=== PATIENT | female | born 1935 | race Caucasian/White ===

== ENCOUNTER 2017-05-08 13:27 | Inpatient (IN) | payer MEDICARE, SELFPAY ==
[2017-05-08] VITALS (11 sets, daily range): BP systolic 112–170; BP diastolic 53–105; PULSE 51–74; RESP 17–20; TEMP 35.9–37.1; O2SAT 95–100; BMI 32.5; BMI 32.6; BMI 32.7
--- NOTE | 2017-05-08 13:33 | CT_ITS ---
STUDY: CT BRAIN WITHOUT CONTRAST REASON FOR EXAM: Female, 82 years old. Dizziness. RADIATION DOSAGE (If Supplied By Facility): CTDIvol = ( 44.99 ) mGy, DLP = ( 762.36 ) mGycm TECHNIQUE: Transaxial CT imaging of the brain was performed without administration of intravenous contrast material. Individualized dose optimization techniques were used for this CT. COMPARISON: 07/05/2016. FINDINGS: Normal soft tissue structures. Normal calvarium. There is mild cerebral atrophy with widening of the extra-axial spaces and ventricular dilatation. There are areas of decreased attenuation within the white matter tracts of the supratentorial brain, consistent with microvascular disease changes. 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 Normal brainstem. There is mild cerebellar atrophy. There is no intracranial hemorrhage. There are no findings of an acute ischemic infarction. Normal visualized paranasal sinuses. CT/Brain/Head without Contrast IMPRESSION: Atrophy and white matter disease. No acute abnormality. Electronically Signed: Wilmer Kingsley MD at 14:55 EDT , Service support ,
--- NOTE | 2017-05-08 13:37 | EKG12_ITS ---
Test Reason : Blood Pressure : / mmHG Vent. Rate : 058 BPM Atrial Rate : 058 BPM P-R Int : 190 ms QRS Dur : 086 ms QT Int : 428 ms P-R-T Axes : 054 008 063 degrees QTc Int : 420 ms Sinus bradycardia Low voltage QRS Borderline ECG Confirmed by NILDA RAMIRES, JOHNNIE ([id number]), editorial specialist PIERO ARTEAGA ([id number]) on 05/11/2017 1:17:10 PM Referred By: KOSTAS Confirmed By:JOHNNIE MUNGUIA MD
--- NOTE | 2017-05-08 13:50 | ED.RN ---
called [id number] and left message with nikki neonatal social worker for the emergency department, that pt is in need of being seen. per ems to triage nurse pt lives at home with a son in his 60's who she cares for and is an alcoholic. ems reports pt looked like a corpse and the house was a mess. ems reports that they were going to call adult protective services.
[2017-05-08 14:06] LABS: Absolute Lymphocyte Count 1.29 X10^3/ul (0.83-4.51); Absolute Neutrophil Count 4.1 X10^3/uL (2.0-7.7); Basophil# 0.02 X10^3/uL; Basophil% 0.3 % (0-1); Eosinophil# 0.14 X10^3/uL; Eosinophils% 2.3 % (0-5); Hematocrit 40.1 % (37-47); Hemoglobin 13.3 g/dl (12.0-15.0); Lymphocyte # 1.29 X10^3/ul (4.0); Lymphocyte % 21.4 % (19-41); Mean Corp Hgb Conc 33.2 g/gl (32-36); Mean Corpuscular Hgb 27.6 pg (27.0-32.0); Mean Corpuscular Volume 83.2 fL (81-99); Mean Platelet Vol. 9.8 fl (6.2-12.0); Monocyte# 0.48 X10^3/uL; Neutrophil # 4.09 X10^3/uL (2.7-7.7); Neutrophil % 67.8 % (47-70); POSITIVE COUNT NO; POSITIVE DIFFERENTIAL NO; POSITIVE MORPHOLOGY NO; Platelet Count 214 K/mm3 (150-450); RBC Distribution Width CV 15.5 % (11.6-14.6); RBC Distribution Width SD 47.3 fl (35.1-43.9); Red Blood Count 4.82 M/mm3 (4.2-5.4)
[2017-05-08] MEDS: 0.9% Normal Saline 1,000 ML 1000 ML IV (14:11)
[2017-05-08] MEDS: Ondansetron 4 MG/2 ML Vial IV (14:11)
--- NOTE | 2017-05-08 14:20 | NURSING ---
NO LW OR POA
[2017-05-08 14:25] LABS: ALB/GLOB Ratio 0.9 RATIO (0.9-2.4); AST(SGOT) 24 U/L (15-37); Alanine Aminotransfer ALT/SGPT 16 U/L (13-56); Albumin, Serum 3.7 g/dL (3.2-5.0); Alkaline Phosphatase 84 U/L (45-117); Anion Gap 9 (5-15); BUN 15 mg/dL (7-18); BUN/Creat Ratio 12.2 RATIO (10-20); Calcium,Total 9.1 mg/dL (8.5-10.1); Chloride 101 mmol/L (98-107); Creatinine, Serum 1.23 mg/dL (0.55-1.02); EST Glomerular Filtration Rate 44 mL/min (>60); Est Glom Filt Rate - Afr Amer 54 mL/min (>60); Estimated Creatinine Clearance 30.45 ml/min; Globulin 4.3 g/dL (2.2-4.2); Glucose 110 mg/dL (74-106); Potassium 3.9 mmol/L (3.5-5.1); Sodium Level 133 mmol/L (136-145)
[2017-05-08 14:33] LABS: Mucous, Urine 0 SEEN /hpf (<or=2+)
[2017-05-08 14:36] LABS: Color, Urine Yellow (Yellow); Glucose, Dipstick Normal (Normal); Ketone-Dipstick Negative (Negative); Leukocyte Esterase-Dipstick 500 /ul (Negative); Nitrite-Dipstick Positive (Negative); Occult Blood-Urine 25 /ul (Negative); Protein-Dipstick Negative (Negative); Specific Gravity, Urine 1.005 (1.002-1.030); Urine Bilirubin Dipstick Negative (Negative); Urine Clarity Sl. Cloudy (Clear); Urine Urobilinogen Normal (Normal)
[2017-05-08 14:43] LABS: Bacteria 1+ /hpf (None Seen); Red Blood Cells-Urine 0-5 SEEN /hpf (0-5); Squamous Epithelial Cells - UA 0-5 SEEN /hpf (5-10); White Blood Cells 5-10 SEEN /hpf (0-5)
--- NOTE | 2017-05-08 14:53 | ED.DCSUM_ITS ---
- ER Visit Summary Date of Service: 05/08/17 Chief Complaint: Dizziness, vomiting History of Present Illness: The patient is a 82 F with the sensation of lightheadedness and vomiting. The patient states she has had similar symptoms in the past. She has a history of aortic valve replacement but is not anticoagulated. She states over the past 2 days, she has had increased urinary frequency and urgency. She states that she is also had increasing dizziness. She describes it as lightheadedness and sensation of motion especially when she changes position. She states when she sits up quickly, she feels as if she is going to pass out. She has been nauseated with no appetite. The patient was brought in by squad. Apparently on squad arrival, the patient's house is in significant disarray. They are concerned that she is not meeting her normal ADLs because of her living conditions. She apparently lives with her son who is a reported alcoholic. The patient has basically been bedbound for 2 days because of her symptoms. She states that she had similar symptoms like this before when she had a bleeding ulcer and her blood counts were low. She denies any change in bowel habits. Physical Examination: Vital signs reviewed General: Well-nourished, well-developed Head: Normocephalic, atraumatic Eyes: Pupils equal and reactive, extraocular muscles intact Neck, supple, no lymphadenopathy Heart: Regular rate and rhythm Respiratory: No distress, clear bilaterally Abdomen: Soft, nontender, nondistended, no peritoneal signs Back: Nontender Extremities: Nontender, no edema, no cords Skin: Normal color no rash Neuro: Alert and oriented, no focal or lateralizing deficits Test Results: KG demonstrates sinus bradycardia with no acute ischemic change. Labs are unremarkable. CT had unremarkable. Urine does show infection. Emergency Department Course and Treatment: She has basically been bedbound because of her symptoms. She describes mostly near syncope and lightheadedness with motion. This does not seem vertiginous. She has no other brainstem symptoms are concerning for stroke. I do feel this is likely metabolic in nature. Her hemoglobin is unremarkable. Her head CT is unremarkable. Her urine does show evidence of infection. Patient was evaluated by social work. It was thought that she would best be served with admission. I am going to start the patient on IV antibiotics and fluids. The patient was discussed with the hospitalist will be admitted. Treatment Plan: [] Disposition: Admission Impression:. UTI 2. Lightheadedness This note was generated with Windward dictation software. It may contain incorrect words, spelling, and punctuation that were not noted in review of the chart prior to signing ED Disposition - Plan for ED Patient: Chief Complaint: Dizziness
--- NOTE | 2017-05-08 15:07 | CM.ED ---
Social work notified of concerns and will follow-up with patient.
--- NOTE | 2017-05-08 15:15 | NURSING ---
DR MOY FOR DR KENYON
--- NOTE | 2017-05-08 15:18 | NURSING ---
MED SURG ACUTE CYSTITIS, DIZZINESS, PHYSICAL DEBILITY ASEOHH
[2017-05-08] MEDS: Ceftriaxone 1 GM/50 mL Premix x1 IV (15:37)
--- NOTE | 2017-05-08 15:44 | HP.PCM_ITS ---
Problem List (1) Status post aortic valve replacement with bioprosthetic valve Status: Chronic (2) history of microcytic anemia Status: Chronic (3) Hypothyroidism Status: Chronic (4) HTN (hypertension) Status: Chronic (5) Hyperlipidemia Status: Chronic (6) Aortic valve stenosis Status: Chronic History of Present Illness Date of Admission: 05/08/17 Chief Complaint: Dizziness, vomiting. The patient is a 82 year old F with past medical history as mentioned above presented to the emergency room because of dizziness and vomiting. The patient is poor informant and was not able to provide good history because she is hard of hearing and because of her age. Her symptoms started over the past 2 days with dizziness upon standing associated with nausea and vomiting once or twice. Also, she complains of frequency and difficulty concentrating her urine. She denies dysuria or foul-smelling urine. She complained of suprapubic discomfort. She denies fever chills. No chest pain or shortness of breath. She denies cough or sputum production. She has a history of aortic stenosis status post aortic valve replacement with bioprosthetic valve and she is following up with her cardiac surgeon up in [place]. She had a history of hypertension she has been on 3 different antihypertensive medications and she mentioned that recently, her blood pressure has been fluctuating significantly. She has history of hypothyroidism and she has been on levothyroxine and most recent TSH was back in February, and it was normal. Patient mentioned that she lives with her grandson at home who is a smoker and drinker. In the emergency room, she was afebrile, heart rate was stable, blood pressure initially was slightly elevated but improved and his blood pressure drop around 20 points upon standing, pulse ox was normal On room air. Routine blood work is remarkable for sodium of 133 and creatinine of 1.23, otherwise normal. LFT was normal. Urinalysis revealed cloudy urine, positive for nitrite and leukocyte esterase and there was a 5-10 WBCs and 1+ bacteria. CT scan brain showed no acute infarction or hemorrhage. She is being admitted for acute cystitis, dizziness with questionable orthostatic hypotension and physical debility. Past Medical History Past Medical History (Chronic Problems): Chronic Problems Status post aortic valve replacement with bioprosthetic valve (Chronic) history of microcytic anemia (Chronic) Hypothyroidism (Chronic) HTN (hypertension) (Chronic) Hyperlipidemia (Chronic) Aortic valve stenosis (Chronic) Allergies adhesive Adverse Reaction (Verified 05/08/17 13:34) Rash Home Medications: Ambulatory Orders Medication Instructions Recorded Pantoprazole Sodium [Protonix] 40 mg PO DAILY 05/21/13 Pravastatin [Pravachol] 20 mg PO QHS 05/21/13 Hydrochlorothiazide [Hctz] 25 mg PO DAILY 07/05/16 Aspirin 81 mg PO DAILY 05/08/17 Docusate Sodium [Dulcoease] 100 mg PO DAILY PRN 05/08/17 Levothyroxine [Synthroid] 75 mcg PO DAILY 05/08/17 Losartan Potassium [Losartan 100 mg PO DAILY 05/08/17 Potassium] Metoprolol Tartrate [Lopressor 25 mg PO BID 05/08/17 (beta oneyda)] Surgical History: appendectomy, - - Aortic valve replacement Smoking Status: Never smoker Alcohol: None Drugs: None - *Family History Maternal History Items: No pertinent history Paternal History Items: No pertinent history Review of Systems Constitutional: Reports: Weakness. Denies: Anorexia, Chills, Fever Eyes: Denies: Blurred vision, Double vision, Drainage, Redness HEENT: Denies: Difficulty Hearing, Ear Pain, Eye Pain, Nasal Congestion, Sore Throat Cardiovascular: Reports: Light Headedness. Denies: Chest Pain, Chest Pressure, Chest Tightness, Heaviness, Palpitations, Syncope Respiratory: Denies: Cough, Pleuritic Pain, Shortness of Breath, Sputum production, Wheezing Gastrointestinal: Reports: Nausea. Denies: Abdominal Pain, Constipation, Diarrhea, Vomiting Genitourinary: Reports: Frequency, Incontinence. Denies: Dysuria, Hematuria Musculoskeletal: Denies: Arm Pain, Back Pain, Foot Pain Skin: Denies: Dryness, Rash Neurological: Denies: Balance problems, Double vision, Change in Speech, Slurred speech, Confusion, Difficulty swallowing, Incoordination, Numbness Psychiatric: Denies: Anxiety, Depression Endocrine: Denies: Change in Body Habitus, Polydipsia VTE Information - Inpt Only VTE Present on Admission: No VTE Mechan Device Prophylaxis: None VTE Pharm Prophylaxis ordered?: Yes - Physical Exam General: Alert, Oriented x3, Cooperative, No apparent distress, - - Hard of hearing. HEENT: Atraumatic, PERRLA, EOMI Oral: Moist Mucosa, No Gingival or Mucosal Lesions/ Ulcerations Neck: Supple, No JVD, Negative Carotid Bruits, Trachea Midline, Thyroid Normal Size and Texture Lungs: Clear to auscultation, No rhonchi, No wheeze, No rales, Diminished Cardiovascular: Regular rate, Regular Rhythm, Normal S1, Normal S2, PMI Normal, Murmur - Systolic murmur. Abdomen: Bowel Sounds Present, Soft, Non Tender, Non-Distended, No Hepato- splenomegaly, Obese Extremities: No clubbing, No cyanosis, No edema Skin: No rashes, No breakdown Lymphatic: No Cervical, Supraclavicular, or Inguinal Adenopathy Neurological: Cranial nerves II-XII grossly intact, Motor Exam 5/5 strength throughout Psych/Mental Status: Normal Affect, Appropriate, Alert and oriented to time, place, person, mood and affect Vital Signs Temp Pulse Resp BP Pulse Ox 98.3 F 66 19 H 120/76 97 05/08/17 13:29 05/08/17 15:25 05/08/17 15:25 05/08/17 15:25 05/08/17 15:25 Oxygen Delivery Method Room Air Weight: 190 lb Body Mass Index (BMI) 32.5 Laboratory Tests Past 24 Hrs 05/08/17 05/08/17 05/08/17 13:39 13:39 14:26 WBC 6.0 RBC 4.82 Hgb 13.3 Hct 40.1 MCV 83.2 MCH 27.6 MCHC 33.2 RDW 15.5 H RDW Differential 47.3 H Plt Count 214 MPV 9.8 Immature Gran % (Auto) 0.200 Neut % (Auto) 67.8 Lymph % (Auto) 21.4 Bibb % (Auto) 8.0 Eos % (Auto) 2.3 Baso % (Auto) 0.3 Absolute Neuts (auto) 4.1 Absolute Lymphs (auto) 1.29 Total Counted Not Reportable Sodium 133 L Potassium 3.9 Chloride 101 Carbon Dioxide 23.0 Anion Gap 9 BUN 15 Creatinine 1.23 H Estim Creat Clear Calc 30.45 Est GFR (MDRD) Af Amer 54 L Est GFR (MDRD) Non-Af 44 L BUN/Creatinine Ratio 12.2 Glucose 110 H Calcium 9.1 Total Bilirubin 0.90 AST 24 ALT 16 Alkaline Phosphatase 84 Troponin I < 0.02 Total Protein 8.0 Albumin 3.7 Globulin 4.3 H Albumin/Globulin Ratio 0.9 Urine Color Yellow Urine Clarity Sl. Cloudy Urine pH 7.0 Ur Specific [place] 1.005 Urine Protein Negative Urine Glucose (UA) Normal Urine Ketones Negative Urine Occult Blood 25 H Urine Nitrite Positive H Urine Bilirubin Negative Urine Urobilinogen Normal Ur Leukocyte Esterase 500 H Urine RBC 0-5 SEEN Urine WBC 5-10 SEEN Ur Squamous Epith Cells 0-5 SEEN Urine Bacteria 1+ Urine Mucus 0 SEEN Clinical Impression(s) from Imaging Studies Brain CT 05/08/17 13:33 IMPRESSION: Atrophy and white matter disease. No acute abnormality. Electronically Signed: Wilmer Kingsley MD at 14:55 EDT , Service support , Assessment/Plan This is an 82 years old female patient presented to the emergency room because of dizziness, nausea and vomiting and weakness and she was found to have acute cystitis and her orthostatic vitals were questionably positive. #1 acute cystitis: UA reviewed, positive for leukocyte esterase and nitrate, there was 1+ bacteria and 5-10 WBCs. No evidence of sepsis or severe sepsis. Plan: Admit to [facility] floor, telemetry, IV fluids, IV Rocephin, urine culture, repeat CBC and BMP tomorrow morning, PT OT evaluation and treatment. #2 dizziness: Initial blood pressure was slightly elevated. Upon standing, blood pressure came down around 21 points, heart rate has been stable. EKG revealed normal sinus rhythm with low voltage QRS, no acute ischemic changes. Patient mentioned that her blood pressure has been fluctuating recently. Plan: IV fluids, repeat orthostatic vitals tomorrow morning, 2D echocardiogram. #3 mild hyponatremia/dehydration: Likely because of HCTZ, creatinine is 1.2 which is chronically at the same level. Plan for IV fluids, encourage oral intake, repeat BMP tomorrow morning. #4 status post aortic valve replacement with bioprosthetic valve: She has been following up with her doctor up in [facility]. I am not sure when she had her last 2D echocardiogram. EKG revealed normal sinus rhythm with low voltage QRS. She denies any chest pain or shortness of breath. Plan: 2D echocardiogram. #5 hypertension: Blood pressure has been fluctuating in the emergency room. Plan to continue losartan and metoprolol, hold HCTZ. #6 hyperlipidemia: Continue statins. #7 hypothyroidism: Continue levothyroxine, TSH was normal on February, #8 DVT prophylaxis: Subcu Lovenox. This note was generated with iAgree dictation software. It may contain incorrect words, spelling, and punctuation that were not noted in checking the note before signing. Code Visit Inpatient E&M: 79408 Init Hosp L3
--- NOTE | 2017-05-08 16:36 | ECHOD_ITS ---
Reason For Study: VALVE REPLACEMENT Procedure This was a 2D Doppler, Color Flow transthoracic echocardiogram. Exam performed portable in patient room. Left Ventricle Normal size and thickness. The estimated ejection fraction is 65 %. Stage 2 diastolic dysfunction. No regional wall motion abnormalities noted. Right Ventricle Mildly dilated right ventricle. Normal systolic function. Atria The left atrium is severely enlarged. Normal right atrium. Normal atrial septum. Mitral Valve Mild diffuse mitral valve thickening. Trivial mitral valve insufficiency. Tricuspid Valve Normal tricuspid valve. Moderate (2+) tricuspid valve insufficiency. Right ventricular systolic pressure estimated to be 55 mmHg. Moderate pulmonary hypertension. Aortic Valve Peak aortic valve gradient 19 mmHg. Mean aortic valve gradient 11 mmHg. Bioprosthetic aortic valve. Pulmonic Valve Normal pulmonic valve. Trivial eccentric pulmonic valve insufficiency. Great Vessels Normal aortic root. Normal arch. Normal inferior vena cava. Inferior vena cava collapse with sniff. Pericardium/Pleural No pericardial effusion. MMode/2D Measurements & Calculations LVIDd: 4.3 cm IVSd: 1.1 cm LA dimension: 5.1 cm LVIDs: 2.8 cm LVPWd: 1.0 cm RVDd: 3.8 cm FS: 35.3 % LAV(MOD-bp): 60.2 ml EDV(MOD-sp4): 73.5 ml EDV(MOD-sp2): 85.6 ml LAV(MOD-bp) Indexed: 31.4 ml/m2 ESV(MOD-sp4): 32.6 ml EF(MOD-sp2): 64.0 % LAV(MOD-sp2): 51.2 ml EF(MOD-sp4): 55.7 % LAV(MOD-sp4): 71.3 ml SV(MOD-sp4): 40.9 ml SV(MOD-sp2): 54.8 ml LA A4 area: 23.5 cm2 RA A4 area: 15.1 cm2 Doppler Measurements & Calculations MV E max rivka: 106.1 cm/sec Ao V2 max: 234.9 cm/sec LV V1 max: 98.3 cm/sec MV A max rivka: 82.7 cm/sec Ao max P.3 mmHg LV V1 max P.9 mmHg MV E/A: 1.3 Ao V2 mean: 162.2 cm/sec LV V1 mean P.3 mmHg Ao mean P.2 mmHg LV V1 mean: 71.5 cm/sec Ao V2 VTI: 60.8 cm LV V1 VTI: 26.7 cm TR max rivka: 353.1 cm/sec TR max P.9 mmHg Interpretation Summary The estimated ejection fraction is 65 %. Stage 2 diastolic dysfunction. Mildly dilated right ventricle. The left atrium is severely enlarged. Trivial mitral valve insufficiency. Moderate (2+) tricuspid valve insufficiency. Right ventricular systolic pressure estimated to be 55 mmHg. Moderate pulmonary hypertension. Normal functioning bioprosthetic aortic valve. Compared to echo report dated 12/22/2013, LV function and aortic gradients have remained the same. RVSP not noted at that time. Ordering Physician: Mahad Ceja Referring Physician: MICHELLE SALDIVAR Performed By: Mabel Caceres RDCS, BRIGIDAT
[2017-05-08] MEDS: Acetaminophen 325 MG Tablet 650 MG PO (16:53)
[2017-05-08] MEDS: Pravastatin 20 MG Tablet PO (21:53)
[2017-05-08] MEDS: 0.9% Normal Saline 1,000 ML 100 ML IV (21:53)
[2017-05-08] MEDS: Metoprolol Tartrate 25 MG Tablet PO (21:53)
[2017-05-09] VITALS (15 sets, daily range): BP systolic 131–151; BP diastolic 56–72; PULSE 50–61; RESP 16–20; TEMP 35.8–37.1; O2SAT 96–100
--- NOTE | 2017-05-09 04:05 | EKG12_ITS ---
Test Reason : RHYTHM CHANGE Blood Pressure : / mmHG Vent. Rate : 051 BPM Atrial Rate : 051 BPM P-R Int : 246 ms QRS Dur : 086 ms QT Int : 486 ms P-R-T Axes : 054 018 045 degrees QTc Int : 447 ms Sinus bradycardia with 1st degree A-V block Low voltage QRS Borderline ECG When compared with ECG of 08-MAY-2017 13:45, MANUAL COMPARISON REQUIRED, DATA IS UNCONFIRMED Confirmed by NILDA RAMIRES, JOHNNIE ([id number]), news editor PIERO ARTEAGA ([id number]) on 05/18/2017 2:54:28 PM Referred By: CHINMAY Confirmed By:JOHNNIE MUNGUIA MD
[2017-05-09] MEDS: Levothyroxine 75 MCG Tablet PO (06:26)
[2017-05-09 06:27] LABS: Absolute Lymphocyte Count 1.15 X10^3/ul (0.83-4.51); Absolute Neutrophil Count 2.9 X10^3/uL (2.0-7.7); Basophil# 0.02 X10^3/uL; Basophil% 0.4 % (0-1); Eosinophil# 0.25 X10^3/uL; Eosinophils% 5.2 % (0-5); Hematocrit 33.9 % (37-47); Hemoglobin 11.5 g/dl (12.0-15.0); Lymphocyte # 1.15 X10^3/ul (4.0); Mean Corp Hgb Conc 33.9 g/gl (32-36); Mean Corpuscular Hgb 28.3 pg (27.0-32.0); Mean Corpuscular Volume 83.3 fL (81-99); Mean Platelet Vol. 9.4 fl (6.2-12.0); Monocyte# 0.47 X10^3/uL; Monocyte% 9.8 % (0-10); Neutrophil # 2.89 X10^3/uL (2.7-7.7); Neutrophil % 60.4 % (47-70); Platelet Count 194 K/mm3 (150-450); RBC Distribution Width SD 45.2 fl (35.1-43.9); Red Blood Count 4.07 M/mm3 (4.2-5.4); White Blood Count 4.8 K/mm3 (4.4-11.0)
[2017-05-09] MEDS: Nystatin Powder 15gm Bottle 1 APPLIC TOPICAL ×3 (06:28→21:27)
[2017-05-09 06:32] LABS: POSITIVE COUNT NO; POSITIVE DIFFERENTIAL NO; POSITIVE MORPHOLOGY NO
--- NOTE | 2017-05-09 06:33 | NURSING ---
Orthostatic VS negative but pt. felt dizzy and slightly nauseated upon standing.
[2017-05-09 06:51] LABS: Anion Gap 8 (5-15); BUN 16 mg/dL (7-18); BUN/Creat Ratio 15.8 RATIO (10-20); Calcium,Total 8.5 mg/dL (8.5-10.1); Chloride 105 mmol/L (98-107); Creatinine, Serum 1.01 mg/dL (0.55-1.02); EST Glomerular Filtration Rate 56 mL/min (>60); Est Glom Filt Rate - Afr Amer 68 mL/min (>60); Estimated Creatinine Clearance 37.08 ml/min; Glucose 94 mg/dL (74-106); Potassium 3.8 mmol/L (3.5-5.1); Sodium Level 136 mmol/L (136-145)
[2017-05-09] MEDS: 0.9% Normal Saline 1,000 ML 100 ML IV ×2 (07:31→17:17)
[2017-05-09] MEDS: Docusate Sodium 100 MG Capsule PO (09:23)
[2017-05-09] MEDS: Enoxaparin 30 MG/0.3 ML Syringe SC (09:23)
[2017-05-09] MEDS: Losartan Potassium 100 MG Tablet PO (09:23)
[2017-05-09] MEDS: Pantoprazole Sodium 40 MG Tablet PO (09:23)
[2017-05-09] MEDS: Ceftriaxone 1 GM/50 ML BAG IV (09:23)
[2017-05-09] MEDS: Aspirin 81 MG TAB.CHEW PO (09:23)
--- NOTE | 2017-05-09 10:36 | CASEMGMT ---
Addendum entered by Roz Thomason 05/09/17 10:46: SW spoke w/Guillermo from [facility], she has been part of the program for four years. She states they monitor her closely, but she is fairly independent. In regard to the son, Guillermo confirms he drinks, he is very pleasant however. She does not see safety as an issue for this pt in regard to the son, but they will continue to monitor. JIM Gabriel, [employer] Original Note: SW spoke w/pt in room. Pt reports to live w/her son in a one story, 5 room home. Pt is independent at home, drives, does laundry in basement, cooks, cleans. Pt drives, sees a jacquard loom card changer at [employer] and drives herself there. Her son does not have a license. Pt does have [facility]. Pt states her son is POA. Pt does state her son drinks a lot, states he does not want help. She explains she wishes she knew who was sneaking in beer to her son, she states she does not hear well, she thinks someone is sneaking in the alcohol through the sliding door in one of the bathrooms. Pt explains her son has broken both hips, one 2-3 years ago after a fall and the other a year ago after another fall. She states he can barely walk, thinks he is depressed. Her granddaughter, his daughter, checked on him this morning and he is up watching TV. SW and pt discussed discharge plan. Pt does not have any interest in going to SNF, may consider home health--she had this once prior 4 years ago. SCARLETT explained that SCARLETT/YAMILETH will continue to follow for discharge planning needs. JIM Gabriel, [employer]
--- NOTE | 2017-05-09 10:41 | PCM.PROGNOTE ---
Subjective: 82-year-old female with a history of bioprosthetic aortic valve replacement, microcytic anemia, hypothyroidism, hypertension, hyperlipidemia to [facility] [place] on 05/08/2017 complaining of dizziness and vomiting. Also complained of urinary frequency dysuria. Vital signs at presentation to the emergency room were temperature 98.3, pulse rate 74, blood pressure 170/93, respiratory rate 20 and she was 97% saturated on room air. CBC was unremarkable. Sodium was mildly decreased at 133 and she is on a diuretic as an outpatient. BUN was 15 with a creatinine of 1.23. LFTs were unremarkable and troponin was less than 0.02. UA showed 5-10 white blood cells, 0-5 squamous epithelial cells, 1+ bacteria and was nitrite positive. This was a catheterized specimen and it was sent for urine culture. CT brain showed atrophy and white matter disease but no acute abnormalities. No chest x-ray was done. She was admitted to the hospital with a diagnosis of acute cystitis and was started on IV Rocephin. Per Dr. Cotton's note she had orthostatic hypotension when standing in the emergency room. IV fluids were ordered. Orthostatic vital signs have improved today. The heart rate increases from 50-61 with standing but the blood pressure was stable. Balance since admission is -379. Hemoglobin has decreased to 11.5 with hydration. White blood cell count remains normal and the platelets are also normal. Electrolytes are within normal limits and the sodium is 136 today. Creatinine has decreased 1.01 from 1.23 with hydration. Echocardiogram was done today and shows an estimated ejection fraction of 65% with stage II diastolic dysfunction. The right ventricle is mildly dilated and the left atrium is severely enlarged. There is 2+ TR. The right ventricular systolic pressure was estimated at 55 and the bioprosthetic aortic valve is functioning normally. She gets lightheaded and dizzy when she stands and attempts to walk. She has hearing loss and tinnitus in addition to vertigo - Meniere's? Has never tried Antivert. she denies ever having had a CVA - Physical Exam General: Alert, Oriented x3, Cooperative HEENT: Atraumatic, PERRLA Oral: Moist Mucosa Neck: Supple, Negative Carotid Bruits, No Nodes, No Nuchal Rigidity, Trachea Midline Lungs: Clear to auscultation, Diminished Cardiovascular: Regular rate, Regular Rhythm, Normal S1, Normal S2, Murmur - systolic heard best at the LLSB and the apex Abdomen: Bowel Sounds Present, Soft, Non Tender, Non-Distended, Obese Extremities: No clubbing, No cyanosis, No edema Skin: No rashes Neurological: Cranial nerves II-XII grossly intact, Neuro grossly intact Psych/Mental Status: Normal Affect, Appropriate Vital Signs Temp Pulse Resp BP Pulse Ox 97.9 F 51 L 16 151/64 H 100 05/09/17 09:05 05/09/17 09:05 05/09/17 09:05 05/09/17 09:05 05/09/17 09:05 Oxygen Delivery Method Room Air Weight: 190 lb 7.67 oz Body Mass Index (BMI) 32.7 Orthostatic Vital Signs Start: 05/09/17 03:03 Freq: 0600 Status: Active Protocol: Activity Type Activity Date Activity User E-Sign Co-Sign Detail Recorded Client Recorded Date Recorded By Document 05/09/17 06:15 PAL [id number] 05/09/17 06:32 PAL 05/09/17 06:15 Orthostatic Vitals Standing -Blood Pressure (90/60-120/80 mm Hg) 136/64 H -Extremity Use Right Arm -Pulse Rate (60-100 beats/min) 61 Sitting -Blood Pressure (90/60-120/80 mm Hg) 141/72 H -Extremity Use Right Arm -Pulse Rate (60-100 beats/min) 59 L Lying -Blood Pressure (90/60-120/80 mm Hg) 135/67 H -Extremity Use Right Arm -Pulse Rate (60-100 beats/min) 50 L Intake and Output for Last 24 Hours 05/07/17 05/08/17 05/09/17 23:59 23:59 23:59 Intake Total 911 / 911 1035 / 1035 Output Total 1275 / 1275 1050 / 1050 Balance -364 / -364 -15 / -15 Laboratory Tests Past 24 Hrs 05/09/17 05/09/17 05:50 05:50 WBC 4.8 RBC 4.07 L Hgb 11.5 L Hct 33.9 L MCV 83.3 MCH 28.3 MCHC 33.9 RDW 15.0 H RDW Differential 45.2 H Plt Count 194 MPV 9.4 Immature Gran % (Auto) 0.200 Neut % (Auto) 60.4 Lymph % (Auto) 24.0 Will % (Auto) 9.8 Eos % (Auto) 5.2 H Baso % (Auto) 0.4 Absolute Neuts (auto) 2.9 Absolute Lymphs (auto) 1.15 Total Counted Not Reportable Sodium 136 Potassium 3.8 Chloride 105 Carbon Dioxide 23.0 Anion Gap 8 BUN 16 Creatinine 1.01 Estim Creat Clear Calc 37.08 Est GFR (MDRD) Af Amer 68 Est GFR (MDRD) Non-Af 56 L BUN/Creatinine Ratio 15.8 Glucose 94 Calcium 8.5 Assessment/Plan Day #2 Rocephin Impressions 1. Acute cystitis -preliminary on the urine culture is greater than 100,000 staphylococcal species. This raises concern for the prosthetic valve...no vegetations on the AV today. 2. History of bioprosthetic aortic valve replacement 3. N/N anemia 4. Hypothyroidism 5. Hypertension 6. Hyperlipidemia 7. obesity 8. Orthostatic hypotension aat admission - resolve but she continues to c/o dizziness.....this in conjunction with tinnitus and hearing loss puts Meniere's in the differential....would also consider a posterior circulation CVA. Can not do an MRI because of the sternotomy and valve replacement 9. Stage II diastolic dysfunction 10. Pulmonary hypertension with an estimated right ventricular systolic pressure of 55 11. Severe left atrial enlargement continue the rocephin and add Vancomycin until the urine culture is back Draw 2 blood cultures now and then start the Vanco Recheck the lab in the AM Start Antivert If the dizziness and the inability to ambulate persist will repeat the CT of the brain continue PT/OT Code Visit Inpatient E&M: 37591 Subs Hosp L2
--- NOTE | 2017-05-09 10:46 | PN_ITS ---
Subjective: 82-year-old female with a history of bioprosthetic aortic valve replacement, microcytic anemia, hypothyroidism, hypertension, hyperlipidemia to [facility] on 05/08/2017 complaining of dizziness and vomiting. Also complained of urinary frequency dysuria. Vital signs at presentation to the emergency room were temperature 98.3, pulse rate 74, blood pressure 170/93, respiratory rate 20 and she was 97% saturated on room air. CBC was unremarkable. Sodium was mildly decreased at 133 and she is on a diuretic as an outpatient. BUN was 15 with a creatinine of 1.23. LFTs were unremarkable and troponin was less than 0.02. UA showed 5-10 white blood cells, 0-5 squamous epithelial cells, 1+ bacteria and was nitrite positive. This was a catheterized specimen and it was sent for urine culture. CT brain showed atrophy and white matter disease but no acute abnormalities. No chest x-ray was done. She was admitted to the hospital with a diagnosis of acute cystitis and was started on IV Rocephin. Per Dr. Cotton's note she had orthostatic hypotension when standing in the emergency room. IV fluids were ordered. Orthostatic vital signs have improved today. The heart rate increases from 50- 61 with standing but the blood pressure was stable. Balance since admission is -379. Hemoglobin has decreased to 11.5 with hydration. White blood cell count remains normal and the platelets are also normal. Electrolytes are within normal limits and the sodium is 136 today. Creatinine has decreased 1.01 from 1.23 with hydration. Echocardiogram was done today and shows an estimated ejection fraction of 65% with stage II diastolic dysfunction. The right ventricle is mildly dilated and the left atrium is severely enlarged. There is 2+ TR. The right ventricular systolic pressure was estimated at 55 and the bioprosthetic aortic valve is functioning normally. She gets lightheaded and dizzy when she stands and attempts to walk. She has hearing loss and tinnitus in addition to vertigo - Meniere's? Has never tried Antivert. she denies ever having had a CVA - Physical Exam General: Alert, Oriented x3, Cooperative HEENT: Atraumatic, PERRLA Oral: Moist Mucosa Neck: Supple, Negative Carotid Bruits, No Nodes, No Nuchal Rigidity, Trachea Midline Lungs: Clear to auscultation, Diminished Cardiovascular: Regular rate, Regular Rhythm, Normal S1, Normal S2, Murmur - systolic heard best at the LLSB and the apex Abdomen: Bowel Sounds Present, Soft, Non Tender, Non-Distended, Obese Extremities: No clubbing, No cyanosis, No edema Skin: No rashes Neurological: Cranial nerves II-XII grossly intact, Neuro grossly intact Psych/Mental Status: Normal Affect, Appropriate Vital Signs Temp Pulse Resp BP Pulse Ox 97.9 F 51 L 16 151/64 H 100 05/09/17 09:05 05/09/17 09:05 05/09/17 09:05 05/09/17 09:05 05/09/17 09:05 Oxygen Delivery Method Room Air Weight: 190 lb 7.67 oz Body Mass Index (BMI) 32.7 Orthostatic Vital Signs Start: 05/09/17 03:03 Freq: 0600 Status: Active Protocol: Activity Type Activity Date Activity User E-Sign Co-Sign Detail Recorded Client Recorded Date Recorded By Document 05/09/17 06:15 PAL [id number] 05/09/17 06:32 PAL 05/09/17 06:15 Orthostatic Vitals Standing -Blood Pressure (90/60-120/80 mm Hg) 136/64 H -Extremity Use Right Arm -Pulse Rate (60-100 beats/min) 61 Sitting -Blood Pressure (90/60-120/80 mm Hg) 141/72 H -Extremity Use Right Arm -Pulse Rate (60-100 beats/min) 59 L Lying -Blood Pressure (90/60-120/80 mm Hg) 135/67 H -Extremity Use Right Arm -Pulse Rate (60-100 beats/min) 50 L Intake and Output for Last 24 Hours 05/07/17 05/08/17 05/09/17 23:59 23:59 23:59 Intake Total 911 / 911 1035 / 1035 Output Total 1275 / 1275 1050 / 1050 Balance -364 / -364 -15 / -15 Laboratory Tests Past 24 Hrs 05/09/17 05/09/17 05:50 05:50 WBC 4.8 RBC 4.07 L Hgb 11.5 L Hct 33.9 L MCV 83.3 MCH 28.3 MCHC 33.9 RDW 15.0 H RDW Differential 45.2 H Plt Count 194 MPV 9.4 Immature Gran % (Auto) 0.200 Neut % (Auto) 60.4 Lymph % (Auto) 24.0 [place] % (Auto) 9.8 Eos % (Auto) 5.2 H Baso % (Auto) 0.4 Absolute Neuts (auto) 2.9 Absolute Lymphs (auto) 1.15 Total Counted Not Reportable Sodium 136 Potassium 3.8 Chloride 105 Carbon Dioxide 23.0 Anion Gap 8 BUN 16 Creatinine 1.01 Estim Creat Clear Calc 37.08 Est GFR (MDRD) Af Amer 68 Est GFR (MDRD) Non-Af 56 L BUN/Creatinine Ratio 15.8 Glucose 94 Calcium 8.5 Assessment/Plan Day #2 Rocephin Impressions 1. Acute cystitis -preliminary on the urine culture is greater than 100,000 staphylococcal species. This raises concern for the prosthetic valve...no vegetations on the AV today. 2. History of bioprosthetic aortic valve replacement 3. N/N anemia 4. Hypothyroidism 5. Hypertension 6. Hyperlipidemia 7. obesity 8. Orthostatic hypotension aat admission - resolve but she continues to c/o dizziness.....this in conjunction with tinnitus and hearing loss puts Meniere' s in the differential....would also consider a posterior circulation CVA. Can not do an MRI because of the sternotomy and valve replacement 9. Stage II diastolic dysfunction 10. Pulmonary hypertension with an estimated right ventricular systolic pressure of 55 11. Severe left atrial enlargement continue the rocephin and add Vancomycin until the urine culture is back Draw 2 blood cultures now and then start the Vanco Recheck the lab in the AM Start Antivert If the dizziness and the inability to ambulate persist will repeat the CT of the brain continue PT/OT Code Visit Inpatient E&M: 49273 Subs Hosp L2
[2017-05-09] MEDS: amLODIPine 2.5 MG Tablet PO (15:24)
[2017-05-09] MEDS: Meclizine 12.5 MG Tablet PO ×2 (15:24→21:31)
[2017-05-09] MEDS: Metoprolol Tartrate 25 MG Tablet 12.5 MG PO ×2 (15:26→21:27)
--- NOTE | 2017-05-09 15:51 | CHAPLAIN ---
Type of Pastoral Visit _x__ Initial Visit ___ Follow-up Visit ___ On-call Visit ___ General Patient Visit ___ Spiritual Assessment ___ Family Conference ___ Bereavement ___ Rapid Response ___ Code Blue ___ Other (describe below) Pastoral Care Referral From _x__ Patient ___ Family ___ Nurse ___ Physician ___ [employer] Special Education Teacher ___ Transport Conductor ___ Other (describe below) Sacrament/Intervention _x__ Active listening ___ Anointing ___ Nondenominational ___ Bereavement ___ Communion ___ Annika exploration ___ _x__ Life review _x__ Prayer ___ Reconciliation ___ Sacrament of Sick _x__ Supportive presence ___ Wedding ___ Other (describe below) Pastoral Comments 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 pt is and then ; Pt says her 59 year old alcoholic son lives with her; pt says she will not allow son to live (and ) on the streets; pt also acknowledges that she will not always be there to wait on him and that he needs to get straightened out; pt continues with other family concerns of a grandchild; when asked about her support, pt could not give answer; pt said she has two other living children but does not indicate that they are helpful; pt did say that a neighbor mows her lawn for her; pt says that she has not had a alevism connection for the last 15 years when she moved to [place];
[2017-05-09] MEDS: Pravastatin 20 MG Tablet PO (21:27)
[2017-05-10] VITALS (14 sets, daily range): BP systolic 112–151; BP diastolic 49–84; PULSE 55–65; RESP 16–18; TEMP 36.6–37.1; O2SAT 96
[2017-05-10] MEDS: 0.9% Normal Saline 1,000 ML 100 ML IV ×2 (04:01→16:48)
[2017-05-10] MEDS: Levothyroxine 75 MCG Tablet PO (06:25)
[2017-05-10] MEDS: Nystatin Powder 15gm Bottle 1 APPLIC TOPICAL ×3 (06:25→21:21)
[2017-05-10 07:11] LABS: Anion Gap 8 (5-15); BUN 16 mg/dL (7-18); BUN/Creat Ratio 15.7 RATIO (10-20); Calcium,Total 8.2 mg/dL (8.5-10.1); Chloride 108 mmol/L (98-107); Cholesterol 123 mg/dL (200); Creatinine, Serum 1.02 mg/dL (0.55-1.02); EST Glomerular Filtration Rate 55 mL/min (>60); Est Glom Filt Rate - Afr Amer 67 mL/min (>60); Estimated Creatinine Clearance 36.72 ml/min; Glucose 88 mg/dL (74-106); High Density Lipoprotein 38 mg/dL; Magnesium 1.8 mg/dL (1.6-2.6); Phosphorus 3.3 mg/dL (2.5-4.9); Potassium 4.2 mmol/L (3.5-5.1); Sodium Level 139 mmol/L (136-145); Triglycerides 112 mg/dL; Very Low Density Lipoprotein 22 mg/dL (5-40)
[2017-05-10] MEDS: Aspirin 81 MG TAB.CHEW PO (08:00)
--- NOTE | 2017-05-10 09:04 | PCM.RX.CS ---
Consult Pharmacy has been consulted to manage selected antiobiotic: Vancomycin Type of Consult: New start Suspected Infection: Other Labs: Sodium 139 mmol/L (136-145) 05/10/17 06:20 Potassium 4.2 mmol/L (3.5-5.1) 05/10/17 06:20 Chloride 108 mmol/L (98-107) H 05/10/17 06:20 Carbon Dioxide 23.0 mmol/L (21.0-32.0) 05/10/17 06:20 Anion Gap 8 (5-15) 05/10/17 06:20 BUN 16 mg/dL (7-18) 05/10/17 06:20 Creatinine 1.02 mg/dL (0.55-1.02) 05/10/17 06:20 Est GFR (MDRD) Af Amer 67 mL/min (>60) 05/10/17 06:20 Est GFR (MDRD) Non-Af 55 mL/min (>60) L 05/10/17 06:20 BUN/Creatinine Ratio 15.7 RATIO (10-20) 05/10/17 06:20 Glucose 88 mg/dL (74-106) 05/10/17 06:20 Microbiology: UCX: Staph species (no sensitivity available at time of note written) Weight used for dosin.4 kg Estimated Creatinine Clearance: 37 mL/min Goal Trough: 10-15 mcg/mL Pharmacy Plan for Drug Dosing: Pharmacy Service will continue to monitor and adjust dosing as required. Pharmacy to manage vancomycin for the treatment of suspected UTI. The patient's UCx showing a staph spp (no sensitivity available at this time), BCx currently pending. The patient was previous being treated on Rocephin. Initially, the patient was placed on Q48hr dosing, for which she received 1 total dose. Plan/Recommendation 1. Vancomycin 1.25g IV Q24hrs (14mg/kg based on TBW) 2. Trough scheduled for 05/12/17 @2030 (Prior to 4th total dose of vancomycin given) 3. Pharmacy will continue to monitor renal function, culture results, and trough values. Will make changes as appropriate
[2017-05-10] MEDS: Losartan Potassium 100 MG Tablet PO (09:17)
[2017-05-10] MEDS: Pantoprazole Sodium 40 MG Tablet PO (09:18)
[2017-05-10] MEDS: Enoxaparin 30 MG/0.3 ML Syringe SC (09:18)
[2017-05-10] MEDS: Metoprolol Tartrate 25 MG Tablet 12.5 MG PO ×2 (09:18→21:20)
[2017-05-10] MEDS: amLODIPine 2.5 MG Tablet PO (09:20)
[2017-05-10] MEDS: Ceftriaxone 1 GM/50 ML BAG IV (09:20)
[2017-05-10] MEDS: Meclizine 12.5 MG Tablet PO ×2 (09:20→21:20)
--- NOTE | 2017-05-10 15:58 | CASEMGMT ---
RN CM reviewed patient PT/OT and note max assist of 2 for transfers; ambulation 25 feet. RN CM notified SW of patient's functional performance and PT/OT recommendation for further skilled therapy in an undetermined setting. RN YAMILETH and/or SW will follow-up with patient tomorrow, 05/11/17, for further transition planning. FRANKIE Isbell, RN-BC, CCM
--- NOTE | 2017-05-10 16:22 | CASEMGMT ---
SW spoke w/pt again regarding [facility] placement. Pt states she thinks she will be able to manage at home, states she walked to and from the door today. SW asked if that would be enough however to manage at home, if she would be able bathe, cook, care for herself. Pt thinks she would be able to do so, states her son is there. SW reminded pt however that her son does not walk well and would not be able to help her. Pt still thinks she manage at home. Pt is agreeable to home health, SW explained will make referral, and will follow up w/pt tomorrow to see how she is moving with PT. SW called [facility], referral made, Yadi to let this SW know tomorrow if they can take pt for PT/OT/RN and SW. JIM Gabriel BROOM BUILDER
[2017-05-10] MEDS: Pravastatin 20 MG Tablet PO (21:20)
--- NOTE | 2017-05-10 21:39 | PCM.PROGNOTE ---
Subjective: Afebrile since admission. Vital signs are stable. She is 96% saturated on room air. Sodium is 139 today and the BUN is 16 with a creatinine of 1.02, down from 1.23 with some IV fluids. LDL is 63 with an HDL of 38. Urine culture is growing Staphylococcus Warneri -it is sensitive to Macrobid, rifampin, tetracycline and vancomycin. She has no complaints today. She denies dizziness or lightheadedness. Denies dysuria. - Physical Exam General: Alert, Oriented x3, Cooperative, No apparent distress, Well developed, Well nourished, - - sitting in a chair. HEENT: Atraumatic, PERRLA Oral: Moist Mucosa Neck: Supple Lungs: Clear to auscultation Cardiovascular: Regular rate, Regular Rhythm, Normal S1, Normal S2 Abdomen: Bowel Sounds Present, Soft, Non Tender, Non-Distended, Obese Extremities: No clubbing, No cyanosis, No edema Skin: No rashes Neurological: Cranial nerves II-XII grossly intact, Neuro grossly intact Psych/Mental Status: Normal Affect, Appropriate Vital Signs Temp Pulse Resp BP Pulse Ox 98.3 F 60 18 151/73 H 96 05/10/17 20:03 05/10/17 21:20 05/10/17 20:03 05/10/17 21:20 05/10/17 20:03 Oxygen Delivery Method Room Air Weight: 190 lb 7.67 oz Body Mass Index (BMI) 32.7 Orthostatic Vital Signs Start: 05/09/17 03:03 Freq: 0600 Status: Active Protocol: Activity Type Activity Date Activity User E-Sign Co-Sign Detail Recorded Client Recorded Date Recorded By Document 05/10/17 06:26 [facility] [id number] 05/10/17 06:31 MEP 05/10/17 06:26 Orthostatic Vitals Standing -Blood Pressure (90/60-120/80 mm Hg) 125/57 H -Extremity Use Right Arm -Pulse Rate (60-100 beats/min) 65 Sitting -Blood Pressure (90/60-120/80 mm Hg) 112/74 -Extremity Use Right Arm -Pulse Rate (60-100 beats/min) 60 Lying -Blood Pressure (90/60-120/80 mm Hg) 125/49 H -Extremity Use Right Arm -Pulse Rate (60-100 beats/min) 57 L Intake and Output for Last 24 Hours 05/08/17 05/09/17 05/10/17 23:59 23:59 23:59 Intake Total 911 / 911 3517 / 3517 3138 / 3138 Output Total 1275 / 1275 2700 / 2700 1949 / 1949 Balance -364 / -364 817 / 817 1188 / 1188 Laboratory Tests Past 24 Hrs 05/10/17 06:20 Sodium 139 Potassium 4.2 Chloride 108 H Carbon Dioxide 23.0 Anion Gap 8 BUN 16 Creatinine 1.02 Estim Creat Clear Calc 36.72 Est GFR (MDRD) Af Amer 67 Est GFR (MDRD) Non-Af 55 L BUN/Creatinine Ratio 15.7 Glucose 88 Calcium 8.2 L Phosphorus 3.3 Magnesium 1.8 Triglycerides 112 Cholesterol 123 LDL Cholesterol 63 VLDL Cholesterol 22 HDL Cholesterol 38 L Assessment/Plan Impressions 1. Acute cystitis? -Urine culture has greater than 100,000 colonies of Staphylococcus Warneri No vegetations on the bioprosthetic valve on TTE. ? whetehr this is actually a pathogen.....WBC and diff are normal and she has been afebrile since admission. She does not appear toxic. 2. History of bioprosthetic aortic valve replacement 3. N/N anemia 4. Hypothyroidism 5. Hypertension 6. Hyperlipidemia 7. obesity 8. Orthostatic hypotension at admission - resolve but she continues to c/o dizziness.....this in conjunction with tinnitus and hearing loss puts Meniere's in the differential....would also consider a posterior circulation CVA. Can not do an MRI because of the sternotomy and valve replacement 9. Stage II diastolic dysfunction 10. Pulmonary hypertension with an estimated right ventricular systolic pressure of 55 11. Severe left atrial enlargement DC the Rocephin and start Vancomycin Consult Dr. Martinez - does this need to be treated if the Blood cultures are negative? she lives alone and I think she would benefit from SNF at [place] - she is agreeable if it is only for a few weeks No dizziness today - unsure if this is due to hydration or the Meclizine? DC the IV fluids Will discuss SNF with the SW in the AM because the pt is now agreeable but refused when discussing with the SW earlier in the day Code Visit Inpatient E&M: 67174 Subs Hosp L2
[2017-05-11 02:05] VITALS: BP 125/66; PULSE 57; RESP 16; TEMP 36.6; O2SAT 97
[2017-05-11] MEDS: Nystatin Powder 15gm Bottle 1 APPLIC TOPICAL ×2 (05:50→14:37)
[2017-05-11] MEDS: Levothyroxine 75 MCG Tablet PO (05:50)
[2017-05-11 07:40] VITALS: O2SAT 95
[2017-05-11 08:05] VITALS: BP 127/52; PULSE 57; RESP 16; TEMP 36.8; O2SAT 98
[2017-05-11] MEDS: Meclizine 12.5 MG Tablet PO (08:55)
[2017-05-11] MEDS: Aspirin 81 MG TAB.CHEW PO (08:55)
[2017-05-11 08:56] VITALS: PULSE 72
[2017-05-11] MEDS: Metoprolol Tartrate 25 MG Tablet 12.5 MG PO (08:56)
[2017-05-11] MEDS: Pantoprazole Sodium 40 MG Tablet PO (08:56)
[2017-05-11] MEDS: Enoxaparin 30 MG/0.3 ML Syringe SC (08:56)
--- NOTE | 2017-05-11 09:42 | CASEMGMT ---
SW met w/pt this morning, she spoke w/family and physician and is agreeable to short term placement. Pt does not have a preference, but does not want to go to [facility]. SW explained can call [facility] and [facility], pt agreeable to this. SW called [facility], they are not taking pts today. SW called [facility], faxed referral, will continue to follow. JIM Gabriel, PAVING MACHINE OPERATOR
--- NOTE | 2017-05-11 12:04 | CASEMGMT ---
[facility] can take patient today. SW informed patient that she will be going to [facility]. Patient was receptive to this. HENS completed. Jessy Ceron, ORIENTAL RUG REPAIRER, PRODUCTION SUPERINTENDENT HYDRO.
--- NOTE | 2017-05-11 12:54 | PCM.HP.ID ---
Problem List (1) UTI (urinary tract infection) Status: Acute Reason for Consult: uti Consulted by: Dr. Saldivar History of Present Illness: The patient is a 82 year old F who was admitted 05/08 due to one day history of weakness, dizziness, and nausea at home. Sx started while she was making her bed. Had no dysuria, but some urinary frequency (was taking diuretics). No fever, no abd pain. Came to ED, UA with mild inflammation, started on ceftriaxone. Bcx sent 05/09 when ucx showed staph. Vanc started at that same time. Ucx now with staph warneri, ceftriaxone stopped. Pt feeling better, discharge planned. Full ROS performed and neg except as noted above. - Medical History Past Medical History (Chronic Problems): Chronic Problems Status post aortic valve replacement with bioprosthetic valve (Chronic) history of microcytic anemia (Chronic) Hypothyroidism (Chronic) HTN (hypertension) (Chronic) Hyperlipidemia (Chronic) Aortic valve stenosis (Chronic) Allergies/Adverse Reactions: Allergies adhesive Adverse Reaction (Verified 05/08/17 13:34) Rash Home Medications: Ambulatory Orders Medication Instructions Recorded Pantoprazole Sodium [Protonix] 40 mg PO DAILY 05/21/13 Pravastatin [Pravachol] 20 mg PO QHS 05/21/13 Hydrochlorothiazide [Hctz] 25 mg PO DAILY 07/05/16 Aspirin 81 mg PO DAILY 05/08/17 Docusate Sodium [Dulcoease] 100 mg PO DAILY PRN 05/08/17 Levothyroxine [Synthroid] 75 mcg PO DAILY 05/08/17 Losartan Potassium [Losartan 100 mg PO DAILY 05/08/17 Potassium] Metoprolol Tartrate [Lopressor 25 mg PO BID 05/08/17 (beta oneyda)] - Social History SMOKING STATUS:: Never smoker Vital Signs Temp Pulse Resp BP Pulse Ox 98.3 F 72 16 127/52 H 98 05/11/17 08:05 05/11/17 08:56 05/11/17 08:05 05/11/17 08:05 05/11/17 08:05 Oxygen Delivery Method Room Air Weight: 86.4 kg Body Mass Index (BMI) 32.7 Orthostatic Vital Signs Start: 05/09/17 03:03 Freq: 0800 Status: Active Protocol: Activity Type Activity Date Activity User E-Sign Co-Sign Detail Recorded Client Recorded Date Recorded By Document 05/10/17 06:26 [facility] [id number] 05/10/17 06:31 [facility] 05/10/17 06:26 Orthostatic Vitals Standing -Blood Pressure (90/60-120/80) 125/57 H -Extremity Use Right Arm -Pulse Rate (60-100) 65 Sitting -Blood Pressure (90/60-120/80) 112/74 -Extremity Use Right Arm -Pulse Rate (60-100) 60 Lying -Blood Pressure (90/60-120/80) 125/49 H -Extremity Use Right Arm -Pulse Rate (60-100) 57 L - Other Studies Radiology: [] reviewed Other Studies: [] Route of nutrition/ use of supplements: [] Nutritional Intake: [] IV Site: [] Rodriguez Catheter: [] - Physical Exam General: Alert, Oriented x3, Cooperative, No apparent distress HEENT: Atraumatic, PERRLA, EOMI Neck: Supple, No Nodes Lungs: Clear to auscultation, Normal air movement Cardiovascular: Regular rate, Regular Rhythm Abdomen: Bowel Sounds Present, Soft, Non Tender, Non-Distended Extremities: No clubbing, No edema Skin: No rashes IV Site: Peripheral Musculoskeletal: No Tenderness to Palpation of Joints or Extremities Neurological: Cranial nerves II-XII grossly intact - Assessment/Plan Antibiotics: [] Assessment/Plan: [] staph warneri complicated uti - ok for d/c on 5 more days of po doxy 100mg bid. Bcx neg. Thank you, will follow, d/w Dr. Saldivar.
--- NOTE | 2017-05-11 12:58 | CON.PCM_ITS ---
Problem List (1) UTI (urinary tract infection) Status: Acute Reason for Consult: uti Consulted by: Dr. Saldivar History of Present Illness: The patient is a 82 year old F who was admitted 05/08 due to one day history of weakness, dizziness, and nausea at home. Sx started while she was making her bed. Had no dysuria, but some urinary frequency (was taking diuretics). No fever, no abd pain. Came to ED, UA with mild inflammation, started on ceftriaxone. Bcx sent 05/09 when ucx showed staph. Vanc started at that same time. Ucx now with staph warneri, ceftriaxone stopped. Pt feeling better, discharge planned. Full ROS performed and neg except as noted above. - Medical History Past Medical History (Chronic Problems): Chronic Problems Status post aortic valve replacement with bioprosthetic valve (Chronic) history of microcytic anemia (Chronic) Hypothyroidism (Chronic) HTN (hypertension) (Chronic) Hyperlipidemia (Chronic) Aortic valve stenosis (Chronic) Allergies/Adverse Reactions: Allergies adhesive Adverse Reaction (Verified 05/08/17 13:34) Rash Home Medications: Ambulatory Orders Medication Instructions Recorded Pantoprazole Sodium [Protonix] 40 mg PO DAILY 05/21/13 Pravastatin [Pravachol] 20 mg PO QHS 05/21/13 Hydrochlorothiazide [Hctz] 25 mg PO DAILY 07/05/16 Aspirin 81 mg PO DAILY 05/08/17 Docusate Sodium [Dulcoease] 100 mg PO DAILY PRN 05/08/17 Levothyroxine [Synthroid] 75 mcg PO DAILY 05/08/17 Losartan Potassium [Losartan 100 mg PO DAILY 05/08/17 Potassium] Metoprolol Tartrate [Lopressor 25 mg PO BID 05/08/17 (beta oneyda)] - Social History SMOKING STATUS:: Never smoker Vital Signs Temp Pulse Resp BP Pulse Ox 98.3 F 72 16 127/52 H 98 05/11/17 08:05 05/11/17 08:56 05/11/17 08:05 05/11/17 08:05 05/11/17 08:05 Oxygen Delivery Method Room Air Weight: 86.4 kg Body Mass Index (BMI) 32.7 Orthostatic Vital Signs Start: 05/09/17 03:03 Freq: 0800 Status: Active Protocol: Activity Type Activity Date Activity User E-Sign Co-Sign Detail Recorded Client Recorded Date Recorded By Document 05/10/17 06:26 [facility] [id number] 05/10/17 06:31 [facility] 05/10/17 06:26 Orthostatic Vitals Standing -Blood Pressure (90/60-120/80) 125/57 H -Extremity Use Right Arm -Pulse Rate (60-100) 65 Sitting -Blood Pressure (90/60-120/80) 112/74 -Extremity Use Right Arm -Pulse Rate (60-100) 60 Lying -Blood Pressure (90/60-120/80) 125/49 H -Extremity Use Right Arm -Pulse Rate (60-100) 57 L - Other Studies Radiology: [] reviewed Other Studies: [] Route of nutrition/ use of supplements: [] Nutritional Intake: [] IV Site: [] Rodriguez Catheter: [] - Physical Exam General: Alert, Oriented x3, Cooperative, No apparent distress HEENT: Atraumatic, PERRLA, EOMI Neck: Supple, No Nodes Lungs: Clear to auscultation, Normal air movement Cardiovascular: Regular rate, Regular Rhythm Abdomen: Bowel Sounds Present, Soft, Non Tender, Non-Distended Extremities: No clubbing, No edema Skin: No rashes IV Site: Peripheral Musculoskeletal: No Tenderness to Palpation of Joints or Extremities Neurological: Cranial nerves II-XII grossly intact - Assessment/Plan Antibiotics: [] Assessment/Plan: [] staph warneri complicated uti - ok for d/c on 5 more days of po doxy 100mg bid. Bcx neg. Thank you, will follow, d/w Dr. Saldivar.
[2017-05-11 14:35] VITALS: BP 149/59; PULSE 58; RESP 16; TEMP 36.6; O2SAT 100
[2017-05-11] MEDS: Doxycycline 100 MG CAPSULE PO (14:37)
[2017-05-11] MEDS: amLODIPine 2.5 MG Tablet PO (14:37)
[2017-05-11] MEDS: Losartan Potassium 100 MG Tablet PO (14:37)
--- NOTE | 2017-05-11 15:19 | PCM.TXEXTCAR ---
- Diet 05/10/17 23:01 Diet: Regular Diet Is pt able to select menu?: Yes Diet Comments: SOFT FOODS- PT HAS NO TEETH - Routine Orders/Code Status Suppository Type: Dulcolax 10mg Suppository Frequency: Daily PRN Routine Lab Work: CBC, BMP Code Status: Full Code - Wound(s) UPPER BACK Wound Type: RASH PT SCRATCHES OPEN, MULTIPLE AREAS NOTED - Therapies Physical Therapy: Eval and Treat Occupational Therapy: Eval and Treat - Problem/Diagnosis (1) UTI (urinary tract infection) Status: Acute Current Visit: Yes (2) Orthostatic hypotension Status: Acute Current Visit: Yes (3) Status post aortic valve replacement with bioprosthetic valve Status: Chronic Current Visit: Yes (4) history of microcytic anemia Status: Chronic Current Visit: No (5) Hypothyroidism Status: Chronic Current Visit: No (6) HTN (hypertension) Status: Chronic Current Visit: No (7) Hyperlipidemia Status: Chronic Current Visit: No (8) Aortic valve stenosis Status: Chronic Current Visit: No (9) Pulmonary HTN Status: Acute Current Visit: Yes (10) Obesity Status: Chronic Current Visit: Yes (11) Debility Status: Chronic Current Visit: Yes - Allergies/Procedures Done in Hospital Allergies/Adverse Reactions: Allergies adhesive Adverse Reaction (Verified 05/08/17 13:34) Rash Procedures: 2-D Echocardiogram - Type of Care/Length of Stay Estimated LOS: Convalescent Care Less Than 30 days Type of Care Needed: Skilled Rehab Potential: Fair Prognosis: Fair - Additional Orders/Day of Discharge Day of Discharge: 05/11/17 - Follow Up Care Primary Care Physician: Bogdan Gordon MD [Primary Care Provider] - Please follow up with your Primary Care Physician in: 2 weeks
--- NOTE | 2017-05-11 15:31 | DS.PCM_ITS ---
<Kasi Barrera - Last Filed: 05/11/17 15:22> Discharge Date and Diagnosis Date of Admission: 05/08/17 Date of Discharge: 05/11/17 - Primary Discharge Diagnosis Active and Suspected Problems UTI (urinary tract infection) (Acute) Orthostatic hypotension (Acute) Pulmonary HTN Vertigo Hypothyroidism Obesity HTN HLD Mild normocytic anemia - Secondary Discharge Diagnosis Chronic Problems Obesity (Chronic) Debility (Chronic) Status post aortic valve replacement with bioprosthetic valve (Chronic) history of microcytic anemia (Chronic) Hypothyroidism (Chronic) HTN (hypertension) (Chronic) Hyperlipidemia (Chronic) Aortic valve stenosis (Chronic) Hospital Course and Treatment Imaging Results: CT/Brain/Head without Contrast IMPRESSION: Atrophy and white matter disease. No acute abnormality. Echo: Interpretation Summary The estimated ejection fraction is 65 %. Stage 2 diastolic dysfunction. Mildly dilated right ventricle. The left atrium is severely enlarged. Trivial mitral valve insufficiency. Moderate (2+) tricuspid valve insufficiency. Right ventricular systolic pressure estimated to be 55 mmHg. Moderate pulmonary hypertension. Normal functioning bioprosthetic aortic valve. Compared to echo report dated 12/22/2013, LV function and aortic gradients have remained the same. RVSP not noted at that time. Consults: Juan GRANT Operations: None Procedures: 2-D Echocardiogram Summary of Care Provided: Physical exam on day of discharge: General: Resting comfortably NAD Psych: A/Ox3 normal affect HEENT: PEARRLA AT NC Neck: Supple NT CV: RRR no m/t/r/g/h Resp: CTA Abd: [id number] Soft NT no guarding or rigidity Ext: DP2+= no edema Skin: W/D normal turgor Lymph/Heme: No active bleeding or adenopathy Neuro: CN2-12 intact Hospital course: The patient is a 82 year old F who presented to the ER with dizziness and vomiting for 2 days along with increased urinary frequency and suprapubic discomfort. In the ER she had a positive UA, a negative CT of the brain, positive orthostatic vital signs, and mild hyponatremia and dehydration. She was admitted to the med surg unit. Metoprolol was decreased for bradycardia, HCTZ held, low dose amlodipine started for BP control. She was given rocephin and IV fluids. Hyponatremia resolved. Urine culture demonstrated staph warneri and ID was consulted. She was placed on vanc and transitioned to PO doxycycline. She will continue this for 5 more days. She was trialed on meclizine for vertigo. An MRI could not be obtained 2/2 prior sternotomy and valve replacement. An echo was obtained which showed an EF of 65% with stage 2 diastolic dysfunction and RVSP of 55 mmHg (moderate pulm HTN). She was seen by PT[facility] and determined to need further skilled therapy. She was discharged to SNF in stable condition. This patient was seen by Kasi Barrera PA-C under the supervision of Doctor Yariel. [] Discharge Diet: Low fat/ Low Cholesterol, 2000 mg Sodium Diet Discharge Activity: Return to Normal Activity, - - Activity as directed by PTOT Home Medications: Medications to take at Discharge Pantoprazole Sodium [Protonix] 40 mg PO DAILY 05/21/13 Pravastatin [Pravachol] 20 mg PO QHS 05/21/13 Aspirin 81 mg PO DAILY 05/08/17 Docusate Sodium [Dulcoease] 100 mg PO DAILY PRN 05/08/17 Levothyroxine [Synthroid] 75 mcg PO DAILY 05/08/17 Losartan Potassium 100 mg PO DAILY 05/08/17 Acetaminophen [Tylenol Tablet] 650 mg PO Q6H PRN PRN tablet 05/11/17 Amlodipine [Norvasc] 2.5 mg PO DAILY tablet 05/11/17 Doxycycline 100 mg PO BID #10 capsule 05/11/17 Meclizine HCl [Antivert] 12.5 mg PO BID PRN tablet 05/11/17 Metoprolol Tartrate [Lopressor (beta oneyda)] 12.5 mg PO BID tablet 05/11/17 Nystatin Powder [Mycostatin Powder] 1 applic TOPICAL TID bottle 05/11/17 Primary Care Physician: Bogdan Gordon MD [Primary Care Provider] - Please follow up with your Primary Care Physician in: 2 weeks Disposition: Detention facility Minutes spent on discharge:: 35 Patient Condition:: Stable Medical Necessity - Tobacco Use Smoking Status: Never smoker Meaningful Use Info Meaningful Use Diagnoses (Choose all that apply): None applicable <Nurys Saldivar - Last Filed: 05/15/17 14:08> Discharge Date and Diagnosis - Secondary Discharge Diagnosis Chronic Problems Obesity (Chronic) Debility (Chronic) Status post aortic valve replacement with bioprosthetic valve (Chronic) history of microcytic anemia (Chronic) Hypothyroidism (Chronic) HTN (hypertension) (Chronic) Hyperlipidemia (Chronic) Aortic valve stenosis (Chronic) Hospital Course and Treatment Summary of Care Provided: The patient is a 82 year old F [] Code Visit This patient was seen in conjunction with Kasi BENJAMIN. I have independently interviewed and examined the patient and reviewed pertinent historical, laboratory and other data. Please refer to discharge summary note for details of this patient's presentation, findings and recommendations. I have reviewed Kasi's note and concur fully with documented findings. In brief, patient is a 82-year-old female with a history of bioprosthetic aortic valve replacement, microcytic anemia, hypothyroidism, hypertension, hyperlipidemia to [facility] on 05/08/2017 complaining of dizziness and vomiting. Workup in the emergency room was positive for orthostatic hypotension. UA had 5-10 WBCs per high-power field and the urine culture grew Staphylococcus Warneri. Orthostatic Hypotension resolved with hydration but, she continued to complain of vertigo and she was started on Meclizine with good improvement. She was seen by physical therapy and occupational therapy during her hospital admission and they felt she would benefit from further skilled therapy. She has a son who lives with her but he is an alcoholic and not much help to her. She was agreeable to a short stay in a [facility] facility to get stronger prior to returning home. Physical examination: Alert, oriented ?3, appropriate. Lungs-clear to auscultation. Heart-regular rate and rhythm with no gallop. Abdomen-soft, nontender, nondistended, no guarding with palpation. No peripheral edema. No focal neurologic deficits Assessment: 1. Orthostatic hypotension 2. Acute cystitis secondary to Staphlococcus Warneri I have discussed my assessment with Kasi and orders have been written. Inpatient E&M: 99210 Disch Hosp
--- NOTE | 2017-05-11 15:48 | NURSING ---
Patient's catheter removed at [address] Saldivar's order- obtained by juma Abreu, RN. Yareli care provided, medicated powder applied and brief placed- per pt request.
--- NOTE | 2017-05-11 15:49 | CASEMGMT ---
SW met with patient to inform her that she will be leaving at 4:30pm today via wheelchair van. SW informed patient that there will be a bill for the wheelchair van. Patient stated she understood this. Jessy GLASGOW, NURSING ATTENDANT.
--- NOTE | 2017-05-11 15:58 | CASEMGMT ---
Pt is ready for discharge. SCARLETT faxed all discharge instructions to [facility], including hospital exemption completed in [place]. SCARLETT set up a 4:30pm wheelchair van. SCARLETT Jessy Osmany let pt know time of pickup and that she will get a bill for the transport. SCARLETT also let RN here know and Lula at [facility] know time of transport. No further needs are anticipated. JIM Gabriel, MIXER ATTENDANT
--- NOTE | 2017-05-11 16:22 | NURSING ---
Report called to nurse Lanette at [facility] - further questions denied.
[2017-05-11] MEDS: Docusate Sodium 100 MG Capsule PO (16:24)
== END 2017-05-11 16:37 | disposition skilled nursing facility (03) | DRG 690 ==
LOC: ED 14:17 → MS2 15:42
PROVIDERS: Admitting Provider Hospitalist; Emergency Provider Emergency Medicine; Family Provider Family Medicine; PCP Family Medicine; Visit Provider Internal Medicine
DX: N30.00 Acute cystitis without hematuria (principal); E87.1 Hypo-osmolality and hyponatremia; I27.20 Pulmonary hypertension, unspecified; B95.7 Other staphylococcus as the cause of diseases classified elsewhere; D64.9 Anemia, unspecified; E03.9 Hypothyroidism, unspecified; E78.5 Hyperlipidemia, unspecified; I10 Essential (primary) hypertension; R42 Dizziness and giddiness; E66.9 Obesity, unspecified; I95.1 Orthostatic hypotension; R53.81 Other malaise; E86.0 Dehydration; Z95.3 Presence of xenogenic heart valve; Z68.32 Body mass index [BMI] 32.0-32.9, adult; Z79.899 Other long term (current) drug therapy
CPT/HCPCS: 36415; 51702; 70450; 80048; 80053; 80061; 81001; 83735; 84100; 84484; 85025; 87040; 87077; 87086; 87088; 87186; 93005; 93306; 97110; 97162; 97165; 97530; 99285; J7030; J7040; J7050; J2405

== ENCOUNTER → 2017-09-03 09:42 | Outpatient (CLI) | payer MEDICARE, SELFPAY ==
[2017-09-03 12:28] LABS: Anion Gap 11 (5-15); BUN 17 mg/dL (7-18); BUN/Creat Ratio 15.7 RATIO (10-20); Calcium,Total 9.2 mg/dL (8.5-10.1); Chloride 108 mmol/L (98-107); Cholesterol 182 mg/dL (200); Creatinine, Serum 1.08 mg/dL (0.55-1.02); EST Glomerular Filtration Rate 52 mL/min (>60); Est Glom Filt Rate - Afr Amer 62 mL/min (>60); Glucose 107 mg/dL (74-106); High Density Lipoprotein 45 mg/dL; Potassium 4.2 mmol/L (3.5-5.1); Sodium Level 142 mmol/L (136-145); Thyroid Stim Hormone (TSH) 5.89 uIU/mL (0.358-3.74); Triglycerides 167 mg/dL; Very Low Density Lipoprotein 33 mg/dL (5-40)
== END ==
PROVIDERS: Family Provider Family Medicine; PCP Family Medicine; Visit Provider Family Medicine
DX: I10 Essential (primary) hypertension (principal); E03.9 Hypothyroidism, unspecified
CPT/HCPCS: 36415; 80048; 80061; 84443

== ENCOUNTER → 2018-03-04 10:55 | Outpatient (CLI) | payer MEDICARE, SELFPAY ==
[2018-03-04 12:07] LABS: Absolute Lymphocyte Count 1.24 X10^3/ul (0.83-4.51); Basophil# 0.04 X10^3/uL; Basophil% 0.8 % (0-1); Eosinophil# 0.29 X10^3/uL; Eosinophils% 5.7 % (0-5); Hematocrit 33.8 % (37-47); Lymphocyte # 1.24 X10^3/ul (4.0); Lymphocyte % 24.3 % (19-41); Mean Corp Hgb Conc 29.6 g/gl (32-36); Mean Corpuscular Volume 74.4 fL (81-99); Mean Platelet Vol. 9.3 fl (6.2-12.0); Monocyte# 0.55 X10^3/uL; Monocyte% 10.8 % (0-10); Neutrophil # 2.97 X10^3/uL (2.7-7.7); Neutrophil % 58.2 % (47-70); Platelet Count 268 K/mm3 (150-450); RBC Distribution Width CV 18.9 % (11.6-14.6); Red Blood Count 4.54 M/mm3 (4.2-5.4); White Blood Count 5.1 K/mm3 (4.4-11.0)
[2018-03-04 12:13] LABS: Differential Indicated SCAN CRITERIA MET; POSITIVE COUNT NO; POSITIVE DIFFERENTIAL NO; POSITIVE MORPHOLOGY YES
[2018-03-04 12:27] LABS: Anion Gap 12 (5-15); BUN 17 mg/dL (7-18); BUN/Creat Ratio 13.4 RATIO (10-20); Calcium,Total 8.9 mg/dL (8.5-10.1); Chloride 110 mmol/L (98-107); Cholesterol 148 mg/dL (200); Creatinine, Serum 1.27 mg/dL (0.55-1.02); EST Glomerular Filtration Rate 43 mL/min (>60); Est Glom Filt Rate - Afr Amer 52 mL/min (>60); Free T3 2.4 pg/mL (2.18-3.98); Glucose 115 mg/dL (74-106); High Density Lipoprotein 40 mg/dL; Potassium 4.4 mmol/L (3.5-5.1); Sodium Level 141 mmol/L (136-145); Thyroid Stim Hormone (TSH) 1.48 uIU/mL (0.358-3.74); Triglycerides 147 mg/dL; Very Low Density Lipoprotein 29 mg/dL (5-40)
[2018-03-04 13:10] LABS: Anisocytosis 2+; Hypochromasia 1+; Ovalocyte 1+
== END ==
PROVIDERS: Family Provider Family Medicine; PCP Family Medicine; Visit Provider Family Medicine
DX: E03.9 Hypothyroidism, unspecified (principal); I10 Essential (primary) hypertension; R23.1 Pallor
CPT/HCPCS: 36415; 80048; 80061; 84436; 84443; 84481; 85025

== ENCOUNTER 2018-06-15 19:21 | Inpatient (IN) | payer MEDICARE, SELFPAY ==
[2018-06-15] VITALS (13 sets, daily range): BP systolic 152–183; BP diastolic 78–110; PULSE 74–98; RESP 17–27; TEMP 36.1–36.8; O2SAT 95–98; BMI 33.2; BMI 33.4; BMI 33.5
--- NOTE | 2018-06-15 19:34 | CT_ITS ---
We are attempting to reach Felicita Ospina MD to discuss findings. An addendum with communication details will be sent when the communication is complete. STUDY: CT BRAIN WITHOUT CONTRAST REASON FOR EXAM: Female, 83 years old. Right-sided weakness and numbness with confusion for 45 minutes RADIATION DOSAGE (If Supplied By Facility): CTDIvol = ( 44.99 ) mGy, DLP = ( 796 ) mGycm TECHNIQUE: Transaxial CT imaging of the brain was performed without administration of intravenous contrast material. Individualized dose optimization techniques were used for this CT. COMPARISON: 05/08/2017 FINDINGS: Normal soft tissue structures. Normal calvarium. Normal size ventricles and extra-axial spaces for the patient's age. There are areas of decreased attenuation within the white matter tracts of the supratentorial brain, consistent with microvascular disease changes. Normal age-related changes of the basal ganglia. Normal brainstem. Normal cerebellum. There is no intracranial hemorrhage. There are no findings of an acute ischemic infarction. Remote infarct in the right basal ganglia. Normal visualized paranasal sinuses. CT/Brain/Head without Contrast IMPRESSION: No CT evidence of acute infarct or hemorrhage. If there is clinical concern for hyperacute ischemia that is not evident by CT, MRI should be considered if possible. Electronically Signed: Rodolfo Ruvalcaba MD at 20:02 EDT Tel , Service support ,
--- NOTE | 2018-06-15 19:34 | EKG12_ITS ---
Test Reason : NEURO Blood Pressure : / mmHG Vent. Rate : 084 BPM Atrial Rate : 084 BPM P-R Int : 180 ms QRS Dur : 080 ms QT Int : 408 ms P-R-T Axes : 076 019 056 degrees QTc Int : 482 ms Sinus rhythm with occasional and consecutive Premature ventricular complexes Low voltage QRS Nonspecific ST and T wave abnormality Abnormal ECG Confirmed by RAGHAVENDRA RAMIRES, MICHELLE ([id number]), copy editor DAGMAR HUANG ([id number]) on 06/19/2018 1:19:40 PM Referred By: Confirmed By:MICHELLE MABRY MD
--- NOTE | 2018-06-15 19:34 | RAD_ITS ---
STUDY: X-RAY CHEST REASON FOR EXAM: Female, 83 years old. Slurred speech. TECHNIQUE: Single frontal view of the chest. COMPARISON: July 05, 2016 FINDINGS: There is no new focal consolidation. Sternal cerclage wires are present from a prior sternotomy. There is cardiomegaly. Normal mediastinum and vishal. Normal visualized pulmonary arteries. There is atherosclerotic calcification of the aortic arch with tortuosity. Normal visualized thoracic spine. Normal visualized ribs, clavicles, and shoulders. There is no demonstrated abnormality of the visualized soft tissue structures of the upper abdomen. RAD/Chest 1 View IMPRESSION: Cardiomegaly. Electronically Signed: Tierra Pabon MD at 20:33 EDT Tel , Service support ,
--- NOTE | 2018-06-15 19:36 | ED.VISSUMM ---
- ER Visit Summary Date of Service: 06/15/18 Chief Complaint: Right-sided numbness History of Present Illness: The patient is a 83 F presenting with right-sided numbness. She states this started approximately 45 minutes prior to arrival, she started to not feel right. She had numbness of her right face, arm, leg. Denies weakness. Per EMS patient had slurred speech. 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 Denies chest pain. She has chronic shortness of breath. Denies other complaints. Physical Examination: Vitals are stable. Patient is afebrile. Alert no acute distress. HEENT exam is unremarkable. Neck is supple. Lungs are clear and equal bilaterally. Heart is regular rate and rhythm. Abdomen is soft nontender nondistended. Extremities are unremarkable. Skin is warm and dry. NIH 2, LOC questions, decreased sensation on the right Remainder of exam is unremarkable. Emergency Department Course and Treatment: EKG is sinus rate of 84 with PVC. CBC, chemistries unremarkable other than hemoglobin 9.4, creatinine 1.2. INR 1.2. Troponin is negative. CT head shows no acute process. Chest x-ray shows cardiomegaly. Discussed with the hospitalist for admission. Disposition: Admission Impression: TIA versus CVA This note was generated with Doximity dictation software. It may contain incorrect words, spelling, and punctuation that were not noted in review of the chart prior to signing ED Disposition - Plan for ED Patient: Referrals: Bogdan Gordon MD [Primary Care Provider] -
[2018-06-15 19:45] LABS: Absolute Neutrophil Count 2.7 X10^3/uL (2.0-7.7); Basophil# 0.03 X10^3/uL; Basophil% 0.5 % (0-1); Eosinophil# 0.37 X10^3/uL; Eosinophils% 6.8 % (0-5); Hematocrit 30.4 % (37-47); Hemoglobin 9.4 g/dl (12.0-15.0); Lymphocyte % 34.7 % (19-41); Mean Corp Hgb Conc 30.9 g/gl (32-36); Mean Corpuscular Hgb 22.3 pg (27.0-32.0); Mean Corpuscular Volume 72.2 fL (81-99); Mean Platelet Vol. 8.8 fl (6.2-12.0); Monocyte# 0.43 X10^3/uL; Monocyte% 7.9 % (0-10); Neutrophil # 2.73 X10^3/uL (2.7-7.7); Neutrophil % 49.9 % (47-70); Platelet Count 249 K/mm3 (150-450); RBC Distribution Width CV 20.2 % (11.6-14.6); RBC Distribution Width SD 53.5 fl (35.1-43.9); Red Blood Count 4.21 M/mm3 (4.2-5.4); White Blood Count 5.5 K/mm3 (4.4-11.0)
[2018-06-15 19:47] LABS: Differential Indicated SCAN CRITERIA MET; POSITIVE COUNT NO; POSITIVE DIFFERENTIAL NO; POSITIVE MORPHOLOGY YES
[2018-06-15 19:50] LABS: International Normalized Ratio 1.2; Prothrombin Time (Protime)PT. 14.5 SECONDS (11.7-14.9)
[2018-06-15 19:51] LABS: Partial Thromboplast Time 30.3 Seconds (24.1-36.2)
[2018-06-15 19:56] LABS: BUN 10 mg/dL (7-18); Estimated Creatinine Clearance 31.96 ml/min; Glucose 107 mg/dL (74-106)
[2018-06-15 19:57] LABS: Anion Gap 8 (5-15); BUN/Creat Ratio 8.3 RATIO (10-20); Calcium,Total 8.9 mg/dL (8.5-10.1); Chloride 110 mmol/L (98-107); EST Glomerular Filtration Rate 46 mL/min (>60); Est Glom Filt Rate - Afr Amer 55 mL/min (>60); Potassium 3.6 mmol/L (3.5-5.1); Sodium Level 142 mmol/L (136-145)
[2018-06-15 20:03] LABS: Anisocytosis 1+; Hypochromasia 1+; Microcytosis 1+; Platelet Estimate ADEQUATE (ADEQ)
[2018-06-15 20:04] LABS: Ovalocyte RARE; Target Cells RARE; Tear Drop Cell RARE
--- NOTE | 2018-06-15 21:22 | HP.PCM_ITS ---
Problem List (1) Stroke-like symptoms Status: Acute History of Present Illness Date of Admission: 06/15/18 Chief Complaint: right hand numbness The patient is a 83 year old F with a significant history of hypertension; hyperlipidemia; hypothyroidism; aortic stenosis status post bioprosthetic aortic valve replacement; diastolic dysfunction; pulmonary hypertension who presented with right hand numbness that started about 45 minutes prior to presentation. On presentation because patient missed level of consciousness question and she had decreased sensation on the right side she was scored a [address] of the head at emergency department was unremarkable. Reportedly patient has a baseline dysfunction of lisp Past Medical History Past Medical History (Chronic Problems): Chronic Problems Obesity (Chronic) Debility (Chronic) Status post aortic valve replacement with bioprosthetic valve (Chronic) history of microcytic anemia (Chronic) Hypothyroidism (Chronic) HTN (hypertension) (Chronic) Hyperlipidemia (Chronic) Aortic valve stenosis (Chronic) Allergies adhesive Adverse Reaction (Verified 06/15/18 19:31) Rash Home Medications: Ambulatory Orders Medication Instructions Recorded Pantoprazole Sodium [Protonix] 40 mg PO DAILY 05/21/13 Pravastatin [Pravachol] 40 mg PO QHS 05/21/13 Levothyroxine [Synthroid] 88 mcg PO DAILY 05/08/17 Losartan Potassium 100 mg PO DAILY 05/08/17 Metoprolol Tartrate [Lopressor 25 mg PO BID 06/15/18 (beta oneyda)] Surgical History: appendectomy, - - Aortic valve replacement Lives: Alone Smoking Status: Former smoker Alcohol: Occasional - *Family History Maternal History Items: Hypertension Paternal History Items: Hypertension Review of Systems Constitutional: Denies: Chills, Fever, Weight Change HEENT: Denies: Head Aches, Sinus Congestion, Sinus Drainage Cardiovascular: Denies: Chest Pain, Palpitations Respiratory: Denies: Cough, Shortness of breath at rest, Sputum production Gastrointestinal: Denies: Abdominal Pain, Nausea, Vomiting Genitourinary: Denies: Dysuria Musculoskeletal: Denies: Joint Pain, Joint Tenderness Skin: Denies: Rash, Wounds Neurological: Reports: Numbness. Denies: Focal weakness Psychiatric: Denies: Anxiety, Depression, Homicidal Ideations, Suicidal Ideations Hematologic/ Lymphatic: Denies: Easy Bruising, Easy Bleeding VTE Information - Inpt Only VTE Present on Admission: No VTE Mechan Device Prophylaxis: None VTE Pharm Prophylaxis ordered?: Yes Patient Problems: Active and Suspected Problems Stroke-like symptoms (Acute) - Physical Exam General: Alert, Oriented x3, Cooperative HEENT: Atraumatic, PERRLA, EOMI, Normocephalic Neck: Supple, No JVD, Negative Carotid Bruits Lungs: Clear to auscultation, Normal air movement Cardiovascular: Regular rate, No murmurs Abdomen: Bowel Sounds Present, Soft, Non Tender Extremities: No edema, Capillary Refill Less than 3 Seconds Skin: No rashes, No breakdown Musculoskeletal: No Tenderness to Palpation of Joints or Extremities Neurological: - - Decreased sensation of the right hand. Strength 5 out of 5 throughout. Psych/Mental Status: Normal Affect, Appropriate Vital Signs Temp Pulse Resp BP Pulse Ox 97.0 F L 98 20 H 164/78 H 95 06/15/18 19:22 06/15/18 21:00 06/15/18 21:00 06/15/18 21:00 06/15/18 21:00 Oxygen Delivery Method Room Air Weight: 90.5 kg Body Mass Index (BMI) 33.2 Finger Stick Blood Glucose 103 Laboratory Tests Past 24 Hrs 06/15/18 06/15/18 06/15/18 19:15 19:15 19:15 WBC 5.5 RBC 4.21 Hgb 9.4 L Hct 30.4 L MCV 72.2 L MCH 22.3 L MCHC 30.9 L RDW 20.2 H RDW Differential 53.5 H Plt Count 249 MPV 8.8 Immature Gran % (Auto) 0.200 Neut % (Auto) 49.9 Lymph % (Auto) 34.7 [place] % (Auto) 7.9 Eos % (Auto) 6.8 H Baso % (Auto) 0.5 Absolute Neuts (auto) 2.7 Absolute Lymphs (auto) 1.90 Total Counted Not Reportable Platelet Estimate ADEQUATE Hypochromasia 1+ Anisocytosis 1+ Microcytosis 1+ Target Cells RARE Tear Drop Cells RARE Ovalocytes RARE PT 14.5 INR 1.2 APTT 30.3 Sodium 142 Potassium 3.6 Chloride 110 H Carbon Dioxide 24.0 Anion Gap 8 BUN 10 Creatinine 1.20 H Estim Creat Clear Calc 31.96 Est GFR (MDRD) Af Amer 55 L Est GFR (MDRD) Non-Af 46 L BUN/Creatinine Ratio 8.3 L Glucose 107 H Calcium 8.9 Troponin I < 0.015 Assessment/Plan All Active Problems UTI (urinary tract infection) (Acute) Orthostatic hypotension (Acute) Pulmonary HTN (Acute) Stroke-like symptoms (Acute) The patient is a 83 year old F with a significant history of hypertension; hyperlipidemia; hypothyroidism; lisp; aortic stenosis status post bioprosthetic aortic valve replacement; diastolic dysfunction; pulmonary hypertension who presented with right hand numbness that started about 45 minutes prior to presentation. Right hand numbness Different diagnosis include CVA /TIA. NINDS NIH Scale at presentation was 2. CT of the head did not show evidence of acute infarct or hemorrhage. CT was independently reviewed. I agree with radiologist interpretation. Physical therapy, occupational therapy and speech therapy to work with patient. N.p.o. until bedside swallow eval. Daily aspirin. We will continue patient on a home pravastatin. Lipid profile and A1c ordered. -Permissive HTN for 24 hrs (ending about 6 PM of 06/16/2018). Control blood pressure with labetalol for systolic blood pressure of more than 220 or diastolic blood pressure of more than 120. MRI/MRAM of head; brain; and neck. Echocardiogram ordered. Hypertension On presentation her blood pressure was not within goal. Highest systolic blood pressure was 175 High as diastolic blood pressure was 93. Permissive hypertension to maintain probable ischemic penumbra. Hold home losartan and metoprolol on hold. Labetalol as needed per stroke protocol. Hypothyroidism Synthroid continued. GERD Protonix continued. DVT prophylaxis Subcutaneous heparin ordered. Code Visit OBSV E&M: 16075 Initial observation care L3
--- NOTE | 2018-06-15 21:46 | MRI_ITS ---
STUDY: MRI BRAIN WITHOUT CONTRAST REASON FOR EXAM: Female, 83 years old. Stroke symptoms for one day TECHNIQUE: Standardized multiplanar fat and water weighted pulse sequences were obtained. COMPARISON: None. FINDINGS: Normal size of the ventricles and extra-axial spaces for the patient's age. There are multiple confluent white matter hyperintensities, distributed throughout the deep white matter tracts of the cerebral hemispheres, consistent with severe chronic white matter ischemic changes. Areas of restricted diffusion are present in the left dorsal thalamus, left hippocampus, and medial left occipital lobe compatible with left posterior cerebral artery infarction. Normal bilateral basal ganglia. Normal thalami. There is no extra-axial fluid accumulation. Normal sella turcica, pituitary gland, infundibular stalk, optic chiasm and hypothalamus. Normal tectal plate and pineal gland. Normal midbrain, terry and medulla. Normal cerebellum. Normal basal cisterns. Normal bilateral temporal bones. Normal bilateral internal auditory canals. No demonstrated orbital abnormality, within the constraints of a routine brain study. Normal visualized paranasal sinuses. Normal calvarium and skull base. Normal visualized soft tissue structures. Normal visualized upper cervical spine. 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 No hemorrhage. Severe microangiopathic white matter disease. Electronically Signed: Rodolfo Ruvalcaba MD at 14:02 EDT Tel , Service support ,
--- NOTE | 2018-06-15 21:46 | MRI_ITS ---
STUDY: MRA OF THE HEAD WITHOUT CONTRAST REASON FOR EXAM: Female, 83 years old. Stroke symptoms for one day TECHNIQUE: 3-D [id number] (TOF) imaging was performed with MIPs. The study was performed unenhanced. COMPARISON: MRI same day FINDINGS: Normal bilateral petrous carotid arteries. Normal right cavernous carotid artery with a normal supraclinoid bifurcation. Normal left cavernous carotid artery with a normal supraclinoid bifurcation. Normal right A1 segments of the anterior cerebral artery. Normal left A1 segments of the anterior cerebral artery. Normal intact anterior communicating artery (ACOM). Normal bilateral A2 segments of the anterior cerebral arteries. Normal right M1 and M2 segments of the middle cerebral arteries, with a normal M1 bifurcation. Normal left M1 and M2 segments of the middle cerebral arteries, with a normal M1 bifurcation. Normal right posterior communicating artery (PCOM). Normal left posterior communicating artery (PCOM). Normal bilateral vertebral arteries. Normal basilar artery with a normal basilar bifurcation. The visualized bilateral superior cerebellar (SCA) arteries are normal. There is occlusion of the left posterior cerebral artery at the level of the P2 segment. There is no demonstrated aneurysm of the [place] of [place]. There is no major vessel occlusion or hemodynamically significant stenosis. MRI/MRA Head ONLY without Contrast IMPRESSION: There is occlusion of the left posterior cerebral artery at the level of the P2 segment. Electronically Signed: Rodolfo Ruvalcaba MD at 14:15 EDT Tel , Service support ,
--- NOTE | 2018-06-15 21:46 | MRI_ITS ---
STUDY: MRA NECK WITHOUT CONTRAST REASON FOR EXAM: Female, 83 years old. Stroke symptoms for one day TECHNIQUE: Source images were obtained, MIPs were performed. The study was performed unenhanced. COMPARISON: None. FINDINGS: RIGHT CAROTID ARTERIES: Normal right common carotid artery (CCA). Normal right common carotid bulb. Normal origin of the right internal carotid (ICA) artery without a hemodynamically significant stenosis. Normal visualized cervical portion of the right internal carotid artery. Normal origin of the right external carotid artery (ECA). LEFT CAROTID ARTERIES: Normal left common carotid artery (CCA). Normal left common carotid bulb. Normal origin of the left internal carotid (ICA) artery without a hemodynamically significant stenosis. Normal visualized cervical portion of the left internal carotid artery. Normal origin of the left external carotid artery (ECA). VERTEBRAL ARTERIES: Normal antegrade flow within the bilateral vertebral artery without a hemodynamically significant stenosis. MRI/MRA Neck without Contrast IMPRESSION: Normal bilateral cervical carotid and vertebral arteries. Electronically Signed: Rodolfo Ruvalcaba MD at 14:22 EDT Tel , Service support ,
[2018-06-15] MEDS: Heparin Injection (Vial) 5,000 UNIT/ML VIAL 5000 UNIT SC (22:34)
[2018-06-15] MEDS: Pravastatin 40 MG Tablet PO (22:34)
[2018-06-16] VITALS (12 sets, daily range): BP systolic 116–145; BP diastolic 52–80; PULSE 58–94; RESP 14–18; TEMP 36.5–37.1; O2SAT 94–98; BMI 33.4
[2018-06-16] MEDS: Levothyroxine 88 MCG Tablet PO (05:25)
[2018-06-16 05:31] LABS: Cholesterol 128 mg/dL (200); High Density Lipoprotein 36 mg/dL; Triglycerides 97 mg/dL; Very Low Density Lipoprotein 19 mg/dL (5-40)
[2018-06-16] MEDS: Pantoprazole Sodium 40 MG Tablet PO (10:11)
[2018-06-16] MEDS: Acetaminophen 325 MG Tablet 650 MG PO (10:11)
[2018-06-16] MEDS: Aspirin 81 MG TAB.CHEW PO (10:11)
[2018-06-16] MEDS: Heparin Injection (Vial) 5,000 UNIT/ML VIAL 5000 UNIT SC ×2 (10:12→21:34)
--- NOTE | 2018-06-16 16:27 | PCM.PN.HOSP ---
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 Denies acute hemianopsia or quadrantanopsia As per H&P note, NIH stroke as well as 2; 1 for decreased sensation on right side and missed one question of level of consciousness question. Vitals/I&O's: Vital Signs Temp Pulse Resp BP Pulse Ox 98.8 F 80 16 131/69 H 95 06/16/18 14:20 06/16/18 15:07 06/16/18 14:20 06/16/18 14:20 06/16/18 14:20 Oxygen Delivery Method Room Air Weight: 194 lb 14.218 oz Body Mass Index (BMI) 33.4 Finger Stick Blood Glucose 103 Intake and Output for Last 24 Hours 06/14/18 06/15/18 06/16/18 23:59 23:59 23:59 Intake Total 100 / 100 100 / 100 Output Total 400 / 400 400 / 400 Balance -300 / -300 -300 / -300 General: Alert, Oriented x3, Cooperative HEENT: Atraumatic, PERRLA, EOMI, Normocephalic Neck: Supple, No JVD, Negative Carotid Bruits Lungs: Clear to auscultation, Normal air movement Cardiovascular: Regular rate, Regular Rhythm, Normal S1, Normal S2, Murmur - Systolic murmur present over aortic region Abdomen: Bowel Sounds Present, Soft, Non Tender Extremities: No edema, Capillary Refill Less than 3 Seconds Skin: No rashes, No breakdown Musculoskeletal: No Tenderness to Palpation of Joints or Extremities, Arthritic Changes Lymphatic: No Cervical, Supraclavicular, or Inguinal Adenopathy Neurological: Cranial nerves II-XII grossly intact, Deep Tendon Reflexes 2+/4 and Symmetrical, Neuro grossly intact, Motor Exam 5/5 strength throughout, - - NIH stroke scale 1 for right posterior [id number] test Visual confrontation patient does not have significant visual loss Psych/Mental Status: Normal Affect, Appropriate Laboratory Results 06/15/18 19:15: WBC 5.5, RBC 4.21, Hgb 9.4 L, Hct 30.4 L, MCV 72.2 L, MCH 22.3 L, MCHC 30.9 L, RDW 20.2 H, RDW Differential 53.5 H, Plt Count 249, MPV 8.8, Immature Gran % (Auto) 0.200, Neut % (Auto) 49.9, Lymph % (Auto) 34.7, Rooks % (Auto) 7.9, Eos % (Auto) 6.8 H, Baso % (Auto) 0.5, Absolute Neuts (auto) 2.7, Absolute Lymphs (auto) 1.90, Total Counted Not Reportable, Platelet Estimate ADEQUATE, Hypochromasia 1+, Anisocytosis 1+, Microcytosis 1+, Target Cells RARE, Tear Drop Cells RARE, Ovalocytes RARE 06/15/18 19:15: PT 14.5, INR 1.2, APTT 30.3 06/15/18 19:15: Sodium 142, Potassium 3.6, Chloride 110 H, Carbon Dioxide 24.0, Anion Gap 8, BUN 10, Creatinine 1.20 H, Estim Creat Clear Calc 31.96, Est GFR (MDRD) Af Amer 55 L, Est GFR (MDRD) Non-Af 46 L, BUN/Creatinine Ratio 8.3 L, Glucose 107 H, Calcium 8.9, Troponin I < 0.015 06/15/18 19:41: Hemoglobin A1c 6.0 06/16/18 04:40: Triglycerides 97, Cholesterol 128, LDL Cholesterol 73, VLDL Cholesterol 19, HDL Cholesterol 36 L Current Medications Acetaminophen (Tylenol) 650 mg PO Q4H PRN PRN PRN Reason: Headache/Temp>99F Last Admin: 06/16/18 10:11 Dose: 650 mg Acetaminophen (Tylenol) 650 mg RECTAL Q4H PRN PRN PRN Reason: Headache/Temp>99F Acetaminophen (Tylenol Liquid) 650 mg NG Q4H PRN PRN PRN Reason: Headache/Temp>99F Aspirin (Aspirin, Baby) 81 mg PO DAILY@0800 [facility] Last Admin: 06/16/18 10:11 Dose: 81 mg Bisacodyl (Dulcolax) 5 mg PO DAILY PRN PRN PRN Reason: Constipation Heparin Sodium (Porcine) (Heparin Na) 5,000 unit SC Q12 [facility] Last Admin: 06/16/18 10:12 Dose: 5,000 unit Labetalol HCl (Trandate) 10 mg IV Q10M PRN PRN Reason: MAINTAIN BP < 220/120 Stop: 06/16/18 21:47 Levothyroxine Sodium (Synthroid) 88 mcg PO DAILY@0600 [facility] Last Admin: 06/16/18 05:25 Dose: 88 mcg Magnesium Hydroxide (Milk Of Magnesia) 30 ml PO DAILY PRN PRN Reason: Constipation Ondansetron HCl (Zofran) 4 mg IV Q8H PRN PRN PRN Reason: NAUSEA Pantoprazole Sodium (Protonix) 40 mg PO DAILY [facility] Last Admin: 06/16/18 10:11 Dose: 40 mg Pravastatin Sodium (Pravachol) 40 mg PO QHS [facility] Last Admin: 06/15/18 22:34 Dose: 40 mg Sodium Chloride () 5 - 15 ml IV UD PRN PRN Reason: SALINE FLUSH Medical Necessity - Tobacco Use Smoking Status: Never smoker Assessment/Plan All Active Problems UTI (urinary tract infection) (Acute) Orthostatic hypotension (Acute) Pulmonary HTN (Acute) Stroke-like symptoms (Acute) The patient is a 83 year old F with a significant history of hypertension; hyperlipidemia; hypothyroidism; lisp; aortic stenosis status post bioprosthetic aortic valve replacement; diastolic dysfunction; pulmonary hypertension who presented with right hand numbness that started about 45 minutes prior to presentation. 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 MRI brain reported as occlusion of the left posterior cerebral artery at the level of the P2 segment. She denies any previous history of a stroke. Patient is on permissive hypertension. PT OT and speech evaluation to continue. 2D echo tomorrow morning. Patient is on aspirin and statin. Patient was on pravastatin changed to atorvastatin. 2. Hypertension On presentation her blood pressure was not within goal. Permissive hypertension to maintain probable ischemic penumbra. Hold home losartan and metoprolol on hold. Labetalol as needed per stroke protocol. Hypothyroidism Synthroid continued. GERD Protonix continued. DVT prophylaxis Subcutaneous heparin ordered. Clinical Impression(s) from Imaging Studies Brain CT 06/15/18 19:34 IMPRESSION: No CT evidence of acute infarct or hemorrhage. If there is clinical concern for hyperacute ischemia that is not evident by CT, MRI should be considered if possible. ADDENDUM: 06/15/182011 IMPRESSION: No CT evidence of acute infarct or hemorrhage. Chest X-Ray 06/15/18 19:34 IMPRESSION: Cardiomegaly. Brain MRI 04/20/19 21:46 IMPRESSION: Acute left ASSOCIATE PROFESSOR [employer] PHYSICS infarct. No hemorrhage. Severe microangiopathic white matter disease. Head MRA 06/15/18 21:46 IMPRESSION: There is occlusion of the left posterior cerebral artery at the level of the P2 segment. Neck MRA 06/15/18 21:46 IMPRESSION: Normal bilateral cervical carotid and vertebral arteries. Code Visit Inpatient E&M: 95487 Subs Hosp L2
[2018-06-16] MEDS: Atorvastatin Calcium 40 MG Tablet PO (21:38)
[2018-06-17] VITALS (14 sets, daily range): BP systolic 114–148; BP diastolic 52–88; PULSE 57–141; RESP 16–18; TEMP 36.5–36.9; O2SAT 95–97; BMI 33.4
[2018-06-17] MEDS: Levothyroxine 88 MCG Tablet PO (06:43)
[2018-06-17] MEDS: Aspirin 81 MG TAB.CHEW PO (09:07)
[2018-06-17] MEDS: Pantoprazole Sodium 40 MG Tablet PO (09:07)
[2018-06-17] MEDS: Heparin Injection (Vial) 5,000 UNIT/ML VIAL 5000 UNIT SC ×2 (09:07→22:01)
[2018-06-17 09:41] LABS: Bedside Glucose 103 mg/dL (70-110)
--- NOTE | 2018-06-17 11:42 | DCINST_ITS ---
- Discharge Diagnoses Current Active Problems: Current Active and Chronic Problems Stroke-like symptoms (Acute) You will use the following diet at home:: Cardiac Your food should be the consistency of: Regular Discharge Activity: May Not Drive Call your doctor if you observe: Fever of 101 or Higher, Inability to urinate, Shortness of breath, Fainting spells, Increased palpitations (irregular heartbeat) Allergies/Adverse Reactions: Allergies adhesive Adverse Reaction (Verified 06/15/18 19:31) Rash Medications to take at Discharge Pantoprazole Sodium [Protonix] 40 mg PO DAILY 05/21/13 Levothyroxine [Synthroid] 88 mcg PO DAILY 05/08/17 Losartan Potassium 100 mg PO DAILY 05/08/17 Metoprolol Tartrate [Lopressor (beta oneyda)] 25 mg PO BID 06/15/18 Aspirin [Aspirin, Baby] 81 mg PO DAILY@0800 #30 tab.chew 06/17/18 Atorvastatin Calcium [Lipitor] 40 mg PO QHS #30 tablet 06/17/18 Clopidogrel Bisulfate [Plavix] 75 mg PO DAILY #30 tablet 06/17/18 The following prescriptions were given: Aspirin [Aspirin, Baby] 81 mg PO DAILY@0800 #30 tab.chew Atorvastatin Calcium [Lipitor] 40 mg PO QHS #30 tablet Clopidogrel Bisulfate [Plavix] 75 mg PO DAILY #30 tablet Primary Care Physician: Bogdan Gordon MD [Primary Care Provider] - Please follow up with your Primary Care Physician in: in 2 week Test Results: Test results from this visit will be discussed in further detail at your follow- up appointment, if applicable. Please Follow Up With: Mariela Chacon MD When: in 4 week
--- NOTE | 2018-06-17 11:42 | PCM.DC.SUM ---
Discharge Date and Diagnosis - Problem List Patient Problems: Active and Suspected Problems Stroke-like symptoms (Acute) Stroke (Acute) Date of Admission: 06/15/18 Date of Discharge: 06/17/18 - Primary Discharge Diagnosis Active and Suspected Problems Stroke-like symptoms (Acute) - Secondary Discharge Diagnosis Chronic Problems Obesity (Chronic) Debility (Chronic) Status post aortic valve replacement with bioprosthetic valve (Chronic) history of microcytic anemia (Chronic) Hypothyroidism (Chronic) HTN (hypertension) (Chronic) Hyperlipidemia (Chronic) Aortic valve stenosis (Chronic) Hospital Course and Treatment Operations: None Summary of Care Provided: [] The patient is a 83 year old F with a significant history of hypertension; hyperlipidemia; hypothyroidism; lisp; aortic stenosis status post bioprosthetic aortic valve replacement; diastolic dysfunction; pulmonary hypertension who presented with right hand numbness that started about 45 minutes prior to presentation. 1 acute left BRICK KILN BURNER Ischemic stroke: MRI brain is positive of acute left BRICK KILN BURNER ischemic stroke. MRI brain reported as occlusion of the left posterior cerebral artery at the level of the P2 segment. She denies any previous history of a stroke. Patient is on permissive hypertension. PT OT and speech evaluation to continue. Patient is on aspirin, Plavix and statin. Patient was on pravastatin changed to atorvastatin. Lipid profile reported as LDL 73, triglyceride 97. HDL 36. Echo was done and reported as EF 50 to 55%. Mild anteroseptal hypokinesis. LA severely enlarged. RA moderately enlarged. Moderate to severe 3+ TR with RVSP 50 to 55 mmHg suggestive of moderate pulmonary hypertension. Echo suggestive of heart failure with preserved EF and valvular heart disease moderate pulmonary hypertension Patient was seen by neurologist. 2. Hypertension with chronic diastolic heart failure On presentation her blood pressure was not within goal. Losartan can be resumed in the next 3 days.Permissive hypertension to maintain probable ischemic penumbra. Hypothyroidism Synthroid continued. GERD Protonix continued. DVT prophylaxis Subcutaneous heparin ordered. Discharge medication reconciliation done. Discharge follow-up instructions completed. Discharge process discussed with the patient and all questions were answered to patient's satisfaction. Patient is being discharged to acute rehab. Total time spent, exact 35 minutes on discharge meds reconciliation, examination, review of imaging and blood test and discussion with the patient on follow-up instructions. Clinical Impression(s) from Imaging Studies Brain CT 06/15/18 19:34 IMPRESSION: No CT evidence of acute infarct or hemorrhage. If there is clinical concern for hyperacute ischemia that is not evident by CT, MRI should be considered if possible. ADDENDUM: 06/15/182011 IMPRESSION: No CT evidence of acute infarct or hemorrhage. Chest X-Ray 06/15/18 19:34 IMPRESSION: Cardiomegaly. Brain MRI 06/15/18 21:46 IMPRESSION: Acute left BRICK KILN BURNER infarct. No hemorrhage. Severe microangiopathic white matter disease. Head MRA 06/15/18 21:46 IMPRESSION: There is occlusion of the left posterior cerebral artery at the level of the P2 segment. Neck MRA 06/15/18 21:46 IMPRESSION: Normal bilateral cervical carotid and vertebral arteries. Patient Problems: Active and Suspected Problems Stroke-like symptoms (Acute) Stroke (Acute) Subjective: Patient has mild forgetfulness. Patient wants to go home. Patient seems to have cognitive deficit and therefore [facility]. Discussed with a neurologist. Objective: General: Alert, Oriented x3, Cooperative HEENT: Atraumatic, PERRLA, EOMI, Normocephalic Neck: Supple, No JVD, Negative Carotid Bruits Lungs: Clear to auscultation, Normal air movement Cardiovascular: Regular rate, Regular Rhythm, Normal S1, Normal S2, Murmur - Systolic murmur present over aortic region Abdomen: Bowel Sounds Present, Soft, Non Tender Extremities: No edema, Capillary Refill Less than 3 Seconds Skin: No rashes, No breakdown Musculoskeletal: No Tenderness to Palpation of Joints or Extremities, Arthritic Changes Lymphatic: No Cervical, Supraclavicular, or Inguinal Adenopathy Neurological: Cranial nerves II-XII grossly intact, Deep Tendon Reflexes 2+/4 and Symmetrical, Neuro grossly intact, Motor Exam 5/5 strength throughout, NIH stroke scale 1 for right posterior [id number] test Visual confrontation patient does not have significant visual loss Psych/Mental Status: Normal Affect, Appropriate - Physical Exam Vital Signs Temp Pulse Resp BP Pulse Ox 98.4 F 71 18 121/52 H 97 06/17/18 10:15 06/17/18 11:01 06/17/18 10:15 06/17/18 10:15 06/17/18 10:15 Oxygen Delivery Method Room Air Weight: 194 lb 14.218 oz Body Mass Index (BMI) 33.4 Finger Stick Blood Glucose 103 Intake and Output for Last 24 Hours 06/15/18 06/16/18 06/17/18 23:59 23:59 23:59 Intake Total 100 / 100 420 / 420 Output Total 400 / 400 400 / 400 Balance -300 / -300 POC Glucose 06/15/18 19:24 POC Glucose 103 Discharge Activity: May Not Drive Call your doctor if you observe: Fever of 101 or Higher, Inability to urinate, Shortness of breath, Fainting spells, Increased palpitations (irregular heartbeat) Home Medications: Medications to take at Discharge Pantoprazole Sodium [Protonix] 40 mg PO DAILY 05/21/13 Levothyroxine [Synthroid] 88 mcg PO DAILY 05/08/17 Losartan Potassium 100 mg PO DAILY 05/08/17 Metoprolol Tartrate [Lopressor (beta oneyda)] 25 mg PO BID 06/15/18 Aspirin [Aspirin, Baby] 81 mg PO DAILY@0800 #30 tab.chew 06/17/18 Atorvastatin Calcium [Lipitor] 40 mg PO QHS #30 tablet 06/17/18 Clopidogrel Bisulfate [Plavix] 75 mg PO DAILY #30 tablet 06/17/18 Following Prescrptions Were Given to Patient: Aspirin [Aspirin, Baby] 81 mg PO DAILY@0800 #30 tab.chew Atorvastatin Calcium [Lipitor] 40 mg PO QHS #30 tablet Clopidogrel Bisulfate [Plavix] 75 mg PO DAILY #30 tablet Primary Care Physician: Bogdan Gordon MD [Primary Care Provider] - Please follow up with your Primary Care Physician in: in 2 week Please Follow Up With: Mariela Chacon MD When: in 4 week Medical Necessity - Tobacco Use Smoking Status: Never smoker Meaningful Use Info Meaningful Use Diagnoses (Choose all that apply): Ischemic CVA - CVA Therapy Assessed for PT,OT and/or ST?: Yes - Ischemic Stroke Antithrombotic order at d/c?: Yes Dx of Atrial fib/flutter?: No Anticoagulant at discharge?: Yes Statins at discharge?: Yes Primary Dx Acute Ischemic CVA?: Yes IV tPA ordered during stay?: No Reason IV t-PA not ordered: Procedure not Indicated Code Visit Inpatient E&M: 42145 Disch Hosp
--- NOTE | 2018-06-17 12:04 | CASEMGMT ---
This RN CM to room to complete CM assessment at this time. Pt is not able to answer assessment questions at this time. Pt is very repetitive at this time. Pt cannot tell this RN CM what date or where she is at this time. Pt states she thinks she is at a 'nursing place' and states 'am i in [place]?' Pt is unsure where her son is right now and states he 'may be at home, in a SNF or somewhere else.' Pt cannot remember her granddaughter's last name or phone number at this time. Pt is unsure of how she got to [facility] or how she will get home. Pt does still have some slurred speech at times. Malgorzata CABEZAS updated on all at this time, voices understanding. 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 Green spoke with pt regarding same already but when this RN CM mentions CVA, pt acts like she is hearing it for the first time and states 'my mom had strokes.' This RN CM did mention rehab unit at this time. Pt is still awaiting neuro c/s at this time. Linda SW aware of pt at this time, voices understanding. CM to follow for discharge planning/needs. Pt did have a card in her wallet for Guillermo from [facility], so message left for her to call this RN CM in regards to pt when able. Shi RN CM
--- NOTE | 2018-06-17 12:30 | CASEMGMT ---
SW did not complete PHQ-9 as patient is confused. Christy FERRARA DROSSER
--- NOTE | 2018-06-17 14:00 | CASEMGMT ---
Call back from Guillermo at [facility] and she states that pt is normally A/Ox4 with no concerns and drives to appt's in [place] on her own. Guillermo states that pt's son hasn't lived with her for years and pt had confusion regarding this. This RAULITO CARSON informed her about the way pt was acting and she states that that is not normal for pt at all. Awaiting neuro c/s for possible rehab placement. SStwesly CABEZAS CM
[2018-06-17] MEDS: Clopidogrel Bisulfate 75 MG Tablet PO (14:06)
--- NOTE | 2018-06-17 14:35 | PCM.CONS.GEN ---
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 Patient is a poor historian, history is obtained from the medical records chart as well as from the patient. Per ED documentation on admission NIHSS was 2. MRI brain done on admission reported to show acute left GROUNDSKEEPER infarct, MR angiogram head/neck showed left P2 occlusion. Per documentation patient is on aspirin/Plavix at baseline. Per patient she lives alone, denies any frequent falls, does use cane for ambulating, does drive. Per patient she lives in an independent house and has 3 steps to get into the house. At present patient denies any numbness in the right side, denies any headache, dizziness, visual disturbances, speech disturbances, focal motor weakness, or sensory loss.] Past Medical History Past Medical History (Chronic Problems): Chronic Problems Obesity (Chronic) Debility (Chronic) Status post aortic valve replacement with bioprosthetic valve (Chronic) history of microcytic anemia (Chronic) Hypothyroidism (Chronic) HTN (hypertension) (Chronic) Hyperlipidemia (Chronic) Aortic valve stenosis (Chronic) Allergies adhesive Adverse Reaction (Verified 06/15/18 19:31) Rash Home Medications: Ambulatory Orders Medication Instructions Recorded Pantoprazole Sodium [Protonix] 40 mg PO DAILY 05/21/13 Levothyroxine [Synthroid] 88 mcg PO DAILY 05/08/17 Losartan Potassium 100 mg PO DAILY 05/08/17 Metoprolol Tartrate [Lopressor 25 mg PO BID 06/15/18 (beta oneyda)] Aspirin [Aspirin, Baby] 81 mg PO DAILY@0800 #30 tab.chew 06/17/18 Atorvastatin Calcium [Lipitor] 40 mg PO QHS #30 tablet 06/17/18 Clopidogrel Bisulfate [Plavix] 75 mg PO DAILY #30 tablet 06/17/18 Surgical History: appendectomy, - - Aortic valve replacement Lives: Alone Smoking Status: Never smoker Alcohol: Occasional Drugs: None - *Family History Maternal History Items: Hypertension Paternal History Items: Hypertension Review of Systems Constitutional: Reports: - - Complete ROS negative except as documented in HPI Patient Problems: Active and Suspected Problems Stroke-like symptoms (Acute) Stroke (Acute) - Physical Exam General: Alert HEENT: Normocephalic Neck: Supple Lungs: Normal air movement Cardiovascular: Normal S1, Normal S2 Abdomen: Bowel Sounds Present Extremities: No cyanosis Neurological: - - consious, alert, AoAx3, CN 2-12 grossly intact, power 5/5 both UE/LE, no sensory loss, no cerebellar signs, Reflexes + B/L B/S/T/K/A, gait deferred, NIHSS 0 at present, mRS 0 at baseline Psych/Mental Status: Normal Affect Vital Signs Temp Pulse Resp BP Pulse Ox 98.4 F 71 18 121/52 H 97 06/17/18 10:15 06/17/18 11:01 06/17/18 10:15 06/17/18 10:15 06/17/18 10:15 Oxygen Delivery Method Room Air Weight: 88.4 kg Body Mass Index (BMI) 33.4 Finger Stick Blood Glucose 103 Intake and Output for Last 24 Hours 06/15/18 06/16/18 06/17/18 23:59 23:59 23:59 Intake Total 100 / 100 420 / 420 240 / 240 Output Total 400 / 400 400 / 400 Balance -300 / -300 240 / 240 POC Glucose 06/15/18 19:24 POC Glucose 103 Assessment/Plan All Active Problems UTI (urinary tract infection) (Acute) Orthostatic hypotension (Acute) Pulmonary HTN (Acute) Stroke-like symptoms (Acute) Stroke (Acute) The patient is a 83 year old F with PMH HTN, HLD, aortic stenosis status post bioprosthetic aortic valve replacement, hypothyroidism admitted with right-sided numbness and slurred speech. Patient is a poor historian, history is obtained from the medical records chart as well as from the patient. Per ED documentation on admission NIHSS was 2. MRI brain done on admission reported to show acute left GROUNDSKEEPER infarct, MR angiogram head/neck showed left P2 occlusion. Per documentation patient is on aspirin/Plavix at baseline. Per patient she lives alone, denies any frequent falls, does use cane for ambulating, does drive. Per patient she lives in an independent house and has 3 steps to get into the house. At present patient denies any numbness in the right side, denies any headache, dizziness, visual disturbances, speech disturbances, focal motor weakness, or sensory loss.] Impression Acute left GROUNDSKEEPER infarct, left P2 occlusion Plan ?On aspirin and Plavix at baseline. Bleeding risks discussed. ?On Lipitor 40 mg p.o. nightly. ?MRI brain reported to show acute left GROUNDSKEEPER infarct. ?MR angiogram head/neck showed left P2 occlusion. ?LDL 73, HbA1c 6 ?Await TTE report ?Goal BP less than 130/80 mmHg, avoid hypotension. ?Recommend 30-day event recorder on discharge ?labs reviewed ?PT/OT/ST ?GI/DVT prophylaxis ?Stroke risk factors discussed and stroke education provided ?Fall precautions ?Further medical management per hospitalist team ?Please call with questions if any ?Follow-up with neurology as outpatient in 4 weeks ?Thank you for allowing us to participate in patient's current management Code Visit Inpatient E&M: [id number] Init Hosp L3
--- NOTE | 2018-06-17 14:41 | CON.PCM_ITS ---
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 Patient is a poor historian, history is obtained from the medical records chart as well as from the patient. Per ED documentation on admission NIHSS was 2. MRI brain done on admission reported to show acute left [employer] infarct, MR angiogram head/neck showed left P2 occlusion. Per documentation patient is on aspirin/Plavix at baseline. Per patient she lives alone, denies any frequent falls, does use cane for ambulating, does drive. Per patient she lives in an independent house and has 3 steps to get into the house. At present patient denies any numbness in the right side, denies any headache, dizziness, visual disturbances, speech disturbances, focal motor weakness, or sensory loss.] Past Medical History Past Medical History (Chronic Problems): Chronic Problems Obesity (Chronic) Debility (Chronic) Status post aortic valve replacement with bioprosthetic valve (Chronic) history of microcytic anemia (Chronic) Hypothyroidism (Chronic) HTN (hypertension) (Chronic) Hyperlipidemia (Chronic) Aortic valve stenosis (Chronic) Allergies adhesive Adverse Reaction (Verified 06/15/18 19:31) Rash Home Medications: Ambulatory Orders Medication Instructions Recorded Pantoprazole Sodium [Protonix] 40 mg PO DAILY 05/21/13 Levothyroxine [Synthroid] 88 mcg PO DAILY 05/08/17 Losartan Potassium 100 mg PO DAILY 05/08/17 Metoprolol Tartrate [Lopressor 25 mg PO BID 06/15/18 (beta oneyda)] Aspirin [Aspirin, Baby] 81 mg PO DAILY@0800 #30 tab.chew 06/17/18 Atorvastatin Calcium [Lipitor] 40 mg PO QHS #30 tablet 06/17/18 Clopidogrel Bisulfate [Plavix] 75 mg PO DAILY #30 tablet 06/17/18 Surgical History: appendectomy, - - Aortic valve replacement Lives: Alone Smoking Status: Never smoker Alcohol: Occasional Drugs: None - *Family History Maternal History Items: Hypertension Paternal History Items: Hypertension Review of Systems Constitutional: Reports: - - Complete ROS negative except as documented in HPI Patient Problems: Active and Suspected Problems Stroke-like symptoms (Acute) Stroke (Acute) - Physical Exam General: Alert HEENT: Normocephalic Neck: Supple Lungs: Normal air movement Cardiovascular: Normal S1, Normal S2 Abdomen: Bowel Sounds Present Extremities: No cyanosis Neurological: - - consious, alert, AoAx3, CN 2-12 grossly intact, power 5/5 both UE/LE, no sensory loss, no cerebellar signs, Reflexes + B/L B/S/T/K/A, gait deferred, NIHSS 0 at present, mRS 0 at baseline Psych/Mental Status: Normal Affect Vital Signs Temp Pulse Resp BP Pulse Ox 98.4 F 71 18 121/52 H 97 06/17/18 10:15 06/17/18 11:01 06/17/18 10:15 06/17/18 10:15 06/17/18 10:15 Oxygen Delivery Method Room Air Weight: 88.4 kg Body Mass Index (BMI) 33.4 Finger Stick Blood Glucose 103 Intake and Output for Last 24 Hours 06/15/18 06/16/18 06/17/18 23:59 23:59 23:59 Intake Total 100 / 100 420 / 420 240 / 240 Output Total 400 / 400 400 / 400 Balance -300 / -300 240 / 240 POC Glucose 06/15/18 19:24 POC Glucose 103 Assessment/Plan All Active Problems UTI (urinary tract infection) (Acute) Orthostatic hypotension (Acute) Pulmonary HTN (Acute) Stroke-like symptoms (Acute) Stroke (Acute) The patient is a 83 year old F with PMH HTN, HLD, aortic stenosis status post bioprosthetic aortic valve replacement, hypothyroidism admitted with right-sided numbness and slurred speech. Patient is a poor historian, history is obtained from the medical records chart as well as from the patient. Per ED documentation on admission NIHSS was 2. MRI brain done on admission reported to show acute left [employer] infarct, MR angiogram head/neck showed left P2 occlusion. Per documentation patient is on aspirin/Plavix at baseline. Per patient she lives alone, denies any frequent falls, does use cane for ambulating, does drive. Per patient she lives in an independent house and has 3 steps to get into the house. At present patient denies any numbness in the right side, denies any headache, dizziness, visual disturbances, speech disturbances, focal motor weakness, or sensory loss.] Impression Acute left [employer] infarct, left P2 occlusion Plan ?On aspirin and Plavix at baseline. Bleeding risks discussed. ?On Lipitor 40 mg p.o. nightly. ?MRI brain reported to show acute left [employer] infarct. ?MR angiogram head/neck showed left P2 occlusion. ?LDL 73, HbA1c 6 ?Await TTE report ?Goal BP less than 130/80 mmHg, avoid hypotension. ?Recommend 30-day event recorder on discharge ?labs reviewed ?PT/OT/ST ?GI/DVT prophylaxis ?Stroke risk factors discussed and stroke education provided ?Fall precautions ?Further medical management per hospitalist team ?Please call with questions if any ?Follow-up with neurology as outpatient in 4 weeks ?Thank you for allowing us to participate in patient's current management Code Visit Inpatient E&M: [id number] Init Hosp L3
--- NOTE | 2018-06-17 15:26 | CASEMGMT ---
SW spoke with patient. Introduced self and role at [facility]. SW spoke with patient about going to [facility] 4th floor rehab unit. She was worried about her cat. SW asked patient if she has any family members SW could contact. She looked through her purse and found a slip of paper that had phone numbers on it. She gave SW permission to call her ex-daughter in law, Malgorzata and/or her granddaughter Emilee, and/or her son, Fredo. SW asked if one of them could care for her cat would she be willing to go to the inpatient rehab unit. She said she would agree to this. She told SW to call [facility]. SW called [facility], introduced self and role at [facility]. SW let her know patient is in the hospital and she had a Stroke. SCARLETT told her we would like for her to go to the rehab unit, but patient is worried about her cat. She was wondering if she would be willing to take care of her cat. Malgorzata said she would be able to do this. She would come in and get patient's dash. SCARLETT told her SW will let her know when and if patient goes to rehab. SW thanked her for her help. SCARLETT then spoke with patient letting her know Malgorzata is willing to care for her cat while she is in rehab. She was relieved. SCARLETT told her SW will work on finding out if we can get her into rehab. SCARLETT spoke with Yoanna and she will check with Dr Chacon to see if patient can go to rehab. Christy FERRARA MSW
[2018-06-17] MEDS: Atorvastatin Calcium 40 MG Tablet PO (22:01)
[2018-06-18 00:29] VITALS: BP 135/69; PULSE 71; RESP 16; TEMP 37.1; O2SAT 94
[2018-06-18 00:51] VITALS: BMI 33.4
[2018-06-18 03:05] VITALS: PULSE 91
[2018-06-18 04:29] VITALS: BP 129/65; PULSE 72; RESP 18; TEMP 36.9; O2SAT 95
[2018-06-18] MEDS: Levothyroxine 88 MCG Tablet PO (05:35)
[2018-06-18 07:15] VITALS: PULSE 65
[2018-06-18 08:02] VITALS: BP 119/64; PULSE 73; RESP 16; TEMP 36.3; O2SAT 97
[2018-06-18 08:04] VITALS: BMI 33.4
--- NOTE | 2018-06-18 09:00 | NURSING ---
This RN taking over care at this time
[2018-06-18] MEDS: Clopidogrel Bisulfate 75 MG Tablet PO (09:08)
[2018-06-18] MEDS: Heparin Injection (Vial) 5,000 UNIT/ML VIAL 5000 UNIT SC (09:08)
[2018-06-18] MEDS: Pantoprazole Sodium 40 MG Tablet PO (09:08)
[2018-06-18] MEDS: Aspirin 81 MG TAB.CHEW PO (09:08)
[2018-06-18 12:00] VITALS: BP 129/66; PULSE 68; RESP 16; TEMP 36.7; O2SAT 95
--- NOTE | 2018-06-18 12:39 | CASEMGMT ---
Addendum entered by Christy Grace 06/18/18 12:43: [id number] in law. She is caring for patient's cat. Her phone number is [phone] Original Note: Dr Chacon said patient can go to the Rehab Unit. SW spoke with patient and she said she is frustrated and would like to go home, but she understands that she needs the rehab right now. SW reminded her that Malgorzata will be caring for her cat while she is away. SCARLETT told her SW will call [facility] and let her know she is going over to rehab today. SCARLETT called [facility] and let her know patient is going to the rehab unit today. She thanked for the update. Plan: [facility] 4th floor rehab unit. Christy FERRARA MSW
--- NOTE | 2018-06-18 13:13 | NURSING ---
Called report to [facility] CABEZAS on inpatient rehab unit
--- NOTE | 2018-06-18 16:11 | PCM.PN.HOSP ---
Patient Problems: Active and Suspected Problems Debility (Acute) Subjective: Patient seen and examined. As per the nursing staff, patient had memory lapses and sometimes she is not aware of place, and person. She was worried of her cat at home which has been taken care of by neighbor. She deemed not self-sufficient to take care of her and needs further rehab therefore being transferred to inpatient rehab. Vitals/I&O's: Vital Signs Temp Pulse Resp BP Pulse Ox 98.0 F 68 16 129/66 H 95 06/18/18 12:00 06/18/18 12:00 06/18/18 12:00 06/18/18 12:00 06/18/18 12:00 Oxygen Delivery Method Room Air Weight: 194 lb 14.218 oz Body Mass Index (BMI) 33.4 Finger Stick Blood Glucose 103 Intake and Output for Last 24 Hours 06/16/18 06/17/18 06/18/18 23:59 23:59 23:59 Intake Total 420 / 420 600 / 600 460 / 460 Output Total 400 / 400 250 / 250 Balance 350 / 350 460 / 460 General: Alert, Oriented x3, Cooperative HEENT: Atraumatic, PERRLA, EOMI, Normocephalic, - - Hard of hearing Neck: Supple, No JVD, Negative Carotid Bruits Lungs: Clear to auscultation, No rhonchi, No wheeze, No rales, Diminished Cardiovascular: Regular rate, Regular Rhythm, Normal S1, Normal S2, No murmurs Abdomen: Bowel Sounds Present, Soft, Non Tender, Non-Distended Extremities: No edema, Capillary Refill Less than 3 Seconds Skin: No rashes, No breakdown Musculoskeletal: No Tenderness to Palpation of Joints or Extremities, Arthritic Changes Neurological: Cranial nerves II-XII grossly intact, Deep Tendon Reflexes 2+/4 and Symmetrical, - - Patient had lapses in level of consciousness question and NIH stroke scale. Psych/Mental Status: Normal Affect, Appropriate Medical Necessity - Tobacco Use Smoking Status: Never smoker Assessment/Plan All Active Problems UTI (urinary tract infection) (Acute) Orthostatic hypotension (Acute) Pulmonary HTN (Acute) Stroke-like symptoms (Acute) Stroke (Acute) Debility (Acute) The patient is a 83 year old F with a significant history of hypertension; hyperlipidemia; hypothyroidism; lisp; aortic stenosis status post bioprosthetic aortic valve replacement; diastolic dysfunction; pulmonary hypertension who presented with right hand numbness that started about 45 minutes prior to presentation. 1 acute left EFFICIENCY CLERK Ischemic stroke: MRI brain is positive of acute left EFFICIENCY CLERK ischemic stroke. MRI brain reported as occlusion of the left posterior cerebral artery at the level of the P2 segment. She denies any previous history of a stroke. Patient is on permissive hypertension. PT OT and speech evaluation to continue. Patient is on aspirin, Plavix and statin. Patient was on pravastatin changed to atorvastatin. Lipid profile reported as LDL 73, triglyceride 97. HDL 36. Echo was done and reported as EF 50 to 55%. Mild anteroseptal hypokinesis. LA severely enlarged. RA moderately enlarged. Moderate to severe 3+ TR with RVSP 50 to 55 mmHg suggestive of moderate pulmonary hypertension. Echo suggestive of heart failure with preserved EF and valvular heart disease moderate pulmonary hypertension Patient was seen by neurologist and recommended rehab 2. Hypertension with chronic diastolic heart failure On presentation her blood pressure was not within goal. Losartan can be resumed in the next 2 days. Hypothyroidism Synthroid continued. GERD Protonix continued. DVT prophylaxis Subcutaneous heparin ordered. Discharge summary is signed off today's date. Discharge meds reconciliation done. Patient is being discharged to inpatient rehab. Clinical Impression(s) from Imaging Studies Brain CT 06/15/18 19:34 IMPRESSION: No CT evidence of acute infarct or hemorrhage. If there is clinical concern for hyperacute ischemia that is not evident by CT, MRI should be considered if possible. ADDENDUM: 06/15/182011 IMPRESSION: No CT evidence of acute infarct or hemorrhage. Chest X-Ray 06/15/18 19:34 IMPRESSION: Cardiomegaly. Brain MRI 06/15/18 21:46 IMPRESSION: Acute left EFFICIENCY CLERK infarct. No hemorrhage. Severe microangiopathic white matter disease. Head MRA 06/15/18 21:46 IMPRESSION: There is occlusion of the left posterior cerebral artery at the level of the P2 segment. Neck MRA 06/15/18 21:46 IMPRESSION: Normal bilateral cervical carotid and vertebral arteries. Code Visit Inpatient E&M: [id number] Subs Hosp L2
--- NOTE | 2018-06-18 16:15 | PN_ITS ---
Patient Problems: Active and Suspected Problems Debility (Acute) Subjective: Patient seen and examined. As per the nursing staff, patient had memory lapses and sometimes she is not aware of place, and person. She was worried of her cat at home which has been taken care of by neighbor. She deemed not self-sufficient to take care of her and needs further rehab therefore being transferred to inpatient rehab. Vitals/I&O's: Vital Signs Temp Pulse Resp BP Pulse Ox 98.0 F 68 16 129/66 H 95 06/18/18 12:00 06/18/18 12:00 06/18/18 12:00 06/18/18 12:00 06/18/18 12:00 Oxygen Delivery Method Room Air Weight: 194 lb 14.218 oz Body Mass Index (BMI) 33.4 Finger Stick Blood Glucose 103 Intake and Output for Last 24 Hours 06/16/18 06/17/18 06/18/18 23:59 23:59 23:59 Intake Total 420 / 420 600 / 600 460 / 460 Output Total 400 / 400 250 / 250 Balance 350 / 350 460 / 460 General: Alert, Oriented x3, Cooperative HEENT: Atraumatic, PERRLA, EOMI, Normocephalic, - - Hard of hearing Neck: Supple, No JVD, Negative Carotid Bruits Lungs: Clear to auscultation, No rhonchi, No wheeze, No rales, Diminished Cardiovascular: Regular rate, Regular Rhythm, Normal S1, Normal S2, No murmurs Abdomen: Bowel Sounds Present, Soft, Non Tender, Non-Distended Extremities: No edema, Capillary Refill Less than 3 Seconds Skin: No rashes, No breakdown Musculoskeletal: No Tenderness to Palpation of Joints or Extremities, Arthritic Changes Neurological: Cranial nerves II-XII grossly intact, Deep Tendon Reflexes 2+/4 and Symmetrical, - - Patient had lapses in level of consciousness question and NIH stroke scale. Psych/Mental Status: Normal Affect, Appropriate Medical Necessity - Tobacco Use Smoking Status: Never smoker Assessment/Plan All Active Problems UTI (urinary tract infection) (Acute) Orthostatic hypotension (Acute) Pulmonary HTN (Acute) Stroke-like symptoms (Acute) Stroke (Acute) Debility (Acute) The patient is a 83 year old F with a significant history of hypertension; hyperlipidemia; hypothyroidism; lisp; aortic stenosis status post bioprosthetic aortic valve replacement; diastolic dysfunction; pulmonary hypertension who presented with right hand numbness that started about 45 minutes prior to presentation. 1 acute left BILLET HEATER Ischemic stroke: MRI brain is positive of acute left BILLET HEATER ischemic stroke. MRI brain reported as occlusion of the left posterior cerebral artery at the level of the P2 segment. She denies any previous history of a stroke. Patient is on permissive hypertension. PT OT and speech evaluation to continue. Patient is on aspirin, Plavix and statin. Patient was on pravastatin changed to atorvastatin. Lipid profile reported as LDL 73, triglyceride 97. HDL 36. Echo was done and reported as EF 50 to 55%. Mild anteroseptal hypokinesis. LA severely enlarged. RA moderately enlarged. Moderate to severe 3+ TR with RVSP 50 to 55 mmHg suggestive of moderate pulmonary hypertension. Echo suggestive of heart failure with preserved EF and valvular heart disease moderate pulmonary hypertension Patient was seen by neurologist and recommended rehab 2. Hypertension with chronic diastolic heart failure On presentation her blood pressure was not within goal. Losartan can be resumed in the next 2 days. Hypothyroidism Synthroid continued. GERD Protonix continued. DVT prophylaxis Subcutaneous heparin ordered. Discharge summary is signed off today's date. Discharge meds reconciliation done. Patient is being discharged to inpatient rehab. Clinical Impression(s) from Imaging Studies Brain CT 06/15/18 19:34 IMPRESSION: No CT evidence of acute infarct or hemorrhage. If there is clinical concern for hyperacute ischemia that is not evident by CT, MRI should be considered if possible. ADDENDUM: 06/15/182011 IMPRESSION: No CT evidence of acute infarct or hemorrhage. Chest X-Ray 06/15/18 19:34 IMPRESSION: Cardiomegaly. Brain MRI 06/15/18 21:46 IMPRESSION: Acute left BILLET HEATER infarct. No hemorrhage. Severe microangiopathic white matter disease. Head MRA 06/15/18 21:46 IMPRESSION: There is occlusion of the left posterior cerebral artery at the level of the P2 segment. Neck MRA 06/15/18 21:46 IMPRESSION: Normal bilateral cervical carotid and vertebral arteries. Code Visit Inpatient E&M: [id number] Subs Hosp L2
== END 2018-06-18 13:26 | DRG 65 ==
LOC: ED 19:34 → PCU 21:24
PROVIDERS: Admitting Provider Hospitalist; Emergency Provider Emergency Medicine; Family Provider Family Medicine; PCP Family Medicine; Visit Provider Internal Medicine
DX: I63.532 Cerebral infarction due to unspecified occlusion or stenosis of left posterior cerebral artery (principal); I50.32 Chronic diastolic (congestive) heart failure; E78.5 Hyperlipidemia, unspecified; E03.9 Hypothyroidism, unspecified; R53.81 Other malaise; E66.9 Obesity, unspecified; Z68.33 Body mass index [BMI] 33.0-33.9, adult; Z95.3 Presence of xenogenic heart valve; K21.9 Gastro-esophageal reflux disease without esophagitis; I11.0 Hypertensive heart disease with heart failure; R20.0 Anesthesia of skin; R29.702 NIHSS score 2; I27.20 Pulmonary hypertension, unspecified; Z79.82 Long term (current) use of aspirin
CPT/HCPCS: 36415; 70450; 70544; 70547; 70551; 71045; 80048; 80061; 82962; 83036; 84484; 85025; 85610; 85730; 92507; 92610; 93005; 93306; 97110; 97162; 97166; 97530; 97802; 99285; J7030; A4216

== ENCOUNTER 2018-06-18 13:47 | Inpatient (IN) | payer MEDICARE, SELFPAY ==
[2018-06-18 08:04] VITALS: BMI 33.4
[2018-06-18 14:13] VITALS: BP 140/79; PULSE 80; RESP 16; TEMP 36.4; O2SAT 96; BMI 32.8; BMI 32.9
--- NOTE | 2018-06-18 14:52 | PCM.HP.STD ---
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 (4) Status post aortic valve replacement with bioprosthetic valve Status: Chronic (5) history of microcytic anemia Status: Chronic (6) Hypothyroidism Status: Chronic (7) HTN (hypertension) Status: Chronic (8) Hyperlipidemia Status: Chronic (9) Aortic valve stenosis Status: Chronic History of Present Illness Date of Admission: 06/18/18 Chief Complaint: Debility status post acute left FILLER WIPER stroke The patient is a 83 year old F with PMH HTN, HLD, aortic stenosis status post bioprosthetic aortic valve replacement, hypothyroidism admitted to [facility] on 06/18/2018 with debility status post acute left FILLER WIPER stroke, but greater than 3 hours therapy daily with a goal of returning back home at or near her prior level of functional independence. She was admitted with right-sided numbness and slurred speech to the inpatient hospital on 06/15/2018. Per ED documentation on admission NIHSS was 2. MRI brain done on admission reported to show acute left FILLER WIPER infarct, MR angiogram head/neck showed left P2 occlusion. Per documentation patient is on aspirin/Plavix at baseline. Per patient she lives alone, denies any frequent falls, does use cane for ambulating, does drive. Per patient she lives in an independent house and has 3 steps to get into the house. At present patient denies any numbness in the right side, denies any headache, dizziness, visual disturbances, speech disturbances, focal motor weakness, or sensory loss. Past Medical History Past Medical History (Chronic Problems): Chronic Problems Obesity (Chronic) Debility (Chronic) Status post aortic valve replacement with bioprosthetic valve (Chronic) history of microcytic anemia (Chronic) Hypothyroidism (Chronic) HTN (hypertension) (Chronic) Hyperlipidemia (Chronic) Aortic valve stenosis (Chronic) Allergies adhesive Adverse Reaction (Verified 06/15/18 19:31) Rash Home Medications: Ambulatory Orders Medication Instructions Recorded Pantoprazole Sodium [Protonix] 40 mg PO DAILY 05/21/13 Levothyroxine [Synthroid] 88 mcg PO DAILY 05/08/17 Losartan Potassium 100 mg PO DAILY 05/08/17 Metoprolol Tartrate [Lopressor 25 mg PO BID 06/15/18 (beta oneyda)] Aspirin [Aspirin, Baby] 81 mg PO DAILY@0800 06/18/18 Atorvastatin Calcium [Lipitor] 40 mg PO QHS 06/18/18 Clopidogrel Bisulfate [Plavix] 75 mg PO DAILY 06/18/18 Surgical History: appendectomy, - - Aortic valve replacement Lives: Alone Smoking Status: Never smoker Tobacco Use: Non-smoker Alcohol: None Drugs: None - *Family History Maternal History Items: Hypertension Paternal History Items: Hypertension Review of Systems Constitutional: Reports: - - Complete ROS negative except as documented in HPI VTE Information - Inpt Only VTE Present on Admission: No VTE Mechan Device Prophylaxis: SCD's, Knee High NOÉ Hose VTE Pharm Prophylaxis ordered?: Yes Patient Problems: Active and Suspected Problems Debility (Acute) - Physical Exam General: Alert HEENT: Normocephalic Neck: Supple Lungs: Normal air movement Cardiovascular: Normal S1, Normal S2 Abdomen: Bowel Sounds Present Extremities: No cyanosis Neurological: - - consious, alert, AoAx3, CN 2-12 grossly intact, power 5/5 both UE/LE, no sensory loss, no cerebellar signs, Reflexes + B/L B/S/T/K/A, gait deferred, NIHSS 0 at present, mRS 0 at baseline Psych/Mental Status: Normal Affect Vital Signs Temp Pulse Resp BP Pulse Ox 97.6 F L 80 16 140/79 H 96 06/18/18 14:13 06/18/18 14:13 06/18/18 14:13 06/18/18 14:13 06/18/18 14:13 Oxygen Delivery Method Room Air Weight: 86.81 kg Body Mass Index (BMI) 32.8 Finger Stick Blood Glucose 103 Assessment/Plan All Active Problems UTI (urinary tract infection) (Acute) Orthostatic hypotension (Acute) Pulmonary HTN (Acute) Stroke-like symptoms (Acute) Stroke (Acute) Debility (Acute) The patient is a 83 year old F with PMH HTN, HLD, aortic stenosis status post bioprosthetic aortic valve replacement, hypothyroidism admitted to [facility] on 06/18/2018 with debility status post acute left FILLER WIPER stroke, but greater than 3 hours therapy daily with a goal of returning back home at or near her prior level of functional independence. She was admitted with right-sided numbness and slurred speech to the inpatient hospital on 06/15/2018. Per ED documentation on admission NIHSS was 2. MRI brain done on admission reported to show acute left FILLER WIPER infarct, MR angiogram head/neck showed left P2 occlusion. Per documentation patient is on aspirin/Plavix at baseline. Per patient she lives alone, denies any frequent falls, does use cane for ambulating, does drive. Per patient she lives in an independent house and has 3 steps to get into the house. At present patient denies any numbness in the right side, denies any headache, dizziness, visual disturbances, speech disturbances, focal motor weakness, or sensory loss. Plan ?PT for gait stability ?OT for ADLs ?Analgesics as needed ?Bowel protocol ?Acute left FILLER WIPER stroke?on aspirin and clopidogrel at baseline for many years, on atorvastatin ?HTN?on losartan, metoprolol ?HLD?on atorvastatin ?Hypothyroidism?on levothyroxine ?GI/DVT prophylaxis?on pantoprazole/heparin 5000 units subcu 12 hourly ?Fall precautions ?Further medical management per hospitalist recommendation. Hospitalist consult ?Follow-up with PCP, neurology and cardiology on discharge Code Visit Inpatient E&M: [id number] Init Hosp L3
--- NOTE | 2018-06-18 14:57 | HP.PCM_ITS ---
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 (4) Status post aortic valve replacement with bioprosthetic valve Status: Chronic (5) history of microcytic anemia Status: Chronic (6) Hypothyroidism Status: Chronic (7) HTN (hypertension) Status: Chronic (8) Hyperlipidemia Status: Chronic (9) Aortic valve stenosis Status: Chronic History of Present Illness Date of Admission: 06/18/18 Chief Complaint: Debility status post acute left BACK JOINER stroke The patient is a 83 year old F with PMH HTN, HLD, aortic stenosis status post bioprosthetic aortic valve replacement, hypothyroidism admitted to [facility] on 06/18/2018 with debility status post acute left BACK JOINER stroke, but greater than 3 hours therapy daily with a goal of returning back home at or near her prior level of functional independence. She was admitted with right-sided numbness and slurred speech to the inpatient hospital on 06/15/2018. Per ED documentation on admission NIHSS was 2. MRI brain done on admission reported to show acute left BACK JOINER infarct, MR angiogram head/neck showed left P2 occlusion. Per documentation patient is on aspirin/Plavix at baseline. Per patient she lives alone, denies any frequent falls, does use cane for ambulating, does drive. Per patient she lives in an independent house and has 3 steps to get into the house. At present patient denies any numbness in the right side, denies any headache, dizziness, visual disturbances, speech disturbances, focal motor weakness, or sensory loss. Past Medical History Past Medical History (Chronic Problems): Chronic Problems Obesity (Chronic) Debility (Chronic) Status post aortic valve replacement with bioprosthetic valve (Chronic) history of microcytic anemia (Chronic) Hypothyroidism (Chronic) HTN (hypertension) (Chronic) Hyperlipidemia (Chronic) Aortic valve stenosis (Chronic) Allergies adhesive Adverse Reaction (Verified 06/15/18 19:31) Rash Home Medications: Ambulatory Orders Medication Instructions Recorded Pantoprazole Sodium [Protonix] 40 mg PO DAILY 05/21/13 Levothyroxine [Synthroid] 88 mcg PO DAILY 05/08/17 Losartan Potassium 100 mg PO DAILY 05/08/17 Metoprolol Tartrate [Lopressor 25 mg PO BID 06/15/18 (beta oneyda)] Aspirin [Aspirin, Baby] 81 mg PO DAILY@0800 06/18/18 Atorvastatin Calcium [Lipitor] 40 mg PO QHS 06/18/18 Clopidogrel Bisulfate [Plavix] 75 mg PO DAILY 06/18/18 Surgical History: appendectomy, - - Aortic valve replacement Lives: Alone Smoking Status: Never smoker Tobacco Use: Non-smoker Alcohol: None Drugs: None - *Family History Maternal History Items: Hypertension Paternal History Items: Hypertension Review of Systems Constitutional: Reports: - - Complete ROS negative except as documented in HPI VTE Information - Inpt Only VTE Present on Admission: No VTE Mechan Device Prophylaxis: SCD's, Knee High NOÉ Hose VTE Pharm Prophylaxis ordered?: Yes Patient Problems: Active and Suspected Problems Debility (Acute) - Physical Exam General: Alert HEENT: Normocephalic Neck: Supple Lungs: Normal air movement Cardiovascular: Normal S1, Normal S2 Abdomen: Bowel Sounds Present Extremities: No cyanosis Neurological: - - consious, alert, AoAx3, CN 2-12 grossly intact, power 5/5 both UE/LE, no sensory loss, no cerebellar signs, Reflexes + B/L B/S/T/K/A, gait deferred, NIHSS 0 at present, mRS 0 at baseline Psych/Mental Status: Normal Affect Vital Signs Temp Pulse Resp BP Pulse Ox 97.6 F L 80 16 140/79 H 96 06/18/18 14:13 06/18/18 14:13 06/18/18 14:13 06/18/18 14:13 06/18/18 14:13 Oxygen Delivery Method Room Air Weight: 86.81 kg Body Mass Index (BMI) 32.8 Finger Stick Blood Glucose 103 Assessment/Plan All Active Problems UTI (urinary tract infection) (Acute) Orthostatic hypotension (Acute) Pulmonary HTN (Acute) Stroke-like symptoms (Acute) Stroke (Acute) Debility (Acute) The patient is a 83 year old F with PMH HTN, HLD, aortic stenosis status post bioprosthetic aortic valve replacement, hypothyroidism admitted to [facility] on 06/18/2018 with debility status post acute left BACK JOINER stroke, but greater than 3 hours therapy daily with a goal of returning back home at or near her prior level of functional independence. She was admitted with right-sided numbness and slurred speech to the inpatient hospital on 06/15/2018. Per ED documentation on admission NIHSS was 2. MRI brain done on admission reported to show acute left BACK JOINER infarct, MR angiogram head/neck showed left P2 occlusion. Per documentation patient is on aspirin/Plavix at baseline. Per patient she lives alone, denies any frequent falls, does use cane for ambulating, does drive. Per patient she lives in an independent house and has 3 steps to get into the house. At present patient denies any numbness in the right side, denies any headache, dizziness, visual disturbances, speech disturbances, focal motor weakness, or sensory loss. Plan ?PT for gait stability ?OT for ADLs ?Analgesics as needed ?Bowel protocol ?Acute left BACK JOINER stroke?on aspirin and clopidogrel at baseline for many years, on atorvastatin ?HTN?on losartan, metoprolol ?HLD?on atorvastatin ?Hypothyroidism?on levothyroxine ?GI/DVT prophylaxis?on pantoprazole/heparin 5000 units subcu 12 hourly ?Fall precautions ?Further medical management per hospitalist recommendation. Hospitalist consult ?Follow-up with PCP, neurology and cardiology on discharge Code Visit Inpatient E&M: 82148 Init Hosp L3
--- NOTE | 2018-06-18 14:59 | PCM.RU.PYE ---
Admission Information Status Changes from Prescreening?: No changes Identified Actual Problem List:: Mobility Impaired, Self Care Deficit Potential Problem List:: DVT, Bleeding, Infection, UTI, Aspiration, Falls, Skin Integrity, Depression Risk of Complications DVT: LMWH, NOÉ Hose, Sequential Compression Device Bleeding: Monitor Lab Values, Nursing to Teach Precautions for anti-coagulation therapy., Wound, if applicable, to be assessed every shift., Stroke patients assessed for lethargy or change in status. Infection: Clinical Staff to Monitor for S/S of infection:, S/S of infection include fever, redness, warmth, etc. Urinary Tract Infection: Monitor for frequency, burning, discomfort, or incontinence., Nursing will obtain urine sample for urinalysis and C&S when ordered. Aspiration: Clinical staff will monitor for coughing, drooling, congestion., Speech will evaluate swallowing and dsyphasia., Nursing will monitor patient swallowing during meals. Falls: Patient will be evaluated for Fall Precautions, Patient will be placed on Fall Precautions as indicated per protocol. Skin Breakdown: Nursing will assess skin daily using assessment tool., Nursing will place on Skin Breakdown Precautions as indicated. Pain: Clinical staff will assess patient's pain level per protocol., Medications will be given, if needed, and the pain level reassessed., Other methods: Massage, distraction, decrease stimulus, etc. used PRN. Plan of Care Patient requires physician specializing in physical medicine and rehab oversight to provide close medical supervision of rehab issues including: Pain Management, Sleep Problems, Bowel and Bladder, Medical and co-morbidity Management, DVT prophylaxis, Rehabilitation Leadership, Coordination of treatment team Patient needs Physical Therapy: For a minimum of 1 hour, At least 5 out of 7 days Patient needs Physical Therapy to improve:: Mobility, Mobility, Mobility, Strengthening, Transfers, Stretching, ROM, Endurance, Stairs, Gait, Balance Patient needs Occupational Therapy: For a minimum of 1 hour, At least 5 out of 7 days Patient needs Occupational Therapy to improve ADL's incl.: Eating, Grooming, Bathing, Dressing, Toileting, Toilet transfers, Community Reintegration, Higher functioning activities, Household tasks, Adaptive Equipment, Splinting, Other activities as determined Patient requires speech therapy: For a minimum of 1 hour, At least 5 out of 7 days Patient requires speech therapy for: Swallowing, Cognition, Language Skills, Compensatory Strategies Patient requires 24/ Rehabilitation Nursing for: Pain Issues, Identifying and preventing risk factors, Monitoring and reporting current medical conditions, Assisting with ambulation, transfer, and all ADL's, Teaching patients about disease process and medications, Family teaching, Providing safe environment, Bowel and Bladder Issues, Skin integrity, Medication Management Patient needs Electric Crane Operator/ Case Management for: Discharge Planning, Arranging Home Equipment or Services, Family Interventions Patient needs Dietary and Nutrition Services for: Adequate Nutrition, Nutritional Supplements, Nutritional Education Goals Patient will remain: free from falls, or injury at time of discharge. Patient will perform bed mobility at: MOD I level of assist. Patient will complete transfers from bed to chair at: MOD I level of assist. Patient will ambulate: 100 feet, with MOD I assist, with LRD Patient will complete upper body dressing at: MOD I level of assist. Patient will complete lower body dressing at: MOD I level of assist. Patient will complete toileting at: MOD I level of assist. Patient will perform bathing at: MOD I level of assist. Patient will complete grooming at: MOD I level of assist. Patient will complete home management skills at: MOD I level of assist. Patient will achieve: 12 stairs, at MOD I assist Patient will have pain level of: of 3 or less Patient's skin will: remain intact, free from infection. Patient will receive: adequate nutrition. Discharge Planning Pt Prognosis for Sig. Practical Improv. w/in Reasonable Time: Good Estimated Length of stay (days): 16 Anticipated D/C Destination: Home Was Preadmission Assessment Accurate?: Yes
[2018-06-18 16:55] VITALS: O2SAT 98
[2018-06-18 20:53] VITALS: BP 130/79; PULSE 71; RESP 16; TEMP 36.4; O2SAT 97
[2018-06-18 20:55] VITALS: PULSE 71
[2018-06-18] MEDS: Metoprolol Tartrate 25 MG Tablet PO (20:55)
[2018-06-18] MEDS: Atorvastatin Calcium 40 MG Tablet PO (20:55)
[2018-06-18] MEDS: Senna/Docusate Sodium 1 Tablet 2 TABLET PO (20:56)
[2018-06-18] MEDS: Heparin Injection (Vial) 5,000 UNIT/ML VIAL 5000 UNIT SC (20:56)
--- NOTE | 2018-06-19 02:41 | NURSING ---
REVIEWED AND AGREE WITH MANAGER BATTERY'S FIM AND HANDOFF CHARTING.
[2018-06-19] MEDS: Levothyroxine 88 MCG Tablet PO (05:34)
[2018-06-19 06:34] LABS: Absolute Neutrophil Count 2.8 X10^3/uL (2.0-7.7); Basophil# 0.04 X10^3/uL; Basophil% 0.7 % (0-1); Eosinophil# 0.32 X10^3/uL; Eosinophils% 5.9 % (0-5); Hemoglobin 9.8 g/dl (12.0-15.0); Lymphocyte % 31.5 % (19-41); Mean Corp Hgb Conc 30.6 g/gl (32-36); Mean Corpuscular Hgb 21.6 pg (27.0-32.0); Mean Corpuscular Volume 70.5 fL (81-99); Mean Platelet Vol. 8.7 fl (6.2-12.0); Monocyte# 0.49 X10^3/uL; Monocyte% 9.1 % (0-10); Neutrophil # 2.83 X10^3/uL (2.7-7.7); Neutrophil % 52.6 % (47-70); Platelet Count 241 K/mm3 (150-450); RBC Distribution Width SD 51.3 fl (35.1-43.9); Red Blood Count 4.54 M/mm3 (4.2-5.4); White Blood Count 5.4 K/mm3 (4.4-11.0)
[2018-06-19 06:41] LABS: ALB/GLOB Ratio 0.8 RATIO (0.9-2.4); AST(SGOT) 29 U/L (15-37); Alanine Aminotransfer ALT/SGPT 15 U/L (13-56); Albumin, Serum 3.2 g/dL (3.2-5.0); Alkaline Phosphatase 73 U/L (45-117); Anion Gap 11 (5-15); BUN 15 mg/dL (7-18); BUN/Creat Ratio 14.2 RATIO (10-20); Calcium,Total 8.6 mg/dL (8.5-10.1); Chloride 110 mmol/L (98-107); Creatinine, Serum 1.06 mg/dL (0.55-1.02); Differential Indicated SCAN CRITERIA MET; EST Glomerular Filtration Rate 53 mL/min (>60); Est Glom Filt Rate - Afr Amer 64 mL/min (>60); Estimated Creatinine Clearance 34.73 ml/min; Globulin 3.9 g/dL (2.2-4.2); Glucose 109 mg/dL (74-106); POSITIVE COUNT NO; POSITIVE DIFFERENTIAL NO; POSITIVE MORPHOLOGY YES; Potassium 3.4 mmol/L (3.5-5.1); Protein, Total 7.1 g/dL (6.4-8.2); Sodium Level 140 mmol/L (136-145)
[2018-06-19 06:47] VITALS: O2SAT 98
[2018-06-19 07:11] LABS: Anisocytosis 1+; Differential Comment SCAN; Hypochromasia 1+; Microcytosis 1+; Platelet Estimate ADEQUATE (ADEQ); Polychromasia 1+
[2018-06-19 07:22] VITALS: BP 113/62; PULSE 62; RESP 16; TEMP 36.6; O2SAT 95
[2018-06-19 09:21] VITALS: BP 113/62; PULSE 62
[2018-06-19] MEDS: Senna/Docusate Sodium 1 Tablet 2 TABLET PO ×2 (09:21→20:45)
[2018-06-19] MEDS: Metoprolol Tartrate 25 MG Tablet PO ×2 (09:21→20:45)
[2018-06-19] MEDS: Heparin Injection (Vial) 5,000 UNIT/ML VIAL 5000 UNIT SC ×2 (09:21→20:46)
[2018-06-19] MEDS: Losartan Potassium 100 MG Tablet PO (09:21)
[2018-06-19] MEDS: Clopidogrel Bisulfate 75 MG Tablet PO (09:21)
[2018-06-19] MEDS: Pantoprazole Sodium 40 MG Tablet PO (09:21)
[2018-06-19] MEDS: Aspirin 81 MG TAB.CHEW PO (09:22)
--- NOTE | 2018-06-19 17:34 | NURSING ---
Reviewed and agree with MYSQL DATABASE ADMINISTRATOR's FIMS and Handoff charting
--- NOTE | 2018-06-19 17:42 | NURSING ---
Dr Green aware of pt's labs.
[2018-06-19 19:20] VITALS: BP 130/74; PULSE 60; RESP 18; TEMP 36.8; O2SAT 92
[2018-06-19 19:30] VITALS: PULSE 60; RESP 18; O2SAT 92
[2018-06-19 20:45] VITALS: BP 130/74; PULSE 60
[2018-06-19] MEDS: Atorvastatin Calcium 40 MG Tablet PO (20:45)
[2018-06-19] MEDS: Acetaminophen 325 MG Tablet 650 MG PO (20:46)
--- NOTE | 2018-06-20 02:15 | NURSING ---
Reviewed and agree with FAMILY HEALTH NURSE PRACTITIONER documentation and FIMs charting.
[2018-06-20] MEDS: Levothyroxine 88 MCG Tablet PO (05:16)
[2018-06-20 07:05] VITALS: O2SAT 95
[2018-06-20 08:09] VITALS: PULSE 78
[2018-06-20] MEDS: Losartan Potassium 100 MG Tablet PO (08:09)
[2018-06-20] MEDS: Senna/Docusate Sodium 1 Tablet 2 TABLET PO (08:09)
[2018-06-20] MEDS: Clopidogrel Bisulfate 75 MG Tablet PO (08:09)
[2018-06-20] MEDS: Metoprolol Tartrate 25 MG Tablet PO ×2 (08:09→20:13)
[2018-06-20] MEDS: Aspirin 81 MG TAB.CHEW PO (08:09)
[2018-06-20] MEDS: Pantoprazole Sodium 40 MG Tablet PO (08:09)
[2018-06-20] MEDS: Heparin Injection (Vial) 5,000 UNIT/ML VIAL 5000 UNIT SC ×2 (08:09→20:14)
[2018-06-20 09:45] VITALS: BP 126/70; PULSE 65; RESP 17; TEMP 36.6; O2SAT 97
--- NOTE | 2018-06-20 10:55 | PCM.PN.NEU ---
Patient Problems: Active and Suspected Problems Debility (Acute) Subjective: No issues overnight. Care discussed with nursing staff. - Physical Exam General: Alert HEENT: Normocephalic Neck: Supple Lungs: Normal air movement Cardiovascular: Normal S1, Normal S2 Abdomen: Bowel Sounds Present Extremities: No cyanosis Neurological: - - consious, alert, AoAx3, CN 2-12 grossly intact, power 5/5 both UE/LE, no sensory loss, no cerebellar signs, Reflexes + B/L B/S/T/K/A, gait deferred, NIHSS 0 at present, mRS 0 at baseline Psych/Mental Status: Normal Affect Vital Signs Temp Pulse Resp BP Pulse Ox 98 F 65 17 126/70 H 97 06/20/18 09:45 06/20/18 09:45 06/20/18 09:45 06/20/18 09:45 06/20/18 09:45 Oxygen Delivery Method Room Air Weight: 86.81 kg Body Mass Index (BMI) 32.8 Finger Stick Blood Glucose 103 Intake and Output for Last 24 Hours 06/18/18 06/19/18 06/20/18 23:59 23:59 23:59 Intake Total 240 / 240 Balance 240 / 240 Medical Necessity - Tobacco Use Smoking Status: Never smoker Tobacco Use: Non-smoker Assessment/Plan All Active Problems UTI (urinary tract infection) (Acute) Orthostatic hypotension (Acute) Pulmonary HTN (Acute) Stroke-like symptoms (Acute) Stroke (Acute) Debility (Acute) The patient is a 83 year old F with PMH HTN, HLD, aortic stenosis status post bioprosthetic aortic valve replacement, hypothyroidism admitted to [facility] on 06/18/2018 with debility status 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 She was admitted with right-sided numbness and slurred speech to the inpatient hospital on 06/15/2018. Per ED documentation on admission NIHSS was 2. MRI brain done on admission reported to show acute left METAL WASHING MACHINE OPERATOR infarct, MR angiogram head/neck showed left P2 occlusion. Per documentation patient is on aspirin/Plavix at baseline. Per patient she lives alone, denies any frequent falls, does use cane for ambulating, does drive. Per patient she lives in an independent house and has 3 steps to get into the house. At present patient denies any numbness in the right side, denies any headache, dizziness, visual disturbances, speech disturbances, focal motor weakness, or sensory loss. 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 Hospitalist consult ?Follow-up with PCP, neurology and cardiology on discharge
[2018-06-20] MEDS: Acetaminophen 325 MG Tablet 650 MG PO ×2 (16:04→20:16)
--- NOTE | 2018-06-20 17:55 | PCM.PN.HOSP ---
Patient Problems: Active and Suspected Problems Debility (Acute) Subjective: Seen and examined. Patient wants to go home. Patient is admitted from [facility] PCU floor for acute rehab after she had left VOCATIONAL COORDINATOR stroke. Objective: General: Alert, Oriented x3, Cooperative HEENT: Atraumatic, PERRLA, EOMI, Normocephalic Neck: Supple, No JVD, Negative Carotid Bruits Lungs: Clear to auscultation, Normal air movement Cardiovascular: Regular rate, Regular Rhythm, Normal S1, Normal S2, Systolic murmur present over aortic region Abdomen: Bowel Sounds Present, Soft, Non Tender Extremities: No edema, Capillary Refill Less than 3 Seconds Skin: No rashes, No breakdown Musculoskeletal: No Tenderness to Palpation of Joints or Extremities, Arthritic Changes Lymphatic: No Cervical, Supraclavicular, or Inguinal Adenopathy Neurological: Cranial nerves II-XII grossly intact, Deep Tendon Reflexes 2+/4 and Symmetrical, Neuro grossly intact, Motor Exam 5/5 strength throughout, mild gait abnormality. Psych/Mental Status: Normal Affect, Appropriate Vitals/I&O's: Vital Signs Temp Pulse Resp BP Pulse Ox 98 F 65 17 126/70 H 97 06/20/18 09:45 06/20/18 09:45 06/20/18 09:45 06/20/18 09:45 06/20/18 09:45 Oxygen Delivery Method Room Air Weight: 191 lb 6.132 oz Body Mass Index (BMI) 32.8 Finger Stick Blood Glucose 103 Intake and Output for Last 24 Hours 06/18/18 06/19/18 06/20/18 23:59 23:59 23:59 Intake Total 240 / 240 Output Total 250 / 250 Balance 240 / 240 -250 / -250 Current Medications Acetaminophen (Tylenol) 650 mg PO Q4H PRN PRN PRN Reason: PAIN/FEVER Last Admin: 06/20/18 16:04 Dose: 650 mg Aspirin (Aspirin, Baby) 81 mg PO DAILY@0800 [facility] Last Admin: 06/20/18 08:09 Dose: 81 mg Atorvastatin Calcium (Lipitor) 40 mg PO QHS [facility] Last Admin: 06/19/18 20:45 Dose: 40 mg Bisacodyl (Dulcolax) 10 mg RECTAL .PRN X 1 PRN PRN Reason: Constipation Calamine/Phenol (Calmoseptine Ointment) 1 applic TOPICAL BID@0600,2200 [facility]; Protocol Clopidogrel Bisulfate (Plavix) 75 mg PO DAILY [facility] Last Admin: 06/20/18 08:09 Dose: 75 mg Heparin Sodium (Porcine) (Heparin Na) 5,000 unit SC Q12 [facility] Last Admin: 06/20/18 08:09 Dose: 5,000 unit Hydrocortisone Acetate (Anusol Hc) 25 mg RECTAL BID PRN PRN PRN Reason: Hemorrhoids Levothyroxine Sodium (Synthroid) 88 mcg PO DAILY@0600 [facility] Last Admin: 06/20/18 05:16 Dose: 88 mcg Losartan Potassium (Cozaar) 100 mg PO DAILY [facility] Last Admin: 06/20/18 08:09 Dose: 100 mg Magnesium Hydroxide (Milk Of Magnesia) 30 ml PO .PRN X 1 PRN PRN Reason: Constipation Melatonin (Melatonin) 3 mg PO QHS [facility] Metoprolol Tartrate (Lopressor (Beta Aneesh)) 25 mg PO BID [facility] Last Admin: 06/20/18 08:09 Dose: 25 mg Pantoprazole Sodium (Protonix) 40 mg PO DAILY [facility] Last Admin: 06/20/18 08:09 Dose: 40 mg Senna/Docusate Sodium (Senokot-S, Yareli-Colace) 2 tablet PO BID [facility] Last Admin: 06/20/18 08:09 Dose: 2 tablet Medical Necessity - Tobacco Use Smoking Status: Never smoker Tobacco Use: Non-smoker Assessment/Plan All Active Problems UTI (urinary tract infection) (Acute) Orthostatic hypotension (Acute) Pulmonary HTN (Acute) Stroke-like symptoms (Acute) Stroke (Acute) Debility (Acute) The patient is a 83 year old F with a significant history of hypertension; hyperlipidemia; hypothyroidism, ; aortic stenosis status post bioprosthetic aortic valve replacement; diastolic dysfunction suggestive of chronic heart failure with preserved EF; pulmonary hypertension is being admitted to acute rehab after evaluation and management for acute left VOCATIONAL COORDINATOR ischemic stroke and [facility]. The patient had right hand numbness. 1 acute left VOCATIONAL COORDINATOR Ischemic stroke: MRI brain is positive of acute left VOCATIONAL COORDINATOR ischemic stroke. MRI brain aborted as occlusion of the left posterior cerebral artery at the level of the P2 segment. She denies any previous history of a stroke. Patient is on permissive hypertension. PT OT and speech evaluation to continue. Patient is on aspirin, Plavix and statin, atorvastatin. Lipid profile reported as LDL 73, triglyceride 97. HDL 36. Echo was done and reported as EF 50 to 55%. Mild anteroseptal hypokinesis. LA severely enlarged. RA moderately enlarged. Moderate to severe 3+ TR with RVSP 50 to 55 mmHg suggestive of moderate pulmonary hypertension. Echo suggestive of heart failure with preserved EF and valvular heart disease moderate pulmonary hypertension The patient is being followed by PT, OT and speech evaluation. Blood pressure control as per stroke protocol 2. Hypertension with chronic diastolic heart failure On losartan 100 mg daily. Hypothyroidism Synthroid continued. GERD Protonix continued. DVT prophylaxis Subcutaneous heparin Active Medications Acetaminophen (Tylenol) 650 mg PO Q4H PRN PRN PRN Reason: PAIN/FEVER Last Admin: 06/20/18 16:04 Dose: 650 mg Aspirin (Aspirin, Baby) 81 mg PO DAILY@0800 [facility] Last Admin: 06/20/18 08:09 Dose: 81 mg Atorvastatin Calcium (Lipitor) 40 mg PO QHS [facility] Last Admin: 06/19/18 20:45 Dose: 40 mg Bisacodyl (Dulcolax) 10 mg RECTAL .PRN X 1 PRN PRN Reason: Constipation Calamine/Phenol (Calmoseptine Ointment) 1 applic TOPICAL BID@0600,2200 [facility]; Protocol Clopidogrel Bisulfate (Plavix) 75 mg PO DAILY [facility] Last Admin: 06/20/18 08:09 Dose: 75 mg Heparin Sodium (Porcine) (Heparin Na) 5,000 unit SC Q12 [facility] Last Admin: 06/20/18 08:09 Dose: 5,000 unit Hydrocortisone Acetate (Anusol Hc) 25 mg RECTAL BID PRN PRN PRN Reason: Hemorrhoids Levothyroxine Sodium (Synthroid) 88 mcg PO DAILY@0600 [facility] Last Admin: 06/20/18 05:16 Dose: 88 mcg Losartan Potassium (Cozaar) 100 mg PO DAILY [facility] Last Admin: 06/20/18 08:09 Dose: 100 mg Magnesium Hydroxide (Milk Of Magnesia) 30 ml PO .PRN X 1 PRN PRN Reason: Constipation Melatonin (Melatonin) 3 mg PO QHS [facility] Metoprolol Tartrate (Lopressor (Beta Aneesh)) 25 mg PO BID [facility] Last Admin: 06/20/18 08:09 Dose: 25 mg Pantoprazole Sodium (Protonix) 40 mg PO DAILY [facility] Last Admin: 06/20/18 08:09 Dose: 40 mg Senna/Docusate Sodium (Senokot-S, Yareli-Colace) 2 tablet PO BID [facility] Last Admin: 06/20/18 08:09 Dose: 2 tablet Code Visit Inpatient E&M: 23100 Subs Hosp L2
--- NOTE | 2018-06-20 18:01 | PN_ITS ---
Patient Problems: Active and Suspected Problems Debility (Acute) Subjective: Seen and examined. Patient wants to go home. 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 Objective: General: Alert, Oriented x3, Cooperative HEENT: Atraumatic, PERRLA, EOMI, Normocephalic Neck: Supple, No JVD, Negative Carotid Bruits Lungs: Clear to auscultation, Normal air movement Cardiovascular: Regular rate, Regular Rhythm, Normal S1, Normal S2, Systolic murmur present over aortic region Abdomen: Bowel Sounds Present, Soft, Non Tender Extremities: No edema, Capillary Refill Less than 3 Seconds Skin: No rashes, No breakdown Musculoskeletal: No Tenderness to Palpation of Joints or Extremities, Arthritic Changes Lymphatic: No Cervical, Supraclavicular, or Inguinal Adenopathy Neurological: Cranial nerves II-XII grossly intact, Deep Tendon Reflexes 2+/4 and Symmetrical, Neuro grossly intact, Motor Exam 5/5 strength throughout, mild gait abnormality. Psych/Mental Status: Normal Affect, Appropriate Vitals/I&O's: Vital Signs Temp Pulse Resp BP Pulse Ox 98 F 65 17 126/70 H 97 06/20/18 09:45 06/20/18 09:45 06/20/18 09:45 06/20/18 09:45 06/20/18 09:45 Oxygen Delivery Method Room Air Weight: 191 lb 6.132 oz Body Mass Index (BMI) 32.8 Finger Stick Blood Glucose 103 Intake and Output for Last 24 Hours 06/18/18 06/19/18 06/20/18 23:59 23:59 23:59 Intake Total 240 / 240 Output Total 250 / 250 Balance 240 / 240 -250 / -250 Current Medications Acetaminophen (Tylenol) 650 mg PO Q4H PRN PRN PRN Reason: PAIN/FEVER Last Admin: 06/20/18 16:04 Dose: 650 mg Aspirin (Aspirin, Baby) 81 mg PO DAILY@0800 [facility] Last Admin: 06/20/18 08:09 Dose: 81 mg Atorvastatin Calcium (Lipitor) 40 mg PO QHS [facility] Last Admin: 06/19/18 20:45 Dose: 40 mg Bisacodyl (Dulcolax) 10 mg RECTAL .PRN X 1 PRN PRN Reason: Constipation Calamine/Phenol (Calmoseptine Ointment) 1 applic TOPICAL BID@0600,2200 [facility]; Protocol Clopidogrel Bisulfate (Plavix) 75 mg PO DAILY [facility] Last Admin: 06/20/18 08:09 Dose: 75 mg Heparin Sodium (Porcine) (Heparin Na) 5,000 unit SC Q12 [facility] Last Admin: 06/20/18 08:09 Dose: 5,000 unit Hydrocortisone Acetate (Anusol Hc) 25 mg RECTAL BID PRN PRN PRN Reason: Hemorrhoids Levothyroxine Sodium (Synthroid) 88 mcg PO DAILY@0600 [facility] Last Admin: 06/20/18 05:16 Dose: 88 mcg Losartan Potassium (Cozaar) 100 mg PO DAILY [facility] Last Admin: 06/20/18 08:09 Dose: 100 mg Magnesium Hydroxide (Milk Of Magnesia) 30 ml PO .PRN X 1 PRN PRN Reason: Constipation Melatonin (Melatonin) 3 mg PO QHS [facility] Metoprolol Tartrate (Lopressor (Beta Aneesh)) 25 mg PO BID [facility] Last Admin: 06/20/18 08:09 Dose: 25 mg Pantoprazole Sodium (Protonix) 40 mg PO DAILY [facility] Last Admin: 06/20/18 08:09 Dose: 40 mg Senna/Docusate Sodium (Senokot-S, Yareli-Colace) 2 tablet PO BID [facility] Last Admin: 06/20/18 08:09 Dose: 2 tablet Medical Necessity - Tobacco Use Smoking Status: Never smoker Tobacco Use: Non-smoker Assessment/Plan All Active Problems UTI (urinary tract infection) (Acute) Orthostatic hypotension (Acute) Pulmonary HTN (Acute) Stroke-like symptoms (Acute) Stroke (Acute) Debility (Acute) The patient is a 83 year old F with a significant history of hypertension; hyperlipidemia; hypothyroidism, ; aortic stenosis status post bioprosthetic aortic valve replacement; diastolic dysfunction suggestive of chronic heart failure with preserved EF; pulmonary hypertension is being admitted to acute rehab after evaluation and management for 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 The patient had right hand numbness. 1 acute left RESEARCH ENVIRONMENTAL SCIENTIST Ischemic stroke: MRI brain is positive of acute left RESEARCH ENVIRONMENTAL SCIENTIST ischemic stroke. MRI brain aborted as occlusion of the left posterior cerebral artery at the level of the P2 segment. She denies any previous history of a stroke. Patient is on permissive hypertension. PT OT and speech evaluation to continue. Patient is on aspirin, Plavix and statin, atorvastatin. Lipid profile reported as LDL 73, triglyceride 97. HDL 36. Echo was done and reported as EF 50 to 55%. Mild anteroseptal hypokinesis. LA severely enlarged. RA moderately enlarged. Moderate to severe 3+ TR with RVSP 50 to 55 mmHg suggestive of moderate pulmonary hypertension. Echo suggestive of heart failure with preserved EF and valvular heart disease moderate pulmonary hypertension The patient is being followed by PT, OT and speech evaluation. Blood pressure control as per stroke protocol 2. Hypertension with chronic diastolic heart failure On losartan 100 mg daily. Hypothyroidism Synthroid continued. GERD Protonix continued. DVT prophylaxis Subcutaneous heparin Active Medications Acetaminophen (Tylenol) 650 mg PO Q4H PRN PRN PRN Reason: PAIN/FEVER Last Admin: 06/20/18 16:04 Dose: 650 mg Aspirin (Aspirin, Baby) 81 mg PO DAILY@0800 [facility] Last Admin: 06/20/18 08:09 Dose: 81 mg Atorvastatin Calcium (Lipitor) 40 mg PO QHS [facility] Last Admin: 06/19/18 20:45 Dose: 40 mg Bisacodyl (Dulcolax) 10 mg RECTAL .PRN X 1 PRN PRN Reason: Constipation Calamine/Phenol (Calmoseptine Ointment) 1 applic TOPICAL BID@0600,2200 [facility]; Protocol Clopidogrel Bisulfate (Plavix) 75 mg PO DAILY [facility] Last Admin: 06/20/18 08:09 Dose: 75 mg Heparin Sodium (Porcine) (Heparin Na) 5,000 unit SC Q12 [facility] Last Admin: 06/20/18 08:09 Dose: 5,000 unit Hydrocortisone Acetate (Anusol Hc) 25 mg RECTAL BID PRN PRN PRN Reason: Hemorrhoids Levothyroxine Sodium (Synthroid) 88 mcg PO DAILY@0600 [facility] Last Admin: 06/20/18 05:16 Dose: 88 mcg Losartan Potassium (Cozaar) 100 mg PO DAILY [facility] Last Admin: 06/20/18 08:09 Dose: 100 mg Magnesium Hydroxide (Milk Of Magnesia) 30 ml PO .PRN X 1 PRN PRN Reason: Constipation Melatonin (Melatonin) 3 mg PO QHS [facility] Metoprolol Tartrate (Lopressor (Beta Aneesh)) 25 mg PO BID [facility] Last Admin: 06/20/18 08:09 Dose: 25 mg Pantoprazole Sodium (Protonix) 40 mg PO DAILY [facility] Last Admin: 06/20/18 08:09 Dose: 40 mg Senna/Docusate Sodium (Senokot-S, Yareli-Colace) 2 tablet PO BID [facility] Last Admin: 06/20/18 08:09 Dose: 2 tablet Code Visit Inpatient E&M: 46561 Subs Hosp L2
[2018-06-20 20:00] VITALS: PULSE 73; RESP 20; O2SAT 96
--- NOTE | 2018-06-20 20:00 | NURSING ---
Pt found in hallway questioning where her room was. Pt rambled about not knowing where her clothes were and needed her pajamas put on. Pt was reoriented to room and asked if he knew where she was. Pt was aware of being in [facility]. Pt had removed alarm. Staff will continue to monitor.
[2018-06-20 20:06] VITALS: BP 129/55; PULSE 73; RESP 20; TEMP 36.9; O2SAT 96
[2018-06-20 20:13] VITALS: BP 129/55; PULSE 73
[2018-06-20] MEDS: Atorvastatin Calcium 40 MG Tablet PO (20:13)
[2018-06-20] MEDS: Menthol/Lanolin/Calamine/Znox 113 GM Tube 1 APPLIC TOPICAL (20:14)
[2018-06-20] MEDS: MELATONIN 3 MG TABLET PO (20:14)
--- NOTE | 2018-06-20 23:38 | NURSING ---
Pt found restless in bed with pants down to SCDs. This nurse assisted pt in removing pants as pt c/o being too hot. SCDs were reapplied and pt rambled in speech about the squad being called and should be arriving soon. Pt repositioned in bed and reassured of safety. Staff continues to monitor.
--- NOTE | 2018-06-21 02:14 | NURSING ---
PA alarm set off & staff responds. Pt restless in bed. Pillow case removed from pillow and blankets disheveled. Pt c/o being cold. Extra blanket provided and bedding straightened out. Pt stated that she should be sleeping. N/O of Melatonin provided earlier but pt struggling to rest. Pt denies further needs and staff will continue to monitor.
--- NOTE | 2018-06-21 03:37 | NURSING ---
Reviewed and agree with [employer] documentation and FIMs charting
--- NOTE | 2018-06-21 04:33 | NURSING ---
0400 staff doing hourly rounds and pt waved for staff come into the room, stating i have to pee so bad I'm going to bust . pt had call light with in reach, but did not use. staff reoriented pt to use and pt acknowledges. upon getting oob pt is noted to have several waded up tissues falling to the floor all were noted to be damp or wet. pt was also incontinent in the bed a small amt of urine. pt taken to the be br to void with staff cleansing, changing underwear and sheet on the bed . 2nd bladder scan completed and a residual of 321cc and rn made aware. pt continues to monitored closely d/t not sleeping and being restless .
[2018-06-21] MEDS: Levothyroxine 88 MCG Tablet PO (05:13)
[2018-06-21] MEDS: Menthol/Lanolin/Calamine/Znox 113 GM Tube 1 APPLIC TOPICAL ×2 (05:13→19:36)
[2018-06-21] MEDS: Acetaminophen 325 MG Tablet 650 MG PO ×2 (05:18→09:22)
[2018-06-21] MEDS: Aspirin 81 MG TAB.CHEW PO (08:09)
[2018-06-21] MEDS: Pantoprazole Sodium 40 MG Tablet PO (09:22)
[2018-06-21] MEDS: Losartan Potassium 100 MG Tablet PO (09:22)
[2018-06-21] MEDS: Clopidogrel Bisulfate 75 MG Tablet PO (09:22)
[2018-06-21 09:23] VITALS: BP 118/60; PULSE 65
[2018-06-21] MEDS: Metoprolol Tartrate 25 MG Tablet PO ×2 (09:23→19:36)
[2018-06-21] MEDS: Heparin Injection (Vial) 5,000 UNIT/ML VIAL 5000 UNIT SC ×2 (09:23→19:35)
[2018-06-21 10:00] VITALS: BP 118/60; PULSE 60; RESP 16; TEMP 36.4; O2SAT 96
--- NOTE | 2018-06-21 10:41 | PCM.PN.NEU ---
Patient Problems: Active and Suspected Problems Debility (Acute) Subjective: Per nursing staff, routine melatonin was not effective for sleep at . Patient was OOB ambulating with increase confusion. Per nursing staff patient was easily redirected and followed cues. Patient stated I am tired, but was unaware that she was ambulating and awake at night. - Physical Exam General: Alert, Oriented x3, Cooperative HEENT: Atraumatic Oral: Moist Mucosa Neck: Supple, No JVD Lungs: Clear to auscultation, Normal air movement Cardiovascular: Regular rate, Regular Rhythm, Normal S1, Normal S2 Abdomen: Bowel Sounds Present, Soft, Non Tender Musculoskeletal: No Tenderness to Palpation of Joints or Extremities Neurological: Deep Tendon Reflexes 2+/4 and Symmetrical, - - Cranial nerves II-XII grossly intact, Deep Tendon Reflexes 2+/4 and Symmetrical - Left UE strength 4/5. Psych/Mental Status: Normal Affect, Appropriate, Alert and oriented to time, place, person, mood and affect Vital Signs Temp Pulse Resp BP Pulse Ox 98.4 F 65 20 H 118/60 96 06/20/18 20:06 06/21/18 09:23 06/20/18 20:06 06/21/18 09:23 06/20/18 20:06 Oxygen Delivery Method Room Air Weight: 86.81 kg Body Mass Index (BMI) 32.8 Finger Stick Blood Glucose 103 Intake and Output for Last 24 Hours 06/19/18 06/20/18 06/21/18 23:59 23:59 23:59 Intake Total 240 / 240 Output Total 250 / 250 400 / 400 Balance -250 / -250 -160 / -160 Medical Necessity - Tobacco Use Smoking Status: Never smoker Tobacco Use: Non-smoker Assessment/Plan All Active Problems UTI (urinary tract infection) (Acute) Orthostatic hypotension (Acute) Pulmonary HTN (Acute) Stroke-like symptoms (Acute) Stroke (Acute) Debility (Acute) The patient is a 89 year old F with PMH depression, admitted to [facility] 06/17/2018 with debility status post acute left thalamic stroke, for greater than 3 hours therapy daily with a goal of returning back home at or near her prior level of functional independence. Patient found to be hypertensive during inpatient hospital admission. 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 Patient was started on aspirin and statin. Per patient she lives in an assisted living, there are no steps to get into the house, she lives alone, uses walker to ambulate, denies any frequent falls, and does not drive. Melatonin ineffective for sleep per nursing staff. patient was OOB at night with increase confusion, will start PRN Ativan 0.5 mg at bedtime. Plan ?PT for gait stability ?OT for ADLs -ST for slurred speech ?Analgesics as needed ?Bowel protocol ?Acute left thalamic infarct?on aspirin and Lipitor ?30-day event recorder on discharge. ?HTN?monitor blood pressure, goal blood pressure less than 130/80 mmHg. On Norvasc. ?Depression?on Paxil ?GI/DVT prophylaxis?on heparin every 12 hours -Insomnia start Ativan 0.5 mg PRN QHS and continue melatonin at bedtime. ?Fall precautions ?Further medical management per hospitalist recommendations. Hospitalist consult ?Follow-up with PCP and neurology as outpatient.
--- NOTE | 2018-06-21 11:16 | PCM.PN.NEU ---
Patient Problems: Active and Suspected Problems Debility (Acute) Subjective: Per nursing staff, routine melatonin was not effective for sleep at . Patient was OOB ambulating with increase confusion. Per nursing staff patient was easily redirected and followed cues. Patient stated I am tired, but was unaware that she was ambulating and awake at night. - Physical Exam General: Alert, Oriented x3, Cooperative HEENT: Atraumatic, PERRLA Oral: Moist Mucosa Neck: Supple, No JVD Lungs: Clear to auscultation, Normal air movement Cardiovascular: Regular rate, Regular Rhythm, Normal S1, Normal S2 Abdomen: Bowel Sounds Present, Soft, Non Tender Neurological: Cranial nerves II-XII grossly intact, Deep Tendon Reflexes 2+/4 and Symmetrical - Left UE strength 4/5. Psych/Mental Status: Alert and oriented to time, place, person, mood and affect Vital Signs Temp Pulse Resp BP Pulse Ox 97.5 F L 60 16 118/60 96 06/21/18 10:00 06/21/18 10:00 06/21/18 10:00 06/21/18 10:00 06/21/18 10:00 Oxygen Delivery Method Room Air Weight: 86.81 kg Body Mass Index (BMI) 32.8 Finger Stick Blood Glucose 103 Intake and Output for Last 24 Hours 06/19/18 06/20/18 06/21/18 23:59 23:59 23:59 Intake Total 240 / 240 Output Total 250 / 250 400 / 400 Balance -250 / -250 -160 / -160 Medical Necessity - Tobacco Use Smoking Status: Never smoker Tobacco Use: Non-smoker Assessment/Plan All Active Problems UTI (urinary tract infection) (Acute) Orthostatic hypotension (Acute) Pulmonary HTN (Acute) Stroke-like symptoms (Acute) Stroke (Acute) Debility (Acute) The patient is a 83 year old F with PMH HTN, HLD, aortic stenosis status post bioprosthetic aortic valve replacement, hypothyroidism admitted to [facility] on 06/18/2018 with debility status post 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 She was admitted with right-sided numbness and slurred speech to the inpatient hospital on 06/15/2018. Per ED documentation on admission NIHSS was 2. MRI brain done on admission reported to show acute left OIL PROSPECTING OBSERVER infarct, MR angiogram head/neck showed left P2 occlusion. Per documentation patient is on aspirin/Plavix at baseline. Per patient she lives alone, denies any frequent falls, does use cane for ambulating, does drive. Per patient she lives in an independent house and has 3 steps to get into the house. At present patient denies any numbness in the right side, denies any headache, dizziness, visual disturbances, speech disturbances, focal motor weakness, or sensory loss. Melatonin ineffective for sleep per nursing staff. patient was OOB at night with increase confusion, will start PRN Ativan 0.5 mg at bedtime. Plan ?PT for gait stability ?OT for ADLs -ST for slurred speech ?Analgesics as needed ?Bowel protocol ?Acute left OIL PROSPECTING OBSERVER stroke?on aspirin and clopidogrel at baseline for many years, on atorvastatin ?HTN?on losartan, metoprolol ?HLD?on atorvastatin ?Hypothyroidism?on levothyroxine ?Per nurse she has some issues sleeping overnight?will add melatonin ?GI/DVT prophylaxis?on pantoprazole/heparin 5000 units subcu 12 hourly -Insomnia start Ativan 0.5 mg PRN QHS and continue melatonin at bedtime. ?Fall precautions ?Further medical management per hospitalist recommendation. Hospitalist consult ?Follow-up with PCP, neurology and cardiology on discharge
[2018-06-21] MEDS: Atorvastatin Calcium 40 MG Tablet PO (19:35)
[2018-06-21] MEDS: LORazepam 0.5 MG Tablet PO (19:35)
[2018-06-21 19:36] VITALS: BP 130/86; PULSE 67
[2018-06-21] MEDS: MELATONIN 3 MG TABLET PO (19:36)
[2018-06-21 19:48] VITALS: BP 130/86; PULSE 67; RESP 18; TEMP 36.8; O2SAT 97
[2018-06-22] MEDS: Levothyroxine 88 MCG Tablet PO (06:25)
[2018-06-22] MEDS: Menthol/Lanolin/Calamine/Znox 113 GM Tube 1 APPLIC TOPICAL ×2 (06:27→20:10)
[2018-06-22 07:00] VITALS: BP 112/51; PULSE 70; RESP 20; TEMP 36.7; O2SAT 95
[2018-06-22 07:43] VITALS: PULSE 70
[2018-06-22] MEDS: Aspirin 81 MG TAB.CHEW PO (07:43)
[2018-06-22] MEDS: Metoprolol Tartrate 25 MG Tablet PO ×2 (07:43→20:11)
[2018-06-22] MEDS: Losartan Potassium 100 MG Tablet PO (07:43)
[2018-06-22] MEDS: Clopidogrel Bisulfate 75 MG Tablet PO (07:43)
[2018-06-22] MEDS: Pantoprazole Sodium 40 MG Tablet PO (07:43)
[2018-06-22] MEDS: Heparin Injection (Vial) 5,000 UNIT/ML VIAL 5000 UNIT SC ×2 (07:44→20:10)
[2018-06-22] MEDS: Acetaminophen 325 MG Tablet 650 MG PO ×2 (10:32→20:11)
[2018-06-22 10:34] VITALS: BP 111/61; PULSE 54; RESP 18; O2SAT 97
[2018-06-22 20:05] VITALS: BP 125/68; PULSE 68; RESP 20; TEMP 36.8; O2SAT 20
[2018-06-22 20:11] VITALS: BP 125/68; PULSE 68
[2018-06-22] MEDS: MELATONIN 3 MG TABLET PO (20:11)
[2018-06-22] MEDS: LORazepam 0.5 MG Tablet PO (20:11)
[2018-06-22] MEDS: Senna/Docusate Sodium 1 Tablet 2 TABLET PO (20:12)
[2018-06-22] MEDS: Atorvastatin Calcium 40 MG Tablet PO (20:12)
[2018-06-23] MEDS: Levothyroxine 88 MCG Tablet PO (05:59)
[2018-06-23] MEDS: Menthol/Lanolin/Calamine/Znox 113 GM Tube 1 APPLIC TOPICAL ×2 (05:59→20:12)
[2018-06-23 07:21] VITALS: BP 115/52; PULSE 65; RESP 18; TEMP 36.7; O2SAT 95
[2018-06-23 07:57] VITALS: BP 115/52; PULSE 65
[2018-06-23] MEDS: Senna/Docusate Sodium 1 Tablet 2 TABLET PO ×2 (07:57→20:00)
[2018-06-23] MEDS: Heparin Injection (Vial) 5,000 UNIT/ML VIAL 5000 UNIT SC ×2 (07:57→20:01)
[2018-06-23] MEDS: Aspirin 81 MG TAB.CHEW PO (07:57)
[2018-06-23] MEDS: Metoprolol Tartrate 25 MG Tablet PO ×2 (07:57→20:01)
[2018-06-23] MEDS: Pantoprazole Sodium 40 MG Tablet PO (07:57)
[2018-06-23] MEDS: Losartan Potassium 100 MG Tablet PO (07:57)
[2018-06-23] MEDS: Clopidogrel Bisulfate 75 MG Tablet PO (07:57)
[2018-06-23] MEDS: Acetaminophen 325 MG Tablet 650 MG PO (08:37)
--- NOTE | 2018-06-23 11:04 | PCM.PN.HOSP ---
Patient Problems: Active and Suspected Problems Debility (Acute) Subjective: Patient seen and examined. Patient is quite confused and loses track of her thoughts frequently during conversation. She had no active complaints but just stated that she felt bored in the hospital. Review of systems otherwise negative. Vitals/I&O's: Vital Signs Temp Pulse Resp BP Pulse Ox 98.0 F 65 18 115/52 L 95 06/23/18 07:21 06/23/18 07:57 06/23/18 07:21 06/23/18 07:57 06/23/18 07:21 Oxygen Delivery Method Room Air Weight: 191 lb 6.132 oz Body Mass Index (BMI) 32.8 Finger Stick Blood Glucose 103 Intake and Output for Last 24 Hours 06/21/18 06/22/18 06/23/18 23:59 23:59 23:59 Intake Total 960 / 960 720 / 720 Output Total 400 / 400 Balance 560 / 560 720 / 720 General: Alert, Oriented x3, Cooperative, No apparent distress HEENT: Atraumatic, PERRLA, EOMI, Normocephalic Oral: Moist Mucosa Neck: Supple, No JVD, Negative Carotid Bruits Lungs: Clear to auscultation, Normal air movement, No rhonchi, No wheeze, No rales Cardiovascular: Regular rate, Regular Rhythm, Normal S1, Normal S2, No murmurs Abdomen: Bowel Sounds Present, Soft, Non Tender, Non-Distended, No Hepato-splenomegaly Extremities: No clubbing, No cyanosis, No edema, Capillary Refill Less than 3 Seconds Skin: No rashes, No breakdown Musculoskeletal: No Tenderness to Palpation of Joints or Extremities Lymphatic: No Cervical, Supraclavicular, or Inguinal Adenopathy Neurological: Cranial nerves II-XII grossly intact, Neuro grossly intact, Motor Exam 5/5 strength throughout Psych/Mental Status: Normal Affect, Appropriate, Alert and oriented to time, place, person, mood and affect Current Medications Acetaminophen (Tylenol) 650 mg PO Q4H PRN PRN PRN Reason: PAIN/FEVER Last Admin: 06/23/18 08:37 Dose: 650 mg Aspirin (Aspirin, Baby) 81 mg PO DAILY@0800 [facility] Last Admin: 06/23/18 07:57 Dose: 81 mg Atorvastatin Calcium (Lipitor) 40 mg PO QHS [facility] Last Admin: 06/22/18 20:12 Dose: 40 mg Bisacodyl (Dulcolax) 10 mg RECTAL .PRN X 1 PRN PRN Reason: Constipation Calamine/Phenol (Calmoseptine Ointment) 1 applic TOPICAL BID@0600,2200 [facility]; Protocol Last Admin: 06/23/18 05:59 Dose: 1 applicatio Clopidogrel Bisulfate (Plavix) 75 mg PO DAILY [facility] Last Admin: 06/23/18 07:57 Dose: 75 mg Heparin Sodium (Porcine) (Heparin Na) 5,000 unit SC Q12 [facility] Last Admin: 06/23/18 07:57 Dose: 5,000 unit Hydrocortisone Acetate (Anusol Hc) 25 mg RECTAL BID PRN PRN PRN Reason: Hemorrhoids Levothyroxine Sodium (Synthroid) 88 mcg PO DAILY@0600 [facility] Last Admin: 06/23/18 05:59 Dose: 88 mcg Lorazepam (Ativan) 0.5 mg PO QHS PRN PRN PRN Reason: restlessness Last Admin: 06/22/18 20:11 Dose: 0.5 mg Losartan Potassium (Cozaar) 100 mg PO DAILY [facility] Last Admin: 06/23/18 07:57 Dose: 100 mg Magnesium Hydroxide (Milk Of Magnesia) 30 ml PO .PRN X 1 PRN PRN Reason: Constipation Melatonin (Melatonin) 3 mg PO QHS [facility] Last Admin: 06/22/18 20:11 Dose: 3 mg Metoprolol Tartrate (Lopressor (Beta Aneesh)) 25 mg PO BID [facility] Last Admin: 06/23/18 07:57 Dose: 25 mg Pantoprazole Sodium (Protonix) 40 mg PO DAILY [facility] Last Admin: 06/23/18 07:57 Dose: 40 mg Senna/Docusate Sodium (Senokot-S, Yareli-Colace) 2 tablet PO BID [facility] Last Admin: 06/23/18 07:57 Dose: 2 tablet Medical Necessity - Tobacco Use Smoking Status: Never smoker Tobacco Use: Non-smoker Assessment/Plan All Active Problems UTI (urinary tract infection) (Acute) Orthostatic hypotension (Acute) Pulmonary HTN (Acute) Stroke-like symptoms (Acute) Stroke (Acute) Debility (Acute) 1. 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 RVSP was 50-55mmHg. 2. Hypertension: on losartan 100mg daily 3. Hypothyroidism: on synthroid 4. GERD: on protonix DVT prophylaxis: sq heparin Code Visit Inpatient E&M: 98516 Subs Hosp L2
--- NOTE | 2018-06-23 11:11 | PN_ITS ---
Patient Problems: Active and Suspected Problems Debility (Acute) Subjective: Patient seen and examined. Patient is quite confused and loses track of her thoughts frequently during conversation. She had no active complaints but just stated that she felt bored in the hospital. Review of systems otherwise negative. Vitals/I&O's: Vital Signs Temp Pulse Resp BP Pulse Ox 98.0 F 65 18 115/52 L 95 06/23/18 07:21 06/23/18 07:57 06/23/18 07:21 06/23/18 07:57 06/23/18 07:21 Oxygen Delivery Method Room Air Weight: 191 lb 6.132 oz Body Mass Index (BMI) 32.8 Finger Stick Blood Glucose 103 Intake and Output for Last 24 Hours 06/21/18 06/22/18 06/23/18 23:59 23:59 23:59 Intake Total 960 / 960 720 / 720 Output Total 400 / 400 Balance 560 / 560 720 / 720 General: Alert, Oriented x3, Cooperative, No apparent distress HEENT: Atraumatic, PERRLA, EOMI, Normocephalic Oral: Moist Mucosa Neck: Supple, No JVD, Negative Carotid Bruits Lungs: Clear to auscultation, Normal air movement, No rhonchi, No wheeze, No rales Cardiovascular: Regular rate, Regular Rhythm, Normal S1, Normal S2, No murmurs Abdomen: Bowel Sounds Present, Soft, Non Tender, Non-Distended, No Hepato- splenomegaly Extremities: No clubbing, No cyanosis, No edema, Capillary Refill Less than 3 Seconds Skin: No rashes, No breakdown Musculoskeletal: No Tenderness to Palpation of Joints or Extremities Lymphatic: No Cervical, Supraclavicular, or Inguinal Adenopathy Neurological: Cranial nerves II-XII grossly intact, Neuro grossly intact, Motor Exam 5/5 strength throughout Psych/Mental Status: Normal Affect, Appropriate, Alert and oriented to time, place, person, mood and affect Current Medications Acetaminophen (Tylenol) 650 mg PO Q4H PRN PRN PRN Reason: PAIN/FEVER Last Admin: 06/23/18 08:37 Dose: 650 mg Aspirin (Aspirin, Baby) 81 mg PO DAILY@0800 [facility] Last Admin: 06/23/18 07:57 Dose: 81 mg Atorvastatin Calcium (Lipitor) 40 mg PO QHS [facility] Last Admin: 06/22/18 20:12 Dose: 40 mg Bisacodyl (Dulcolax) 10 mg RECTAL .PRN X 1 PRN PRN Reason: Constipation Calamine/Phenol (Calmoseptine Ointment) 1 applic TOPICAL BID@0600,2200 [facility]; Protocol Last Admin: 06/23/18 05:59 Dose: 1 applicatio Clopidogrel Bisulfate (Plavix) 75 mg PO DAILY [facility] Last Admin: 06/23/18 07:57 Dose: 75 mg Heparin Sodium (Porcine) (Heparin Na) 5,000 unit SC Q12 [facility] Last Admin: 06/23/18 07:57 Dose: 5,000 unit Hydrocortisone Acetate (Anusol Hc) 25 mg RECTAL BID PRN PRN PRN Reason: Hemorrhoids Levothyroxine Sodium (Synthroid) 88 mcg PO DAILY@0600 [facility] Last Admin: 06/23/18 05:59 Dose: 88 mcg Lorazepam (Ativan) 0.5 mg PO QHS PRN PRN PRN Reason: restlessness Last Admin: 06/22/18 20:11 Dose: 0.5 mg Losartan Potassium (Cozaar) 100 mg PO DAILY [facility] Last Admin: 06/23/18 07:57 Dose: 100 mg Magnesium Hydroxide (Milk Of Magnesia) 30 ml PO .PRN X 1 PRN PRN Reason: Constipation Melatonin (Melatonin) 3 mg PO QHS [facility] Last Admin: 06/22/18 20:11 Dose: 3 mg Metoprolol Tartrate (Lopressor (Beta Aneesh)) 25 mg PO BID [facility] Last Admin: 06/23/18 07:57 Dose: 25 mg Pantoprazole Sodium (Protonix) 40 mg PO DAILY [facility] Last Admin: 06/23/18 07:57 Dose: 40 mg Senna/Docusate Sodium (Senokot-S, Yareli-Colace) 2 tablet PO BID [facility] Last Admin: 06/23/18 07:57 Dose: 2 tablet Medical Necessity - Tobacco Use Smoking Status: Never smoker Tobacco Use: Non-smoker Assessment/Plan All Active Problems UTI (urinary tract infection) (Acute) Orthostatic hypotension (Acute) Pulmonary HTN (Acute) Stroke-like symptoms (Acute) Stroke (Acute) Debility (Acute) 1. 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 RVSP was 50-55mmHg. * 2. Hypertension: on losartan 100mg daily 3. Hypothyroidism: on synthroid 4. GERD: on protonix DVT prophylaxis: sq heparin Code Visit Inpatient E&M: 67907 Subs Hosp L2
--- NOTE | 2018-06-23 14:01 | NURSING ---
Pt ambulated hallways x2 laps x1 assist with walker. Tolerated well.
[2018-06-23 16:08] VITALS: BMI 32.8
[2018-06-23 19:27] VITALS: BP 121/60; PULSE 67; RESP 18; TEMP 36.6; O2SAT 94
[2018-06-23] MEDS: LORazepam 0.5 MG Tablet PO (20:00)
[2018-06-23 20:01] VITALS: BP 121/60; PULSE 67
[2018-06-23] MEDS: Atorvastatin Calcium 40 MG Tablet PO (20:01)
[2018-06-23] MEDS: MELATONIN 3 MG TABLET PO (20:01)
--- NOTE | 2018-06-24 03:40 | NURSING ---
PT AWAKE C/O JEAN [employer]APTISTE PAIN TO OCCIPITAL AREA RATED #6. PT ACTING APPROPRIATELY AND FOLLOWS COMMANDS. WANTS TO USE RESTROOM. VOICES NO OTHER COMPLAINTS. MEDICATED. NO CHANGES IN NEURO STATUS NOTED FROM EARLIER THIS SHIFT.
[2018-06-24] MEDS: Acetaminophen 325 MG Tablet 650 MG PO ×2 (03:42→09:11)
--- NOTE | 2018-06-24 04:07 | NURSING ---
PT RESTING WITH EYES CLOSED. RESPIRATIONS ARE EVEN AND EASY.PT WAKENS EASILY TO VOICE AND STATES PAIN IS CURRENTLY AT #3 ON PAIN SCALE AND RETURNS TO RESTING WITH EYES CLOSED.
[2018-06-24] MEDS: Levothyroxine 88 MCG Tablet PO (06:20)
[2018-06-24] MEDS: Menthol/Lanolin/Calamine/Znox 113 GM Tube 1 APPLIC TOPICAL ×2 (06:20→21:47)
[2018-06-24 07:22] VITALS: BP 115/58; PULSE 56; RESP 20; TEMP 36.6; O2SAT 95
[2018-06-24 09:10] VITALS: PULSE 68
[2018-06-24] MEDS: Metoprolol Tartrate 25 MG Tablet PO ×2 (09:10→21:41)
[2018-06-24] MEDS: Losartan Potassium 100 MG Tablet PO (09:10)
[2018-06-24] MEDS: Heparin Injection (Vial) 5,000 UNIT/ML VIAL 5000 UNIT SC ×2 (09:10→21:42)
[2018-06-24] MEDS: Aspirin 81 MG TAB.CHEW PO (09:10)
[2018-06-24] MEDS: Senna/Docusate Sodium 1 Tablet 2 TABLET PO ×2 (09:11→21:41)
[2018-06-24] MEDS: Clopidogrel Bisulfate 75 MG Tablet PO (09:11)
[2018-06-24] MEDS: Pantoprazole Sodium 40 MG Tablet PO (09:11)
--- NOTE | 2018-06-24 11:44 | PCM.PN.NEU ---
Patient Problems: Active and Suspected Problems Debility (Acute) Subjective: Per nursing staff no issues overnight and slept good. per patient that she is sleeping better throughout the night. Team meeting held this am. Per therapies patient is having increase in strength and mobility and ST continues to work with patent with cognitive tasks. Patient is benefiting from acute inpatient rehab and will need 24 hour care once discharged. - Physical Exam General: Alert, Oriented x3, Cooperative - can have some forgetfulness HEENT: Atraumatic, PERRLA Oral: Moist Mucosa Neck: Supple, No JVD Lungs: Clear to auscultation, Normal air movement Cardiovascular: Regular rate, Regular Rhythm Abdomen: Bowel Sounds Present, Soft, Non Tender Extremities: No clubbing, No cyanosis, No edema Neurological: Neuro grossly intact, Motor Exam 5/5 strength throughout Psych/Mental Status: Normal Affect, Appropriate Vital Signs Temp Pulse Resp BP Pulse Ox 97.8 F 68 20 H 115/58 L 95 06/24/18 07:22 06/24/18 09:10 06/24/18 07:22 06/24/18 07:22 06/24/18 07:22 Oxygen Delivery Method Room Air Weight: 86.81 kg Body Mass Index (BMI) 32.8 Finger Stick Blood Glucose 103 Intake and Output for Last 24 Hours 06/22/18 06/23/18 06/24/18 23:59 23:59 23:59 Intake Total 720 / 720 120 / 120 Balance 720 / 720 120 / 120 Medical Necessity - Tobacco Use Smoking Status: Never smoker Tobacco Use: Non-smoker Assessment/Plan All Active Problems UTI (urinary tract infection) (Acute) Orthostatic hypotension (Acute) Pulmonary HTN (Acute) Stroke-like symptoms (Acute) Stroke (Acute) Debility (Acute) The patient is a 83 year old F with PMH HTN, HLD, aortic stenosis status post bioprosthetic aortic valve replacement, hypothyroidism admitted to [facility] on 06/18/2018 with debility status post 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 She was admitted with right-sided numbness and slurred speech to the inpatient hospital on 06/15/2018. Per ED documentation on admission NIHSS was 2. 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 Per documentation patient is on aspirin/Plavix at baseline. Per patient she lives alone, denies any frequent falls, does use cane for ambulating, does drive. Per patient she lives in an independent house and has 3 steps to get into the house. At present patient denies any numbness in the right side, denies any headache, dizziness, visual disturbances, speech disturbances, focal motor weakness, or sensory loss. Plan ?PT for gait stability ?OT for ADLs -ST for cognitive ?Analgesics as needed ?Bowel protocol ?Acute left MOBILE TESTER stroke?on aspirin and clopidogrel at baseline for many years, on atorvastatin ?HTN?on losartan, metoprolol ?HLD?on atorvastatin ?Hypothyroidism?on levothyroxine ?Per nurse she has some issues sleeping overnight?will add melatonin ?GI/DVT prophylaxis?on pantoprazole/heparin 5000 units subcu 12 hourly -Insomnia Ativan 0.5 mg PRN QHS and melatonin at bedtime. ?Fall precautions ?Further medical management per hospitalist recommendation. Hospitalist consult ?Follow-up with PCP, neurology and cardiology on discharge
--- NOTE | 2018-06-24 11:48 | PN.NEURO_ITS ---
Patient Problems: Active and Suspected Problems Debility (Acute) Subjective: Per nursing staff no issues overnight and slept good. per patient that she is sleeping better throughout the night. Team meeting held this am. Per therapies patient is having increase in strength and mobility and ST continues to work with patent with cognitive tasks. Patient is benefiting from acute inpatient rehab and will need 24 hour care once discharged. - Physical Exam General: Alert, Oriented x3, Cooperative - can have some forgetfulness HEENT: Atraumatic, PERRLA Oral: Moist Mucosa Neck: Supple, No JVD Lungs: Clear to auscultation, Normal air movement Cardiovascular: Regular rate, Regular Rhythm Abdomen: Bowel Sounds Present, Soft, Non Tender Extremities: No clubbing, No cyanosis, No edema Neurological: Neuro grossly intact, Motor Exam 5/5 strength throughout Psych/Mental Status: Normal Affect, Appropriate Vital Signs Temp Pulse Resp BP Pulse Ox 97.8 F 68 20 H 115/58 L 95 06/24/18 07:22 06/24/18 09:10 06/24/18 07:22 06/24/18 07:22 06/24/18 07:22 Oxygen Delivery Method Room Air Weight: 86.81 kg Body Mass Index (BMI) 32.8 Finger Stick Blood Glucose 103 Intake and Output for Last 24 Hours 06/22/18 06/23/18 06/24/18 23:59 23:59 23:59 Intake Total 720 / 720 120 / 120 Balance 720 / 720 120 / 120 Medical Necessity - Tobacco Use Smoking Status: Never smoker Tobacco Use: Non-smoker Assessment/Plan All Active Problems UTI (urinary tract infection) (Acute) Orthostatic hypotension (Acute) Pulmonary HTN (Acute) Stroke-like symptoms (Acute) Stroke (Acute) Debility (Acute) The patient is a 83 year old F with PMH HTN, HLD, aortic stenosis status post bioprosthetic aortic valve replacement, hypothyroidism admitted to [facility] on 06/18/2018 with debility 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 She was admitted with right-sided numbness and slurred speech to the inpatient hospital on 06/15/2018. Per ED documentation on admission NIHSS was 2. 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 Per documentation patient is on aspirin/Plavix at baseline. Per patient she lives alone, denies any frequent falls, does use cane for ambulating, does drive. Per patient she lives in an independent house and has 3 steps to get into the house. At present patient denies any numbness in the right side, denies any headache, dizziness, visual disturbances, speech disturbances, focal motor weakness, or sensory loss. 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 ?Fall precautions ?Further medical management per hospitalist recommendation. Hospitalist consult ?Follow-up with PCP, neurology and cardiology on discharge
--- NOTE | 2018-06-24 13:11 | CASEMGMT ---
Team meeting held today in pt room with pt present. Pt is receiving PT/OT/ST and progressing with therapies. Pt is able to ambulate 160 ft with WW at [facility] and personal care is at set up level. ST seeing pt for orientation and problem solving. At this time pt is not safe to be in her home alone due to cognitive impairment. Pt maintains that her son Fredo lives with her although he is an alcoholic. Pt gave permission for SW to contact Fredo. Fredo Lainez, son, only contact listed on Demographic sheet. Phone call to Fredo and JUAN ANTONIO full. Notes from acute hospital stay indicate pt gave acute SW number of ex daughter in law Malgorzata Lainez. Phone call placed to [facility] at this time. Malgorzata stating that pt son Fredo is currently residing in [facility] due to medical issues and is not home to stay with pt. Pt has been living at home independently prior to stroke. Malgorzata checks on pt occasionally (had not seen her in two months prior to hospitalization). [facility] states pt has a second son Roberto Carlos Lainez who lives in [place] and has limited involvement. Phone number provided. Malgorzata also states that pt granddaughter (Fredo and Malgorzata's daughter) lives in [place] and is available to assist pt. Phone number provided. Malgorzata stating she and Emilee are agreeable to be called by hospital staff for pt needs. Phone call to pt son Roberto Carlos from [place]. Roberto Carlos validates information provided to by Malgorzata. Roberto Carlos agreeable that He, Malgorzata and Emilee can be listed as contacts on pt demographic sheet. Roberto Carlos states pt has no HCPOA that he is aware of. SCARLETT provided update from team meeting and informed Roberto Carlos that at this time pt is not safe to return home alone due to cognitive deficits. Encouraged Roberto Carlos to reach out to Emilee and Malgorzata to discuss retirement placement and best next step for pt. Changes made to pt demographic sheet. Nursing notified of above changes to contact information. SCARLETT will continue to follow. CORTNEY Young
--- NOTE | 2018-06-24 15:47 | CHAPLAIN ---
Type of Pastoral Visit _x__ Initial Visit ___ Follow-up Visit ___ On-call Visit ___ General Patient Visit ___ Spiritual Assessment ___ Family Conference ___ Bereavement ___ Rapid Response ___ Code Blue ___ Other (describe below) Pastoral Care Referral From _x__ Patient ___ Family ___ Nurse ___ Physician ___ Pulp Roller ___ Transfer Professor ___ Other (describe below) Sacrament/Intervention _x__ Active listening ___ Anointing ___ Samaritan ___ Bereavement ___ Communion ___ Annika exploration ___ _x__ Life review _x__ Prayer ___ Reconciliation ___ Sacrament of Sick _x__ Supportive presence ___ Wedding ___ Other (describe below) Pastoral Comments patient is repetitive in her conversation; pt is more concerned about my cat at home and my son who drinks too much
[2018-06-24 17:00] VITALS: BMI 32.8
--- NOTE | 2018-06-24 17:39 | PCM.PN.HOSP ---
Subjective: Patient has dementia. Has good motor strength of extremities. On PT/OT and speech and swallow evaluation and treatment. Objective: General: Alert, Oriented x3, Cooperative HEENT: Atraumatic, PERRLA, EOMI, Normocephalic Neck: Supple, No JVD, Negative Carotid Bruits Lungs: Clear to auscultation, Normal air movement Cardiovascular: Regular rate, Regular Rhythm, Normal S1, Normal S2, ejection systolic murmur present over aortic region Abdomen: Bowel Sounds Present, Soft, Non Tender Extremities: No edema, Capillary Refill Less than 3 Seconds Skin: No rashes, No breakdown Musculoskeletal: No Tenderness to Palpation of Joints or Extremities, Arthritic Changes Lymphatic: No Cervical, Supraclavicular, or Inguinal Adenopathy Neurological: Cranial nerves II-XII grossly intact, Deep Tendon Reflexes 2+/4 and Symmetrical, Neuro grossly intact, Motor Exam 5/5 strength throughout, mild gait abnormality. Psych/Mental Status: Normal Affect, Appropriate Vitals/I&O's: Vital Signs Temp Pulse Resp BP Pulse Ox 97.8 F 68 20 H 115/58 L 95 06/24/18 07:22 06/24/18 09:10 06/24/18 07:22 06/24/18 07:22 06/24/18 07:22 Oxygen Delivery Method Room Air Weight: 191 lb 6.132 oz Body Mass Index (BMI) 32.8 Finger Stick Blood Glucose 103 Intake and Output for Last 24 Hours 06/22/18 06/23/18 06/24/18 23:59 23:59 23:59 Intake Total 720 / 720 360 / 360 Balance 720 / 720 360 / 360 Current Medications Acetaminophen (Tylenol) 650 mg PO Q4H PRN PRN PRN Reason: PAIN/FEVER Last Admin: 06/24/18 09:11 Dose: 650 mg Aspirin (Aspirin, Baby) 81 mg PO DAILY@0800 [facility] Last Admin: 06/24/18 09:10 Dose: 81 mg Atorvastatin Calcium (Lipitor) 40 mg PO QHS [facility] Last Admin: 06/23/18 20:01 Dose: 40 mg Bisacodyl (Dulcolax) 10 mg RECTAL .PRN X 1 PRN PRN Reason: Constipation Calamine/Phenol (Calmoseptine Ointment) 1 applic TOPICAL BID@0600,2200 [facility]; Protocol Last Admin: 06/24/18 06:20 Dose: 1 applicatio Clopidogrel Bisulfate (Plavix) 75 mg PO DAILY [facility] Last Admin: 06/24/18 09:11 Dose: 75 mg Heparin Sodium (Porcine) (Heparin Na) 5,000 unit SC Q12 [facility] Last Admin: 06/24/18 09:10 Dose: 5,000 unit Hydrocortisone Acetate (Anusol Hc) 25 mg RECTAL BID PRN PRN PRN Reason: Hemorrhoids Levothyroxine Sodium (Synthroid) 88 mcg PO DAILY@0600 [facility] Last Admin: 06/24/18 06:20 Dose: 88 mcg Lorazepam (Ativan) 0.5 mg PO QHS PRN PRN PRN Reason: restlessness Last Admin: 06/23/18 20:00 Dose: 0.5 mg Losartan Potassium (Cozaar) 100 mg PO DAILY [facility] Last Admin: 06/24/18 09:10 Dose: 100 mg Magnesium Hydroxide (Milk Of Magnesia) 30 ml PO .PRN X 1 PRN PRN Reason: Constipation Melatonin (Melatonin) 3 mg PO QHS [facility] Last Admin: 06/23/18 20:01 Dose: 3 mg Metoprolol Tartrate (Lopressor (Beta Aneesh)) 25 mg PO BID [facility] Last Admin: 06/24/18 09:10 Dose: 25 mg Pantoprazole Sodium (Protonix) 40 mg PO DAILY [facility] Last Admin: 06/24/18 09:11 Dose: 40 mg Senna/Docusate Sodium (Senokot-S, Yareli-Colace) 2 tablet PO BID [facility] Last Admin: 06/24/18 09:11 Dose: 2 tablet Medical Necessity - Tobacco Use Smoking Status: Never smoker Tobacco Use: Non-smoker Assessment/Plan All Active Problems (Last Updated 06/25/18 @ 11:12 by Ramona Putnam NP-C) UTI (urinary tract infection) (Resolved) Orthostatic hypotension (Acute) Pulmonary HTN (Acute) Stroke-like symptoms (Acute) Stroke (Acute) Debility (Acute) The patient is a 83 year old F with a significant history of hypertension; hyperlipidemia; hypothyroidism, ; aortic stenosis status post bioprosthetic aortic valve replacement; diastolic dysfunction suggestive of chronic heart failure with preserved EF; pulmonary hypertension is being admitted to acute rehab after evaluation and management for 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 The patient had right hand numbness. 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 MRI brain aborted as occlusion of the left posterior cerebral artery at the level of the P2 segment. She denies any previous history of a stroke. Patient is on permissive hypertension. PT OT and speech evaluation to continue. Patient is on aspirin, Plavix and statin, atorvastatin. Lipid profile reported as LDL 73, triglyceride 97. HDL 36. Echo was done and reported as EF 50 to 55%. Mild anteroseptal hypokinesis. LA severely enlarged. RA moderately enlarged. Moderate to severe 3+ TR with RVSP 50 to 55 mmHg suggestive of moderate pulmonary hypertension. Echo suggestive of heart failure with preserved EF and valvular heart disease moderate pulmonary hypertension The patient is being followed by PT, OT and speech evaluation. Blood pressure control as per stroke protocol 2. Hypertension with chronic diastolic heart failure Blood pressure is good. Continue losartan 100 mg daily. Hypothyroidism Synthroid continued. GERD Protonix continued. DVT prophylaxis Subcutaneous heparin Active Medications Acetaminophen (Tylenol) 650 mg PO Q4H PRN PRN PRN Reason: PAIN/FEVER Last Admin: 06/24/18 09:11 Dose: 650 mg Aspirin (Aspirin, Baby) 81 mg PO DAILY@0800 [facility] Last Admin: 06/25/18 07:56 Dose: 81 mg Atorvastatin Calcium (Lipitor) 40 mg PO QHS [facility] Last Admin: 06/24/18 21:41 Dose: 40 mg Bisacodyl (Dulcolax) 10 mg RECTAL .PRN X 1 PRN PRN Reason: Constipation Calamine/Phenol (Calmoseptine Ointment) 1 applic TOPICAL BID@0600,2200 [facility]; Protocol Last Admin: 06/25/18 06:08 Dose: 1 applicatio Clopidogrel Bisulfate (Plavix) 75 mg PO DAILY [facility] Last Admin: 06/25/18 08:00 Dose: 75 mg Heparin Sodium (Porcine) (Heparin Na) 5,000 unit SC Q12 [facility] Last Admin: 06/25/18 07:57 Dose: 5,000 unit Hydrocortisone Acetate (Anusol Hc) 25 mg RECTAL BID PRN PRN PRN Reason: Hemorrhoids Levothyroxine Sodium (Synthroid) 88 mcg PO DAILY@0600 [facility] Last Admin: 06/25/18 06:08 Dose: 88 mcg Lorazepam (Ativan) 0.5 mg PO QHS PRN PRN PRN Reason: restlessness Last Admin: 06/24/18 21:42 Dose: 0.5 mg Losartan Potassium (Cozaar) 100 mg PO DAILY [facility] Last Admin: 06/25/18 07:56 Dose: 100 mg Magnesium Hydroxide (Milk Of Magnesia) 30 ml PO .PRN X 1 PRN PRN Reason: Constipation Melatonin (Melatonin) 3 mg PO QHS [facility] Last Admin: 06/24/18 21:41 Dose: 3 mg Metoprolol Tartrate (Lopressor (Beta Aneesh)) 25 mg PO BID [facility] Last Admin: 06/25/18 07:56 Dose: 25 mg Pantoprazole Sodium (Protonix) 40 mg PO DAILY [facility] Last Admin: 06/25/18 07:56 Dose: 40 mg Senna/Docusate Sodium (Senokot-S, Yareli-Colace) 2 tablet PO BID [facility] Last Admin: 06/25/18 08:00 Dose: Not Given Code Visit Inpatient E&M: 24549 Subs Hosp L2
[2018-06-24 21:28] VITALS: BP 137/99; PULSE 75; RESP 18; TEMP 36.8; O2SAT 95
[2018-06-24 21:41] VITALS: BP 137/99; PULSE 75
[2018-06-24] MEDS: MELATONIN 3 MG TABLET PO (21:41)
[2018-06-24] MEDS: Atorvastatin Calcium 40 MG Tablet PO (21:41)
[2018-06-24] MEDS: LORazepam 0.5 MG Tablet PO (21:42)
[2018-06-24 21:45] VITALS: PULSE 75; O2SAT 95; BMI 32.8
--- NOTE | 2018-06-25 04:27 | NURSING ---
Reviewed and agree with machine stacker documentation and FIMs charting
[2018-06-25] MEDS: Menthol/Lanolin/Calamine/Znox 113 GM Tube 1 APPLIC TOPICAL ×2 (06:08→20:28)
[2018-06-25] MEDS: Levothyroxine 88 MCG Tablet PO (06:08)
[2018-06-25 07:28] VITALS: BP 112/61; PULSE 59; RESP 16; TEMP 36.6; O2SAT 97
[2018-06-25 07:56] VITALS: PULSE 60
[2018-06-25] MEDS: Metoprolol Tartrate 25 MG Tablet PO ×2 (07:56→20:27)
[2018-06-25] MEDS: Losartan Potassium 100 MG Tablet PO (07:56)
[2018-06-25] MEDS: Aspirin 81 MG TAB.CHEW PO (07:56)
[2018-06-25] MEDS: Pantoprazole Sodium 40 MG Tablet PO (07:56)
[2018-06-25] MEDS: Heparin Injection (Vial) 5,000 UNIT/ML VIAL 5000 UNIT SC ×2 (07:57→20:27)
[2018-06-25] MEDS: Clopidogrel Bisulfate 75 MG Tablet PO (08:00)
--- NOTE | 2018-06-25 11:12 | PCM.PN.NEU ---
Subjective: Per nursing no issues overnight and slept well. Patient denies any questions or concerns. - Physical Exam General: Alert, Oriented x3 - can be forgetful at times, but easily redirects HEENT: Atraumatic, PERRLA, EOMI, Normocephalic Oral: Moist Mucosa Neck: Supple, No JVD, Negative Carotid Bruits Lungs: Clear to auscultation, Normal air movement Cardiovascular: Regular rate, Regular Rhythm Abdomen: Bowel Sounds Present, Soft, Non Tender Extremities: No edema, Capillary Refill Less than 3 Seconds Musculoskeletal: No Tenderness to Palpation of Joints or Extremities Neurological: Cranial nerves II-XII grossly intact, Deep Tendon Reflexes 2+/4 and Symmetrical Psych/Mental Status: Normal Affect, Appropriate, Alert and oriented to time, place, person, mood and affect - but can be forgetful, easily redirects Vital Signs Temp Pulse Resp BP Pulse Ox 97.9 F 60 16 112/61 97 06/25/18 07:28 06/25/18 07:56 06/25/18 07:28 06/25/18 07:28 06/25/18 07:28 Oxygen Delivery Method Room Air Weight: 86.81 kg Body Mass Index (BMI) 32.8 Finger Stick Blood Glucose 103 Intake and Output for Last 24 Hours 06/23/18 06/24/18 06/25/18 23:59 23:59 23:59 Intake Total 360 / 360 Output Total 250 / 250 Balance 110 / 110 Medical Necessity - Tobacco Use Smoking Status: Never smoker Tobacco Use: Non-smoker Assessment/Plan All Active Problems UTI (urinary tract infection) (Resolved) Orthostatic hypotension (Acute) Pulmonary HTN (Acute) Stroke-like symptoms (Acute) Stroke (Acute) Debility (Acute) The patient is a 83 year old F with PMH HTN, HLD, aortic stenosis status post bioprosthetic aortic valve replacement, hypothyroidism admitted to [facility] on 06/18/2018 with debility status post 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 She was admitted with right-sided numbness and slurred speech to the inpatient hospital on 06/15/2018. Per ED documentation on admission NIHSS was 2. MRI brain done on admission reported to show acute left CALENDER MACHINE OPERATOR infarct, MR angiogram head/neck showed left P2 occlusion. Per documentation patient is on aspirin/Plavix at baseline. Per patient she lives alone, denies any frequent falls, does use cane for ambulating, does drive. Per patient she lives in an independent house and has 3 steps to get into the house. At present patient denies any numbness in the right side, denies any headache, dizziness, visual disturbances, speech disturbances, focal motor weakness, or sensory loss. 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 ?Fall precautions ?Further medical management per hospitalist recommendation. Hospitalist consult ?Follow-up with PCP, neurology and cardiology on discharge
--- NOTE | 2018-06-25 11:16 | PN.NEURO_ITS ---
Subjective: Per nursing no issues overnight and slept well. Patient denies any questions or concerns. - Physical Exam General: Alert, Oriented x3 - can be forgetful at times, but easily redirects HEENT: Atraumatic, PERRLA, EOMI, Normocephalic Oral: Moist Mucosa Neck: Supple, No JVD, Negative Carotid Bruits Lungs: Clear to auscultation, Normal air movement Cardiovascular: Regular rate, Regular Rhythm Abdomen: Bowel Sounds Present, Soft, Non Tender Extremities: No edema, Capillary Refill Less than 3 Seconds Musculoskeletal: No Tenderness to Palpation of Joints or Extremities Neurological: Cranial nerves II-XII grossly intact, Deep Tendon Reflexes 2+/4 and Symmetrical Psych/Mental Status: Normal Affect, Appropriate, Alert and oriented to time, place, person, mood and affect - but can be forgetful, easily redirects Vital Signs Temp Pulse Resp BP Pulse Ox 97.9 F 60 16 112/61 97 06/25/18 07:28 06/25/18 07:56 06/25/18 07:28 06/25/18 07:28 06/25/18 07:28 Oxygen Delivery Method Room Air Weight: 86.81 kg Body Mass Index (BMI) 32.8 Finger Stick Blood Glucose 103 Intake and Output for Last 24 Hours 06/23/18 06/24/18 06/25/18 23:59 23:59 23:59 Intake Total 360 / 360 Output Total 250 / 250 Balance 110 / 110 Medical Necessity - Tobacco Use Smoking Status: Never smoker Tobacco Use: Non-smoker Assessment/Plan All Active Problems UTI (urinary tract infection) (Resolved) Orthostatic hypotension (Acute) Pulmonary HTN (Acute) Stroke-like symptoms (Acute) Stroke (Acute) Debility (Acute) The patient is a 83 year old F with PMH HTN, HLD, aortic stenosis status post bioprosthetic aortic valve replacement, hypothyroidism admitted to [facility] on 06/18/2018 with debility status post 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 She was admitted with right-sided numbness and slurred speech to the inpatient hospital on 06/15/2018. Per ED documentation on admission NIHSS was 2. MRI brain done on admission reported to show acute left SIMPLEX OPERATOR infarct, MR angiogram head/neck showed left P2 occlusion. Per documentation patient is on aspirin/Plavix at baseline. Per patient she lives alone, denies any frequent falls, does use cane for ambulating, does drive. Per patient she lives in an independent house and has 3 steps to get into the house. At present patient denies any numbness in the right side, denies any headache, dizziness, visual disturbances, speech disturbances, focal motor weakness, or sensory loss. 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 ?Fall precautions ?Further medical management per hospitalist recommendation. Hospitalist consult ?Follow-up with PCP, neurology and cardiology on discharge
[2018-06-25 16:02] VITALS: BMI 32.8
[2018-06-25 19:47] VITALS: BP 110/59; PULSE 71; RESP 18; TEMP 36.8; O2SAT 95
[2018-06-25] MEDS: Atorvastatin Calcium 40 MG Tablet PO (20:26)
[2018-06-25] MEDS: Acetaminophen 325 MG Tablet 650 MG PO (20:26)
[2018-06-25 20:27] VITALS: BP 110/59; PULSE 71
[2018-06-25] MEDS: LORazepam 0.5 MG Tablet PO (20:27)
[2018-06-25] MEDS: MELATONIN 3 MG TABLET PO (20:27)
[2018-06-25 20:30] VITALS: PULSE 71; RESP 18; O2SAT 95
[2018-06-25 20:34] VITALS: BMI 32.8
--- NOTE | 2018-06-26 02:43 | NURSING ---
Reviewed and agree with HEEL PADDER documentation and HEEL PADDER charting.
[2018-06-26] MEDS: Levothyroxine 88 MCG Tablet PO (05:31)
[2018-06-26] MEDS: Menthol/Lanolin/Calamine/Znox 113 GM Tube 1 APPLIC TOPICAL ×2 (05:31→20:05)
[2018-06-26 07:45] VITALS: BP 130/56; PULSE 60; RESP 20; TEMP 36.4; O2SAT 97
[2018-06-26 08:55] VITALS: BP 130/56; PULSE 60
[2018-06-26] MEDS: Metoprolol Tartrate 25 MG Tablet PO ×2 (08:55→20:03)
[2018-06-26] MEDS: Clopidogrel Bisulfate 75 MG Tablet PO (08:55)
[2018-06-26] MEDS: Pantoprazole Sodium 40 MG Tablet PO (08:55)
[2018-06-26] MEDS: Losartan Potassium 100 MG Tablet PO (08:56)
[2018-06-26] MEDS: Heparin Injection (Vial) 5,000 UNIT/ML VIAL 5000 UNIT SC ×2 (08:56→20:05)
[2018-06-26] MEDS: Aspirin 81 MG TAB.CHEW PO (08:56)
--- NOTE | 2018-06-26 10:05 | PCM.PN.NEU ---
Subjective: No issues overnight per nursing. Per patient she slept well at night, but remains tired after therapy. - Physical Exam General: Alert, Oriented x3 - can be forgetful at times, Cooperative HEENT: Atraumatic, PERRLA Oral: Moist Mucosa Neck: Supple, No JVD Lungs: Clear to auscultation, Normal air movement Cardiovascular: Regular rate, Regular Rhythm Abdomen: Bowel Sounds Present, Soft, Non Tender Musculoskeletal: No Tenderness to Palpation of Joints or Extremities Neurological: Cranial nerves II-XII grossly intact, Deep Tendon Reflexes 2+/4 and Symmetrical, Neuro grossly intact, Motor Exam 5/5 strength throughout Psych/Mental Status: Normal Affect, Appropriate, Alert and oriented to time, place, person, mood and affect - but can be forgetful, easily redirects Vital Signs Temp Pulse Resp BP Pulse Ox 97.6 F L 60 20 H 130/56 H 97 06/26/18 07:45 06/26/18 08:55 06/26/18 07:45 06/26/18 08:55 06/26/18 07:45 Oxygen Delivery Method Room Air Weight: 83.5 kg Body Mass Index (BMI) 32.8 Finger Stick Blood Glucose 103 Intake and Output for Last 24 Hours 06/24/18 06/25/18 06/26/18 23:59 23:59 23:59 Intake Total 360 / 360 240 / 240 Output Total 250 / 250 Balance 110 / 110 240 / 240 Medical Necessity - Tobacco Use Smoking Status: Never smoker Tobacco Use: Non-smoker Assessment/Plan All Active Problems (Last Updated 06/25/18 @ 11:12 by Ramona Putnam, SNOW BLOWER-C) UTI (urinary tract infection) (Resolved) Orthostatic hypotension (Acute) Pulmonary HTN (Acute) Stroke-like symptoms (Acute) Stroke (Acute) Debility (Acute) The patient is a 83 year old F with PMH HTN, HLD, aortic stenosis status post bioprosthetic aortic valve replacement, hypothyroidism admitted to [facility] on 06/18/2018 with debility status post 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 She was admitted with right-sided numbness and slurred speech to the inpatient hospital on 06/15/2018. Per ED documentation on admission NIHSS was 2. MRI brain done on admission reported to show acute left PUBLIC RELATIONS OFFICER infarct, MR angiogram head/neck showed left P2 occlusion. Per documentation patient is on aspirin/Plavix at baseline. Per patient she lives alone, denies any frequent falls, does use cane for ambulating, does drive. Per patient she lives in an independent house and has 3 steps to get into the house. At present patient denies any numbness in the right side, denies any headache, dizziness, visual disturbances, speech disturbances, focal motor weakness, or sensory loss. 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 ?Fall precautions ?Further medical management per hospitalist recommendation. Hospitalist consult ?Follow-up with PCP, neurology and cardiology on discharge
--- NOTE | 2018-06-26 10:10 | PN.NEURO_ITS ---
Subjective: No issues overnight per nursing. Per patient she slept well at night, but remains tired after therapy. - Physical Exam General: Alert, Oriented x3 - can be forgetful at times, Cooperative HEENT: Atraumatic, PERRLA Oral: Moist Mucosa Neck: Supple, No JVD Lungs: Clear to auscultation, Normal air movement Cardiovascular: Regular rate, Regular Rhythm Abdomen: Bowel Sounds Present, Soft, Non Tender Musculoskeletal: No Tenderness to Palpation of Joints or Extremities Neurological: Cranial nerves II-XII grossly intact, Deep Tendon Reflexes 2+/4 and Symmetrical, Neuro grossly intact, Motor Exam 5/5 strength throughout Psych/Mental Status: Normal Affect, Appropriate, Alert and oriented to time, place, person, mood and affect - but can be forgetful, easily redirects Vital Signs Temp Pulse Resp BP Pulse Ox 97.6 F L 60 20 H 130/56 H 97 06/26/18 07:45 06/26/18 08:55 06/26/18 07:45 06/26/18 08:55 06/26/18 07:45 Oxygen Delivery Method Room Air Weight: 83.5 kg Body Mass Index (BMI) 32.8 Finger Stick Blood Glucose 103 Intake and Output for Last 24 Hours 06/24/18 06/25/18 06/26/18 23:59 23:59 23:59 Intake Total 360 / 360 240 / 240 Output Total 250 / 250 Balance 110 / 110 240 / 240 Medical Necessity - Tobacco Use Smoking Status: Never smoker Tobacco Use: Non-smoker Assessment/Plan All Active Problems (Last Updated 06/25/18 @ 11:12 by Ramona Putnam, SAMPLE MAKER HAND-C) UTI (urinary tract infection) (Resolved) Orthostatic hypotension (Acute) Pulmonary HTN (Acute) Stroke-like symptoms (Acute) Stroke (Acute) Debility (Acute) The patient is a 83 year old F with PMH HTN, HLD, aortic stenosis status post bioprosthetic aortic valve replacement, hypothyroidism admitted to [facility] on 06/18/2018 with debility status post 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 She was admitted with right-sided numbness and slurred speech to the inpatient hospital on 06/15/2018. Per ED documentation on admission NIHSS was 2. MRI brain done on admission reported to show acute left OPERATIONS SYSTEMS SPECIALIST infarct, MR angiogram head/neck showed left P2 occlusion. Per documentation patient is on aspirin/Plavix at baseline. Per patient she lives alone, denies any frequent falls, does use cane for ambulating, does drive. Per patient she lives in an independent house and has 3 steps to get into the house. At present patient denies any numbness in the r ight side, denies any headache, dizziness, visual disturbances, speech disturbances, focal motor weakness, or sensory loss. 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 ?Fall precautions ?Further medical management per hospitalist recommendation. Hospitalist consult ?Follow-up with PCP, neurology and cardiology on discharge
[2018-06-26 14:30] VITALS: BMI 32.8
[2018-06-26 19:39] VITALS: BP 116/63; PULSE 69; RESP 16; TEMP 36.8; O2SAT 97
[2018-06-26] MEDS: LORazepam 0.5 MG Tablet PO (19:45)
[2018-06-26] MEDS: Acetaminophen 325 MG Tablet 650 MG PO (19:45)
[2018-06-26] MEDS: Atorvastatin Calcium 40 MG Tablet PO (20:02)
[2018-06-26 20:03] VITALS: PULSE 66
[2018-06-26] MEDS: MELATONIN 3 MG TABLET PO (20:04)
[2018-06-26 23:53] VITALS: BMI 32.8
--- NOTE | 2018-06-27 02:46 | NURSING ---
Reviewed and agree with MOLD REPAIRER documentation and FIMs charting.
[2018-06-27] MEDS: Levothyroxine 88 MCG Tablet PO (05:32)
[2018-06-27] MEDS: Menthol/Lanolin/Calamine/Znox 113 GM Tube 1 APPLIC TOPICAL ×2 (05:34→23:13)
[2018-06-27 07:14] VITALS: BP 112/63; PULSE 58; RESP 17; TEMP 36.6; O2SAT 96
[2018-06-27 09:00] VITALS: BP 112/63; PULSE 58
[2018-06-27] MEDS: Heparin Injection (Vial) 5,000 UNIT/ML VIAL 5000 UNIT SC ×2 (09:00→20:31)
[2018-06-27] MEDS: Metoprolol Tartrate 25 MG Tablet PO ×2 (09:00→20:32)
[2018-06-27] MEDS: Clopidogrel Bisulfate 75 MG Tablet PO (09:00)
[2018-06-27] MEDS: Pantoprazole Sodium 40 MG Tablet PO (09:00)
[2018-06-27] MEDS: Aspirin 81 MG TAB.CHEW PO (09:01)
[2018-06-27] MEDS: Losartan Potassium 100 MG Tablet PO (09:01)
[2018-06-27] MEDS: Acetaminophen 325 MG Tablet 650 MG PO ×2 (10:21→20:33)
--- NOTE | 2018-06-27 11:55 | PCM.PN.NEU ---
Subjective: Per nursing patient did not sleep well last night and did receive routine melatonin and prn Ativan 0.5 mg. Patient also stated she has increased tiredness this am. Discussed will use Rehab's standing order for insomnia of ativan, patient agreed. Patient denies any other questions or concerns. - Physical Exam General: Alert, Oriented x3 - can be foregetful at times, but redirects easily HEENT: Atraumatic, PERRLA Oral: Moist Mucosa Neck: Supple, No JVD Lungs: Clear to auscultation, Normal air movement Cardiovascular: Regular rate, Regular Rhythm Abdomen: Bowel Sounds Present, Soft, Non Tender Extremities: No clubbing, No cyanosis, No edema Neurological: Cranial nerves II-XII grossly intact, Deep Tendon Reflexes 2+/4 and Symmetrical Psych/Mental Status: Normal Affect, Appropriate, Alert and oriented to time, place, person, mood and affect Vital Signs Temp Pulse Resp BP Pulse Ox 97.8 F 58 L 17 112/63 96 06/27/18 07:14 06/27/18 09:00 06/27/18 07:14 06/27/18 09:00 06/27/18 07:14 Oxygen Delivery Method Room Air Weight: 83.5 kg Body Mass Index (BMI) 32.8 Finger Stick Blood Glucose 103 Intake and Output for Last 24 Hours 06/25/18 06/26/18 06/27/18 23:59 23:59 23:59 Intake Total 240 / 240 Balance 240 / 240 Medical Necessity - Tobacco Use Smoking Status: Never smoker Tobacco Use: Non-smoker Assessment/Plan All Active Problems (Last Updated 06/25/18 @ 11:12 by Ramona Putnam, GISSEL-C) UTI (urinary tract infection) (Resolved) Orthostatic hypotension (Acute) Pulmonary HTN (Acute) Stroke-like symptoms (Acute) Stroke (Acute) Debility (Acute) The patient is a 83 year old F with PMH HTN, HLD, aortic stenosis status post bioprosthetic aortic valve replacement, hypothyroidism admitted to 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 She was admitted with right-sided numbness and slurred speech to the inpatient hospital on 06/15/2018. Per ED documentation on admission NIHSS was 2. MRI brain done on admission reported to show acute left TRANSPORTATION ASSOCIATE infarct, MR angiogram head/neck showed left P2 occlusion. Per documentation patient is on aspirin/Plavix at baseline. Per patient she lives alone, denies any frequent falls, does use cane for ambulating, does drive. Per patient she lives in an independent house and has 3 steps to get into the house. At present patient denies any numbness in the right side, denies any headache, dizziness, visual disturbances, speech disturbances, focal motor weakness, or sensory loss. Plan ?PT for gait stability ?OT for ADLs -ST for cognitive ?Analgesics as needed ?Bowel protocol ?Acute left TRANSPORTATION ASSOCIATE stroke?on aspirin and clopidogrel at baseline for many years, on atorvastatin ?HTN?on losartan, metoprolol ?HLD?on atorvastatin ?Hypothyroidism?on levothyroxine ?GI/DVT prophylaxis?on pantoprazole/heparin 5000 units subcu 12 hourly -Insomnia Rehab standing order of Ativan prn and melatonin at bedtime. ?Fall precautions ?Further medical management per hospitalist recommendation. Hospitalist consult ?Follow-up with PCP, neurology and cardiology on discharge
--- NOTE | 2018-06-27 12:01 | PN.NEURO_ITS ---
Subjective: Per nursing patient did not sleep well last night and did receive routine melatonin and prn Ativan 0.5 mg. Patient also stated she has increased tir edness this am. Discussed will use Rehab's standing order for insomnia of ativan, patient agreed. Patient denies any other questions or concerns. - Physical Exam General: Alert, Oriented x3 - can be foregetful at times, but redirects easily HEENT: Atraumatic, PERRLA Oral: Moist Mucosa Neck: Supple, No JVD Lungs: Clear to auscultation, Normal air movement Cardiovascular: Regular rate, Regular Rhythm Abdomen: Bowel Sounds Present, Soft, Non Tender Extremities: No clubbing, No cyanosis, No edema Neurological: Cranial nerves II-XII grossly intact, Deep Tendon Reflexes 2+/4 and Symmetrical Psych/Mental Status: Normal Affect, Appropriate, Alert and oriented to time, place, person, mood and affect Vital Signs Temp Pulse Resp BP Pulse Ox 97.8 F 58 L 17 112/63 96 06/27/18 07:14 06/27/18 09:00 06/27/18 07:14 06/27/18 09:00 06/27/18 07:14 Oxygen Delivery Method Room Air Weight: 83.5 kg Body Mass Index (BMI) 32.8 Finger Stick Blood Glucose 103 Intake and Output for Last 24 Hours 06/25/18 06/26/18 06/27/18 23:59 23:59 23:59 Intake Total 240 / 240 Balance 240 / 240 Medical Necessity - Tobacco Use Smoking Status: Never smoker Tobacco Use: Non-smoker Assessment/Plan All Active Problems (Last Updated 06/25/18 @ 11:12 by Ramona Putnam, GISSEL-C) UTI (urinary tract infection) (Resolved) Orthostatic hypotension (Acute) Pulmonary HTN (Acute) Stroke-like symptoms (Acute) Stroke (Acute) Debility (Acute) The patient is a 83 year old F with PMH HTN, HLD, aortic stenosis status post bioprosthetic aortic valve replacement, hypothyroidism admitted to [facility] on 06/18/2018 with debility status post acute left PRESS CATCHER stroke, but greater than 3 hours therapy daily with a goal of returning back home at or near her prior level of functional independence. She was admitted with right-sided numbness and slurred speech to the inpatient hospital on 06/15/2018. Per ED documentation on admission NIHSS was 2. MRI brain done on admission reported to show acute left PRESS CATCHER infarct, MR angiogram head/neck showed left P2 occlusion. Per documentation patient is on aspirin/Plavix at baseline. Per patient she lives alone, denies any frequent falls, does use cane for ambulating, does drive. Per patient she lives in an independent house and has 3 steps to get into the house. At present patient denies any numbness in the right side, denies any headache, dizziness, visual disturbances, speech disturbances, focal motor weakness, or sensory loss. Plan ?PT for gait stability ?OT for ADLs -ST for cognitive ?Analgesics as needed ?Bowel protocol ?Acute left PRESS CATCHER stroke?on aspirin and clopidogrel at baseline for many years, on atorvastatin ?HTN?on losartan, metoprolol ?HLD?on atorvastatin ?Hypothyroidism?on levothyroxine ?GI/DVT prophylaxis?on pantoprazole/heparin 5000 units subcu 12 hourly -Insomnia Rehab standing order of Ativan prn and melatonin at bedtime. ?Fall precautions ?Further medical management per hospitalist recommendation. Hospitalist consult ?Follow-up with PCP, neurology and cardiology on discharge
[2018-06-27 13:51] VITALS: BMI 32.8
[2018-06-27] MEDS: Atorvastatin Calcium 40 MG Tablet PO (20:31)
[2018-06-27 20:32] VITALS: PULSE 66
[2018-06-27] MEDS: MELATONIN 3 MG TABLET PO (20:32)
[2018-06-27] MEDS: LORazepam 0.5 MG Tablet PO (20:33)
[2018-06-27 20:39] VITALS: BP 125/69; PULSE 66; RESP 18; TEMP 36.8; O2SAT 95
[2018-06-28 00:07] VITALS: BMI 32.8
--- NOTE | 2018-06-28 00:33 | NURSING ---
REVIEWED AND AGREE WITH CHECK SERVICES CLERK'S FIM AND HANDOFF CHARTING.
[2018-06-28] MEDS: Levothyroxine 88 MCG Tablet PO (06:21)
[2018-06-28] MEDS: Menthol/Lanolin/Calamine/Znox 113 GM Tube 1 APPLIC TOPICAL ×2 (06:22→19:55)
[2018-06-28 07:00] VITALS: BP 107/65; PULSE 54; RESP 24; TEMP 36.1; O2SAT 97
[2018-06-28 08:35] VITALS: BP 107/65; PULSE 54
[2018-06-28] MEDS: Pantoprazole Sodium 40 MG Tablet PO (08:35)
[2018-06-28] MEDS: Aspirin 81 MG TAB.CHEW PO (08:35)
[2018-06-28] MEDS: Metoprolol Tartrate 25 MG Tablet PO ×2 (08:35→19:54)
[2018-06-28] MEDS: Losartan Potassium 100 MG Tablet PO (08:35)
[2018-06-28] MEDS: Clopidogrel Bisulfate 75 MG Tablet PO (08:35)
[2018-06-28] MEDS: Heparin Injection (Vial) 5,000 UNIT/ML VIAL 5000 UNIT SC ×2 (08:36→19:55)
--- NOTE | 2018-06-28 10:32 | PCM.PN.NEU ---
Subjective: per nursing no issues overnight and slept well last night. Patient complains of dull mild intermittent headache to frontal and occipital area, but per patient prn tylenol is effective. denies blurred vision, dizziness, or double vision. - Physical Exam General: Alert, Oriented x3 HEENT: Atraumatic, PERRLA Oral: Moist Mucosa Neck: Supple, No JVD Lungs: Clear to auscultation, Normal air movement Cardiovascular: Regular rate, Regular Rhythm Abdomen: Bowel Sounds Present, Soft, Non Tender, Non-Distended Extremities: No clubbing, No cyanosis, No edema Musculoskeletal: No Tenderness to Palpation of Joints or Extremities Neurological: Cranial nerves II-XII grossly intact, Deep Tendon Reflexes 2+/4 and Symmetrical, Neuro grossly intact, Motor Exam 5/5 strength throughout Psych/Mental Status: Normal Affect, Appropriate, Alert and oriented to time, place, person, mood and affect Vital Signs Temp Pulse Resp BP Pulse Ox 97.0 F L 54 L 24 H 107/65 97 06/28/18 07:00 06/28/18 08:35 06/28/18 07:00 06/28/18 08:35 06/28/18 07:00 Oxygen Delivery Method Room Air Weight: 83.5 kg Body Mass Index (BMI) 32.8 Finger Stick Blood Glucose 103 Intake and Output for Last 24 Hours 06/26/18 06/27/18 06/28/18 23:59 23:59 23:59 Intake Total 360 / 360 Balance 360 / 360 Medical Necessity - Tobacco Use Smoking Status: Never smoker Tobacco Use: Non-smoker Assessment/Plan All Active Problems (Last Updated 06/25/18 @ 11:12 by Ramona Putnam NP-C) UTI (urinary tract infection) (Resolved) Orthostatic hypotension (Acute) Pulmonary HTN (Acute) Stroke-like symptoms (Acute) Stroke (Acute) Debility (Acute) The patient is a 83 year old F with PMH HTN, HLD, aortic stenosis status post bioprosthetic aortic valve replacement, hypothyroidism admitted to 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 She was admitted with right-sided numbness and slurred speech to the inpatient hospital on 06/15/2018. Per ED documentation on admission NIHSS was 2. MRI brain done on admission reported to show acute left CLINICAL SERVICES ASSISTANT infarct, MR angiogram head/neck showed left P2 occlusion. Per documentation patient is on aspirin/Plavix at baseline. Per patient she lives alone, denies any frequent falls, does use cane for ambulating, does drive. Per patient she lives in an independent house and has 3 steps to get into the house. At present patient denies any numbness in the right side, denies any headache, dizziness, visual disturbances, speech disturbances, focal motor weakness, or sensory loss. Plan ?PT for gait stability ?OT for ADLs -ST for cognitive ?Analgesics as needed ?Bowel protocol ?Acute left CLINICAL SERVICES ASSISTANT stroke?on aspirin and clopidogrel at baseline for many years, on atorvastatin ?HTN?on losartan, metoprolol ?HLD?on atorvastatin ?Hypothyroidism?on levothyroxine ?GI/DVT prophylaxis?on pantoprazole/heparin 5000 units subcu 12 hourly -Insomnia Rehab standing order of Ativan prn and melatonin at bedtime. ?Fall precautions ?Further medical management per hospitalist recommendation. Hospitalist consult ?Follow-up with PCP, neurology and cardiology on discharge
--- NOTE | 2018-06-28 10:36 | PN.NEURO_ITS ---
Subjective: per nursing no issues overnight and slept well last night. Patient complains of dull mild intermittent headache to frontal and occipital area, but per patient prn tylenol is effective. denies blurred vision, dizziness, or double vision. - Physical Exam General: Alert, Oriented x3 HEENT: Atraumatic, PERRLA Oral: Moist Mucosa Neck: Supple, No JVD Lungs: Clear to auscultation, Normal air movement Cardiovascular: Regular rate, Regular Rhythm Abdomen: Bowel Sounds Present, Soft, Non Tender, Non-Distended Extremities: No clubbing, No cyanosis, No edema Musculoskeletal: No Tenderness to Palpation of Joints or Extremities Neurological: Cranial nerves II-XII grossly intact, Deep Tendon Reflexes 2+/4 and Symmetrical, Neuro grossly intact, Motor Exam 5/5 strength throughout Psych/Mental Status: Normal Affect, Appropriate, Alert and oriented to time, place, person, mood and affect Vital Signs Temp Pulse Resp BP Pulse Ox 97.0 F L 54 L 24 H 107/65 97 06/28/18 07:00 06/28/18 08:35 06/28/18 07:00 06/28/18 08:35 06/28/18 07:00 Oxygen Delivery Method Room Air Weight: 83.5 kg Body Mass Index (BMI) 32.8 Finger Stick Blood Glucose 103 Intake and Output for Last 24 Hours 06/26/18 06/27/18 06/28/18 23:59 23:59 23:59 Intake Total 360 / 360 Balance 360 / 360 Medical Necessity - Tobacco Use Smoking Status: Never smoker Tobacco Use: Non-smoker Assessment/Plan All Active Problems (Last Updated 06/25/18 @ 11:12 by Ramona Putnam NP-C) UTI (urinary tract infection) (Resolved) Orthostatic hypotension (Acute) Pulmonary HTN (Acute) Stroke-like symptoms (Acute) Stroke (Acute) Debility (Acute) The patient is a 83 year old F with PMH HTN, HLD, aortic stenosis status post bioprosthetic aortic valve replacement, hypothyroidism admitted to [facility] on 06/18/2018 with debility status 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 She was admitted with right-sided numbness and slurred speech to the inpatient hospital on 06/15/2018. Per ED documentation on admission NIHSS was 2. MRI brain done on admission reported to show acute left ENVELOPE SEALER OPERATOR infarct, MR angiogram head/neck showed left P2 occlusion. Per documentation patient is on aspirin/Plavix at baseline. Per patient she lives alone, denies any frequent falls, does use cane for ambulating, does drive. Per patient she lives in an independent house and has 3 steps to get into the house. At present patient denies any numbness in the right side, denies any headache, dizziness, visual disturbances, speech disturbances, focal motor weakness, or sensory loss. 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 ?Fall precautions ?Further medical management per hospitalist recommendation. Hospitalist consult ?Follow-up with PCP, neurology and cardiology on discharge
[2018-06-28 16:20] VITALS: BMI 32.8
[2018-06-28 19:50] VITALS: BP 103/62; PULSE 66; RESP 16; TEMP 36.6; O2SAT 95
[2018-06-28 19:54] VITALS: PULSE 66
[2018-06-28] MEDS: MELATONIN 3 MG TABLET PO (19:54)
[2018-06-28] MEDS: Acetaminophen 325 MG Tablet 650 MG PO (19:54)
[2018-06-28] MEDS: Atorvastatin Calcium 40 MG Tablet PO (19:55)
[2018-06-28 23:47] VITALS: BMI 32.8
[2018-06-29] MEDS: Acetaminophen 325 MG Tablet 650 MG PO ×2 (06:53→21:34)
[2018-06-29] MEDS: Levothyroxine 88 MCG Tablet PO (06:53)
[2018-06-29] MEDS: Menthol/Lanolin/Calamine/Znox 113 GM Tube 1 APPLIC TOPICAL ×2 (06:54→21:45)
[2018-06-29 07:00] VITALS: BP 120/61; PULSE 57; RESP 20; TEMP 36.7; O2SAT 97
[2018-06-29 08:34] VITALS: PULSE 85
[2018-06-29] MEDS: Heparin Injection (Vial) 5,000 UNIT/ML VIAL 5000 UNIT SC ×2 (08:34→21:32)
[2018-06-29] MEDS: Clopidogrel Bisulfate 75 MG Tablet PO (08:34)
[2018-06-29] MEDS: Losartan Potassium 100 MG Tablet PO (08:34)
[2018-06-29] MEDS: Aspirin 81 MG TAB.CHEW PO (08:34)
[2018-06-29] MEDS: Pantoprazole Sodium 40 MG Tablet PO (08:34)
[2018-06-29] MEDS: Metoprolol Tartrate 25 MG Tablet PO ×2 (08:34→21:31)
[2018-06-29] MEDS: Senna/Docusate Sodium 1 Tablet 2 TABLET PO ×2 (08:36→21:31)
[2018-06-29 09:22] VITALS: BMI 32.8
[2018-06-29 21:25] VITALS: BP 135/66; PULSE 63; RESP 20; TEMP 36.7; O2SAT 96
[2018-06-29 21:31] VITALS: PULSE 63
[2018-06-29] MEDS: MELATONIN 3 MG TABLET PO (21:32)
[2018-06-29] MEDS: LORazepam 0.5 MG Tablet PO (21:32)
[2018-06-29] MEDS: Atorvastatin Calcium 40 MG Tablet PO (21:32)
[2018-06-29 23:53] VITALS: BMI 32.8
[2018-06-30] MEDS: Levothyroxine 88 MCG Tablet PO (05:12)
[2018-06-30] MEDS: Menthol/Lanolin/Calamine/Znox 113 GM Tube 1 APPLIC TOPICAL ×2 (05:15→20:22)
[2018-06-30 07:00] VITALS: BP 103/50; PULSE 52; RESP 18; TEMP 36.6; O2SAT 95
[2018-06-30 08:48] VITALS: BP 103/56; PULSE 60
[2018-06-30] MEDS: Aspirin 81 MG TAB.CHEW PO (08:48)
[2018-06-30] MEDS: Losartan Potassium 100 MG Tablet PO (08:48)
[2018-06-30] MEDS: Clopidogrel Bisulfate 75 MG Tablet PO (08:48)
[2018-06-30] MEDS: Senna/Docusate Sodium 1 Tablet 2 TABLET PO (08:48)
[2018-06-30] MEDS: Metoprolol Tartrate 25 MG Tablet PO ×2 (08:48→20:21)
[2018-06-30] MEDS: Pantoprazole Sodium 40 MG Tablet PO (08:48)
[2018-06-30] MEDS: Heparin Injection (Vial) 5,000 UNIT/ML VIAL 5000 UNIT SC ×2 (08:49→20:21)
[2018-06-30 10:07] VITALS: BMI 32.8
[2018-06-30 20:20] VITALS: PULSE 65; RESP 16; O2SAT 94; BMI 32.8
[2018-06-30] MEDS: Atorvastatin Calcium 40 MG Tablet PO ×2 (20:20→20:21)
[2018-06-30] MEDS: MELATONIN 3 MG TABLET PO (20:20)
[2018-06-30 20:21] VITALS: BP 107/58; PULSE 65
[2018-06-30] MEDS: Acetaminophen 325 MG Tablet 650 MG PO (20:22)
[2018-06-30] MEDS: LORazepam 0.5 MG Tablet PO (20:23)
[2018-06-30 21:13] VITALS: BP 107/58; PULSE 65; RESP 16; TEMP 36.7; O2SAT 94
[2018-07-01] MEDS: LORazepam 0.5 MG Tablet PO (00:29)
[2018-07-01] MEDS: Menthol/Lanolin/Calamine/Znox 113 GM Tube 1 APPLIC TOPICAL ×2 (06:05→20:28)
[2018-07-01] MEDS: Levothyroxine 88 MCG Tablet PO (06:05)
[2018-07-01] MEDS: Aspirin 81 MG TAB.CHEW PO (07:56)
[2018-07-01 07:57] VITALS: PULSE 71
[2018-07-01] MEDS: Clopidogrel Bisulfate 75 MG Tablet PO (07:57)
[2018-07-01] MEDS: Pantoprazole Sodium 40 MG Tablet PO (07:57)
[2018-07-01] MEDS: Heparin Injection (Vial) 5,000 UNIT/ML VIAL 5000 UNIT SC ×2 (07:57→20:27)
[2018-07-01] MEDS: Metoprolol Tartrate 25 MG Tablet PO ×2 (07:57→20:27)
[2018-07-01] MEDS: Losartan Potassium 100 MG Tablet PO (07:57)
[2018-07-01 08:30] VITALS: BP 120/90; PULSE 54; RESP 16; TEMP 36.6; O2SAT 96
[2018-07-01 08:37] VITALS: BMI 32.8
[2018-07-01] MEDS: Sertraline 50 MG Tablet 25 MG PO (10:51)
--- NOTE | 2018-07-01 11:36 | PCM.PN.NEU ---
Subjective: Per nursing patient takes naps during the day and was up throughout the night, not able to sleep this past weekend. Prn Ativan and melatonin was not effective. Per nursing patient was not agitated and easily redirects. Patient perseverates about going home and about her cat with sadness during therapy sessions. Team meeting held this am, patient continues to improve with therapy and will be re-teamed next week. Discussed Zoloft and Seroquel to be started, patient and family agreeable. - Physical Exam General: Alert, Oriented x3, Cooperative - can be forgetful, but easily redirects HEENT: Atraumatic, PERRLA Oral: Moist Mucosa Neck: Supple, No JVD Lungs: Clear to auscultation, Normal air movement Cardiovascular: Regular rate, Regular Rhythm Abdomen: Bowel Sounds Present, Soft, Non Tender Extremities: No clubbing, No cyanosis, No edema Musculoskeletal: No Tenderness to Palpation of Joints or Extremities Neurological: Cranial nerves II-XII grossly intact, Deep Tendon Reflexes 2+/4 and Symmetrical, Neuro grossly intact, Motor Exam 5/5 strength throughout Psych/Mental Status: Normal Affect, Appropriate Vital Signs Temp Pulse Resp BP Pulse Ox 97.9 F 54 L 16 120/90 H 96 07/01/18 08:30 07/01/18 08:30 07/01/18 08:30 07/01/18 08:30 07/01/18 08:30 Oxygen Delivery Method Room Air Weight: 83.5 kg Body Mass Index (BMI) 32.8 Finger Stick Blood Glucose 103 Intake and Output for Last 24 Hours 06/29/18 06/30/18 07/01/18 23:59 23:59 23:59 Intake Total 720 / 720 720 / 720 Balance 720 / 720 720 / 720 Medical Necessity - Tobacco Use Smoking Status: Never smoker Tobacco Use: Non-smoker Assessment/Plan All Active Problems (Last Updated 06/25/18 @ 11:12 by ISHAN BullockC) UTI (urinary tract infection) (Resolved) Orthostatic hypotension (Acute) Pulmonary HTN (Acute) Stroke-like symptoms (Acute) Stroke (Acute) Debility (Acute) The patient is a 83 year old F with PMH HTN, HLD, aortic stenosis status post bioprosthetic aortic valve replacement, hypothyroidism admitted to [facility] on 06/18/2018 with debility status post acute left GREY WASHER stroke, but greater than 3 hours therapy daily with a goal of returning back home at or near her prior level of functional independence. She was admitted with right-sided numbness and slurred speech to the inpatient hospital on 06/15/2018. Per ED documentation on admission NIHSS was 2. MRI brain done on admission reported to show acute left GREY WASHER infarct, MR angiogram head/neck showed left P2 occlusion. Per documentation patient is on aspirin/Plavix at baseline. Per patient she lives alone, denies any frequent falls, does use cane for ambulating, does drive. Per patient she lives in an independent house and has 3 steps to get into the house. At present patient denies any numbness in the right side, denies any headache, dizziness, visual disturbances, speech disturbances, focal motor weakness, or sensory loss. Plan ?PT for gait stability ?OT for ADLs -ST for cognitive ?Analgesics as needed ?Bowel protocol ?Acute left GREY WASHER stroke?on aspirin and clopidogrel at baseline for many years, on atorvastatin ?HTN?on losartan, metoprolol ?HLD?on atorvastatin ?Hypothyroidism?on levothyroxine ?GI/DVT prophylaxis?on pantoprazole/heparin 5000 units subcu 12 hourly -Insomnia - D/C ativan start Seroquel 12.5 mg QHS PRN and continue melatonin - Depression initiated Zoloft 25 mg daily ?Fall precautions ?Further medical management per hospitalist recommendation. Hospitalist consult ?Follow-up with PCP, neurology and cardiology on discharge
--- NOTE | 2018-07-01 11:41 | PN.NEURO_ITS ---
Subjective: Per nursing patient takes naps during the day and was up throughout the night, not able to sleep this past weekend. Prn Ativan and melatonin was not effective. Per nursing patient was not agitated and easily redirects. Patient perseverates about going home and about her cat with sadness during therapy sessions. Team meeting held this am, patient continues to improve with therapy and will be re-teamed next week. Discussed Zoloft and Seroquel to be started, patient and family agreeable. - Physical Exam General: Alert, Oriented x3, Cooperative - can be forgetful, but easily redirects HEENT: Atraumatic, PERRLA Oral: Moist Mucosa Neck: Supple, No JVD Lungs: Clear to auscultation, Normal air movement Cardiovascular: Regular rate, Regular Rhythm Abdomen: Bowel Sounds Present, Soft, Non Tender Extremities: No clubbing, No cyanosis, No edema Musculoskeletal: No Tenderness to Palpation of Joints or Extremities Neurological: Cranial nerves II-XII grossly intact, Deep Tendon Reflexes 2+/4 and Symmetrical, Neuro grossly intact, Motor Exam 5/5 strength throughout Psych/Mental Status: Normal Affect, Appropriate Vital Signs Temp Pulse Resp BP Pulse Ox 97.9 F 54 L 16 120/90 H 96 07/01/18 08:30 07/01/18 08:30 07/01/18 08:30 07/01/18 08:30 07/01/18 08:30 Oxygen Delivery Method Room Air Weight: 83.5 kg Body Mass Index (BMI) 32.8 Finger Stick Blood Glucose 103 Intake and Output for Last 24 Hours 06/29/18 06/30/18 07/01/18 23:59 23:59 23:59 Intake Total 720 / 720 720 / 720 Balance 720 / 720 720 / 720 Medical Necessity - Tobacco Use Smoking Status: Never smoker Tobacco Use: Non-smoker Assessment/Plan All Active Problems (Last Updated 06/25/18 @ 11:12 by ISHAN BullockC) UTI (urinary tract infection) (Resolved) Orthostatic hypotension (Acute) Pulmonary HTN (Acute) Stroke-like symptoms (Acute) Stroke (Acute) Debility (Acute) The patient is a 83 year old F with PMH HTN, HLD, aortic stenosis status post bioprosthetic aortic valve replacement, hypothyroidism admitted to [facility] on 06/18/2018 with debility status post 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 She was admitted wi th right-sided numbness and slurred speech to the inpatient hospital on 06/15/2018. Per ED documentation on admission NIHSS was 2. MRI brain done on admission reported to show acute left MOLDING TECHNICIAN infarct, MR angiogram head/neck showed left P2 occlusion. Per documentation patient is on aspirin/Plavix at baseline. Per patient she lives alone, denies any frequent falls, does use cane for ambulating, does drive. Per patient she lives in an independent house and has 3 steps to get into the house. At present patient denies any numbness in the right side, denies any headache, dizziness, visual disturbances, speech disturbances, focal motor weakness, or sensory loss. 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 Hospitalist consult ?Follow-up with PCP, neurology and cardiology on discharge
--- NOTE | 2018-07-01 12:50 | PCM.PN.HOSP ---
Subjective: Patient is doing good with physical therapy and Occupational Therapy. She walks with walker. Denies any acute complaint. Patient has memory issues, cognitive deficit. Vitals/I&O's: Vital Signs Temp Pulse Resp BP Pulse Ox 97.9 F 54 L 16 120/90 H 96 07/01/18 08:30 07/01/18 08:30 07/01/18 08:30 07/01/18 08:30 07/01/18 08:30 Oxygen Delivery Method Room Air Weight: 184 lb 1.376 oz Body Mass Index (BMI) 32.8 Finger Stick Blood Glucose 103 Intake and Output for Last 24 Hours 06/29/18 06/30/18 07/01/18 23:59 23:59 23:59 Intake Total 720 / 720 720 / 720 Balance 720 / 720 720 / 720 General: Alert, Oriented x3, Cooperative HEENT: Atraumatic, PERRLA, EOMI, Normocephalic Neck: Supple, No JVD, Negative Carotid Bruits Lungs: Clear to auscultation, Normal air movement, No rhonchi, No wheeze, No rales Cardiovascular: Regular rate, Regular Rhythm, Normal S1, Normal S2, No murmurs Abdomen: Bowel Sounds Present, Soft, Non Tender, Non-Distended Extremities: No edema, Capillary Refill Less than 3 Seconds Skin: No rashes, No breakdown Musculoskeletal: No Tenderness to Palpation of Joints or Extremities, Arthritic Changes Neurological: Cranial nerves II-XII grossly intact, Deep Tendon Reflexes 2+/4 and Symmetrical, Neuro grossly intact Psych/Mental Status: Normal Affect, Appropriate Current Medications Acetaminophen (Tylenol) 650 mg PO Q4H PRN PRN PRN Reason: PAIN/FEVER Last Admin: 06/30/18 20:22 Dose: 650 mg Aspirin (Aspirin, Baby) 81 mg PO DAILY@0800 [facility] Last Admin: 07/01/18 07:56 Dose: 81 mg Atorvastatin Calcium (Lipitor) 40 mg PO QHS [facility] Last Admin: 06/30/18 20:21 Dose: 40 mg Bisacodyl (Dulcolax) 10 mg RECTAL .PRN X 1 PRN PRN Reason: Constipation Calamine/Phenol (Calmoseptine Ointment) 1 applic TOPICAL BID@0600,2200 YAIR; Protocol Last Admin: 07/01/18 06:05 Dose: 1 applicatio Clopidogrel Bisulfate (Plavix) 75 mg PO DAILY [facility] Last Admin: 07/01/18 07:57 Dose: 75 mg Heparin Sodium (Porcine) (Heparin Na) 5,000 unit SC Q12 [facility] Last Admin: 07/01/18 07:57 Dose: 5,000 unit Hydrocortisone Acetate (Anusol Hc) 25 mg RECTAL BID PRN PRN PRN Reason: Hemorrhoids Levothyroxine Sodium (Synthroid) 88 mcg PO DAILY@0600 [facility] Last Admin: 07/01/18 06:05 Dose: 88 mcg Losartan Potassium (Cozaar) 100 mg PO DAILY [facility] Last Admin: 07/01/18 07:57 Dose: 100 mg Magnesium Hydroxide (Milk Of Magnesia) 30 ml PO .PRN X 1 PRN PRN Reason: Constipation Melatonin (Melatonin) 3 mg PO QHS [facility] Last Admin: 06/30/18 20:20 Dose: 3 mg Metoprolol Tartrate (Lopressor (Beta Aneesh)) 25 mg PO BID [facility] Last Admin: 07/01/18 07:57 Dose: 25 mg Pantoprazole Sodium (Protonix) 40 mg PO DAILY [facility] Last Admin: 07/01/18 07:57 Dose: 40 mg Quetiapine Fumarate (Seroquel) 12.5 mg PO QHS PRN PRN PRN Reason: RESTLESSNESS/AGITATION Senna/Docusate Sodium (Senokot-S, Yareli-Colace) 2 tablet PO BID [facility] Last Admin: 07/01/18 08:00 Dose: Not Given Sertraline HCl (Zoloft) 25 mg PO DAILY [facility] Last Admin: 07/01/18 10:51 Dose: 25 mg Medical Necessity - Tobacco Use Smoking Status: Never smoker Tobacco Use: Non-smoker Assessment/Plan All Active Problems (Last Updated 06/25/18 @ 11:12 by Ramona Putnam BULL DRIVER-C) UTI (urinary tract infection) (Resolved) Orthostatic hypotension (Acute) Pulmonary HTN (Acute) Stroke-like symptoms (Acute) Stroke (Acute) Debility (Acute) The patient is a 83 year old F with a significant history of hypertension; hyperlipidemia; hypothyroidism, ; aortic stenosis status post bioprosthetic aortic valve replacement; diastolic dysfunction suggestive of chronic heart failure with preserved EF; pulmonary hypertension is being admitted to acute rehab after evaluation and management for acute left COMFORT FILLER ischemic stroke and [facility]. The patient had right hand numbness. 1. Acute left COMFORT FILLER Ischemic stroke: MRI brain is positive of acute left COMFORT FILLER ischemic stroke. MRI brain reported as occlusion of the left posterior cerebral artery at the level of the P2 segment. She denies any previous history of a stroke. Patient is on permissive hypertension. PT, OT and speech evaluation to continue. Patient is on aspirin, Plavix and statin, atorvastatin. Lipid profile reported as LDL 73, triglyceride 97. HDL 36. Echo was done and reported as EF 50 to 55%. Mild anteroseptal hypokinesis. LA severely enlarged. RA moderately enlarged. Moderate to severe 3+ TR with RVSP 50 to 55 mmHg suggestive of moderate pulmonary hypertension. Echo suggestive of heart failure with preserved EF and valvular heart disease moderate pulmonary hypertension The patient is being followed by PT, OT and speech evaluation. Blood pressure control as per stroke protocol 2. Hypertension with chronic diastolic heart failure Blood pressure is good. Continue losartan 100 mg daily. Hypothyroidism Synthroid continued. GERD Protonix continued. DVT prophylaxis Subcutaneous heparin Active Medications Acetaminophen (Tylenol) 650 mg PO Q4H PRN PRN PRN Reason: PAIN/FEVER Last Admin: 06/30/18 20:22 Dose: 650 mg Aspirin (Aspirin, Baby) 81 mg PO DAILY@0800 [facility] Last Admin: 07/01/18 07:56 Dose: 81 mg Atorvastatin Calcium (Lipitor) 40 mg PO QHS [facility] Last Admin: 06/30/18 20:21 Dose: 40 mg Bisacodyl (Dulcolax) 10 mg RECTAL .PRN X 1 PRN PRN Reason: Constipation Calamine/Phenol (Calmoseptine Ointment) 1 applic TOPICAL BID@0600,2200 [facility]; Protocol Last Admin: 07/01/18 06:05 Dose: 1 applicatio Clopidogrel Bisulfate (Plavix) 75 mg PO DAILY [facility] Last Admin: 07/01/18 07:57 Dose: 75 mg Heparin Sodium (Porcine) (Heparin Na) 5,000 unit SC Q12 [facility] Last Admin: 07/01/18 07:57 Dose: 5,000 unit Hydrocortisone Acetate (Anusol Hc) 25 mg RECTAL BID PRN PRN PRN Reason: Hemorrhoids Levothyroxine Sodium (Synthroid) 88 mcg PO DAILY@0600 [facility] Last Admin: 07/01/18 06:05 Dose: 88 mcg Losartan Potassium (Cozaar) 100 mg PO DAILY [facility] Last Admin: 07/01/18 07:57 Dose: 100 mg Magnesium Hydroxide (Milk Of Magnesia) 30 ml PO .PRN X 1 PRN PRN Reason: Constipation Melatonin (Melatonin) 3 mg PO QHS [facility] Last Admin: 06/30/18 20:20 Dose: 3 mg Metoprolol Tartrate (Lopressor (Beta Aneesh)) 25 mg PO BID [facility] Last Admin: 07/01/18 07:57 Dose: 25 mg Pantoprazole Sodium (Protonix) 40 mg PO DAILY [facility] Last Admin: 07/01/18 07:57 Dose: 40 mg Quetiapine Fumarate (Seroquel) 12.5 mg PO QHS PRN PRN PRN Reason: RESTLESSNESS/AGITATION Senna/Docusate Sodium (Senokot-S, Yareli-Colace) 2 tablet PO BID [facility] Last Admin: 07/01/18 08:00 Dose: Not Given Sertraline HCl (Zoloft) 25 mg PO DAILY [facility] Last Admin: 07/01/18 10:51 Dose: 25 mg Code Visit Inpatient E&M: 24375 Subs Hosp L2
--- NOTE | 2018-07-01 12:58 | CASEMGMT ---
Team meeting held in pt room with pt and daughter in law Malgorzata present. Pt is receiving PT/OT/ST and is progressing. At this time cognitive impairment is prohibiting pt return home alone and independently as she was prior to stroke. Discussed with pt need for SNF upon d/c as support system is unable to provide 24 hour care. Pt expresses understanding. Resource list of area SNF's provided to pt dgt in law. DIL states pt son from out of state will be here next week to assist with planning. Will continue with treatment plan at this time and reteam next week. CORTNEY Young
[2018-07-01 20:20] VITALS: BP 138/67; PULSE 69; RESP 18; TEMP 36.6; O2SAT 96; BMI 32.8
[2018-07-01 20:27] VITALS: BP 138/67; PULSE 69
[2018-07-01] MEDS: MELATONIN 3 MG TABLET PO (20:28)
[2018-07-01] MEDS: QUEtiapine 25 MG Tablet 12.5 MG PO (20:28)
[2018-07-01] MEDS: Atorvastatin Calcium 40 MG Tablet PO (20:28)
[2018-07-01] MEDS: Acetaminophen 325 MG Tablet 650 MG PO (20:29)
--- NOTE | 2018-07-01 22:53 | NURSING ---
2209 bed alarm going off and staff to check on pt . pt states that she is restless, feet are swollen and her headache is still there. pt rolling around in the bed, moaning and yelling out. seroquel given as per order along with tylenol earlier for restlessness and report of headache. no edema was noted in feet when clinical findings were completed earlier in the shift 2229 pt continues to moan and yell out loudly, unable to medicated pt at this time, pt repositioned and supportive tlc given with little effect .
--- NOTE | 2018-07-01 23:03 | NURSING ---
Pt call light answered by staff. Pt restless and complains that she cant get comfortably. Staff assists with repositioning and replaced wet gown as pt spilled water on self.
--- NOTE | 2018-07-01 23:21 | NURSING ---
2315 pt put assessment consultant light and states that her legs feel tight and she has a dry mouth and feels sob. pt is panting and tossing head back and forth on the pillow. spo2 was 95% of on ra and ice pack was given for the back of her neck to help with her headache. pt given ice chips for her dry mouth and scds removed at this time. unable to medicate pt until 29 with tylenol. pt given reassurance with little effect . pt continues to moan loudly
[2018-07-02] MEDS: Acetaminophen 325 MG Tablet 650 MG PO ×2 (00:38→04:33)
[2018-07-02] MEDS: Magnesium Hydroxide 30 ML UDC PO (00:38)
--- NOTE | 2018-07-02 00:42 | NURSING ---
staff went in to medicate pt for headache and pt reports that its her stomach that is hurting and her headache was gone. pt rolling around in the bed tossing head back and forth. discussed with rn and mom was given. when staff brought mom to pt, pt stat my head is just killing me, i ve had this headache for awhile and its just terrible. staff questions pt that she had just stated that her h/a was gone and pt replied oh no its awful its in the back of my head. pt given tylenol as well. will continue to monitor pt
--- NOTE | 2018-07-02 02:35 | PCA ---
Pt stated I don't know, but I feel like I need more help here then Im getting here tonight when asked what she needed help with pt stated My head hurts, my stomach hurts, I need to pee and I have not had any sleep. Staff assisted to bathroom. Pt voided, staff offered to try to get her comfortable in RC. Staff offered snack and something to drink. Pt in now resting in RC. Pt has had pain meds , MOM and repositioned frequently. Pt is still restless.
--- NOTE | 2018-07-02 02:55 | NURSING ---
pt brought out to the nursing station in the recliner and pt reports that her head is still hurting and that she has not had a headache this bad in a while, indication the occipital region of her head. pt continues to be restless holding her head and moaning vs are 118/55, ap-60, spo2-95, resp-17, blood sugar checked and 146. rn to notify doctor
[2018-07-02 03:06] LABS: Bedside Glucose 146 mg/dL (70-110)
--- NOTE | 2018-07-02 03:10 | NURSING ---
Dr Chacon answering service called re:pt c/o headache. Tylenol provided without relief and pt unable to settle down and sleep. Pt still c/o headache
--- NOTE | 2018-07-02 03:18 | NURSING ---
reviewed and agree with OTOLARYNGOLOGY REP documentation and FIMs charting.
--- NOTE | 2018-07-02 03:30 | NURSING ---
2nd page to answering service sent to Dr Chacon. Pt stating she doesn't trust that doctor or the nurses. Pt states she wants to just go to sleep.
--- NOTE | 2018-07-02 03:54 | NURSING ---
3rd page sent out via answering service to Dr Chacon
--- NOTE | 2018-07-02 03:59 | CT_ITS ---
STUDY: CT BRAIN WITHOUT CONTRAST REASON FOR EXAM: Female, 83 years old. Recent stroke. Severe headache. RADIATION DOSAGE (If Supplied By Facility): CTDIvol = ( 44.99 ) mGy, DLP = ( 829.85 ) mGycm TECHNIQUE: Transaxial CT imaging of the brain was performed without administration of intravenous contrast material. Individualized dose optimization techniques were used for this CT. COMPARISON: June 15, 2018. July 05, 2016. MRI brain June 16, 2018. FINDINGS: Normal soft tissue structures. Normal calvarium. Normal size ventricles and extra-axial spaces for the patient's age. Normal white matter tracts of the cerebral hemispheres. Old left infarctions within the lentiform nucleus bilaterally which have remained stable. Normal thalami. Normal brainstem. Normal cerebellum. Findings of now subacute ischemia within the left posterior cerebral artery distribution not well appreciated on CT. There is no intracranial hemorrhage. There are no findings of an acute ischemic infarction. Normal visualized paranasal sinuses. CT/Brain/Head without Contrast IMPRESSION: No acute intracranial abnormality. No intracranial hemorrhage. Old bilateral basal ganglia lacunar infarctions. Now subacute infarction within left posterior cerebral artery distribution not well appreciated on CT but seen on recent MRI. Electronically Signed: Chele Chávez MD at 4:41 EDT , Service support ,
--- NOTE | 2018-07-02 04:00 | NURSING ---
Dr Chacon returned page. N/O for CT scan without contrast. Dr Chacon to be called if abnormal finding. 1 dose toradol 15 mg IM to be given for pain. Ambien 5 mg PO for sleep.
--- NOTE | 2018-07-02 04:14 | NURSING ---
Dr Chacon called back re: conditions of pt. Oxyir 5mg recommended instead of Toradol d/t reaction with anticoagulants pt is taking and the Toradol. Dr Chacon wants informed of abnormal CT scan reading.
[2018-07-02] MEDS: Levothyroxine 88 MCG Tablet PO (04:33)
[2018-07-02] MEDS: Menthol/Lanolin/Calamine/Znox 113 GM Tube 1 APPLIC TOPICAL ×2 (04:34→21:03)
[2018-07-02] MEDS: oxyCODONE 5 MG Tablet PO (05:11)
--- NOTE | 2018-07-02 05:29 | NURSING ---
pt sleeping comfortably now after being awake till 04:45. Pt no longer restless. CT Scan results wnl. staff will continue to monitor
--- NOTE | 2018-07-02 06:14 | NURSING ---
pt sleeping soundly at this time after oxyir admin this a.m. Pt has settled down and not restless in bed any longer.
[2018-07-02 07:13] VITALS: BP 112/54; PULSE 59; RESP 18; TEMP 36.8; O2SAT 97
[2018-07-02 09:15] VITALS: BP 112/54; PULSE 61
[2018-07-02] MEDS: Pantoprazole Sodium 40 MG Tablet PO (09:15)
[2018-07-02] MEDS: Losartan Potassium 100 MG Tablet PO (09:15)
[2018-07-02] MEDS: Sertraline 50 MG Tablet 25 MG PO (09:15)
[2018-07-02] MEDS: Aspirin 81 MG TAB.CHEW PO (09:15)
[2018-07-02] MEDS: Clopidogrel Bisulfate 75 MG Tablet PO (09:15)
[2018-07-02] MEDS: Metoprolol Tartrate 25 MG Tablet PO ×2 (09:15→21:02)
[2018-07-02] MEDS: Heparin Injection (Vial) 5,000 UNIT/ML VIAL 5000 UNIT SC ×2 (09:17→21:02)
[2018-07-02 10:23] VITALS: BMI 32.8
--- NOTE | 2018-07-02 14:16 | PCM.PN.NEU ---
Subjective: Per nursing patient complained of a severe headache last night and Dr. Chand was notified and ordered a CT scan of brain and oxyir x1 dose. CT results: Old bilateral basal ganglia lacunar infarctions, Now subacute infarction within left posterior cerebral artery distribution, not well appreciated on CT but seen on recent MRI. Per nursing after CT and dose of oxyir patient fell a sleep and denied any further headaches. Patient is tolerating her therapies without difficulty. Denies any further headaches, blurred vision, dizziness or lightheadedness. - Physical Exam General: Alert, Oriented x3 - can be forgetful, but easily redirects, Cooperative HEENT: Atraumatic, PERRLA Neck: Supple, No JVD Lungs: Clear to auscultation, Normal air movement Cardiovascular: Regular rate, Regular Rhythm Abdomen: Bowel Sounds Present, Soft, Non Tender Extremities: No clubbing, No cyanosis, No edema Musculoskeletal: No Tenderness to Palpation of Joints or Extremities Neurological: Cranial nerves II-XII grossly intact, Deep Tendon Reflexes 2+/4 and Symmetrical, Neuro grossly intact, Motor Exam 5/5 strength throughout Psych/Mental Status: Normal Affect, Appropriate, Alert and oriented to time, place, person, mood and affect Vital Signs Temp Pulse Resp BP Pulse Ox 98.2 F 61 18 112/54 L 97 07/02/18 07:13 07/02/18 09:15 07/02/18 07:13 07/02/18 09:15 07/02/18 07:13 Oxygen Delivery Method Room Air Weight: 83.5 kg Body Mass Index (BMI) 32.8 Finger Stick Blood Glucose 103 Intake and Output for Last 24 Hours 06/30/18 07/01/18 07/02/18 23:59 23:59 23:59 Intake Total 720 / 720 Balance 720 / 720 POC Glucose 07/02/18 03:02 POC Glucose 146 H Medical Necessity - Tobacco Use Smoking Status: Never smoker Tobacco Use: Non-smoker Assessment/Plan All Active Problems (Last Updated 06/25/18 @ 11:12 by Ramona Putnam NP-C) UTI (urinary tract infection) (Resolved) Orthostatic hypotension (Acute) Pulmonary HTN (Acute) Stroke-like symptoms (Acute) Stroke (Acute) Debility (Acute) The patient is a 83 year old F with PMH HTN, HLD, aortic stenosis status post bioprosthetic aortic valve replacement, hypothyroidism admitted to [facility] IP RU on 06/18/2018 with debility status post 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 She was admitted with right-sided numbness and slurred speech to the inpatient hospital on 06/15/2018. Per ED documentation on admission NIHSS was 2. MRI brain done on admission reported to show acute left CENTRAL PROCESSING TECHNICIAN infarct, MR angiogram head/neck showed left P2 occlusion. Per documentation patient is on aspirin/Plavix at baseline. Per patient she lives alone, denies any frequent falls, does use cane for ambulating, does drive. Per patient she lives in an independent house and has 3 steps to get into the house. At present patient denies any numbness in the right side, denies any headache, dizziness, visual disturbances, speech disturbances, focal motor weakness, or sensory loss. 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 Hospitalist consult ?Follow-up with PCP, neurology and cardiology on discharge
--- NOTE | 2018-07-02 14:21 | PN.NEURO_ITS ---
Subjective: Per nursing patient complained of a severe headache last night and Dr. Chand was notified and ordered a CT scan of brain and oxyir x1 dose. CT results: Old bilateral basal ganglia lacunar infarctions, Now subacute infarction within left posterior cerebral artery distribution, not well appreciated on CT but seen on recent MRI. Per nursing after CT and dose of oxyir patient fell a sleep and denied any further headaches. Patient is tolerating her therapies without difficulty. Denies any further headaches, blurred vision, dizziness or lightheadedness. - Physical Exam General: Alert, Oriented x3 - can be forgetful, but easily redirects, Cooperative HEENT: Atraumatic, PERRLA Neck: Supple, No JVD Lungs: Clear to auscultation, Normal air movement Cardiovascular: Regular rate, Regular Rhythm Abdomen: Bowel Sounds Present, Soft, Non Tender Extremities: No clubbing, No cyanosis, No edema Musculoskeletal: No Tenderness to Palpation of Joints or Extremities Neurological: Cranial nerves II-XII grossly intact, Deep Tendon Reflexes 2+/4 and Symmetrical, Neuro grossly intact, Motor Exam 5/5 strength throughout Psych/Mental Status: Normal Affect, Appropriate, Alert and oriented to time, place, person, mood and affect Vital Signs Temp Pulse Resp BP Pulse Ox 98.2 F 61 18 112/54 L 97 07/02/18 07:13 07/02/18 09:15 07/02/18 07:13 07/02/18 09:15 07/02/18 07:13 Oxygen Delivery Method Room Air Weight: 83.5 kg Body Mass Index (BMI) 32.8 Finger Stick Blood Glucose 103 Intake and Output for Last 24 Hours 06/30/18 07/01/18 07/02/18 23:59 23:59 23:59 Intake Total 720 / 720 Balance 720 / 720 POC Glucose 07/02/18 03:02 POC Glucose 146 H Medical Necessity - Tobacco Use Smoking Status: Never smoker Tobacco Use: Non-smoker Assessment/Plan All Active Problems (Last Updated 06/25/18 @ 11:12 by Ramona Putnam NP-C) UTI (urinary tract infection) (Resolved) Orthostatic hypotension (Acute) Pulmonary HTN (Acute) Stroke-like symptoms (Acute) Stroke (Acute) Debility (Acute) The patient is a 83 year old F with PMH HTN, HLD, aortic stenosis status post bioprosthetic aortic valve replacement, hypothyroidism admitted to [facility] IP RU on 06/18/2018 with debility status post 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 She was admitted with right-sided numbness and slurred speech to the inpatient hospital on 06/15/2018. Per ED documentation on admission NIHSS was 2. MRI brain done on admission reported to show acute left IN CLASS SPECIAL EDUCATION TEACHER infarct, MR angiogram head/neck showed left P2 occlusion. Per documentation patient is on aspirin/Plavix at baseline. Per patient she lives alone, denies any frequent falls, does use cane for ambulating, does drive. Per patient she lives in an independent house and has 3 steps to get into the house. At present patient denies any numbness in the right side, denies any headache, dizziness, visual disturbances, speech disturbances, focal motor weakness, or sensory loss. 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 Hospitalist consult ?Follow-up with PCP, neurology and cardiology on discharge
[2018-07-02 19:29] VITALS: BP 132/72; PULSE 71; RESP 16; TEMP 36.7; O2SAT 94
[2018-07-02 21:00] VITALS: PULSE 71; RESP 16; O2SAT 94
[2018-07-02 21:02] VITALS: BP 132/72; PULSE 71
[2018-07-02] MEDS: Senna/Docusate Sodium 1 Tablet 2 TABLET PO (21:02)
[2018-07-02] MEDS: MELATONIN 3 MG TABLET PO (21:03)
[2018-07-02 21:09] VITALS: BMI 32.8
--- NOTE | 2018-07-03 02:22 | NURSING ---
Reviewed and agrere with TEXT[employer] DESIGNS SALES REPRESENTATIVE documentation and FIMs charting.
[2018-07-03] MEDS: Levothyroxine 88 MCG Tablet PO (05:37)
[2018-07-03] MEDS: Menthol/Lanolin/Calamine/Znox 113 GM Tube 1 APPLIC TOPICAL ×2 (05:48→20:47)
[2018-07-03 07:40] VITALS: BP 115/72; PULSE 52; RESP 16; TEMP 36.6; O2SAT 97
[2018-07-03] MEDS: Aspirin 81 MG TAB.CHEW PO (08:12)
[2018-07-03] MEDS: Losartan Potassium 100 MG Tablet PO (08:13)
[2018-07-03] MEDS: Clopidogrel Bisulfate 75 MG Tablet PO (08:13)
[2018-07-03] MEDS: Sertraline 50 MG Tablet 25 MG PO (08:13)
[2018-07-03] MEDS: Pantoprazole Sodium 40 MG Tablet PO (08:13)
[2018-07-03] MEDS: Heparin Injection (Vial) 5,000 UNIT/ML VIAL 5000 UNIT SC ×2 (08:14→20:47)
[2018-07-03 08:16] VITALS: PULSE 60
[2018-07-03] MEDS: Metoprolol Tartrate 25 MG Tablet PO ×2 (08:16→20:47)
[2018-07-03 09:07] VITALS: BMI 32.8
--- NOTE | 2018-07-03 11:39 | PCM.PN.NEU ---
Subjective: Per nursing no issues overnight and patient slept well. Per nursing she started to have clear water sinus drainage and patient feels it is her seasonal allergies. Discussed Flonase and agreeable. Patient deny headaches, blurred or double vision, dizziness or lightheadedness. Patient states she is tolerating her therapies and denies any further questions or concerns. - Physical Exam General: Alert, Oriented x3, Cooperative - can be forgetful at times HEENT: Atraumatic, PERRLA Oral: Moist Mucosa Neck: Supple, No JVD Lungs: Clear to auscultation, Normal air movement Cardiovascular: Regular rate, Regular Rhythm Abdomen: Bowel Sounds Present, Soft, Non Tender Extremities: No clubbing, No cyanosis, No edema Musculoskeletal: No Tenderness to Palpation of Joints or Extremities Neurological: Cranial nerves II-XII grossly intact, Deep Tendon Reflexes 2+/4 and Symmetrical, Neuro grossly intact, Motor Exam 5/5 strength throughout Psych/Mental Status: Normal Affect, Appropriate, Alert and oriented to time, place, person, mood and affect - can be forgetful at times Vital Signs Temp Pulse Resp BP Pulse Ox 97.9 F 60 16 115/72 97 07/03/18 07:40 07/03/18 08:16 07/03/18 07:40 07/03/18 07:40 07/03/18 07:40 Oxygen Delivery Method Room Air Weight: 83.5 kg Body Mass Index (BMI) 32.8 Finger Stick Blood Glucose 103 Intake and Output for Last 24 Hours 07/01/18 07/02/18 07/03/18 23:59 23:59 23:59 Intake Total 480 / 480 Balance 480 / 480 Medical Necessity - Tobacco Use Smoking Status: Never smoker Tobacco Use: Non-smoker Assessment/Plan All Active Problems (Last Updated 06/25/18 @ 11:12 by Ramona Putnam, MIXER AND BLENDER-C) UTI (urinary tract infection) (Resolved) Orthostatic hypotension (Acute) Pulmonary HTN (Acute) Stroke-like symptoms (Acute) Stroke (Acute) Debility (Acute) The patient is a 83 year old F with PMH HTN, HLD, aortic stenosis status post bioprosthetic aortic valve replacement, hypothyroidism admitted to [facility] on 06/18/2018 with debility status post 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 She was admitted with right-sided numbness and slurred speech to the inpatient hospital on 06/15/2018. Per ED documentation on admission NIHSS was 2. MRI brain done on admission reported to show acute left CABLE SPLICER infarct, MR angiogram head/neck showed left P2 occlusion. Per documentation patient is on aspirin/Plavix at baseline. Per patient she lives alone, denies any frequent falls, does use cane for ambulating, does drive. Per patient she lives in an independent house and has 3 steps to get into the house. At present patient denies any numbness in the right side, denies any headache, dizziness, visual disturbances, speech disturbances, focal motor weakness, or sensory loss. 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 Hospitalist consult ?Follow-up with PCP, neurology and cardiology on discharge
--- NOTE | 2018-07-03 11:44 | PN.NEURO_ITS ---
Subjective: Per nursing no issues overnight and patient slept well. Per nursing she started to have clear water sinus drainage and patient feels it is her seasonal allergies. Discussed Flonase and agreeable. Patient deny headaches, blurred or double vision, dizziness or lightheadedness. Patient states she is tolerating her therapies and denies any further questions or concerns. - Physical Exam General: Alert, Oriented x3, Cooperative - can be forgetful at times HEENT: Atraumatic, PERRLA Oral: Moist Mucosa Neck: Supple, No JVD Lungs: Clear to auscultation, Normal air movement Cardiovascular: Regular rate, Regular Rhythm Abdomen: Bowel Sounds Present, Soft, Non Tender Extremities: No clubbing, No cyanosis, No edema Musculoskeletal: No Tenderness to Palpation of Joints or Extremities Neurological: Cranial nerves II-XII grossly intact, Deep Tendon Reflexes 2+/4 and Symmetrical, Neuro grossly intact, Motor Exam 5/5 strength throughout Psych/Mental Status: Normal Affect, Appropriate, Alert and oriented to time, place, person, mood and affect - can be forgetful at times Vital Signs Temp Pulse Resp BP Pulse Ox 97.9 F 60 16 115/72 97 07/03/18 07:40 07/03/18 08:16 07/03/18 07:40 07/03/18 07:40 07/03/18 07:40 Oxygen Delivery Method Room Air Weight: 83.5 kg Body Mass Index (BMI) 32.8 Finger Stick Blood Glucose 103 Intake and Output for Last 24 Hours 07/01/18 07/02/18 07/03/18 23:59 23:59 23:59 Intake Total 480 / 480 Balance 480 / 480 Medical Necessity - Tobacco Use Smoking Status: Never smoker Tobacco Use: Non-smoker Assessment/Plan All Active Problems (Last Updated 06/25/18 @ 11:12 by Ramona Putnam, REAL ESTATE SALES AGENT-C) UTI (urinary tract infection) (Resolved) Orthostatic hypotension (Acute) Pulmonary HTN (Acute) Stroke-like symptoms (Acute) Stroke (Acute) Debility (Acute) The patient is a 83 year old F with PMH HTN, HLD, aortic stenosis status post bioprosthetic aortic valve replacement, hypothyroidism admitted to [facility] on 06/18/2018 with debility status 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 She was admitted with right-sided numbness and slurred speech to the inpatient hospital on 06/15/2018. Per ED documentation on admission NIHSS was 2. MRI brain done on admission reported to show acute left FLOTATION TENDER HELPER infarct, MR angiogram head/neck showed left P2 occlusion. Per documentation patient is on aspirin/Plavix at baseline. Per patient she lives alone, denies any frequent falls, does use cane for ambulating, does drive. Per patient she lives in an independent house and has 3 steps to get into the house. At present patient denies any numbness in the right side, denies any headache, dizziness, visual disturbances, speech disturbances, focal motor weakness, or sensory loss. 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 Hospitalist consult ?Follow-up with PCP, neurology and cardiology on discharge
[2018-07-03] MEDS: Fluticasone 0.05% 1 SPRAY NASAL.SRY 2 SPRAY NASAL (12:08)
--- NOTE | 2018-07-03 15:32 | PCM.PN.HOSP ---
Subjective: Blood pressure is controlled. Hemodynamically stable. Patient is doing well with physical therapy. She still has problem with balance. Discussed with physical therapist. Vitals/I&O's: Vital Signs Temp Pulse Resp BP Pulse Ox 97.9 F 60 16 115/72 97 07/03/18 07:40 07/03/18 08:16 07/03/18 07:40 07/03/18 07:40 07/03/18 07:40 Oxygen Delivery Method Room Air Weight: 187 lb 9.6 oz Body Mass Index (BMI) 32.8 Finger Stick Blood Glucose 103 Intake and Output for Last 24 Hours 07/01/18 07/02/18 07/03/18 23:59 23:59 23:59 Intake Total 720 / 720 Balance 720 / 720 General: Alert, Oriented x3, Cooperative HEENT: Atraumatic, PERRLA, EOMI, Normocephalic Neck: Supple, No JVD, Negative Carotid Bruits Lungs: Clear to auscultation, Normal air movement Cardiovascular: Regular rate, Regular Rhythm, Normal S1, Normal S2, No murmurs Abdomen: Bowel Sounds Present, Soft, Non Tender, Non-Distended Extremities: No edema, Capillary Refill Less than 3 Seconds Skin: No rashes, No breakdown Musculoskeletal: No Tenderness to Palpation of Joints or Extremities, Arthritic Changes Neurological: Cranial nerves II-XII grossly intact, Deep Tendon Reflexes 2+/4 and Symmetrical, Neuro grossly intact Psych/Mental Status: Normal Affect, Appropriate Current Medications Acetaminophen (Tylenol) 650 mg PO Q4H PRN PRN PRN Reason: PAIN/FEVER Last Admin: 07/02/18 04:33 Dose: 650 mg Aspirin (Aspirin, Baby) 81 mg PO DAILY@0800 [facility] Last Admin: 07/03/18 08:12 Dose: 81 mg Atorvastatin Calcium (Lipitor) 40 mg PO QHS [facility] Last Admin: 07/01/18 20:28 Dose: 40 mg Bisacodyl (Dulcolax) 10 mg RECTAL .PRN X 1 PRN PRN Reason: Constipation Calamine/Phenol (Calmoseptine Ointment) 1 applic TOPICAL BID@0600,2200 [facility]; Protocol Last Admin: 07/03/18 05:48 Dose: 1 applicatio Clopidogrel Bisulfate (Plavix) 75 mg PO DAILY [facility] Last Admin: 07/03/18 08:13 Dose: 75 mg Fluticasone Propionate (Flonase Nasal [place]) 2 spray NASAL DAILY [facility] Last Admin: 07/03/18 12:08 Dose: 2 spray Heparin Sodium (Porcine) (Heparin Na) 5,000 unit SC Q12 [facility] Last Admin: 07/03/18 08:14 Dose: 5,000 unit Hydrocortisone Acetate (Anusol Hc) 25 mg RECTAL BID PRN PRN PRN Reason: Hemorrhoids Levothyroxine Sodium (Synthroid) 88 mcg PO DAILY@0600 [facility] Last Admin: 07/03/18 05:37 Dose: 88 mcg Losartan Potassium (Cozaar) 100 mg PO DAILY [facility] Last Admin: 07/03/18 08:13 Dose: 100 mg Magnesium Hydroxide (Milk Of Magnesia) 30 ml PO .PRN X 1 PRN PRN Reason: Constipation Last Admin: 07/02/18 00:38 Dose: 30 ml Melatonin (Melatonin) 3 mg PO QHS [facility] Last Admin: 07/02/18 21:03 Dose: 3 mg Metoprolol Tartrate (Lopressor (Beta Aneesh)) 25 mg PO BID [facility] Last Admin: 07/03/18 08:16 Dose: 25 mg Pantoprazole Sodium (Protonix) 40 mg PO DAILY [facility] Last Admin: 07/03/18 08:13 Dose: 40 mg Quetiapine Fumarate (Seroquel) 12.5 mg PO QHS PRN PRN PRN Reason: RESTLESSNESS/AGITATION Last Admin: 07/01/18 20:28 Dose: 12.5 mg Senna/Docusate Sodium (Senokot-S, Yareli-Colace) 2 tablet PO BID [facility] Last Admin: 07/03/18 08:16 Dose: Not Given Sertraline HCl (Zoloft) 25 mg PO DAILY [facility] Last Admin: 07/03/18 08:13 Dose: 25 mg Medical Necessity - Tobacco Use Smoking Status: Never smoker Tobacco Use: Non-smoker Assessment/Plan All Active Problems (Last Updated 06/25/18 @ 11:12 by ISHAN BullockC) UTI (urinary tract infection) (Resolved) Orthostatic hypotension (Acute) Pulmonary HTN (Acute) Stroke-like symptoms (Acute) Stroke (Acute) Debility (Acute) The patient is a 83 year old F with a significant history of hypertension; hyperlipidemia; hypothyroidism, ; aortic stenosis status post bioprosthetic aortic valve replacement; diastolic dysfunction suggestive of chronic heart failure with preserved EF; pulmonary hypertension is being admitted to acute rehab after evaluation and management for acute left CREDIT ADMINISTRATOR ischemic stroke and [facility]. The patient had right hand numbness. 1. Acute left CREDIT ADMINISTRATOR Ischemic stroke: MRI brain is positive of acute left CREDIT ADMINISTRATOR ischemic stroke. MRI brain reported as occlusion of the left posterior cerebral artery at the level of the P2 segment. She denies any previous history of a stroke. Patient is on permissive hypertension. PT, OT and speech evaluation to continue. Patient is on aspirin, Plavix and atorvastatin. Lipid profile reported as LDL 73, triglyceride 97. HDL 36. Echo was done and reported as EF 50 to 55%. Mild anteroseptal hypokinesis. LA severely enlarged. RA moderately enlarged. Moderate to severe 3+ TR with RVSP 50 to 55 mmHg suggestive of moderate pulmonary hypertension. Echo suggestive of heart failure with preserved EF and valvular heart disease moderate pulmonary hypertension 2. Hypertension with chronic diastolic heart failure BP is well controlled. Continue losartan 100 mg daily. Hypothyroidism Synthroid continued. GERD Protonix continued. DVT prophylaxis Subcutaneous heparin Active Medications Acetaminophen (Tylenol) 650 mg PO Q4H PRN PRN PRN Reason: PAIN/FEVER Last Admin: 07/02/18 04:33 Dose: 650 mg Aspirin (Aspirin, Baby) 81 mg PO DAILY@0800 [facility] Last Admin: 07/03/18 08:12 Dose: 81 mg Atorvastatin Calcium (Lipitor) 40 mg PO QHS [facility] Last Admin: 07/01/18 20:28 Dose: 40 mg Bisacodyl (Dulcolax) 10 mg RECTAL .PRN X 1 PRN PRN Reason: Constipation Calamine/Phenol (Calmoseptine Ointment) 1 applic TOPICAL BID@0600,2200 [facility]; Protocol Last Admin: 07/03/18 05:48 Dose: 1 applicatio Clopidogrel Bisulfate (Plavix) 75 mg PO DAILY [facility] Last Admin: 07/03/18 08:13 Dose: 75 mg Fluticasone Propionate (Flonase Nasal [place]) 2 spray NASAL DAILY [facility] Last Admin: 07/03/18 12:08 Dose: 2 spray Heparin Sodium (Porcine) (Heparin Na) 5,000 unit SC Q12 [facility] Last Admin: 07/03/18 08:14 Dose: 5,000 unit Hydrocortisone Acetate (Anusol Hc) 25 mg RECTAL BID PRN PRN PRN Reason: Hemorrhoids Levothyroxine Sodium (Synthroid) 88 mcg PO DAILY@0600 [facility] Last Admin: 07/03/18 05:37 Dose: 88 mcg Losartan Potassium (Cozaar) 100 mg PO DAILY [facility] Last Admin: 07/03/18 08:13 Dose: 100 mg Magnesium Hydroxide (Milk Of Magnesia) 30 ml PO .PRN X 1 PRN PRN Reason: Constipation Last Admin: 07/02/18 00:38 Dose: 30 ml Melatonin (Melatonin) 3 mg PO QHS [facility] Last Admin: 07/02/18 21:03 Dose: 3 mg Metoprolol Tartrate (Lopressor (Beta Aneesh)) 25 mg PO BID [facility] Last Admin: 07/03/18 08:16 Dose: 25 mg Pantoprazole Sodium (Protonix) 40 mg PO DAILY [facility] Last Admin: 07/03/18 08:13 Dose: 40 mg Quetiapine Fumarate (Seroquel) 12.5 mg PO QHS PRN PRN PRN Reason: RESTLESSNESS/AGITATION Last Admin: 07/01/18 20:28 Dose: 12.5 mg Senna/Docusate Sodium (Senokot-S, Yareli-Colace) 2 tablet PO BID [facility] Last Admin: 07/03/18 08:16 Dose: Not Given Sertraline HCl (Zoloft) 25 mg PO DAILY [facility] Last Admin: 07/03/18 08:13 Dose: 25 mg Code Visit Inpatient E&M: [id number] [facility] L2
--- NOTE | 2018-07-03 15:35 | PN_ITS ---
Subjective: Blood pressure is controlled. Hemodynamically stable. Patient is doing well with physical therapy. She still has problem with balance. Discussed with physical therapist. Vitals/I&O's: Vital Signs Temp Pulse Resp BP Pulse Ox 97.9 F 60 16 115/72 97 07/03/18 07:40 07/03/18 08:16 07/03/18 07:40 07/03/18 07:40 07/03/18 07:40 Oxygen Delivery Method Room Air Weight: 187 lb 9.6 oz Body Mass Index (BMI) 32.8 Finger Stick Blood Glucose 103 Intake and Output for Last 24 Hours 07/01/18 07/02/18 07/03/18 23:59 23:59 23:59 Intake Total 720 / 720 Balance 720 / 720 General: Alert, Oriented x3, Cooperative HEENT: Atraumatic, PERRLA, EOMI, Normocephalic Neck: Supple, No JVD, Negative Carotid Bruits Lungs: Clear to auscultation, Normal air movement Cardiovascular: Regular rate, Regular Rhythm, Normal S1, Normal S2, No murmurs Abdomen: Bowel Sounds Present, Soft, Non Tender, Non-Distended Extremities: No edema, Capillary Refill Less than 3 Seconds Skin: No rashes, No breakdown Musculoskeletal: No Tenderness to Palpation of Joints or Extremities, Arthritic Changes Neurological: Cranial nerves II-XII grossly intact, Deep Tendon Reflexes 2+/4 and Symmetrical, Neuro grossly intact Psych/Mental Status: Normal Affect, Appropriate Current Medications Acetaminophen (Tylenol) 650 mg PO Q4H PRN PRN PRN Reason: PAIN/FEVER Last Admin: 07/02/18 04:33 Dose: 650 mg Aspirin (Aspirin, Baby) 81 mg PO DAILY@0800 [facility] Last Admin: 07/03/18 08:12 Dose: 81 mg Atorvastatin Calcium (Lipitor) 40 mg PO QHS [facility] Last Admin: 07/01/18 20:28 Dose: 40 mg Bisacodyl (Dulcolax) 10 mg RECTAL .PRN X 1 PRN PRN Reason: Constipation Calamine/Phenol (Calmoseptine Ointment) 1 applic TOPICAL BID@0600,2200 [facility]; Protocol Last Admin: 07/03/18 05:48 Dose: 1 applicatio Clopidogrel Bisulfate (Plavix) 75 mg PO DAILY [facility] Last Admin: 07/03/18 08:13 Dose: 75 mg Fluticasone Propionate (Flonase Nasal [place]) 2 spray NASAL DAILY [facility] Last Admin: 07/03/18 12:08 Dose: 2 spray Heparin Sodium (Porcine) (Heparin Na) 5,000 unit SC Q12 [facility] Last Admin: 07/03/18 08:14 Dose: 5,000 unit Hydrocortisone Acetate (Anusol Hc) 25 mg RECTAL BID PRN PRN PRN Reason: Hemorrhoids Levothyroxine Sodium (Synthroid) 88 mcg PO DAILY@0600 [facility] Last Admin: 07/03/18 05:37 Dose: 88 mcg Losartan Potassium (Cozaar) 100 mg PO DAILY [facility] Last Admin: 07/03/18 08:13 Dose: 100 mg Magnesium Hydroxide (Milk Of Magnesia) 30 ml PO .PRN X 1 PRN PRN Reason: Constipation Last Admin: 07/02/18 00:38 Dose: 30 ml Melatonin (Melatonin) 3 mg PO QHS [facility] Last Admin: 07/02/18 21:03 Dose: 3 mg Metoprolol Tartrate (Lopressor (Beta Aneesh)) 25 mg PO BID [facility] Last Admin: 07/03/18 08:16 Dose: 25 mg Pantoprazole Sodium (Protonix) 40 mg PO DAILY [facility] Last Admin: 07/03/18 08:13 Dose: 40 mg Quetiapine Fumarate (Seroquel) 12.5 mg PO QHS PRN PRN PRN Reason: RESTLESSNESS/AGITATION Last Admin: 07/01/18 20:28 Dose: 12.5 mg Senna/Docusate Sodium (Senokot-S, Yareli-Colace) 2 tablet PO BID [facility] Last Admin: 07/03/18 08:16 Dose: Not Given Sertraline HCl (Zoloft) 25 mg PO DAILY [facility] Last Admin: 07/03/18 08:13 Dose: 25 mg Medical Necessity - Tobacco Use Smoking Status: Never smoker Tobacco Use: Non-smoker Assessment/Plan All Active Problems (Last Updated 06/25/18 @ 11:12 by ISHAN BullockC) UTI (urinary tract infection) (Resolved) Orthostatic hypotension (Acute) Pulmonary HTN (Acute) Stroke-like symptoms (Acute) Stroke (Acute) Debility (Acute) The patient is a 83 year old F with a significant history of hypertension; hyperlipidemia; hypothyroidism, ; aortic stenosis status post bioprosthetic aortic valve replacement; diastolic dysfunction suggestive of chronic heart failure with preserved EF; pulmonary hypertension is being admitted to acute rehab after evaluation and management for acute left REMELT SUGAR BOILER ischemic stroke and [facility]. The patient had right hand numbness. 1. Acute left REMELT SUGAR BOILER Ischemic stroke: MRI brain is positive of acute left REMELT SUGAR BOILER ischemic stroke. MRI brain reported as occlusion of the left posterior cerebral artery at the level of the P2 segment. She denies any previous history of a stroke. Patient is on permissive hypertension. PT, OT and speech evaluation to continue. Patient is on aspirin, Plavix and atorvastatin. Lipid profile reported as LDL 73, triglyceride 97. HDL 36. Echo was done and reported as EF 50 to 55%. Mild anteroseptal hypokinesis. LA severely enlarged. RA moderately enlarged. Moderate to severe 3+ TR with RVSP 50 to 55 mmHg suggestive of moderate pulmonary hypertension. Echo suggestive of heart failure with preserved EF and valvular heart disease moderate pulmonary hypertension 2. Hypertension with chronic diastolic heart failure BP is well controlled. Continue losartan 100 mg daily. Hypothyroidism Synthroid continued. GERD Protonix continued. DVT prophylaxis Subcutaneous heparin Active Medications Acetaminophen (Tylenol) 650 mg PO Q4H PRN PRN PRN Reason: PAIN/FEVER Last Admin: 07/02/18 04:33 Dose: 650 mg Aspirin (Aspirin, Baby) 81 mg PO DAILY@0800 [facility] Last Admin: 07/03/18 08:12 Dose: 81 mg Atorvastatin Calcium (Lipitor) 40 mg PO QHS [facility] Last Admin: 07/01/18 20:28 Dose: 40 mg Bisacodyl (Dulcolax) 10 mg RECTAL .PRN X 1 PRN PRN Reason: Constipation Calamine/Phenol (Calmoseptine Ointment) 1 applic TOPICAL BID@0600,2200 [facility]; Protocol Last Admin: 07/03/18 05:48 Dose: 1 applicatio Clopidogrel Bisulfate (Plavix) 75 mg PO DAILY [facility] Last Admin: 07/03/18 08:13 Dose: 75 mg Fluticasone Propionate (Flonase Nasal [place]) 2 spray NASAL DAILY [facility] Last Admin: 07/03/18 12:08 Dose: 2 spray Heparin Sodium (Porcine) (Heparin Na) 5,000 unit SC Q12 [facility] Last Admin: 07/03/18 08:14 Dose: 5,000 unit Hydrocortisone Acetate (Anusol Hc) 25 mg RECTAL BID PRN PRN PRN Reason: Hemorrhoids Levothyroxine Sodium (Synthroid) 88 mcg PO DAILY@0600 [facility] Last Admin: 07/03/18 05:37 Dose: 88 mcg Losartan Potassium (Cozaar) 100 mg PO DAILY [facility] Last Admin: 07/03/18 08:13 Dose: 100 mg Magnesium Hydroxide (Milk Of Magnesia) 30 ml PO .PRN X 1 PRN PRN Reason: Constipation Last Admin: 07/02/18 00:38 Dose: 30 ml Melatonin (Melatonin) 3 mg PO QHS [facility] Last Admin: 07/02/18 21:03 Dose: 3 mg Metoprolol Tartrate (Lopressor (Beta Aneesh)) 25 mg PO BID [facility] Last Admin: 07/03/18 08:16 Dose: 25 mg Pantoprazole Sodium (Protonix) 40 mg PO DAILY [facility] Last Admin: 07/03/18 08:13 Dose: 40 mg Quetiapine Fumarate (Seroquel) 12.5 mg PO QHS PRN PRN PRN Reason: RESTLESSNESS/AGITATION Last Admin: 07/01/18 20:28 Dose: 12.5 mg Senna/Docusate Sodium (Senokot-S, Yareli-Colace) 2 tablet PO BID [facility] Last Admin: 07/03/18 08:16 Dose: Not Given Sertraline HCl (Zoloft) 25 mg PO DAILY [facility] Last Admin: 07/03/18 08:13 Dose: 25 mg Code Visit Inpatient E&M: [id number] [facility] Hosp L2
[2018-07-03 19:38] VITALS: BP 102/52; PULSE 64; RESP 24; TEMP 36.8; O2SAT 94
[2018-07-03] MEDS: Acetaminophen 325 MG Tablet 650 MG PO (20:45)
[2018-07-03 20:47] VITALS: BP 102/52; PULSE 64
[2018-07-03] MEDS: MELATONIN 3 MG TABLET PO (20:47)
[2018-07-03] MEDS: Atorvastatin Calcium 40 MG Tablet PO (20:47)
--- NOTE | 2018-07-03 21:45 | NURSING ---
PT C/O PAIN TO BACK OF NECK AND BASE OF SKULL. RATES PAIN #6. RUBBING BACK OF NECK WITH HER HAND. NO NEURO CHANGES NOTED FROM EARLIER THIS SHIFT. PERRL.
[2018-07-03 22:04] VITALS: BP 124/49; PULSE 55; RESP 32; O2SAT 96
--- NOTE | 2018-07-03 22:04 | NURSING ---
PT C/O NAUSEA NOW. NO VOMITING. PT CONTINUES WITH PAIN TO BACK OF NECK/BASE OF SKULL, BUT ALSO C/O PAIN MOVING AROUND ON HEAD AND STATES SHE ALSO HAS A FRONTAL JEAN BAPTISTE RATED #6. VITAL SIGNS TAKES. NO NEURO CHANGES NOTED FROM EARLIER THIS SHIFT.
--- NOTE | 2018-07-03 22:10 | NURSING ---
CALL PLACED TO DR HEALY. DR HEALY PHONES BACK PROMPTLY AND INFORMED OF PT'S JEAN BAPTISTE AND NAUSEA. ORDERS GIVEN. ADVISED TO CALL HOSPITALIST IF PT'S JEAN BAPTISTE PAIN IS UNRELIEVED BY PAIN MED ORDERED.
[2018-07-03] MEDS: oxyCODONE 5 MG Tablet PO (22:32)
[2018-07-03] MEDS: Ondansetron ODT 4 MG Tablet PO (22:32)
[2018-07-03] MEDS: QUEtiapine 25 MG Tablet 12.5 MG PO (23:12)
[2018-07-04] VITALS (7 sets, daily range): BP systolic 103–108; BP diastolic 48–58; PULSE 51–72; RESP 14–32; TEMP 36.4–36.9; O2SAT 93–99; BMI 32.8
--- NOTE | 2018-07-04 05:00 | NURSING ---
PT AWAKE. C/O BEING SHORT OF BREATH. APPEARS ANXIOUS. C/O HEADACHE AND MOUTH BEING DRY. PT CALMS BRIEFLY WHEN SPPOKEN TO AND DISTRACTED. NASAL CONGESTION. LUNG SOUNDS ARE CLEAR. VITAL SIGNS TAKEN AND WNL. MEDICATED FOR PAIN.
[2018-07-04] MEDS: Acetaminophen 325 MG Tablet 650 MG PO ×2 (05:13→22:00)
--- NOTE | 2018-07-04 05:15 | NURSING ---
CALL PLACED TO HOSPITALIST VIA [facility]. PT CONTINUES TO C/O JEAN BAPTISTE PAIN AND GETS ANXIOUS WITH INC RESPIRATIONS AT INTERVALS. PT CALMS WHEN TAKING APPLE SAUCE AND TALKS EASILY.
[2018-07-04] MEDS: Menthol/Lanolin/Calamine/Znox 113 GM Tube 1 APPLIC TOPICAL ×2 (05:16→21:41)
[2018-07-04] MEDS: Levothyroxine 88 MCG Tablet PO (05:16)
--- NOTE | 2018-07-04 05:25 | NURSING ---
DR RUIZ INFORMED THAT PT IS C/O JEAN BAPTISTE AND BREATHING AT INCREASED RATE AND ANXIOUS.ORDERS GIVEN. DR RUIZ WILL BE UP TO SEE PT SHORTLY.
--- NOTE | 2018-07-04 05:40 | NURSING ---
RESP THERAPIST HERE TO SEE PT AND TALKING WITH PT.
[2018-07-04] MEDS: oxyCODONE 5 MG Tablet PO (05:44)
--- NOTE | 2018-07-04 05:46 | NURSING ---
PT APPEARS CALMER. STATES SHE FEELS THAT SHE HAS STUFF IS BACK OF THROAT SHE NEEDS TO COUGH UP. RESP CONTINUE TO BE AT INCREASED RATE, BUT PT ABLE TO TALK.PAIN CONTINUES TO OCCIPITAL REGION OF HEAD.
--- NOTE | 2018-07-04 06:16 | PCM.HOSP.N ---
Hospitalist Note Per nursing staff with history of 8 out of 10 rated posterior occipital headache with initially noted increased respiratory rate. From review of records patient has had prior CVA, ongoing therapy with plan likely transition to care home facility following. Patient recently initiated on Flonase regimen secondary to complaints of allergic rhinitis, sinusitis. Per discussion with patient she has had ongoing notable market postnasal thick drip but no severe market facial discomfort but has had throbbing posterior occipital headache intermittently which she notes is common with her allergic rhinitis, sinusitis. Posterior oropharynx with stippling, mild erythema with evident postnasal drip. Patient having some difficulties clearing secondary to thickness. Will change patient to ipratropium more frequent nasal inhalation, add Claritin 5 mg daily, add [place] nasal spray as well. Encourage staff to have patient up, out of bed, walking, breakfast to help with clearing secretions posteriorly.
[2018-07-04] MEDS: Ipratropium Bromide 0.06% NASAL SPRAY 2 SPRAY NASAL ×3 (06:20→21:41)
[2018-07-04] MEDS: Loratadine 10 MG Tablet 5 MG PO (06:22)
[2018-07-04] MEDS: Ketorolac 15 MG/ML Vial IV (06:34)
[2018-07-04] MEDS: Sodium Chloride 0.65% 1 SPRAY SPRAY.BTL 2 SPRAY NASAL ×3 (06:35→21:38)
[2018-07-04] MEDS: Clopidogrel Bisulfate 75 MG Tablet PO (07:46)
[2018-07-04] MEDS: Pantoprazole Sodium 40 MG Tablet PO (07:46)
[2018-07-04] MEDS: Sertraline 50 MG Tablet 25 MG PO (07:46)
[2018-07-04] MEDS: Aspirin 81 MG TAB.CHEW PO (07:47)
[2018-07-04] MEDS: Losartan Potassium 100 MG Tablet PO (07:47)
[2018-07-04] MEDS: Metoprolol Tartrate 25 MG Tablet PO ×2 (07:48→21:40)
--- NOTE | 2018-07-04 08:27 | PCM.PN.NEU ---
Subjective: Per nursing patient had a severe headache this am about 0500 and per hospitalist pt was ordered oxyir x 1 and toradol x1, which was effective per nursing. Patient sitting up in chair visiting with other patients during breakfast and denied any further headache, or blurred vision, double vision, dizziness or lightheadedness. Patient tolerating therapies well. - Physical Exam General: Alert, Oriented x3 - can be forgetful at times HEENT: Atraumatic, PERRLA Oral: Moist Mucosa Neck: Supple, No JVD Lungs: Clear to auscultation, Normal air movement Cardiovascular: Regular rate, Regular Rhythm Abdomen: Bowel Sounds Present, Soft, Non Tender Extremities: No clubbing, No cyanosis, No edema Musculoskeletal: No Tenderness to Palpation of Joints or Extremities Neurological: Cranial nerves II-XII grossly intact, Deep Tendon Reflexes 2+/4 and Symmetrical, Neuro grossly intact, Motor Exam 5/5 strength throughout Psych/Mental Status: Normal Affect, Appropriate, Alert and oriented to time, place, person, mood and affect - can be forgetful, but easily redirects Vital Signs Temp Pulse Resp BP Pulse Ox 97.6 F L 51 L 28 H 107/51 L 98 07/04/18 07:34 07/04/18 07:48 07/04/18 05:36 07/04/18 07:48 07/04/18 07:34 Oxygen Delivery Method Room Air Weight: 85.094 kg Body Mass Index (BMI) 32.8 Finger Stick Blood Glucose 103 Intake and Output for Last 24 Hours 07/02/18 07/03/18 07/04/18 23:59 23:59 23:59 Intake Total 840 / 840 Balance 840 / 840 Medical Necessity - Tobacco Use Smoking Status: Never smoker Tobacco Use: Non-smoker Assessment/Plan All Active Problems (Last Updated 06/25/18 @ 11:12 by Ramona Putnam, GISSEL-C) UTI (urinary tract infection) (Resolved) Orthostatic hypotension (Acute) Pulmonary HTN (Acute) Stroke-like symptoms (Acute) Stroke (Acute) Debility (Acute) The patient is a 83 year old F with PMH HTN, HLD, aortic stenosis status post bioprosthetic aortic valve replacement, hypothyroidism admitted to [facility] on 06/18/2018 with debility status post acute left DEWER stroke, but greater than 3 hours therapy daily with a goal of returning back home at or near her prior level of functional independence. She was admitted with right-sided numbness and slurred speech to the inpatient hospital on 06/15/2018. Per ED documentation on admission NIHSS was 2. MRI brain done on admission reported to show acute left DEWER infarct, MR angiogram head/neck showed left P2 occlusion. Per documentation patient is on aspirin/Plavix at baseline. Per patient she lives alone, denies any frequent falls, does use cane for ambulating, does drive. Per patient she lives in an independent house and has 3 steps to get into the house. At present patient denies any numbness in the right side, denies any headache, dizziness, visual disturbances, speech disturbances, focal motor weakness, or sensory loss. Plan ?PT for gait stability ?OT for ADLs -ST for cognitive ?Analgesics as needed ?Bowel protocol ?Acute left DEWER stroke?on aspirin and clopidogrel at baseline for many years, on atorvastatin - 30 day event monitor at discharge ?HTN?on losartan, metoprolol ?HLD?on atorvastatin ?Hypothyroidism?on levothyroxine ?GI/DVT prophylaxis?on pantoprazole/heparin 5000 units subcu 12 hourly -Insomnia -Seroquel 12.5 mg QHS PRN and continue melatonin - Depression - Zoloft 25 mg daily - allergic rhinitis started on ipratropium and Claritin ?Fall precautions ?Further medical management per hospitalist recommendation. Hospitalist consult ?Follow-up with PCP, neurology and cardiology on discharge
--- NOTE | 2018-07-04 08:32 | PN.NEURO_ITS ---
Subjective: Per nursing patient had a severe headache this am about 0500 and per hospitalist pt was ordered oxyir x 1 and toradol x1, which was effective per nursing. Patient sitting up in chair visiting with other patients during breakfast and denied any further headache, or blurred vision, double vision, dizziness or lightheadedness. Patient tolerating therapies well. - Physical Exam General: Alert, Oriented x3 - can be forgetful at times HEENT: Atraumatic, PERRLA Oral: Moist Mucosa Neck: Supple, No JVD Lungs: Clear to auscultation, Normal air movement Cardiovascular: Regular rate, Regular Rhythm Abdomen: Bowel Sounds Present, Soft, Non Tender Extremities: No clubbing, No cyanosis, No edema Musculoskeletal: No Tenderness to Palpation of Joints or Extremities Neurological: Cranial nerves II-XII grossly intact, Deep Tendon Reflexes 2+/4 and Symmetrical, Neuro grossly intact, Motor Exam 5/5 strength throughout Psych/Mental Status: Normal Affect, Appropriate, Alert and oriented to time, place, person, mood and affect - can be forgetful, but easily redirects Vital Signs Temp Pulse Resp BP Pulse Ox 97.6 F L 51 L 28 H 107/51 L 98 07/04/18 07:34 07/04/18 07:48 07/04/18 05:36 07/04/18 07:48 07/04/18 07:34 Oxygen Delivery Method Room Air Weight: 85.094 kg Body Mass Index (BMI) 32.8 Finger Stick Blood Glucose 103 Intake and Output for Last 24 Hours 07/02/18 07/03/18 07/04/18 23:59 23:59 23:59 Intake Total 840 / 840 Balance 840 / 840 Medical Necessity - Tobacco Use Smoking Status: Never smoker Tobacco Use: Non-smoker Assessment/Plan All Active Problems (Last Updated 06/25/18 @ 11:12 by Ramona Putnam, GISSEL-C) UTI (urinary tract infection) (Resolved) Orthostatic hypotension (Acute) Pulmonary HTN (Acute) Stroke-like symptoms (Acute) Stroke (Acute) Debility (Acute) The patient is a 83 year old F with PMH HTN, HLD, aortic stenosis status post bioprosthetic aortic valve replacement, hypothyroidism admitted to [facility] on 06/18/2018 with debility status post acute left SENIOR NURSE MANAGER stroke, but greater than 3 hours therapy daily with a goal of returning back home at or near her prior level of functional independence. She was admitted with right-sided numbness and slurred speech to the inpatient hospital on 06/15/2018. Per ED documentation on admission NIHSS was 2. MRI brain done on admission reported to show acute left SENIOR NURSE MANAGER infarct, MR angiogram head/neck showed left P2 occlusion. Per documentation patient is on aspirin/Plavix at baseline. Per patient she lives alone, denies any frequent falls, does use cane for ambulating, does drive. Per patient she lives in an independent house and has 3 steps to get into the house. At present patient denies any numbness in the right side, denies any headache, dizziness, visual disturbances, speech disturbances, focal motor weakness, or sensory loss. Plan ?PT for gait stability ?OT for ADLs -ST for cognitive ?Analgesics as needed ?Bowel protocol ?Acute left SENIOR NURSE MANAGER stroke?on aspirin and clopidogrel at baseline for many years, on atorvastatin - 30 day event monitor at discharge ?HTN?on losartan, metoprolol ?HLD?on atorvastatin ?Hypothyroidism?on levothyroxine ?GI/DVT prophylaxis?on pantoprazole/heparin 5000 units subcu 12 hourly -Insomnia -Seroquel 12.5 mg QHS PRN and continue melatonin - Depression - Zoloft 25 mg daily - allergic rhinitis started on ipratropium and Claritin ?Fall precautions ?Further medical management per hospitalist recommendation. Hospitalist consult ?Follow-up with PCP, neurology and cardiology on discharge
[2018-07-04 09:03] LABS: Absolute Lymphocyte Count 1.36 X10^3/ul (0.83-4.51); Absolute Neutrophil Count 2.5 X10^3/uL (2.0-7.7); Basophil# 0.04 X10^3/uL; Basophil% 0.8 % (0-1); Eosinophil# 0.54 X10^3/uL; Eosinophils% 10.6 % (0-5); Hematocrit 31.5 % (37-47); Hemoglobin 9.9 g/dl (12.0-15.0); Lymphocyte # 1.36 X10^3/ul (4.0); Lymphocyte % 26.8 % (19-41); Mean Corp Hgb Conc 31.4 g/gl (32-36); Mean Corpuscular Volume 69.8 fL (81-99); Mean Platelet Vol. 8.8 fl (6.2-12.0); Monocyte# 0.61 X10^3/uL; Neutrophil # 2.52 X10^3/uL (2.7-7.7); Neutrophil % 49.6 % (47-70); Platelet Count 317 K/mm3 (150-450); RBC Distribution Width CV 19.9 % (11.6-14.6); RBC Distribution Width SD 50.8 fl (35.1-43.9); Red Blood Count 4.51 M/mm3 (4.2-5.4); White Blood Count 5.1 K/mm3 (4.4-11.0)
[2018-07-04 09:05] LABS: POSITIVE COUNT NO; POSITIVE DIFFERENTIAL NO; POSITIVE MORPHOLOGY NO
[2018-07-04 09:11] LABS: Anion Gap 10 (5-15); BUN 34 mg/dL (7-18); BUN/Creat Ratio 17.6 RATIO (10-20); Calcium,Total 8.6 mg/dL (8.5-10.1); Chloride 96 mmol/L (98-107); Creatinine, Serum 1.93 mg/dL (0.55-1.02); EST Glomerular Filtration Rate 26 mL/min (>60); Est Glom Filt Rate - Afr Amer 32 mL/min (>60); Estimated Creatinine Clearance 19.07 ml/min; Glucose 91 mg/dL (74-106); Potassium 4.5 mmol/L (3.5-5.1); Sodium Level 126 mmol/L (136-145)
[2018-07-04] MEDS: Heparin Injection (Vial) 5,000 UNIT/ML VIAL 5000 UNIT SC ×2 (09:13→21:41)
[2018-07-04 09:22] LABS: Erythrocyte Sedimentation Rate 62 mm/hr (0-30)
--- NOTE | 2018-07-04 12:32 | NURSING ---
Dr Green made aware to pt lab results, N.O for NS@100ml/hr
[2018-07-04] MEDS: MethylPREDNISolone DosePak 4 MG BOX PO ×3 (13:25→21:39)
[2018-07-04] MEDS: 0.9% Normal Saline 1,000 ML 100 ML IV ×2 (13:28→23:17)
--- NOTE | 2018-07-04 19:55 | NURSING ---
PT C/O DIFFICULTY BREATHING. PT APPEARS ANXIOUS AND TAKING DEEP BREATHS. PT RELAXES WITH BLANKETS REMOVED AND SPOKEN TO CALMLY AND SEAT ON SIDE OF BED. LUNG SOUNDS ARE CLEAR. PT C/O DRAINAGE TO BACK OF THROAT AND HAS OCC THROATY COUGH. NONPRODUCTIVE. PULSE OX 95% ON ROOM AIR. PT GIVEN WATER TO SIP AND AND WILL BE WASHED AND DRESSED FOR BED NOW. RESP AFTER PT CALMING DOWN ARE 20/MIN. REPORTS TO HAVE OCCIPITAL AREA JEAN BAPTISTE PAIN RATED #3-4. PT IS COOPERATIVE AND ACTING APPROPRIATELY.
[2018-07-04] MEDS: QUEtiapine 25 MG Tablet 12.5 MG PO (21:37)
[2018-07-04] MEDS: Atorvastatin Calcium 40 MG Tablet PO (21:37)
[2018-07-04] MEDS: Senna/Docusate Sodium 1 Tablet 2 TABLET PO (21:38)
[2018-07-04] MEDS: MELATONIN 3 MG TABLET PO (21:39)
[2018-07-05] MEDS: Menthol/Lanolin/Calamine/Znox 113 GM Tube 1 APPLIC TOPICAL ×2 (05:26→20:12)
[2018-07-05] MEDS: Levothyroxine 88 MCG Tablet PO (05:26)
[2018-07-05] MEDS: Sodium Chloride 0.65% 1 SPRAY SPRAY.BTL 2 SPRAY NASAL ×3 (05:26→20:11)
[2018-07-05] MEDS: Ipratropium Bromide 0.06% NASAL SPRAY 2 SPRAY NASAL ×3 (05:27→19:58)
[2018-07-05 06:57] LABS: Anion Gap 7 (5-15); BUN 31 mg/dL (7-18); BUN/Creat Ratio 24.4 RATIO (10-20); Calcium,Total 8.4 mg/dL (8.5-10.1); Chloride 102 mmol/L (98-107); Creatinine, Serum 1.27 mg/dL (0.55-1.02); EST Glomerular Filtration Rate 43 mL/min (>60); Est Glom Filt Rate - Afr Amer 52 mL/min (>60); Estimated Creatinine Clearance 28.98 ml/min; Glucose 134 mg/dL (74-106); Potassium 5.8 mmol/L (3.5-5.1); Sodium Level 128 mmol/L (136-145)
[2018-07-05 08:53] VITALS: BP 113/84; PULSE 70; RESP 18; TEMP 36.7; O2SAT 93
[2018-07-05] MEDS: Loratadine 10 MG Tablet 5 MG PO (09:40)
[2018-07-05] MEDS: Aspirin 81 MG TAB.CHEW PO (09:40)
[2018-07-05] MEDS: Clopidogrel Bisulfate 75 MG Tablet PO (09:40)
[2018-07-05] MEDS: Pantoprazole Sodium 40 MG Tablet PO (09:40)
[2018-07-05 09:41] VITALS: BP 113/84; PULSE 70
[2018-07-05] MEDS: Senna/Docusate Sodium 1 Tablet 2 TABLET PO ×2 (09:41→19:59)
[2018-07-05] MEDS: Metoprolol Tartrate 25 MG Tablet PO ×2 (09:41→20:01)
[2018-07-05] MEDS: Heparin Injection (Vial) 5,000 UNIT/ML VIAL 5000 UNIT SC ×2 (09:42→19:59)
[2018-07-05] MEDS: MethylPREDNISolone DosePak 4 MG BOX PO ×4 (09:50→19:59)
[2018-07-05] MEDS: Lactated Ringers 1,000 ML 60 ML IV (12:52)
--- NOTE | 2018-07-05 13:38 | PCM.CONS.R ---
Problem List (1) CODY (acute kidney injury) Status: Acute Consultation - Renal 07/05/18 PCP/ Referring MD: Requesting physician: Dr Green Primary care physician: Bogdan Gordon MD Reason for Consultation:: Acute renal failure - History of Present Illness History of Present Illness: The patient is a 83 year old F who was admitted to the hospital initially followed by now at the rehab unit. 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 Currently in rehab for therapy. Renal consulted for acute renal failure. Baseline creatinine seems to be around 1.1-1.2. Increased to 1.9 yesterday. Somewhat better at 1.2 today. On review of medications, she was on losartan but that has now been discontinued. Blood pressure is around 1 10-1 20 systolic. No urinary complaints such as polyuria, frequency, urgency, dysuria. Breathing is acceptable. Appetite is poor. - Allergies Allergies: Allergies adhesive Adverse Reaction (Verified 06/15/18 19:31) Rash - Current Medications Current Medications: Current Medications Acetaminophen (Tylenol) 650 mg PO Q4H PRN PRN PRN Reason: PAIN/FEVER Last Admin: 07/04/18 22:00 Dose: 650 mg Aspirin (Aspirin, Baby) 81 mg PO DAILY@0800 [facility] Last Admin: 07/05/18 09:40 Dose: 81 mg Atorvastatin Calcium (Lipitor) 40 mg PO QHS [facility] Last Admin: 07/04/18 21:37 Dose: 40 mg Bisacodyl (Dulcolax) 10 mg RECTAL .PRN X 1 PRN PRN Reason: Constipation Calamine/Phenol (Calmoseptine Ointment) 1 applic TOPICAL BID@0600,2200 [facility]; Protocol Last Admin: 07/05/18 05:26 Dose: 1 applicatio Clopidogrel Bisulfate (Plavix) 75 mg PO DAILY [facility] Last Admin: 07/05/18 09:40 Dose: 75 mg Heparin Sodium (Porcine) (Heparin Na) 5,000 unit SC Q12 [facility] Last Admin: 07/05/18 09:42 Dose: 5,000 unit Hydrocortisone Acetate (Anusol Hc) 25 mg RECTAL BID PRN PRN PRN Reason: Hemorrhoids Sodium Bicarbonate 150 meq/ (Dextrose) 1,150 mls @ 75 mls/hr IV .[id number] [facility] Ipratropium [place] (Atrovent Nasal [place] (G)) 2 spray NASAL TID [facility] Last Admin: 07/05/18 05:27 Dose: 2 spray Levothyroxine Sodium (Synthroid) 88 mcg PO DAILY@0600 [facility] Last Admin: 07/05/18 05:26 Dose: 88 mcg Loratadine (Claritin) 5 mg PO DAILY [facility] Last Admin: 07/05/18 09:40 Dose: 5 mg Magnesium Hydroxide (Milk Of Magnesia) 30 ml PO .PRN X 1 PRN PRN Reason: Constipation Last Admin: 07/02/18 00:38 Dose: 30 ml Melatonin (Melatonin) 3 mg PO QHS [facility] Last Admin: 07/04/18 21:39 Dose: 3 mg Methylprednisolone (Medrol Dosepak) 4 mg PO 0800,1200,1700 [facility]; Taper Stop: 07/09/18 04:59 Last Admin: 07/05/18 12:50 Dose: 4 mg Metoprolol Tartrate (Lopressor (Beta Aneesh)) 25 mg PO BID [facility] Last Admin: 07/05/18 09:41 Dose: 25 mg Ondansetron HCl (Zofran Odt) 4 mg PO Q8H PRN PRN PRN Reason: NAUSEA/VOMITING Last Admin: 07/03/18 22:32 Dose: 4 mg Pantoprazole Sodium (Protonix) 40 mg PO DAILY [facility] Last Admin: 07/05/18 09:40 Dose: 40 mg Quetiapine Fumarate (Seroquel) 12.5 mg PO QHS PRN PRN PRN Reason: RESTLESSNESS/AGITATION Last Admin: 07/04/18 21:37 Dose: 12.5 mg Senna/Docusate Sodium (Senokot-S, [place]are[place]-Colace) 2 tablet PO BID [facility] Last Admin: 07/05/18 09:41 Dose: 2 tablet Sodium Chloride (Bl[place] Nasal [place]) 2 spray NASAL TID [facility] Last Admin: 07/05/18 05:26 Dose: 2 spray - Past Medical History Past Medical History (Chronic Problems): Chronic Problems (Last Updated 06/25/18 @ 11:12 by ISHAN BullockC) Obesity (Chronic) Debility (Chronic) Status post aortic valve replacement with bioprosthetic valve (Chronic) history of microcytic anemia (Chronic) Hypothyroidism (Chronic) HTN (hypertension) (Chronic) Hyperlipidemia (Chronic) Aortic valve stenosis (Chronic) - Past Surgical History Surgical History: appendectomy, - - Aortic valve replacement - Social History Smoking Status: Never smoker Alcohol: None Drugs: None - Family History Maternal History Items: Hypertension Paternal History Items: Hypertension Review of Systems Constitutional: Denies: Chills, Fever, Weight Change HEENT: Denies: Head Aches, Sinus Congestion, Sinus Drainage Cardiovascular: Denies: Chest Pain, Palpitations Respiratory: Denies: Cough, Shortness of breath at rest, Sputum production Gastrointestinal: Denies: Abdominal Pain, Nausea, Vomiting Genitourinary: Denies: Dysuria Musculoskeletal: Denies: Joint Pain, Joint Tenderness Skin: Denies: Rash, Wounds Neurological: Denies: Numbness, Tingling, Focal weakness Psychiatric: Denies: Anxiety, Depression, Homicidal Ideations, Suicidal Ideations Hematologic/ Lymphatic: Denies: Easy Bruising, Easy Bleeding Patient Problems: Active and Suspected Problems (Last Updated 06/25/18 @ 11:12 by Ramona Putnam, REHABILITATION MEDICINE PHYSICIAN-C) CODY (acute kidney injury) (Acute) - Physical Exam General: Alert, Oriented x3, Cooperative HEENT: Atraumatic, PERRLA, EOMI, Normocephalic Neck: Supple, No JVD, Negative Carotid Bruits Lungs: Clear to auscultation, Normal air movement Cardiovascular: Regular rate, No murmurs Abdomen: Bowel Sounds Present, Soft, Non Tender Extremities: No edema, Capillary Refill Less than 3 Seconds Skin: No rashes, No breakdown Musculoskeletal: No Tenderness to Palpation of Joints or Extremities Neurological: Cranial nerves II-XII grossly intact Psych/Mental Status: Normal Affect, Appropriate Vital Signs Temp Pulse Resp BP Pulse Ox 98.1 F 70 18 113/84 H 93 07/05/18 08:53 07/05/18 09:41 07/05/18 08:53 07/05/18 09:41 07/05/18 08:53 Oxygen Delivery Method Room Air Weight: 85.094 kg Body Mass Index (BMI) 32.8 Finger Stick Blood Glucose 103 Intake and Output for Last 24 Hours 07/03/18 07/04/18 07/05/18 23:59 23:59 23:59 Intake Total 840 / 840 770 / 770 1912 / 1912 Output Total 200 / 200 650 / 650 Balance 840 / 840 570 / 570 1263 / 1263 Laboratory Tests Past 24 Hrs 07/05/18 07/05/18 05:10 06:35 Sodium Cancelled 128 L Potassium Cancelled 5.8 H Chloride Cancelled 102 Carbon Dioxide Cancelled 19.0 L Anion Gap Cancelled 7 BUN Cancelled 31 H Creatinine Cancelled 1.27 H Estim Creat Clear Calc Cancelled 28.98 Est GFR (MDRD) Af Amer Cancelled 52 L Est GFR (MDRD) Non-Af Cancelled 43 L BUN/Creatinine Ratio Cancelled 24.4 H Glucose Cancelled 134 H Calcium Cancelled 8.4 L Assessment/Plan All Active Problems (Last Updated 06/25/18 @ 11:12 by Ramona Putnam, REHABILITATION MEDICINE PHYSICIAN-C) CODY (acute kidney injury) (Acute) UTI (urinary tract infection) (Resolved) Orthostatic hypotension (Acute) Pulmonary HTN (Acute) Stroke-like symptoms (Acute) Stroke (Acute) Debility (Acute) Acute renal failure. Bumped creatinine yesterday at 1.9. Somewhat better today at 1.2. Likely related to poor oral intake, presence of ARB denies any urinary complaints. Since creatinine is already better, hold off on further work-up.. Hyperkalemia. Potassium is at 5.8 today. She also has acidosis. She was also on losartan. Losartan has been discontinued already. Stop Ringer's lactate and start IV bicarbonate for 1 day. Can stop tomorrow. Hyponatremia. Mild. Possibly hypovolemic. Will monitor with fluids for now.
--- NOTE | 2018-07-05 13:42 | CON.PCM_ITS ---
Problem List (1) CODY (acute kidney injury) Status: Acute Consultation - Renal 07/05/18 PCP/ Referring MD: Requesting physician: Dr Green Primary care physician: Bogdan Gordon MD Reason for Consultation:: Acute renal failure - History of Present Illness History of Present Illness: The patient is a 83 year old F who was admitted to the hospital initially followed by now at the rehab unit. 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 Currently in rehab for therapy. Renal consulted for acute renal failure. Baseline creatinine seems to be around 1.1- 1.2. Increased to 1.9 yesterday. Somewhat better at 1.2 today. On review of medications, she was on losartan but that has now been discontinued. Blood pressure is around 1 10-1 20 systolic. No urinary complaints such as polyuria, frequency, urgency, dysuria. Breathing is acceptable. Appetite is poor. - Allergies Allergies: Allergies adhesive Adverse Reaction (Verified 06/15/18 19:31) Rash - Current Medications Current Medications: Current Medications Acetaminophen (Tylenol) 650 mg PO Q4H PRN PRN PRN Reason: PAIN/FEVER Last Admin: 07/04/18 22:00 Dose: 650 mg Aspirin (Aspirin, Baby) 81 mg PO DAILY@0800 [facility] Last Admin: 07/05/18 09:40 Dose: 81 mg Atorvastatin Calcium (Lipitor) 40 mg PO QHS [facility] Last Admin: 07/04/18 21:37 Dose: 40 mg Bisacodyl (Dulcolax) 10 mg RECTAL .PRN X 1 PRN PRN Reason: Constipation Calamine/Phenol (Calmoseptine Ointment) 1 applic TOPICAL BID@0600,2200 [facility]; Protocol Last Admin: 07/05/18 05:26 Dose: 1 applicatio Clopidogrel Bisulfate (Plavix) 75 mg PO DAILY [facility] Last Admin: 07/05/18 09:40 Dose: 75 mg Heparin Sodium (Porcine) (Heparin Na) 5,000 unit SC Q12 [facility] Last Admin: 07/05/18 09:42 Dose: 5,000 unit Hydrocortisone Acetate (Anusol Hc) 25 mg RECTAL BID PRN PRN PRN Reason: Hemorrhoids Sodium Bicarbonate 150 meq/ (Dextrose) 1,150 mls @ 75 mls/hr IV .[id number] [facility] Ipratropium [place] (Atrovent Nasal [place] (G)) 2 spray NASAL TID [facility] Last Admin: 07/05/18 05:27 Dose: 2 spray Levothyroxine Sodium (Synthroid) 88 mcg PO DAILY@0600 [facility] Last Admin: 07/05/18 05:26 Dose: 88 mcg Loratadine (Claritin) 5 mg PO DAILY [facility] Last Admin: 07/05/18 09:40 Dose: 5 mg Magnesium Hydroxide (Milk Of Magnesia) 30 ml PO .PRN X 1 PRN PRN Reason: Constipation Last Admin: 07/02/18 00:38 Dose: 30 ml Melatonin (Melatonin) 3 mg PO QHS [facility] Last Admin: 07/04/18 21:39 Dose: 3 mg Methylprednisolone (Medrol Dosepak) 4 mg PO 0800,1200,1700 [facility]; Taper Stop: 07/09/18 04:59 Last Admin: 07/05/18 12:50 Dose: 4 mg Metoprolol Tartrate (Lopressor (Beta Aneesh)) 25 mg PO BID [facility] Last Admin: 07/05/18 09:41 Dose: 25 mg Ondansetron HCl (Zofran Odt) 4 mg PO Q8H PRN PRN PRN Reason: NAUSEA/VOMITING Last Admin: 07/03/18 22:32 Dose: 4 mg Pantoprazole Sodium (Protonix) 40 mg PO DAILY [facility] Last Admin: 07/05/18 09:40 Dose: 40 mg Quetiapine Fumarate (Seroquel) 12.5 mg PO QHS PRN PRN PRN Reason: RESTLESSNESS/AGITATION Last Admin: 07/04/18 21:37 Dose: 12.5 mg Senna/Docusate Sodium (Senokot-S, Yareli-Colace) 2 tablet PO BID [facility] Last Admin: 07/05/18 09:41 Dose: 2 tablet Sodium Chloride ([place] Nasal [place]) 2 spray NASAL TID [facility] Last Admin: 07/05/18 05:26 Dose: 2 spray - Past Medical History Past Medical History (Chronic Problems): Chronic Problems (Last Updated 06/25/18 @ 11:12 by ISHAN BullockC) Obesity (Chronic) Debility (Chronic) Status post aortic valve replacement with bioprosthetic valve (Chronic) history of microcytic anemia (Chronic) Hypothyroidism (Chronic) HTN (hypertension) (Chronic) Hyperlipidemia (Chronic) Aortic valve stenosis (Chronic) - Past Surgical History Surgical History: appendectomy, - - Aortic valve replacement - Social History Smoking Status: Never smoker Alcohol: None Drugs: None - Family History Maternal History Items: Hypertension Paternal History Items: Hypertension Review of Systems Constitutional: Denies: Chills, Fever, Weight Change HEENT: Denies: Head Aches, Sinus Congestion, Sinus Drainage Cardiovascular: Denies: Chest Pain, Palpitations Respiratory: Denies: Cough, Shortness of breath at rest, Sputum production Gastrointestinal: Denies: Abdominal Pain, Nausea, Vomiting Genitourinary: Denies: Dysuria Musculoskeletal: Denies: Joint Pain, Joint Tenderness Skin: Denies: Rash, Wounds Neurological: Denies: Numbness, Tingling, Focal weakness Psychiatric: Denies: Anxiety, Depression, Homicidal Ideations, Suicidal Ideations Hematologic/ Lymphatic: Denies: Easy Bruising, Easy Bleeding Patient Problems: Active and Suspected Problems (Last Updated 06/25/18 @ 11:12 by Ramona Putnam, CAMPAIGN WORKER-C) CODY (acute kidney injury) (Acute) - Physical Exam General: Alert, Oriented x3, Cooperative HEENT: Atraumatic, PERRLA, EOMI, Normocephalic Neck: Supple, No JVD, Negative Carotid Bruits Lungs: Clear to auscultation, Normal air movement Cardiovascular: Regular rate, No murmurs Abdomen: Bowel Sounds Present, Soft, Non Tender Extremities: No edema, Capillary Refill Less than 3 Seconds Skin: No rashes, No breakdown Musculoskeletal: No Tenderness to Palpation of Joints or Extremities Neurological: Cranial nerves II-XII grossly intact Psych/Mental Status: Normal Affect, Appropriate Vital Signs Temp Pulse Resp BP Pulse Ox 98.1 F 70 18 113/84 H 93 07/05/18 08:53 07/05/18 09:41 07/05/18 08:53 07/05/18 09:41 07/05/18 08:53 Oxygen Delivery Method Room Air Weight: 85.094 kg Body Mass Index (BMI) 32.8 Finger Stick Blood Glucose 103 Intake and Output for Last 24 Hours 07/03/18 07/04/18 07/05/18 23:59 23:59 23:59 Intake Total 840 / 840 770 / 770 1912 / 1912 Output Total 200 / 200 650 / 650 Balance 840 / 840 570 / 570 1263 / 1263 Laboratory Tests Past 24 Hrs 07/05/18 07/05/18 05:10 06:35 Sodium Cancelled 128 L Potassium Cancelled 5.8 H Chloride Cancelled 102 Carbon Dioxide Cancelled 19.0 L Anion Gap Cancelled 7 BUN Cancelled 31 H Creatinine Cancelled 1.27 H Estim Creat Clear Calc Cancelled 28.98 Est GFR (MDRD) Af Amer Cancelled 52 L Est GFR (MDRD) Non-Af Cancelled 43 L BUN/Creatinine Ratio Cancelled 24.4 H Glucose Cancelled 134 H Calcium Cancelled 8.4 L Assessment/Plan All Active Problems (Last Updated 06/25/18 @ 11:12 by Ramona Putnam, CAMPAIGN WORKER-C) CODY (acute kidney injury) (Acute) UTI (urinary tract infection) (Resolved) Orthostatic hypotension (Acute) Pulmonary HTN (Acute) Stroke-like symptoms (Acute) Stroke (Acute) Debility (Acute) Acute renal failure. Bumped creatinine yesterday at 1.9. Somewhat better today at 1.2. Likely related to poor oral intake, presence of ARB denies any urinary complaints. Since creatinine is already better, hold off on further work-up.. Hyperkalemia. Potassium is at 5.8 today. She also has acidosis. She was also on losartan. Losartan has been discontinued already. Stop Ringer's lactate and start IV bicarbonate for 1 day. Can stop tomorrow. Hyponatremia. Mild. Possibly hypovolemic. Will monitor with fluids for now.
--- NOTE | 2018-07-05 14:05 | PCM.PN.NEU ---
Patient Problems: Active and Suspected Problems (Last Updated 06/25/18 @ 11:12 by Ramona Putnam, COLOR STRIPPER-C) CODY (acute kidney injury) (Acute) Subjective: Per nursing no issues overnight. Dr. Green notified this am about K+ level 5.8, Na increased to 128, and Cr decreased to 1.27. Dr. Green consulted Nephrology. Dr. Paul D/Saurav ulrich, started Bicarbanate IV x1 day and hyponatremia will be monitored. Patient denied any further questions or concerns. Patient continues to tolerate therapies. - Physical Exam General: Alert, Oriented x3 - can be forgetful at times, Cooperative HEENT: Atraumatic, PERRLA Oral: Moist Mucosa Neck: Supple, No JVD Lungs: Clear to auscultation, Normal air movement Cardiovascular: Regular rate, Regular Rhythm Abdomen: Bowel Sounds Present, Soft, Non Tender Extremities: No clubbing, No cyanosis, No edema Musculoskeletal: No Tenderness to Palpation of Joints or Extremities Neurological: Cranial nerves II-XII grossly intact, Deep Tendon Reflexes 2+/4 and Symmetrical, Neuro grossly intact, Motor Exam 5/5 strength throughout Psych/Mental Status: Normal Affect, Appropriate, Alert and oriented to time, place, person, mood and affect Vital Signs Temp Pulse Resp BP Pulse Ox 98.1 F 70 18 113/84 H 93 07/05/18 08:53 07/05/18 09:41 07/05/18 08:53 07/05/18 09:41 07/05/18 08:53 Oxygen Delivery Method Room Air Weight: 85.094 kg Body Mass Index (BMI) 32.8 Finger Stick Blood Glucose 103 Intake and Output for Last 24 Hours 07/03/18 07/04/18 07/05/18 23:59 23:59 23:59 Intake Total 840 / 840 770 / 770 1913 / 1913 Output Total 200 / 200 650 / 650 Balance 840 / 840 570 / 570 1263 / 1263 Laboratory Tests Past 24 Hrs 07/05/18 07/05/18 05:10 06:35 Sodium Cancelled 128 L Potassium Cancelled 5.8 H Chloride Cancelled 102 Carbon Dioxide Cancelled 19.0 L Anion Gap Cancelled 7 BUN Cancelled 31 H Creatinine Cancelled 1.27 H Estim Creat Clear Calc Cancelled 28.98 Est GFR (MDRD) Af Amer Cancelled 52 L Est GFR (MDRD) Non-Af Cancelled 43 L BUN/Creatinine Ratio Cancelled 24.4 H Glucose Cancelled 134 H Calcium Cancelled 8.4 L Medical Necessity - Tobacco Use Smoking Status: Never smoker Tobacco Use: Non-smoker Assessment/Plan All Active Problems (Last Updated 06/25/18 @ 11:12 by Ramona Putnam, COLOR STRIPPER-C) CODY (acute kidney injury) (Acute) UTI (urinary tract infection) (Resolved) Orthostatic hypotension (Acute) Pulmonary HTN (Acute) Stroke-like symptoms (Acute) Stroke (Acute) Debility (Acute) The patient is a 83 year old F with PMH HTN, HLD, aortic stenosis status post bioprosthetic aortic valve replacement, hypothyroidism admitted to [facility] on 06/18/2018 with debility status post acute left 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 She was admitted with right-sided numbness and slurred speech to the inpatient hospital on 06/15/2018. Per ED documentation on admission NIHSS was 2. MRI brain done on admission reported to show acute left PERSONAL LINES ACCOUNT MANAGER infarct, MR angiogram head/neck showed left P2 occlusion. Per documentation patient is on aspirin/Plavix at baseline. Per patient she lives alone, denies any frequent falls, does use cane for ambulating, does drive. Per patient she lives in an independent house and has 3 steps to get into the house. At present patient denies any numbness in the right side, denies any headache, dizziness, visual disturbances, speech disturbances, focal motor weakness, or sensory loss. Plan ? PT for gait stability ? OT for ADLs - ST for cognitive ? Analgesics as needed ? Bowel protocol ? Acute left PERSONAL LINES ACCOUNT MANAGER stroke?on aspirin and clopidogrel at baseline for many years, on atorvastatin - 30 day event monitor at discharge ? HTN?on metoprolol ? HLD?on atorvastatin ? Hypothyroidism?on levothyroxine ? GI/DVT prophylaxis?on pantoprazole/heparin 5000 units subcu 12 hourly - Insomnia -Seroquel 12.5 mg QHS PRN and continue melatonin - Depression - Zoloft 25 mg daily - allergic rhinitis started on ipratropium and Claritin - Acute Renal failure, Nephrology consulted, Cr 1.27 improving - Hyperkalemia K+ 5.8, Nephrology consulted bicarbonate IV x 1 ordered per Samuel Torres D/C - Hyponatremia Nephrology consulted, following and monitoring. ? Fall precautions ? Further medical management per hospitalist recommendation. Hospitalist consult ? Follow-up with PCP, neurology, Nephrology and cardiology on discharge
--- NOTE | 2018-07-05 14:21 | PN.NEURO_ITS ---
Patient Problems: Active and Suspected Problems (Last Updated 06/25/18 @ 11:12 by Ramona Putnam, CUSTOM SHOE DESIGNER AND MAKER-C) CODY (acute kidney injury) (Acute) Subjective: Per nursing no issues overnight. Dr. Green notified this am about K+ level 5.8, Na increased to 128, and Cr decreased to 1.27. Dr. Green consulted Nephrology. Dr. Paul D/Saurav ulrich, started Bicarbanate IV x1 day and hyponatremia will be monitored. Patient denied any further questions or concerns. Patient continues to tolerate therapies. - Physical Exam General: Alert, Oriented x3 - can be forgetful at times, Cooperative HEENT: Atraumatic, PERRLA Oral: Moist Mucosa Neck: Supple, No JVD Lungs: Clear to auscultation, Normal air movement Cardiovascular: Regular rate, Regular Rhythm Abdomen: Bowel Sounds Present, Soft, Non Tender Extremities: No clubbing, No cyanosis, No edema Musculoskeletal: No Tenderness to Palpation of Joints or Extremities Neurological: Cranial nerves II-XII grossly intact, Deep Tendon Reflexes 2+/4 and Symmetrical, Neuro grossly intact, Motor Exam 5/5 strength throughout Psych/Mental Status: Normal Affect, Appropriate, Alert and oriented to time, place, person, mood and affect Vital Signs Temp Pulse Resp BP Pulse Ox 98.1 F 70 18 113/84 H 93 07/05/18 08:53 07/05/18 09:41 07/05/18 08:53 07/05/18 09:41 07/05/18 08:53 Oxygen Delivery Method Room Air Weight: 85.094 kg Body Mass Index (BMI) 32.8 Finger Stick Blood Glucose 103 Intake and Output for Last 24 Hours 07/03/18 07/04/18 07/05/18 23:59 23:59 23:59 Intake Total 840 / 840 770 / 770 1913 / 1913 Output Total 200 / 200 650 / 650 Balance 840 / 840 570 / 570 1263 / 1263 Laboratory Tests Past 24 Hrs 07/05/18 07/05/18 05:10 06:35 Sodium Cancelled 128 L Potassium Cancelled 5.8 H Chloride Cancelled 102 Carbon Dioxide Cancelled 19.0 L Anion Gap Cancelled 7 BUN Cancelled 31 H Creatinine Cancelled 1.27 H Estim Creat Clear Calc Cancelled 28.98 Est GFR (MDRD) Af Amer Cancelled 52 L Est GFR (MDRD) Non-Af Cancelled 43 L BUN/Creatinine Ratio Cancelled 24.4 H Glucose Cancelled 134 H Calcium Cancelled 8.4 L Medical Necessity - Tobacco Use Smoking Status: Never smoker Tobacco Use: Non-smoker Assessment/Plan All Active Problems (Last Updated 06/25/18 @ 11:12 by Ramona Putnam, CUSTOM SHOE DESIGNER AND MAKER-C) CODY (acute kidney injury) (Acute) UTI (urinary tract infection) (Resolved) Orthostatic hypotension (Acute) Pulmonary HTN (Acute) Stroke-like symptoms (Acute) Stroke (Acute) Debility (Acute) The patient is a 83 year old F with PMH HTN, HLD, aortic stenosis status post bioprosthetic aortic valve replacement, hypothyroidism admitted to [facility] on 06/18/2018 with debility status post 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 She was admitted with right-sided numbness and slurred speech to the inpatient hospital on 06/15/2018. Per ED documentation on admission NIHSS was 2. 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 Per documentation patient is on aspirin/Plavix at baseline. Per patient she lives alone, denies any frequent falls, does use cane for ambulating, does drive. Per patient she lives in an independent house and has 3 steps to get into the house. At present patient denies any numbness in the right side, denies any headache, dizziness, visual disturbances, speech disturbances, focal motor weakness, or sensory loss. Plan ? PT for gait stability ? OT for ADLs - ST for cognitive ? Analgesics as needed ? Bowel protocol ? 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 HTN?on metoprolol ? HLD?on atorvastatin ? Hypothyroidism?on levothyroxine ? GI/DVT prophylaxis?on pantoprazole/heparin 5000 units subcu 12 hourly - Insomnia -Seroquel 12.5 mg QHS PRN and continue melatonin - Depression - Zoloft 25 mg daily - allergic rhinitis started on ipratropium and Claritin - Acute Renal failure, Nephrology consulted, Cr 1.27 improving - Hyperkalemia K+ 5.8, Nephrology consulted bicarbonate IV x 1 ordered per Samuel Torres D/C - Hyponatremia Nephrology consulted, following and monitoring. ? Fall precautions ? Further medical management per hospitalist recommendation. Hospitalist consult ? Follow-up with PCP, neurology, Nephrology and cardiology on discharge
[2018-07-05 15:16] VITALS: BMI 32.8
--- NOTE | 2018-07-05 16:55 | PCM.PN.HOSP ---
Patient Problems: Active and Suspected Problems (Last Updated 06/25/18 @ 11:12 by Ramona Putnam, DAMPENER OPERATOR-C) CODY (acute kidney injury) (Acute) Subjective: Patient seen and examined. Patient had repeat BMP today which showed very little improvement in sodium, from 126-128 but K got high from 4.5-5.8, chloride 102, bicarb 19 with anion gap 7 which does not explain electrolytes after sodium chloride IV fluid given yesterday. On 07/04, creatinine went from baseline 1.1-1.93 and sodium 126 for which sodium chloride was started and losartan was discontinued. [employer] Admin was further consulted for acute kidney injury on CKD stage III, abnormal electrolytes. [employer] Admin started on D5W with 150 M EQ sodium bicarbonate. Denies any urinary complaints including burning micturition, increased frequency urgency. She has chronic urinary incontinence. Vitals/I&O's: Vital Signs Temp Pulse Resp BP Pulse Ox 98.1 F 70 18 113/84 H 93 07/05/18 08:53 07/05/18 09:41 07/05/18 08:53 07/05/18 09:41 07/05/18 08:53 Oxygen Delivery Method Room Air Weight: 187 lb 9.6 oz Body Mass Index (BMI) 32.8 Finger Stick Blood Glucose 103 Intake and Output for Last 24 Hours 07/03/18 07/04/18 07/05/18 23:59 23:59 23:59 Intake Total 840 / 840 770 / 770 1913 / 1913 Output Total 200 / 200 650 / 650 Balance 840 / 840 570 / 570 1263 / 1263 General: Alert, Oriented x3, Cooperative HEENT: Atraumatic, PERRLA, EOMI, Normocephalic Neck: Supple, No JVD, Negative Carotid Bruits Lungs: Clear to auscultation, Normal air movement Cardiovascular: Regular rate, Regular Rhythm, Normal S1, Normal S2, No murmurs Abdomen: Bowel Sounds Present, Soft, Non Tender, Non-Distended Extremities: No edema, Capillary Refill Less than 3 Seconds Skin: No rashes, No breakdown Musculoskeletal: No Tenderness to Palpation of Joints or Extremities, Arthritic Changes Lymphatic: No Cervical, Supraclavicular, or Inguinal Adenopathy Neurological: Cranial nerves II-XII grossly intact, Deep Tendon Reflexes 2+/4 and Symmetrical, Neuro grossly intact Psych/Mental Status: Normal Affect, Appropriate Laboratory Results 07/05/18 05:10: Sodium Cancelled, Potassium Cancelled, Chloride Cancelled, Carbon Dioxide Cancelled, Anion Gap Cancelled, BUN Cancelled, Creatinine Cancelled, Estim Creat Clear Calc Cancelled, Est GFR (MDRD) Af Amer Cancelled, Est GFR (MDRD) Non-Af Cancelled, BUN/Creatinine Ratio Cancelled, Glucose Cancelled, Calcium Cancelled 07/05/18 06:35: Sodium 128 L, Potassium 5.8 H, Chloride 102, Carbon Dioxide 19.0 L, Anion Gap 7, BUN 31 H, Creatinine 1.27 H, Estim Creat Clear Calc 28.98, Est GFR (MDRD) Af Amer 52 L, Est GFR (MDRD) Non-Af 43 L, BUN/Creatinine Ratio 24.4 H, Glucose 134 H, Calcium 8.4 L Current Medications Acetaminophen (Tylenol) 650 mg PO Q4H PRN PRN PRN Reason: PAIN/FEVER Last Admin: 07/04/18 22:00 Dose: 650 mg Aspirin (Aspirin, Baby) 81 mg PO DAILY@0800 [facility] Last Admin: 07/05/18 09:40 Dose: 81 mg Atorvastatin Calcium (Lipitor) 40 mg PO QHS [facility] Last Admin: 07/04/18 21:37 Dose: 40 mg Bisacodyl (Dulcolax) 10 mg RECTAL .PRN X 1 PRN PRN Reason: Constipation Calamine/Phenol (Calmoseptine Ointment) 1 applic TOPICAL BID@0600,2200 [facility]; Protocol Last Admin: 07/05/18 05:26 Dose: 1 applicatio Clopidogrel Bisulfate (Plavix) 75 mg PO DAILY [facility] Last Admin: 07/05/18 09:40 Dose: 75 mg Heparin Sodium (Porcine) (Heparin Na) 5,000 unit SC Q12 [facility] Last Admin: 07/05/18 09:42 Dose: 5,000 unit Hydrocortisone Acetate (Anusol Hc) 25 mg RECTAL BID PRN PRN PRN Reason: Hemorrhoids Sodium Bicarbonate 150 meq/ (Dextrose) 1,150 mls @ 75 mls/hr IV .[id number] [facility] Stop: 07/06/18 05:01 Last Admin: 07/05/18 15:07 Dose: 75 mls/hr Ipratropium [place] (Atrovent Nasal [place] (G)) 2 spray NASAL TID [facility] Last Admin: 07/05/18 14:59 Dose: 2 spray Levothyroxine Sodium (Synthroid) 88 mcg PO DAILY@0600 [facility] Last Admin: 07/05/18 05:26 Dose: 88 mcg Loratadine (Claritin) 5 mg PO DAILY [facility] Last Admin: 07/05/18 09:40 Dose: 5 mg Magnesium Hydroxide (Milk Of Magnesia) 30 ml PO .PRN X 1 PRN PRN Reason: Constipation Last Admin: 07/02/18 00:38 Dose: 30 ml Melatonin (Melatonin) 3 mg PO QHS [facility] Last Admin: 07/04/18 21:39 Dose: 3 mg Methylprednisolone (Medrol Dosepak) 4 mg PO 0800,1200,1700 [facility]; Taper Stop: 07/09/18 04:59 Last Admin: 07/05/18 12:50 Dose: 4 mg Metoprolol Tartrate (Lopressor (Beta Aneesh)) 25 mg PO BID [facility] Last Admin: 07/05/18 09:41 Dose: 25 mg Ondansetron HCl (Zofran Odt) 4 mg PO Q8H PRN PRN PRN Reason: NAUSEA/VOMITING Last Admin: 07/03/18 22:32 Dose: 4 mg Pantoprazole Sodium (Protonix) 40 mg PO DAILY [facility] Last Admin: 07/05/18 09:40 Dose: 40 mg Quetiapine Fumarate (Seroquel) 12.5 mg PO QHS PRN PRN PRN Reason: RESTLESSNESS/AGITATION Last Admin: 07/04/18 21:37 Dose: 12.5 mg Senna/Docusate Sodium (Senokot-S, Yareli-Colace) 2 tablet PO BID [facility] Last Admin: 07/05/18 09:41 Dose: 2 tablet Sodium Chloride ([place] Nasal [place]) 2 spray NASAL TID [facility] Last Admin: 07/05/18 14:59 Dose: 2 spray Medical Necessity - Tobacco Use Smoking Status: Never smoker Tobacco Use: Non-smoker Assessment/Plan All Active Problems (Last Updated 06/25/18 @ 11:12 by Ramona Putnam, DAMPENER OPERATOR-C) CODY (acute kidney injury) (Acute) UTI (urinary tract infection) (Resolved) Orthostatic hypotension (Acute) Pulmonary HTN (Acute) Stroke-like symptoms (Acute) Stroke (Acute) Debility (Acute) The patient is a 83 year old F with a significant history of hypertension; hyperlipidemia; hypothyroidism, ; aortic stenosis status post bioprosthetic aortic valve replacement; diastolic dysfunction suggestive of chronic heart failure with preserved EF; pulmonary hypertension is being admitted to acute rehab after evaluation and management for acute left CHIEF ORDER DISPATCHER ischemic stroke and [facility]. The patient had right hand numbness. 1. Acute left CHIEF ORDER DISPATCHER Ischemic stroke: MRI brain is positive of acute left CHIEF ORDER DISPATCHER ischemic stroke. MRI brain reported as occlusion of the left posterior cerebral artery at the level of the P2 segment. She denies any previous history of a stroke. Patient is on permissive hypertension. PT, OT and speech evaluation to continue. Patient is on aspirin, Plavix and atorvastatin. Lipid profile reported as LDL 73, triglyceride 97. HDL 36. Echo was done and reported as EF 50 to 55%. Mild anteroseptal hypokinesis. LA severely enlarged. RA moderately enlarged. Moderate to severe 3+ TR with RVSP 50 to 55 mmHg suggestive of moderate pulmonary hypertension. Echo suggestive of heart failure with preserved EF and valvular heart disease moderate pulmonary hypertension 2. Acute kidney injury on CKD stage III: Patient had repeat BMP on 07/05; sodium, from 126-128 but K got high from 4.5-5.8, chloride 102, bicarb 19 with anion gap 7 was difficult to explain after patient got IV fluid normal saline. On 07/04, creatinine went from baseline 1.1-1.93 and sodium 126. Seen by hemodialysis charge nurse. Cussed with him. [employer] Admin started on D5W with 150 M EQ sodium bicarbonate. Repeat BMP tomorrow morning. Denies any urinary complaints including burning micturition, increased frequency urgency. She has chronic urinary incontinence. Hypertension with chronic diastolic heart failure BP is well controlled. Losartan discontinued. Hypothyroidism Synthroid continued. GERD Protonix continued. DVT prophylaxis Subcutaneous heparin Laboratory Results 07/05/18 06:35: Sodium 128 L, Potassium 5.8 H, Chloride 102, Carbon Dioxide 19.0 L, Anion Gap 7, BUN 31 H, Creatinine 1.27 H, Estim Creat Clear Calc 28.98, Est GFR (MDRD) Af Amer 52 L, Est GFR (MDRD) Non-Af 43 L, BUN/Creatinine Ratio 24.4 H, Glucose 134 H, Calcium 8.4 L Code Visit Inpatient E&M: 01594 Subs Hosp L2
--- NOTE | 2018-07-05 17:00 | PN_ITS ---
Patient Problems: Active and Suspected Problems (Last Updated 06/25/18 @ 11:12 by Ramona Putnam, AIR HOLE DRILLER-C) CODY (acute kidney injury) (Acute) Subjective: Patient seen and examined. Patient had repeat BMP today which showed very little improvement in sodium, from 126-128 but K got high from 4.5-5.8, chloride 102, bicarb 19 with anion gap 7 which does not explain electrolytes after sodium chloride IV fluid given yesterday. On 07/04, creatinine went from baseline 1.1-1.93 and sodium 126 for which sodium chloride was started and losartan was discontinued. Head Bander And Liner Operator was further consulted for acute kidney injury on CKD stage III, abnormal electrolytes. Head Bander And Liner Operator started on D5W with 150 M EQ sodium bicarbonate. Denies any urinary complaints including burning micturition, increased frequency urgency. She has chronic urinary incontinence. Vitals/I&O's: Vital Signs Temp Pulse Resp BP Pulse Ox 98.1 F 70 18 113/84 H 93 07/05/18 08:53 07/05/18 09:41 07/05/18 08:53 07/05/18 09:41 07/05/18 08:53 Oxygen Delivery Method Room Air Weight: 187 lb 9.6 oz Body Mass Index (BMI) 32.8 Finger Stick Blood Glucose 103 Intake and Output for Last 24 Hours 07/03/18 07/04/18 07/05/18 23:59 23:59 23:59 Intake Total 840 / 840 770 / 770 1913 / 1913 Output Total 200 / 200 650 / 650 Balance 840 / 840 570 / 570 1263 / 1263 General: Alert, Oriented x3, Cooperative HEENT: Atraumatic, PERRLA, EOMI, Normocephalic Neck: Supple, No JVD, Negative Carotid Bruits Lungs: Clear to auscultation, Normal air movement Cardiovascular: Regular rate, Regular Rhythm, Normal S1, Normal S2, No murmurs Abdomen: Bowel Sounds Present, Soft, Non Tender, Non-Distended Extremities: No edema, Capillary Refill Less than 3 Seconds Skin: No rashes, No breakdown Musculoskeletal: No Tenderness to Palpation of Joints or Extremities, Arthritic Changes Lymphatic: No Cervical, Supraclavicular, or Inguinal Adenopathy Neurological: Cranial nerves II-XII grossly intact, Deep Tendon Reflexes 2+/4 and Symmetrical, Neuro grossly intact Psych/Mental Status: Normal Affect, Appropriate Laboratory Results 07/05/18 05:10: Sodium Cancelled, Potassium Cancelled, Chloride Cancelled, Carbon Dioxide Cancelled, Anion Gap Cancelled, BUN Cancelled, Creatinine Cancelled, Estim Creat Clear Calc Cancelled, Est GFR (MDRD) Af Amer Cancelled, Est GFR (MDRD) Non-Af Cancelled, BUN/Creatinine Ratio Cancelled, Glucose Cancelled, Calcium Cancelled 07/05/18 06:35: Sodium 128 L, Potassium 5.8 H, Chloride 102, Carbon Dioxide 19.0 L, Anion Gap 7, BUN 31 H, Creatinine 1.27 H, Estim Creat Clear Calc 28.98, Est GFR (MDRD) Af Amer 52 L, Est GFR (MDRD) Non-Af 43 L, BUN/Creatinine Ratio 24.4 H , Glucose 134 H, Calcium 8.4 L Current Medications Acetaminophen (Tylenol) 650 mg PO Q4H PRN PRN PRN Reason: PAIN/FEVER Last Admin: 07/04/18 22:00 Dose: 650 mg Aspirin (Aspirin, Baby) 81 mg PO DAILY@0800 [facility] Last Admin: 07/05/18 09:40 Dose: 81 mg Atorvastatin Calcium (Lipitor) 40 mg PO QHS [facility] Last Admin: 07/04/18 21:37 Dose: 40 mg Bisacodyl (Dulcolax) 10 mg RECTAL .PRN X 1 PRN PRN Reason: Constipation Calamine/Phenol (Calmoseptine Ointment) 1 applic TOPICAL BID@0600,2200 [facility]; Protocol Last Admin: 07/05/18 05:26 Dose: 1 applicatio Clopidogrel Bisulfate (Plavix) 75 mg PO DAILY [facility] Last Admin: 07/05/18 09:40 Dose: 75 mg Heparin Sodium (Porcine) (Heparin Na) 5,000 unit SC Q12 [facility] Last Admin: 07/05/18 09:42 Dose: 5,000 unit Hydrocortisone Acetate (Anusol Hc) 25 mg RECTAL BID PRN PRN PRN Reason: Hemorrhoids Sodium Bicarbonate 150 meq/ (Dextrose) 1,150 mls @ 75 mls/hr IV .[id number] [facility] Stop: 07/06/18 05:01 Last Admin: 07/05/18 15:07 Dose: 75 mls/hr Ipratropium [place] (Atrovent Nasal [place] (G)) 2 spray NASAL TID [facility] Last Admin: 07/05/18 14:59 Dose: 2 spray Levothyroxine Sodium (Synthroid) 88 mcg PO DAILY@0600 [facility] Last Admin: 07/05/18 05:26 Dose: 88 mcg Loratadine (Claritin) 5 mg PO DAILY [facility] Last Admin: 07/05/18 09:40 Dose: 5 mg Magnesium Hydroxide (Milk Of Magnesia) 30 ml PO .PRN X 1 PRN PRN Reason: Constipation Last Admin: 07/02/18 00:38 Dose: 30 ml Melatonin (Melatonin) 3 mg PO QHS [facility] Last Admin: 07/04/18 21:39 Dose: 3 mg Methylprednisolone (Medrol Dosepak) 4 mg PO 0800,1200,1700 [facility]; Taper Stop: 07/09/18 04:59 Last Admin: 07/05/18 12:50 Dose: 4 mg Metoprolol Tartrate (Lopressor (Beta Aneesh)) 25 mg PO BID [facility] Last Admin: 07/05/18 09:41 Dose: 25 mg Ondansetron HCl (Zofran Odt) 4 mg PO Q8H PRN PRN PRN Reason: NAUSEA/VOMITING Last Admin: 07/03/18 22:32 Dose: 4 mg Pantoprazole Sodium (Protonix) 40 mg PO DAILY [facility] Last Admin: 07/05/18 09:40 Dose: 40 mg Quetiapine Fumarate (Seroquel) 12.5 mg PO QHS PRN PRN PRN Reason: RESTLESSNESS/AGITATION Last Admin: 07/04/18 21:37 Dose: 12.5 mg Senna/Docusate Sodium (Senokot-S, [place]are[place]-Colace) 2 tablet PO BID [facility] Last Admin: 07/05/18 09:41 Dose: 2 tablet Sodium Chloride ([place] Nasal [place]) 2 spray NASAL TID [facility] Last Admin: 07/05/18 14:59 Dose: 2 spray Medical Necessity - Tobacco Use Smoking Status: Never smoker Tobacco Use: Non-smoker Assessment/Plan All Active Problems (Last Updated 06/25/18 @ 11:12 by Ramona Putnam, AIR HOLE DRILLER-C) CODY (acute kidney injury) (Acute) UTI (urinary tract infection) (Resolved) Orthostatic hypotension (Acute) Pulmonary HTN (Acute) Stroke-like symptoms (Acute) Stroke (Acute) Debility (Acute) The patient is a 83 year old F with a significant history of hypertension; hyperlipidemia; hypothyroidism, ; aortic stenosis status post bioprosthetic aortic valve replacement; diastolic dysfunction suggestive of chronic heart failure with preserved EF; pulmonary hypertension is being admitted to acute rehab after evaluation and management for 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 The patient had right hand numbness. 1. Acute left DEPARTMENT OF SOCIOLOGY CHAIR Ischemic stroke: MRI brain is positive of acute left DEPARTMENT OF SOCIOLOGY CHAIR ischemic stroke. MRI brain reported as occlusion of the left posterior cerebral artery at the level of the P2 segment. She denies any previous history of a stroke. Patient is on permissive hypertension. PT, OT and speech evaluation to continue. Patient is on aspirin, Plavix and atorvastatin. Lipid profile reported as LDL 73, triglyceride 97. HDL 36. Echo was done and reported as EF 50 to 55%. Mild anteroseptal hypokinesis. LA severely enlarged. RA moderately enlarged. Moderate to severe 3+ TR with RVSP 50 to 55 mmHg suggestive of moderate pulmonary hypertension. Echo suggestive of heart failure with preserved EF and valvular heart disease moderate pulmonary hypertension 2. Acute kidney injury on CKD stage III: Patient had repeat BMP on 07/05; sodium, from 126-128 but K got high from 4.5-5.8, chloride 102, bicarb 19 with anion gap 7 was difficult to explain after patient got IV fluid normal saline. On 07/04, creatinine went from baseline 1.1-1.93 and sodium 126. Seen by performance analyst. Cussed with him. Head Bander And Liner Operator started on D5W with 150 M EQ sodium bicarbonate. Repeat BMP tomorrow morning. Denies any urinary complaints including burning micturition, increased frequency urgency. She has chronic urinary incontinence. Hypertension with chronic diastolic heart failure BP is well controlled. Losartan discontinued. Hypothyroidism Synthroid continued. GERD Protonix continued. DVT prophylaxis Subcutaneous heparin Laboratory Results 07/05/18 06:35: Sodium 128 L, Potassium 5.8 H, Chloride 102, Carbon Dioxide 19.0 L, Anion Gap 7, BUN 31 H, Creatinine 1.27 H, Estim Creat Clear Calc 28.98, Est GFR (MDRD) Af Amer 52 L, Est GFR (MDRD) Non-Af 43 L, BUN/Creatinine Ratio 24.4 H , Glucose 134 H, Calcium 8.4 L Code Visit Inpatient E&M: 41354 Subs Hosp L2
[2018-07-05] MEDS: MELATONIN 3 MG TABLET PO (19:59)
[2018-07-05] MEDS: Atorvastatin Calcium 40 MG Tablet PO (19:59)
[2018-07-05 20:01] VITALS: BP 136/69; PULSE 60
[2018-07-05] MEDS: Acetaminophen 325 MG Tablet 650 MG PO (20:01)
[2018-07-05 20:25] VITALS: BP 136/69; PULSE 60; RESP 18; TEMP 36.6; O2SAT 96
[2018-07-05 22:34] VITALS: BMI 32.8
[2018-07-06] MEDS: Ipratropium Bromide 0.06% NASAL SPRAY 2 SPRAY NASAL ×3 (05:15→21:21)
[2018-07-06] MEDS: Levothyroxine 88 MCG Tablet PO (05:15)
[2018-07-06] MEDS: Sodium Chloride 0.65% 1 SPRAY SPRAY.BTL 2 SPRAY NASAL ×3 (05:15→21:26)
[2018-07-06] MEDS: Menthol/Lanolin/Calamine/Znox 113 GM Tube 1 APPLIC TOPICAL ×2 (05:16→21:22)
[2018-07-06 07:41] VITALS: BP 139/76; PULSE 56; RESP 20; TEMP 37.3; O2SAT 95
[2018-07-06] MEDS: Aspirin 81 MG TAB.CHEW PO (08:38)
[2018-07-06] MEDS: Loratadine 10 MG Tablet 5 MG PO (08:38)
[2018-07-06 08:39] VITALS: BP 139/74; PULSE 56
[2018-07-06] MEDS: Metoprolol Tartrate 25 MG Tablet PO ×2 (08:39→21:24)
[2018-07-06] MEDS: Senna/Docusate Sodium 1 Tablet 2 TABLET PO ×2 (08:40→21:26)
[2018-07-06] MEDS: Heparin Injection (Vial) 5,000 UNIT/ML VIAL 5000 UNIT SC ×2 (08:40→21:22)
[2018-07-06] MEDS: MethylPREDNISolone DosePak 4 MG BOX PO ×4 (08:40→21:25)
[2018-07-06] MEDS: Pantoprazole Sodium 40 MG Tablet PO (08:40)
[2018-07-06] MEDS: Clopidogrel Bisulfate 75 MG Tablet PO (08:40)
[2018-07-06 08:41] LABS: Anion Gap 8 (5-15); BUN 24 mg/dL (7-18); BUN/Creat Ratio 21.4 RATIO (10-20); Calcium,Total 8.5 mg/dL (8.5-10.1); Chloride 102 mmol/L (98-107); Creatinine, Serum 1.12 mg/dL (0.55-1.02); EST Glomerular Filtration Rate 49 mL/min (>60); Est Glom Filt Rate - Afr Amer 60 mL/min (>60); Estimated Creatinine Clearance 32.86 ml/min; Glucose 146 mg/dL (74-106); Potassium 4.3 mmol/L (3.5-5.1); Sodium Level 132 mmol/L (136-145)
--- NOTE | 2018-07-06 15:31 | PCM.PROGNOTE ---
Patient Problems: Active and Suspected Problems (Last Updated 06/25/18 @ 11:12 by KAR Bullock) CODY (acute kidney injury) (Acute) Subjective: eklutna no sob/cp - Physical Exam General: Alert, Cooperative HEENT: Atraumatic, PERRLA, Normocephalic Oral: Moist Mucosa, No Gingival or Mucosal Lesions/ Ulcerations Neck: Supple Lungs: Clear to auscultation, Normal air movement Cardiovascular: Regular rate, Normal S1, Normal S2 Abdomen: Bowel Sounds Present, Soft, Non Tender Extremities: No clubbing Vital Signs Temp Pulse Resp BP Pulse Ox 99.2 F H 56 L 20 H 139/74 H 95 07/06/18 07:41 07/06/18 08:39 07/06/18 07:41 07/06/18 08:39 07/06/18 07:41 Oxygen Delivery Method Room Air Weight: 85.094 kg Body Mass Index (BMI) 32.8 Finger Stick Blood Glucose 103 Intake and Output for Last 24 Hours 07/04/18 07/05/18 07/06/18 23:59 23:59 23:59 Intake Total 770 / 770 1913 / 1913 1340 / 1340 Output Total 200 / 200 650 / 650 1500 / 1500 Balance 570 / 570 1263 / 1263 -160 / -160 Laboratory Tests Past 24 Hrs 07/06/18 08:14 Sodium 132 L Potassium 4.3 Chloride 102 Carbon Dioxide 22.0 Anion Gap 8 BUN 24 H Creatinine 1.12 H Estim Creat Clear Calc 32.86 Est GFR (MDRD) Af Amer 60 Est GFR (MDRD) Non-Af 49 L BUN/Creatinine Ratio 21.4 H Glucose 146 H Calcium 8.5 Medical Necessity - Tobacco Use Smoking Status: Never smoker Tobacco Use: Non-smoker Assessment/Plan All Active Problems (Last Updated 06/25/18 @ 11:12 by KAR Bullock) CODY (acute kidney injury) (Acute) UTI (urinary tract infection) (Resolved) Orthostatic hypotension (Acute) Pulmonary HTN (Acute) Stroke-like symptoms (Acute) Stroke (Acute) Debility (Acute) CODY prerenal continue to hold losartan Scr 1.1 after ivf which were stopped Hyponatremia SNa 132 asymptomatic if worsening order w/u clinically euvolemic today has h/o diastolic HF per chart review. HTN controlled Hyperkalemia resolved CVA - rehab
[2018-07-06 16:26] VITALS: BMI 32.8
[2018-07-06 21:24] VITALS: PULSE 72
[2018-07-06] MEDS: Atorvastatin Calcium 40 MG Tablet PO (21:24)
[2018-07-06] MEDS: MELATONIN 3 MG TABLET PO (21:26)
[2018-07-06 22:00] VITALS: BP 146/91; PULSE 71; RESP 18; TEMP 36.6; O2SAT 95
[2018-07-07 03:28] VITALS: BMI 32.8
[2018-07-07] MEDS: Levothyroxine 88 MCG Tablet PO (05:27)
[2018-07-07] MEDS: Menthol/Lanolin/Calamine/Znox 113 GM Tube 1 APPLIC TOPICAL ×2 (05:28→20:13)
[2018-07-07] MEDS: Sodium Chloride 0.65% 1 SPRAY SPRAY.BTL 2 SPRAY NASAL ×3 (05:28→19:59)
[2018-07-07] MEDS: Ipratropium Bromide 0.06% NASAL SPRAY 2 SPRAY NASAL ×3 (05:28→19:57)
[2018-07-07 06:48] LABS: Anion Gap 5 (5-15); BUN 16 mg/dL (7-18); BUN/Creat Ratio 16.1 RATIO (10-20); Calcium,Total 8.5 mg/dL (8.5-10.1); Chloride 102 mmol/L (98-107); EST Glomerular Filtration Rate 57 mL/min (>60); Est Glom Filt Rate - Afr Amer 69 mL/min (>60); Estimated Creatinine Clearance 36.81 ml/min; Glucose 93 mg/dL (74-106); Potassium 4.4 mmol/L (3.5-5.1); Sodium Level 131 mmol/L (136-145)
[2018-07-07 07:37] VITALS: BP 119/55; PULSE 60; RESP 18; TEMP 36.6; O2SAT 93
[2018-07-07] MEDS: MethylPREDNISolone DosePak 4 MG BOX PO ×3 (07:44→19:59)
[2018-07-07] MEDS: Aspirin 81 MG TAB.CHEW PO (07:44)
[2018-07-07] MEDS: Senna/Docusate Sodium 1 Tablet 2 TABLET PO ×2 (09:29→19:57)
[2018-07-07] MEDS: Loratadine 10 MG Tablet 5 MG PO (09:29)
[2018-07-07 09:30] VITALS: BP 119/55; PULSE 60
[2018-07-07] MEDS: Metoprolol Tartrate 25 MG Tablet PO ×2 (09:30→19:57)
[2018-07-07] MEDS: Heparin Injection (Vial) 5,000 UNIT/ML VIAL 5000 UNIT SC ×2 (09:30→19:58)
[2018-07-07] MEDS: Pantoprazole Sodium 40 MG Tablet PO (09:31)
[2018-07-07] MEDS: Clopidogrel Bisulfate 75 MG Tablet PO (09:31)
--- NOTE | 2018-07-07 10:26 | PN_ITS ---
Patient Problems: Active and Suspected Problems (Last Updated 06/25/18 @ 11:12 by Ramona Putnam, GISSEL-C) CODY (acute kidney injury) (Acute) Subjective: Patient is lying on the bed. Patient looks mild short of breath. Discussed with the nursing staff. Patient not tachypneic, hypoxic. Blood pressure is stable. No tachycardia. Vitals/I&O's: Vital Signs Temp Pulse Resp BP Pulse Ox 98 F 60 18 119/55 L 93 07/07/18 07:37 07/07/18 09:30 07/07/18 07:37 07/07/18 09:30 07/07/18 07:37 Oxygen Delivery Method Room Air Weight: 187 lb 9.6 oz Body Mass Index (BMI) 32.8 Finger Stick Blood Glucose 103 Intake and Output for Last 24 Hours 07/05/18 07/06/18 07/07/18 23:59 23:59 23:59 Intake Total 1913 / 1913 1340 / 1340 250 / 250 Output Total 650 / 650 1500 / 1500 1550 / 1550 Balance 1263 / 1263 -160 / -160 -1300 / -1300 General: Alert, Oriented x3, Cooperative HEENT: Atraumatic, PERRLA, EOMI, Normocephalic Neck: Supple, No JVD, Negative Carotid Bruits Lungs: Diminished - Air entry is diminished in bilateral lung bases. Expiratory wheezing present. Expiratory phase is prolonged., Rales, Short of Breath Cardiovascular: Regular rate, Regular Rhythm, Normal S1, Normal S2, No murmurs Abdomen: Bowel Sounds Present, Soft, Non Tender Extremities: No edema, Capillary Refill Less than 3 Seconds Skin: No rashes, No breakdown Musculoskeletal: No Tenderness to Palpation of Joints or Extremities, Arthritic Changes, Muscle Wasting Neurological: Cranial nerves II-XII grossly intact, Deep Tendon Reflexes 2+/4 and Symmetrical, Neuro grossly intact, Motor Exam 5/5 strength throughout Psych/Mental Status: Normal Affect, Appropriate Laboratory Results 07/07/18 06:24: Sodium 131 L, Potassium 4.4, Chloride 102, Carbon Dioxide 24.0, Anion Gap 5, BUN 16, Creatinine 1.00, Estim Creat Clear Calc 36.81, Est GFR (MDRD) Af Amer 69, Est GFR (MDRD) Non-Af 57 L, BUN/Creatinine Ratio 16.1, Glucose 93, Calcium 8.5 Current Medications Acetaminophen (Tylenol) 650 mg PO Q4H PRN PRN PRN Reason: PAIN/FEVER Last Admin: 07/05/18 20:01 Dose: 650 mg Aspirin (Aspirin, Baby) 81 mg PO DAILY@0800 [facility] Last Admin: 07/07/18 07:44 Dose: 81 mg Atorvastatin Calcium (Lipitor) 40 mg PO QHS [facility] Last Admin: 07/06/18 21:24 Dose: 40 mg Bisacodyl (Dulcolax) 10 mg RECTAL .PRN X 1 PRN PRN Reason: Constipation Calamine/Phenol (Calmoseptine Ointment) 1 applic TOPICAL BID@0600,2200 [facility]; Protocol Last Admin: 07/07/18 05:28 Dose: 1 applicatio Clopidogrel Bisulfate (Plavix) 75 mg PO DAILY [facility] Last Admin: 07/07/18 09:31 Dose: 75 mg Heparin Sodium (Porcine) (Heparin Na) 5,000 unit SC Q12 [facility] Last Admin: 07/07/18 09:30 Dose: 5,000 unit Hydrocortisone Acetate (Anusol Hc) 25 mg RECTAL BID PRN PRN PRN Reason: Hemorrhoids Ipratropium [place] (Atrovent Nasal [place] (G)) 2 spray NASAL TID [facility] Last Admin: 07/07/18 05:28 Dose: 2 spray Levothyroxine Sodium (Synthroid) 88 mcg PO DAILY@0600 [facility] Last Admin: 07/07/18 05:27 Dose: 88 mcg Loratadine (Claritin) 5 mg PO DAILY [facility] Last Admin: 07/07/18 09:29 Dose: 5 mg Magnesium Hydroxide (Milk Of Magnesia) 30 ml PO .PRN X 1 PRN PRN Reason: Constipation Last Admin: 07/02/18 00:38 Dose: 30 ml Melatonin (Melatonin) 3 mg PO QHS [facility] Last Admin: 07/06/18 21:26 Dose: 3 mg Methylprednisolone (Medrol Dosepak) 4 mg PO 0800,1200,2200 [facility]; Taper Stop: 07/09/18 04:59 Last Admin: 07/07/18 07:44 Dose: 4 mg Metoprolol Tartrate (Lopressor (Beta Aneesh)) 25 mg PO BID [facility] Last Admin: 07/07/18 09:30 Dose: 25 mg Ondansetron HCl (Zofran Odt) 4 mg PO Q8H PRN PRN PRN Reason: NAUSEA/VOMITING Last Admin: 07/03/18 22:32 Dose: 4 mg Pantoprazole Sodium (Protonix) 40 mg PO DAILY [facility] Last Admin: 07/07/18 09:31 Dose: 40 mg Quetiapine Fumarate (Seroquel) 12.5 mg PO QHS PRN PRN PRN Reason: RESTLESSNESS/AGITATION Last Admin: 07/04/18 21:37 Dose: 12.5 mg Senna/Docusate Sodium (Senokot-S, Yareli-Colace) 2 tablet PO BID [facility] Last Admin: 07/07/18 09:29 Dose: 2 tablet Sodium Chloride ([place] Nasal [place]) 2 spray NASAL TID [facility] Last Admin: 07/07/18 05:28 Dose: 2 spray Medical Necessity - Tobacco Use Smoking Status: Never smoker Tobacco Use: Non-smoker Assessment/Plan All Active Problems (Last Updated 06/25/18 @ 11:12 by Ramona Putnam, ASSOCIATE PROFESSOR OF THEOLOGY-C) CODY (acute kidney injury) (Acute) UTI (urinary tract infection) (Resolved) Orthostatic hypotension (Acute) Pulmonary HTN (Acute) Stroke-like symptoms (Acute) Stroke (Acute) Debility (Acute) The patient is a 83 year old F with a significant history of hypertension; hyperlipidemia; hypothyroidism, ; aortic stenosis status post bioprosthetic aortic valve replacement; diastolic dysfunction suggestive of chronic heart failure with preserved EF; pulmonary hypertension is being admitted to acute rehab after evaluation and management for acute left MEDICAL CLAIMS PROCESSOR ischemic stroke and [facility]. The patient had right hand numbness. 1. Acute left MEDICAL CLAIMS PROCESSOR Ischemic stroke: MRI brain is positive of acute left MEDICAL CLAIMS PROCESSOR ischemic stroke. MRI brain reported as occlusion of the left posterior cerebral artery at the level of the P2 segment. She denies any previous history of a stroke. Patient is on permissive hypertension. PT, OT and speech evaluation to continue. Patient is on aspirin, Plavix and atorvastatin. Lipid profile reported as LDL 73, triglyceride 97. HDL 36. 2. Acute kidney injury on CKD stage III: Patient had repeat BMP on 07/05; sodium, from 126-128 but K got high from 4.5-5.8, chloride 102, bicarb 19 with anion gap 7 was difficult to explain after patient got IV fluid normal saline. On 07/04, creatinine went from baseline 1.1-1.93 and sodium 126. Seen by facility examiner. Patient had D5W with 150 M EQ sodium bicarbonate. Repeat BMP on 07/07 shows K4.4, sodium 131, creatinine 1.0, BUN 16, anion gap 5. Bicarb 24. D5W was discontinued on 07/07 in the morning. 3. Chronic heart failure with preserved EF moderate pulmonary hypertension: It seems patient got fluid overloaded. Lasix 40 mg oral 1 dose. Bronchodilator, DuoNeb ordered. Echo was done on 05/2018 and reported as EF 50 to 55%. Mild anteroseptal hypokinesis. LA severely enlarged. RA moderately enlarged. Moderate to severe 3+ TR with RVSP 50 to 55 mmHg suggestive of moderate pulmonary hypertension. Echo suggestive of heart failure with preserved EF and valvular heart disease with moderate pulmonary hypertension Denies any urinary complaints including burning micturition, increased frequency urgency. She has chronic urinary incontinence. Hypertension with chronic diastolic heart failure BP is well controlled. Losartan discontinued. Hypothyroidism Synthroid continued. GERD Protonix continued. DVT prophylaxis Subcutaneous heparin Laboratory Results 07/07/18 06:24: Sodium 131 L, Potassium 4.4, Chloride 102, Carbon Dioxide 24.0, Anion Gap 5, BUN 16, Creatinine 1.00, Estim Creat Clear Calc 36.81, Est GFR (MDRD) Af Amer 69, Est GFR (MDRD) Non-Af 57 L, BUN/Creatinine Ratio 16.1, Glucose 93, Calcium 8.5 Code Visit Inpatient E&M: 77246 Subs Hosp L2
[2018-07-07] MEDS: Acetaminophen 325 MG Tablet 650 MG PO (11:58)
--- NOTE | 2018-07-07 13:20 | RAD_ITS ---
STUDY: X-RAY CHEST REASON FOR EXAM: Female, 83 years old. Wheezing, shortness of breath, history of CVA. TECHNIQUE: Portable upright chest COMPARISON: 06/15/2017 chest x-ray FINDINGS: Median sternotomy, bioprosthetic aortic valve. Clear bilateral lungs without evidence of pneumonia or pulmonary edema. No effusion or pneumothorax. Mild cardiomegaly. Unremarkable medial distal silhouette, vishal and pleural margins. Large sliding hiatal hernia. No acute osseous or upper abdominal process. RAD/Chest 1 View (Portable) IMPRESSION: No acute cardiopulmonary process. Cardiomegaly. Large sliding hiatal hernia. Electronically Signed: Matthew Ybarra MD at 16:02 EDT Tel , Service support ,
--- NOTE | 2018-07-07 13:22 | PCM.PN.HOSP ---
Patient Problems: Active and Suspected Problems (Last Updated 06/25/18 @ 11:12 by Ramona Putnam, GISSEL-C) CODY (acute kidney injury) (Acute) Subjective: Patient is lying on the bed. Patient looks mild short of breath. Discussed with the nursing staff. Patient not tachypneic, hypoxic. Blood pressure is stable. No tachycardia. Vitals/I&O's: Vital Signs Temp Pulse Resp BP Pulse Ox 98 F 60 18 119/55 L 93 07/07/18 07:37 07/07/18 09:30 07/07/18 07:37 07/07/18 09:30 07/07/18 07:37 Oxygen Delivery Method Room Air Weight: 187 lb 9.6 oz Body Mass Index (BMI) 32.8 Finger Stick Blood Glucose 103 Intake and Output for Last 24 Hours 07/05/18 07/06/18 07/07/18 23:59 23:59 23:59 Intake Total 1913 / 1913 1340 / 1340 250 / 250 Output Total 650 / 650 1500 / 1500 1550 / 1550 Balance 1263 / 1263 -160 / -160 -1300 / -1300 General: Alert, Oriented x3, Cooperative HEENT: Atraumatic, PERRLA, EOMI, Normocephalic Neck: Supple, No JVD, Negative Carotid Bruits Lungs: Diminished - Air entry is diminished in bilateral lung bases. Expiratory wheezing present. Expiratory phase is prolonged., Rales, Short of Breath Cardiovascular: Regular rate, Regular Rhythm, Normal S1, Normal S2, No murmurs Abdomen: Bowel Sounds Present, Soft, Non Tender Extremities: No edema, Capillary Refill Less than 3 Seconds Skin: No rashes, No breakdown Musculoskeletal: No Tenderness to Palpation of Joints or Extremities, Arthritic Changes, Muscle Wasting Neurological: Cranial nerves II-XII grossly intact, Deep Tendon Reflexes 2+/4 and Symmetrical, Neuro grossly intact, Motor Exam 5/5 strength throughout Psych/Mental Status: Normal Affect, Appropriate Laboratory Results 07/07/18 06:24: Sodium 131 L, Potassium 4.4, Chloride 102, Carbon Dioxide 24.0, Anion Gap 5, BUN 16, Creatinine 1.00, Estim Creat Clear Calc 36.81, Est GFR (MDRD) Af Amer 69, Est GFR (MDRD) Non-Af 57 L, BUN/Creatinine Ratio 16.1, Glucose 93, Calcium 8.5 Current Medications Acetaminophen (Tylenol) 650 mg PO Q4H PRN PRN PRN Reason: PAIN/FEVER Last Admin: 07/05/18 20:01 Dose: 650 mg Aspirin (Aspirin, Baby) 81 mg PO DAILY@0800 [facility] Last Admin: 07/07/18 07:44 Dose: 81 mg Atorvastatin Calcium (Lipitor) 40 mg PO QHS [facility] Last Admin: 07/06/18 21:24 Dose: 40 mg Bisacodyl (Dulcolax) 10 mg RECTAL .PRN X 1 PRN PRN Reason: Constipation Calamine/Phenol (Calmoseptine Ointment) 1 applic TOPICAL BID@0600,2200 [facility]; Protocol Last Admin: 07/07/18 05:28 Dose: 1 applicatio Clopidogrel Bisulfate (Plavix) 75 mg PO DAILY [facility] Last Admin: 07/07/18 09:31 Dose: 75 mg Heparin Sodium (Porcine) (Heparin Na) 5,000 unit SC Q12 [facility] Last Admin: 07/07/18 09:30 Dose: 5,000 unit Hydrocortisone Acetate (Anusol Hc) 25 mg RECTAL BID PRN PRN PRN Reason: Hemorrhoids Ipratropium [place] (Atrovent Nasal [place] (G)) 2 spray NASAL TID [facility] Last Admin: 07/07/18 05:28 Dose: 2 spray Levothyroxine Sodium (Synthroid) 88 mcg PO DAILY@0600 [facility] Last Admin: 07/07/18 05:27 Dose: 88 mcg Loratadine (Claritin) 5 mg PO DAILY [facility] Last Admin: 07/07/18 09:29 Dose: 5 mg Magnesium Hydroxide (Milk Of Magnesia) 30 ml PO .PRN X 1 PRN PRN Reason: Constipation Last Admin: 07/02/18 00:38 Dose: 30 ml Melatonin (Melatonin) 3 mg PO QHS [facility] Last Admin: 07/06/18 21:26 Dose: 3 mg Methylprednisolone (Medrol Dosepak) 4 mg PO 0800,1200,2200 [facility]; Taper Stop: 07/09/18 04:59 Last Admin: 07/07/18 07:44 Dose: 4 mg Metoprolol Tartrate (Lopressor (Beta Aneesh)) 25 mg PO BID [facility] Last Admin: 07/07/18 09:30 Dose: 25 mg Ondansetron HCl (Zofran Odt) 4 mg PO Q8H PRN PRN PRN Reason: NAUSEA/VOMITING Last Admin: 07/03/18 22:32 Dose: 4 mg Pantoprazole Sodium (Protonix) 40 mg PO DAILY [facility] Last Admin: 07/07/18 09:31 Dose: 40 mg Quetiapine Fumarate (Seroquel) 12.5 mg PO QHS PRN PRN PRN Reason: RESTLESSNESS/AGITATION Last Admin: 07/04/18 21:37 Dose: 12.5 mg Senna/Docusate Sodium (Senokot-S, [place]-Colace) 2 tablet PO BID [facility] Last Admin: 07/07/18 09:29 Dose: 2 tablet Sodium Chloride ([place] Nasal [place]) 2 spray NASAL TID [facility] Last Admin: 07/07/18 05:28 Dose: 2 spray Medical Necessity - Tobacco Use Smoking Status: Never smoker Tobacco Use: Non-smoker Assessment/Plan All Active Problems (Last Updated 06/25/18 @ 11:12 by Ramona Putnam, ASSEMBLER DC FIELD RING-C) CODY (acute kidney injury) (Acute) UTI (urinary tract infection) (Resolved) Orthostatic hypotension (Acute) Pulmonary HTN (Acute) Stroke-like symptoms (Acute) Stroke (Acute) Debility (Acute) The patient is a 83 year old F with a significant history of hypertension; hyperlipidemia; hypothyroidism, ; aortic stenosis status post bioprosthetic aortic valve replacement; diastolic dysfunction suggestive of chronic heart failure with preserved EF; pulmonary hypertension is being admitted to acute rehab after evaluation and management for 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 The patient had right hand numbness. 1. 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 MRI brain reported as occlusion of the left posterior cerebral artery at the level of the P2 segment. She denies any previous history of a stroke. Patient is on permissive hypertension. PT, OT and speech evaluation to continue. Patient is on aspirin, Plavix and atorvastatin. Lipid profile reported as LDL 73, triglyceride 97. HDL 36. 2. Acute kidney injury on CKD stage III: Patient had repeat BMP on 07/05; sodium, from 126-128 but K got high from 4.5-5.8, chloride 102, bicarb 19 with anion gap 7 was difficult to explain after patient got IV fluid normal saline. On 07/04, creatinine went from baseline 1.1-1.93 and sodium 126. Seen by asset recovery specialist. Patient had D5W with 150 M EQ sodium bicarbonate. Repeat BMP on 07/07 shows K4.4, sodium 131, creatinine 1.0, BUN 16, anion gap 5. Bicarb 24. D5W was discontinued on 07/07 in the morning. 3. Chronic heart failure with preserved EF moderate pulmonary hypertension: It seems patient got fluid overloaded. Lasix 40 mg oral 1 dose. Bronchodilator, DuoNeb ordered. Echo was done on 05/2018 and reported as EF 50 to 55%. Mild anteroseptal hypokinesis. LA severely enlarged. RA moderately enlarged. Moderate to severe 3+ TR with RVSP 50 to 55 mmHg suggestive of moderate pulmonary hypertension. Echo suggestive of heart failure with preserved EF and valvular heart disease with moderate pulmonary hypertension Denies any urinary complaints including burning micturition, increased frequency urgency. She has chronic urinary incontinence. Hypertension with chronic diastolic heart failure BP is well controlled. Losartan discontinued. Hypothyroidism Synthroid continued. GERD Protonix continued. DVT prophylaxis Subcutaneous heparin Laboratory Results 07/07/18 06:24: Sodium 131 L, Potassium 4.4, Chloride 102, Carbon Dioxide 24.0, Anion Gap 5, BUN 16, Creatinine 1.00, Estim Creat Clear Calc 36.81, Est GFR (MDRD) Af Amer 69, Est GFR (MDRD) Non-Af 57 L, BUN/Creatinine Ratio 16.1, Glucose 93, Calcium 8.5 Code Visit Inpatient E&M: 58117 Subs Hosp L2
[2018-07-07] MEDS: Furosemide 40 MG Tablet PO (13:58)
[2018-07-07] MEDS: Ipratropium/Albuterol Sulfate 3 ML AMPUL.NEB INHALATION (14:15)
[2018-07-07 14:17] VITALS: PULSE 68; RESP 20; O2SAT 94
--- NOTE | 2018-07-07 14:59 | PCM.PROGNOTE ---
Patient Problems: Active and Suspected Problems (Last Updated 06/25/18 @ 11:12 by Ramona Putnam NP-C) CODY (acute kidney injury) (Acute) Subjective: no c/o no cp/sob - Physical Exam General: Alert, Well nourished HEENT: Atraumatic, PERRLA Oral: Moist Mucosa, No Gingival or Mucosal Lesions/ Ulcerations Neck: Supple Lungs: Clear to auscultation, Normal air movement Cardiovascular: Regular rate, Regular Rhythm, Normal S1, Normal S2 Abdomen: Bowel Sounds Present, Soft, Non Tender Extremities: No clubbing, No cyanosis Neurological: Cranial nerves II-XII grossly intact Vital Signs Temp Pulse Resp BP Pulse Ox 98 F 68 20 H 119/55 L 94 07/07/18 07:37 07/07/18 14:17 07/07/18 14:17 07/07/18 09:30 07/07/18 14:17 Oxygen Delivery Method Room Air Weight: 85.094 kg Body Mass Index (BMI) 32.8 Finger Stick Blood Glucose 103 Intake and Output for Last 24 Hours 07/05/18 07/06/18 07/07/18 23:59 23:59 23:59 Intake Total 1913 / 1913 1340 / 1340 300 / 300 Output Total 650 / 650 1500 / 1500 1550 / 1550 Balance 1263 / 1263 -160 / -160 -1250 / -1250 Laboratory Tests Past 24 Hrs 07/07/18 06:24 Sodium 131 L Potassium 4.4 Chloride 102 Carbon Dioxide 24.0 Anion Gap 5 BUN 16 Creatinine 1.00 Estim Creat Clear Calc 36.81 Est GFR (MDRD) Af Amer 69 Est GFR (MDRD) Non-Af 57 L BUN/Creatinine Ratio 16.1 Glucose 93 Calcium 8.5 Medical Necessity - Tobacco Use Smoking Status: Never smoker Tobacco Use: Non-smoker Assessment/Plan All Active Problems (Last Updated 06/25/18 @ 11:12 by Ramona Putnam NP-C) CODY (acute kidney injury) (Acute) UTI (urinary tract infection) (Resolved) Orthostatic hypotension (Acute) Pulmonary HTN (Acute) Stroke-like symptoms (Acute) Stroke (Acute) Debility (Acute) CODY prerenal continue to hold losartan Scr 1. Hyponatremia likely with HF SNa 131 asymptomatic received lasix one dose today f/u Xray if no improvement will need fluid restriction also. HTN controlled Hyperkalemia resolved CVA - rehab
[2018-07-07 15:32] VITALS: BMI 32.8
[2018-07-07 19:21] VITALS: BP 128/57; PULSE 86; RESP 18; TEMP 37.3; O2SAT 93
[2018-07-07 19:30] VITALS: PULSE 86; RESP 18; O2SAT 93; BMI 32.8
[2018-07-07 19:57] VITALS: BP 123/57; PULSE 86
[2018-07-07] MEDS: Atorvastatin Calcium 40 MG Tablet PO (19:58)
[2018-07-07] MEDS: MELATONIN 3 MG TABLET PO (19:58)
[2018-07-07] MEDS: QUEtiapine 25 MG Tablet 12.5 MG PO (19:58)
--- NOTE | 2018-07-07 23:42 | PCA ---
Addendum entered by Emilee Millan 07/08/18 00:13: charted below took place at 2330 Original Note: At 2400 while delivering clean linen to room Pt stated she needed to use the restroom. Pt ambulated normal to the restroom. Pt voided and small smear BM. Upon standing Pt stated she needed to sit back down for a moment. Pt sat and rested for a few min then stood and walked back toward the bed. About half way to the bed Pt suddenly stopped and leaned back against my chest. I then slowly lowered Pt to the ground and called for the RN.
--- NOTE | 2018-07-07 23:43 | NURSING ---
Nursing staff summoned by UPKEEP WORKER when pt was lowered to ground while returning to bed following toileting. Pt had smearing BM in toilet and became weak while transferring to bed. UPKEEP WORKER was able to guide pt to floor while bracing against UPKEEP WORKER body. Blood sugar checked = 176. BP 118/67, RR 20, SpO2 93%, HR 77. Pt denied pain and physical assessment found no redness or laceration. Pt repositioned in bed and denies needs.
[2018-07-07 23:45] LABS: Bedside Glucose 176 mg/dL (70-110)
--- NOTE | 2018-07-08 00:03 | NURSING ---
Hospitalist, Dr Bhakta, paged and notified of pt weak/dizzy spell. NNOs. Pt appears to be resting comfortably in bed at this time with no s/sx of distress or discomfort and breathing is regular. Staff will continue to monitor pt.
--- NOTE | 2018-07-08 03:08 | NURSING ---
Reviewed and agree with WARD ATTENDANT documentation and FIMs charting.
[2018-07-08] MEDS: Menthol/Lanolin/Calamine/Znox 113 GM Tube 1 APPLIC TOPICAL ×2 (05:22→20:26)
[2018-07-08] MEDS: Ipratropium Bromide 0.06% NASAL SPRAY 2 SPRAY NASAL ×3 (05:22→20:24)
[2018-07-08] MEDS: Sodium Chloride 0.65% 1 SPRAY SPRAY.BTL 2 SPRAY NASAL ×3 (05:22→20:23)
[2018-07-08] MEDS: Acetaminophen 325 MG Tablet 650 MG PO ×2 (05:23→20:23)
[2018-07-08] MEDS: Levothyroxine 88 MCG Tablet PO (05:23)
[2018-07-08 06:11] LABS: Anion Gap 12 (5-15); BUN 20 mg/dL (7-18); BUN/Creat Ratio 16.5 RATIO (10-20); Calcium,Total 8.9 mg/dL (8.5-10.1); Chloride 98 mmol/L (98-107); Creatinine, Serum 1.21 mg/dL (0.55-1.02); EST Glomerular Filtration Rate 45 mL/min (>60); Est Glom Filt Rate - Afr Amer 55 mL/min (>60); Estimated Creatinine Clearance 30.42 ml/min; Glucose 124 mg/dL (74-106); Sodium Level 132 mmol/L (136-145)
[2018-07-08 06:38] LABS: Absolute Lymphocyte Count 1.33 X10^3/ul (0.83-4.51); Absolute Neutrophil Count 8.6 X10^3/uL (2.0-7.7); Basophil# 0.02 X10^3/uL; Basophil% 0.2 % (0-1); Hematocrit 30.8 % (37-47); Hemoglobin 9.8 g/dl (12.0-15.0); Lymphocyte # 1.33 X10^3/ul (4.0); Lymphocyte % 12.3 % (19-41); Mean Corp Hgb Conc 31.8 g/gl (32-36); Mean Corpuscular Volume 69.1 fL (81-99); Mean Platelet Vol. 9.5 fl (6.2-12.0); Monocyte# 0.87 X10^3/uL; Neutrophil # 8.55 X10^3/uL (2.7-7.7); Platelet Count 263 K/mm3 (150-450); RBC Distribution Width CV 20.3 % (11.6-14.6); RBC Distribution Width SD 50.7 fl (35.1-43.9); Red Blood Count 4.46 M/mm3 (4.2-5.4); White Blood Count 10.8 K/mm3 (4.4-11.0)
[2018-07-08 06:46] LABS: Differential Indicated SCAN CRITERIA MET; POSITIVE COUNT NO; POSITIVE DIFFERENTIAL NO; POSITIVE MORPHOLOGY YES
[2018-07-08 07:00] LABS: Acanthocytes 1+; Differential Comment SCANNED; Hypochromasia 3+; Microcytosis 3+; Ovalocyte 1+; Target Cells 2+
[2018-07-08 07:56] VITALS: BP 134/77; PULSE 87
[2018-07-08] MEDS: Loratadine 10 MG Tablet 5 MG PO (07:56)
[2018-07-08] MEDS: Aspirin 81 MG TAB.CHEW PO (07:56)
[2018-07-08] MEDS: Pantoprazole Sodium 40 MG Tablet PO (07:56)
[2018-07-08] MEDS: MethylPREDNISolone DosePak 4 MG BOX PO ×2 (07:56→20:22)
[2018-07-08] MEDS: Metoprolol Tartrate 25 MG Tablet PO ×2 (07:56→20:24)
[2018-07-08] MEDS: Clopidogrel Bisulfate 75 MG Tablet PO (07:56)
[2018-07-08] MEDS: Heparin Injection (Vial) 5,000 UNIT/ML VIAL 5000 UNIT SC ×2 (09:20→20:24)
[2018-07-08 10:00] VITALS: BP 134/77; PULSE 87; RESP 18; TEMP 37.2; O2SAT 94
--- NOTE | 2018-07-08 11:06 | PN.RENAL_ITS ---
Patient Problems: Active and Suspected Problems (Last Updated 06/25/18 @ 11:12 by Ramona Putnam, WOMEN'S APPAREL SALESPERSON-C) CODY (acute kidney injury) (Acute) Subjective: No nausea no vomiting. No shortness of breath No chest pain - Physical Exam General: Alert, Oriented x3 HEENT: Atraumatic Oral: Moist Mucosa Neck: Supple, No JVD Lungs: Clear to auscultation, Normal air movement, No rhonchi Cardiovascular: Regular rate, Regular Rhythm, Normal S1, Normal S2 Abdomen: Bowel Sounds Present, Non Tender, Non-Distended Extremities: No clubbing, No cyanosis, No edema Skin: No rashes Musculoskeletal: No Tenderness to Palpation of Joints or Extremities Lymphatic: No Cervical, Supraclavicular, or Inguinal Adenopathy Neurological: Cranial nerves II-XII grossly intact, Neuro grossly intact Psych/Mental Status: Appropriate Vital Signs Temp Pulse Resp BP Pulse Ox 99 F 87 18 134/77 H 94 07/08/18 10:00 07/08/18 10:00 07/08/18 10:00 07/08/18 10:00 07/08/18 10:00 Oxygen Delivery Method Room Air Weight: 85.094 kg Body Mass Index (BMI) 32.8 Finger Stick Blood Glucose 103 Intake and Output for Last 24 Hours 07/06/18 07/07/18 07/08/18 23:59 23:59 23:59 Intake Total 1340 / 1340 300 / 300 Output Total 1500 / 1500 2700 / 2700 Balance -160 / -160 -2400 / -2400 Laboratory Tests Past 24 Hrs 07/08/18 07/08/18 05:25 05:25 WBC 10.8 RBC 4.46 Hgb 9.8 L Hct 30.8 L MCV 69.1 L MCH 22.0 L MCHC 31.8 L RDW 20.3 H RDW Differential 50.7 H Plt Count 263 MPV 9.5 Immature Gran % (Auto) 0.500 Neut % (Auto) 79.0 H Lymph % (Auto) 12.3 L [place] % (Auto) 8.0 Eos % (Auto) 0.0 Baso % (Auto) 0.2 Absolute Neuts (auto) 8.6 H Absolute Lymphs (auto) 1.33 Total Counted Not Reportable Differential Comment SCANNED Hypochromasia 3+ Microcytosis 3+ Target Cells 2+ Ovalocytes 1+ Acanthocytes (Spur) 1+ Sodium 132 L Potassium 4.0 Chloride 98 Carbon Dioxide 22.0 Anion Gap 12 BUN 20 H Creatinine 1.21 H Estim Creat Clear Calc 30.42 Est GFR (MDRD) Af Amer 55 L Est GFR (MDRD) Non-Af 45 L BUN/Creatinine Ratio 16.5 Glucose 124 H Calcium 8.9 POC Glucose 07/07/18 23:31 POC Glucose 176 H Medical Necessity - Tobacco Use Smoking Status: Never smoker Tobacco Use: Non-smoker Assessment/Plan All Active Problems (Last Updated 06/25/18 @ 11:12 by Ramona Putnam, WOMEN'S APPAREL SALESPERSON-C) CODY (acute kidney injury) (Acute) UTI (urinary tract infection) (Resolved) Orthostatic hypotension (Acute) Pulmonary HTN (Acute) Stroke-like symptoms (Acute) Stroke (Acute) Debility (Acute) CODY on chronic kidney disease. Baseline creatinine seems around 1.0-1.2. Acute kidney injury was most probably from prerenal. Creatinine peaked at 1.9 and improved to baseline with holding losartan IV fluid. Creatinine today at 1.2. Please continue holding losartan. No need for diuretics. Might still use Lasix as needed if worsening breathing status. 2-hypertension: Blood pressure is well controlled. No need for losartan. We will continue to monitor blood pressure 3-Hyponatremia likely related to acute kidney injury and fluid retention. Sodium is stable at 132. We will continue to monitor sodium level. 4- Metabolic acidosis. resolved with kidney function and IV NaHCO3 drip. Now off the NaHCO3 drip 4-Hyperkalemia . This was due to acute kidney injury and losartan. Improved to normal with kidney function improvement and holding losartan. 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 PT in rehab center Renal team will continue to follow. Please call if any question or concern Demetrius Escobar MD
--- NOTE | 2018-07-08 12:38 | PCM.PN.NEU ---
Patient Problems: Active and Suspected Problems (Last Updated 06/25/18 @ 11:12 by Ramona Putnam, GISSEL-C) CODY (acute kidney injury) (Acute) Subjective: Per nursing patient became weak and dizzy after having a BM during transfer last night into bed and was lowered to the floor, no injury. Patient was then assisted back to bed and symptoms resolved. Nursing notified Hospitalist no new orders. Nephrology continues to follow patient and losartan will not be restarted at this time per Nephrology. Patient continues to have clear nasal drainage and per patient I get this a lot during this time. CXR done on 07/07/2018 which showed no acute pulmonary process. Claritin, atrovent and prn aerosol continue. Team meeting held this am. Patient continues to require some assist with mobility and ADLs and with cognition, it was discussed that patient will be discharged to SNF for discharge. electronics worker will update patient once SNF is obtained. Patient is agreeable to this. - Physical Exam General: Alert, Oriented x3 - can be forgetful at times, Cooperative HEENT: Atraumatic, PERRLA Oral: Moist Mucosa, - - post nasal drip Neck: Supple, No JVD Lungs: Clear to auscultation, Normal air movement Cardiovascular: Regular rate, Regular Rhythm Abdomen: Bowel Sounds Present, Soft, Non Tender Extremities: No clubbing, No cyanosis, No edema Musculoskeletal: No Tenderness to Palpation of Joints or Extremities Neurological: Cranial nerves II-XII grossly intact, Deep Tendon Reflexes 2+/4 and Symmetrical, Neuro grossly intact, Motor Exam 5/5 strength throughout Psych/Mental Status: Normal Affect, Appropriate, Alert and oriented to time, place, person, mood and affect - can be forgetful at times, easily redirected Vital Signs Temp Pulse Resp BP Pulse Ox 99 F 87 18 134/77 H 94 07/08/18 10:00 07/08/18 10:00 07/08/18 10:00 07/08/18 10:07/08/18 10:00 Oxygen Delivery Method Room Air Weight: 85.094 kg Body Mass Index (BMI) 32.8 Finger Stick Blood Glucose 103 Intake and Output for Last 24 Hours 07/06/18 07/07/18 07/08/18 23:59 23:59 23:59 Intake Total 1340 / 1340 300 / 300 Output Total 1500 / 1500 2700 / 2700 Balance -160 / -160 -2400 / -2400 Laboratory Tests Past 24 Hrs 07/08/18 07/08/18 05:25 05:25 WBC 10.8 RBC 4.46 Hgb 9.8 L Hct 30.8 L MCV 69.1 L MCH 22.0 L MCHC 31.8 L RDW 20.3 H RDW Differential 50.7 H Plt Count 263 MPV 9.5 Immature Gran % (Auto) 0.500 Neut % (Auto) 79.0 H Lymph % (Auto) 12.3 L [place] % (Auto) 8.0 Eos % (Auto) 0.0 Baso % (Auto) 0.2 Absolute Neuts (auto) 8.6 H Absolute Lymphs (auto) 1.33 Total Counted Not Reportable Differential Comment SCANNED Hypochromasia 3+ Microcytosis 3+ Target Cells 2+ Ovalocytes 1+ Acanthocytes (Spur) 1+ Sodium 132 L Potassium 4.0 Chloride 98 Carbon Dioxide 22.0 Anion Gap 12 BUN 20 H Creatinine 1.21 H Estim Creat Clear Calc 30.42 Est GFR (MDRD) Af Amer 55 L Est GFR (MDRD) Non-Af 45 L BUN/Creatinine Ratio 16.5 Glucose 124 H Calcium 8.9 POC Glucose 07/07/18 23:31 POC Glucose 176 H Medical Necessity - Tobacco Use Smoking Status: Never smoker Tobacco Use: Non-smoker Assessment/Plan All Active Problems (Last Updated 06/25/18 @ 11:12 by Ramona Putnam, ORACLE FORMS DEVELOPER-C) CODY (acute kidney injury) (Acute) UTI (urinary tract infection) (Resolved) Orthostatic hypotension (Acute) Pulmonary HTN (Acute) Stroke-like symptoms (Acute) Stroke (Acute) Debility (Acute) The patient is a 83 year old F with PMH HTN, HLD, aortic stenosis status post bioprosthetic aortic valve replacement, hypothyroidism admitted to [facility] on 06/18/2018 with debility status post acute left MEDICAL REIMBURSEMENT MANAGER stroke, but greater than 3 hours therapy daily with a goal of returning back home at or near her prior level of functional independence. She was admitted with right-sided numbness and slurred speech to the inpatient hospital on 06/15/2018. Per ED documentation on admission NIHSS was 2. MRI brain done on admission reported to show acute left MEDICAL REIMBURSEMENT MANAGER infarct, MR angiogram head/neck showed left P2 occlusion. Per documentation patient is on aspirin/Plavix at baseline. Per patient she lives alone, denies any frequent falls, does use cane for ambulating, does drive. Per patient she lives in an independent house and has 3 steps to get into the house. At present patient denies any numbness in the right side, denies any headache, dizziness, visual disturbances, speech disturbances, focal motor weakness, or sensory loss. Plan ? PT for gait stability ? OT for ADLs - ST for cognitive ? Analgesics as needed ? Bowel protocol ? Acute left MEDICAL REIMBURSEMENT MANAGER stroke?on aspirin and clopidogrel at baseline for many years, on atorvastatin - 30 day event monitor at discharge ? HTN?on metoprolol ? HLD?on atorvastatin ? Hypothyroidism?on levothyroxine ? GI/DVT prophylaxis?on pantoprazole/heparin 5000 units subcu 12 hourly - Insomnia -Seroquel 12.5 mg QHS PRN and continue melatonin - Depression - Zoloft 25 mg daily - allergic rhinitis started on ipratropium and Claritin - Acute Renal failure, Cr 1.21on 07/08/18 improving - Nephrology to follow - Hyperkalemia K+ 4.0 on 07/08/18, losartan d/c and improving - Nephrology to follow - Hyponatremia Na 132 on 07/08/18 stable- Nephrology to follow - Metabolic acidosis resolved- Nephrology to follow ? Fall precautions ? Further medical management per hospitalist recommendation. Hospitalist consult ? Follow-up with PCP, neurology, Nephrology and cardiology on discharge
--- NOTE | 2018-07-08 12:44 | PN.NEURO_ITS ---
Patient Problems: Active and Suspected Problems (Last Updated 06/25/18 @ 11:12 by Ramona Putnam, GISSEL-C) CODY (acute kidney injury) (Acute) Subjective: Per nursing patient became weak and dizzy after having a BM during transfer last night into bed and was lowered to the floor, no injury. Patient was then assisted back to bed and symptoms resolved. Nursing notified Hospitalist no new orders. Nephrology continues to follow patient and losartan will not be restarted at this time per Nephrology. Patient continues to have clear nasal drainage and per patient I get this a lot during this time. CXR done on 07/07/2018 which showed no acute pulmonary process. Claritin, atrovent and prn aerosol continue. Team meeting held this am. Patient continues to require some assist with mobility and ADLs and with cognition, it was discussed that patient will be discharged to SNF for discharge. make ready worker will update patient once SNF is obtained. Patient is agreeable to this. - Physical Exam General: Alert, Oriented x3 - can be forgetful at times, Cooperative HEENT: Atraumatic, PERRLA Oral: Moist Mucosa, - - post nasal drip Neck: Supple, No JVD Lungs: Clear to auscultation, Normal air movement Cardiovascular: Regular rate, Regular Rhythm Abdomen: Bowel Sounds Present, Soft, Non Tender Extremities: No clubbing, No cyanosis, No edema Musculoskeletal: No Tenderness to Palpation of Joints or Extremities Neurological: Cranial nerves II-XII grossly intact, Deep Tendon Reflexes 2+/4 and Symmetrical, Neuro grossly intact, Motor Exam 5/5 strength throughout Psych/Mental Status: Normal Affect, Appropriate, Alert and oriented to time, place, person, mood and affect - can be forgetful at times, easily redirected Vital Signs Temp Pulse Resp BP Pulse Ox 99 F 87 18 134/77 H 94 07/08/18 10:00 07/08/18 10:00 07/08/18 10:00 07/08/18 10:07/08/18 10:00 Oxygen Delivery Method Room Air Weight: 85.094 kg Body Mass Index (BMI) 32.8 Finger Stick Blood Glucose 103 Intake and Output for Last 24 Hours 07/06/18 07/07/18 07/08/18 23:59 23:59 23:59 Intake Total 1340 / 1340 300 / 300 Output Total 1500 / 1500 2700 / 2700 Balance -160 / -160 -2400 / -2400 Laboratory Tests Past 24 Hrs 07/08/18 07/08/18 05:25 05:25 WBC 10.8 RBC 4.46 Hgb 9.8 L Hct 30.8 L MCV 69.1 L MCH 22.0 L MCHC 31.8 L RDW 20.3 H RDW Differential 50.7 H Plt Count 263 MPV 9.5 Immature Gran % (Auto) 0.500 Neut % (Auto) 79.0 H Lymph % (Auto) 12.3 L [place] % (Auto) 8.0 Eos % (Auto) 0.0 Baso % (Auto) 0.2 Absolute Neuts (auto) 8.6 H Absolute Lymphs (auto) 1.33 Total Counted Not Reportable Differential Comment SCANNED Hypochromasia 3+ Microcytosis 3+ Target Cells 2+ Ovalocytes 1+ Acanthocytes (Spur) 1+ Sodium 132 L Potassium 4.0 Chloride 98 Carbon Dioxide 22.0 Anion Gap 12 BUN 20 H Creatinine 1.21 H Estim Creat Clear Calc 30.42 Est GFR (MDRD) Af Amer 55 L Est GFR (MDRD) Non-Af 45 L BUN/Creatinine Ratio 16.5 Glucose 124 H Calcium 8.9 POC Glucose 07/07/18 23:31 POC Glucose 176 H Medical Necessity - Tobacco Use Smoking Status: Never smoker Tobacco Use: Non-smoker Assessment/Plan All Active Problems (Last Updated 06/25/18 @ 11:12 by Ramona Putnam, JIGGER OPERATOR-C) CODY (acute kidney injury) (Acute) UTI (urinary tract infection) (Resolved) Orthostatic hypotension (Acute) Pulmonary HTN (Acute) Stroke-like symptoms (Acute) Stroke (Acute) Debility (Acute) The patient is a 83 year old F with PMH HTN, HLD, aortic stenosis status post bioprosthetic aortic valve replacement, hypothyroidism admitted to [facility] on 06/18/2018 with debility status post acute left MANAGER CENTER stroke, but greater than 3 hours therapy daily with a goal of returning back home at or near her prior level of functional independence. She was admitted with right-sided numbness and slurred speech to the inpatient hospital on . Per ED documentation on admission NIHSS was 2. MRI brain done on admission reported to show acute left MANAGER CENTER infarct, MR angiogram head/neck showed left P2 occlusion. Per documentation patient is on aspirin/Plavix at baseline. Per patient she lives alone, denies any frequent falls, does use cane for ambulating, does drive. Per patient she lives in an independent house and has 3 steps to get into the house. At present patient denies any numbness in the right side, denies any headache, dizziness, visual disturbances, speech disturbances, focal motor weakness, or sensory loss. Plan ? PT for gait stability ? OT for ADLs - ST for cognitive ? Analgesics as needed ? Bowel protocol ? Acute left MANAGER CENTER stroke?on aspirin and clopidogrel at baseline for many years, on atorvastatin - 30 day event monitor at discharge ? HTN?on metoprolol ? HLD?on atorvastatin ? Hypothyroidism?on levothyroxine ? GI/DVT prophylaxis?on pantoprazole/heparin 5000 units subcu 12 hourly - Insomnia -Seroquel 12.5 mg QHS PRN and continue melatonin - Depression - Zoloft 25 mg daily - allergic rhinitis started on ipratropium and Claritin - Acute Renal failure, Cr 1.21on 07/08/18 improving - Nephrology to follow - Hyperkalemia K+ 4.0 on 07/08/18, losartan d/c and improving - Nephrology to follow - Hyponatremia Na 132 on 07/08/18 stable- Nephrology to follow - Metabolic acidosis resolved- Nephrology to follow ? Fall precautions ? Further medical management per hospitalist recommendation. Hospitalist consult ? Follow-up with PCP, neurology, Nephrology and cardiology on discharge
[2018-07-08 14:08] VITALS: BMI 32.8
--- NOTE | 2018-07-08 16:33 | CASEMGMT ---
Team meeting held today with pt and granddaughter Emilee present. Pt is receiving PT/OT/ST and participating. At this time pt continues to have issues with cognition and memory. Pt is not safe to return home alone. Pt and granddaughter acknowledge this and are agreeable to SNF. Pt granddgt would prefer [facility] as pt was her previously and pt is agreeable. Referral made to [facility] and they are able to accept pt. Discharge anticipated for tomorrow 07/09/18. Met with pt and she is agreeable. Phone call to granddaughter Emilee and she is agreeable. Emilee states pt son Roberto Carlos will be coming to [facility] and can transport pt tomorrow after lunch. Nursing made aware. VM left with Marcie at [facility] of d/c tomorrow. Will fax orders when obtained. Plan: [facility] SNF on 07/09/18. Son to transport. CORTNEY Young
[2018-07-08 19:28] VITALS: BP 127/77; PULSE 91; RESP 18; TEMP 37.6; O2SAT 92
[2018-07-08 20:15] VITALS: PULSE 91; RESP 20; O2SAT 92; BMI 32.8
[2018-07-08 20:24] VITALS: BP 127/77; PULSE 91
[2018-07-08] MEDS: Atorvastatin Calcium 40 MG Tablet PO (20:24)
[2018-07-08] MEDS: MELATONIN 3 MG TABLET PO (20:24)
[2018-07-08] MEDS: QUEtiapine 25 MG Tablet 12.5 MG PO (20:30)
--- NOTE | 2018-07-09 01:41 | NURSING ---
Reviewed and agree with SWIMMING COACH documentation and FIMs charting.
[2018-07-09] MEDS: Ipratropium Bromide 0.06% NASAL SPRAY 2 SPRAY NASAL ×2 (06:14→14:30)
[2018-07-09] MEDS: Menthol/Lanolin/Calamine/Znox 113 GM Tube 1 APPLIC TOPICAL (06:15)
[2018-07-09] MEDS: Sodium Chloride 0.65% 1 SPRAY SPRAY.BTL 2 SPRAY NASAL ×2 (06:15→14:30)
[2018-07-09] MEDS: Acetaminophen 325 MG Tablet 650 MG PO ×2 (06:17→11:56)
[2018-07-09] MEDS: Levothyroxine 88 MCG Tablet PO (06:37)
[2018-07-09 07:09] VITALS: BP 129/62; PULSE 72; RESP 17; TEMP 36.4; O2SAT 94
[2018-07-09] MEDS: Loratadine 10 MG Tablet 5 MG PO (07:43)
[2018-07-09] MEDS: Aspirin 81 MG TAB.CHEW PO (07:43)
[2018-07-09] MEDS: Pantoprazole Sodium 40 MG Tablet PO (07:44)
[2018-07-09] MEDS: Clopidogrel Bisulfate 75 MG Tablet PO (07:44)
[2018-07-09 07:45] VITALS: BP 129/62; PULSE 72
[2018-07-09] MEDS: Heparin Injection (Vial) 5,000 UNIT/ML VIAL 5000 UNIT SC (07:45)
[2018-07-09] MEDS: Metoprolol Tartrate 25 MG Tablet PO (07:45)
--- NOTE | 2018-07-09 11:43 | PCM.TXEXTCAR ---
- Diet 06/20/18 14:11 Diet: Cardiac/Low Cholesterol Food consistency:: Soft Liquid Consistency:: Regular/Thin Is pt able to select menu?: Yes Diet Comments: Distant supervision - Routine Orders/Code Status Code Status: Full Code - Wound(s) rt toe Wound Type: bruise R Lateral Bermudez Wound Type: scab Gluteal Cleft Wound Type: Fissure UPPER/CENTRAL BACK Wound Type: Abrasion coccyx Wound Type: moist area - Therapies Weight Bearing: Full weight bearing Physical Therapy: Eval and Treat Occupational Therapy: Eval and Treat Speech Therapy: Eval and Treat - Allergies/Procedures Done in Hospital Allergies/Adverse Reactions: Allergies adhesive Adverse Reaction (Verified 06/15/18 19:31) Rash - Type of Care/Length of Stay Estimated LOS: Convalescent Care Less Than 30 days Type of Care Needed: Skilled Rehab Potential: Good Prognosis: Good - Additional Orders/Day of Discharge Additional Orders: Takes Aspirin and Plavix at baseline Day of Discharge: 07/09/18 - Dietary and Speech Recommendations Dietitian Recommendations/Changes: Rec continue cardiac/low chol diet with consistency per DIRECTOR OF PATIENT CARE. Canceled ONS at meals d/t increased gabe. - Follow Up Care Primary Care Physician: Bogdan Gordon MD [Primary Care Provider] - Please Follow Up With: Nikunj Bui MD When: 08/14/2018 @ 11:00 Please Follow Up With: Cardiovascular [place] When: 30 day event monitor Please Follow Up With: Nephrology Please Follow Up With: Neurology
--- NOTE | 2018-07-09 11:47 | TREXTCAR_ITS ---
- Diet 06/20/18 14:11 Diet: Cardiac/Low Cholesterol Food consistency:: Soft Liquid Consistency:: Regular/Thin Is pt able to select menu?: Yes Diet Comments: Distant supervision - Routine Orders/Code Status Code Status: Full Code - Wound(s) rt toe Wound Type: bruise R Lateral Bermudez Wound Type: scab Gluteal Cleft Wound Type: Fissure UPPER/CENTRAL BACK Wound Type: Abrasion coccyx Wound Type: moist area - Therapies Weight Bearing: Full weight bearing Physical Therapy: Eval and Treat Occupational Therapy: Eval and Treat Speech Therapy: Eval and Treat - Allergies/Procedures Done in Hospital Allergies/Adverse Reactions: Allergies adhesive Adverse Reaction (Verified 06/15/18 19:31) Rash - Type of Care/Length of Stay Estimated LOS: Convalescent Care Less Than 30 days Type of Care Needed: Skilled Rehab Potential: Good Prognosis: Good - Additional Orders/Day of Discharge Additional Orders: Takes Aspirin and Plavix at baseline Day of Discharge: 07/09/18 - Dietary and Speech Recommendations Dietitian Recommendations/Changes: Rec continue cardiac/low chol diet with consistency per RUG CLEANER HAND. Canceled ONS at meals d/t increased gabe. - Follow Up Care Primary Care Physician: Bogdan Gordon MD [Primary Care Provider] - Please Follow Up With: Nikunj Bui MD When: 08/14/2018 @ 11:00 Please Follow Up With: Cardiovascular [place] When: 30 day event monitor Please Follow Up With: Nephrology Please Follow Up With: Neurology
[2018-07-09 11:49] VITALS: BP 129/62; PULSE 72; RESP 17; TEMP 36.4; O2SAT 94
--- NOTE | 2018-07-09 11:53 | PCM.RU.DC ---
Rehab Discharge Summary DATE OF ADMISSION: 06/18/18 DATE OF DISCHARGE: 07/09/2018 - Rehab Diagnosis Acute Left RADIOCHEMICAL TECHNICIAN Stroke Patient Problems: Active and Suspected Problems (Last Updated 06/25/18 @ 11:12 by Ramona Putnam NP-C) CODY (acute kidney injury) (Acute) Subjective: Per nursing no issues overnight. Patient aware of being discharged to SNF for further therapies. Patient denied any further questions or concerns. - Physical Exam General: Alert, Oriented x3 - can be forgetful at times, Cooperative HEENT: Atraumatic, PERRLA Oral: Moist Mucosa Neck: Supple, No JVD Lungs: Clear to auscultation, Normal air movement Cardiovascular: Regular rate, Regular Rhythm Abdomen: Bowel Sounds Present, Soft, Non Tender Extremities: No clubbing, No cyanosis, No edema Musculoskeletal: No Tenderness to Palpation of Joints or Extremities Neurological: Cranial nerves II-XII grossly intact, Deep Tendon Reflexes 2+/4 and Symmetrical, Neuro grossly intact, Motor Exam 5/5 strength throughout Psych/Mental Status: Normal Affect, Appropriate, Alert and oriented to time, place, person, mood and affect - can be forgetful at times, easily redirects and cooperative Vital Signs Temp Pulse Resp BP Pulse Ox 97.6 F L 72 17 129/62 H 94 07/09/18 07:09 07/09/18 07:45 07/09/18 07:09 07/09/18 07:45 07/09/18 07:09 Oxygen Delivery Method Room Air Weight: 85.094 kg Body Mass Index (BMI) 32.8 Finger Stick Blood Glucose 103 Intake and Output for Last 24 Hours 07/07/18 07/08/18 07/09/18 23:59 23:59 23:59 Intake Total 300 / 300 240 / 240 Output Total 2700 / 2700 300 / 300 300 / 300 Balance -2400 / -2400 -60 / -60 -300 / -300 Discharge Diet: Soft diet, Swallowing Precautions Discharge Activity: Return to Normal Activity, May Not Drive, May Shower, Use Walker Weight Bearing Status: Weight bearing as tolerated Call your doctor if you observe: Fever of 101 or Higher, Coldness, Increased Pain, Numbness or Tingling, Inability to urinate, Inability to have a bowel movement, Shortness of breath, Dizziness, Fainting spells, Swelling in the ankles, Chest pain, Prolonged hiccoughing, Increased palpitations (irregular heartbeat), Calf discomfort, Uncontrolled pain Home Medications: Medications to take at Discharge Acetaminophen [Tylenol Tablet] 650 mg PO Q4H PRN PRN tablet 07/09/18 Aspirin [Aspirin, Baby] 81 mg PO DAILY@0800 tab.chew 07/09/18 Atorvastatin Calcium [Lipitor] 40 mg PO QHS tablet 07/09/18 Clopidogrel Bisulfate [Plavix] 75 mg PO DAILY tablet 07/09/18 Ipratropium [place] 0.06% [ATROVENT NASAL SPRAY] 2 spray NASAL TID nasal.sry 07/09/18 Levothyroxine [Synthroid] 88 mcg PO DAILY@0600 tablet 07/09/18 Loratadine [Claritin] 5 mg PO DAILY tablet 07/09/18 Melatonin 3 mg PO QHS tablet 07/09/18 Menthol/Lanolin/Calamine/Znox [Calmoseptine Ointment] 1 applic TOPICAL BID@0600,2200 tube 07/09/18 Metoprolol Tartrate [Lopressor (beta oneyda)] 25 mg PO BID tablet 07/09/18 Pantoprazole Sodium [Protonix] 40 mg PO DAILY tablet 07/09/18 Quetiapine Fumarate [Seroquel] 12.5 mg PO QHS PRN PRN #30 tab 07/09/18 Sodium Chloride 0.65% [[place] Nasal [place]] 2 spray NASAL TID spray.btl 07/09/18 Following Prescrptions Were Given to Patient: Quetiapine Fumarate [Seroquel] 12.5 mg PO QHS PRN PRN #30 tab PRN Reason: RESTLESSNESS/AGITATION Primary Care Physician: Bogdan Gordon MD [Primary Care Provider] - Please Follow Up With: Nikunj Bui MD When: 08/14/2018 @ 11:00 Please Follow Up With: Cardiovascular [place] When: 30 day event monitor Please Follow Up With: Nephrology Please Follow Up With: Neurology Additional Instructions: Patient takes Aspirin and Plavix prior to this admission at baseline. Patient has 30 day event monitor, to f/u with Dr. Bui. Disposition: Long Term facility Patient Condition:: Stable Rehab Course Patient is a 83 year old F with PMH HTN, HLD, aortic stenosis status post bioprosthetic aortic valve replacement, hypothyroidism admitted to [facility] on 06/18/2018 with debility status post acute left RADIOCHEMICAL TECHNICIAN stroke, but greater than 3 hours therapy daily with a goal of returning back home at or near her prior level of functional independence. She was admitted with right-sided numbness and slurred speech to the inpatient hospital on 06/15/2018. Per ED documentation on admission NIHSS was 2. MRI brain done on admission reported to show acute left RADIOCHEMICAL TECHNICIAN infarct, MR angiogram head/neck showed left P2 occlusion. Per documentation patient is on aspirin/Plavix at baseline. Rehab course was uncomplicated. On 07/07/2018 CXR completed which showed no acute pulmonary process. Patient was started on claritan and ipratopium for allergic rhinitis. Nephrology was consulted for hyperkalemia, hyponatremia and metabolic acidosis. Metabolic acidosis resolved and potassium level 4.0, Sodium level 132, and Cr level 1.2. Cozaar was discontinued. Per patient she lives alone, denies any frequent falls, does use cane for ambulating, does drive. Per patient she lives in an independent house and has 3 steps to get into the house. At present patient denies any numbness in the right side, denies any headache, dizziness, visual disturbances, speech disturbances, focal motor weakness, or sensory loss. Patient discharged to [facility] for continued therapies at a skilled level. Patient to f/u with Cardiology and has 30 day event monitor placed on 07/09/2018, Nephrology, PCP, and Neurology. Meaningful Use Info Meaningful Use Diagnoses (Choose all that apply): Ischemic CVA - CVA Therapy Assessed for PT,OT and/or ST?: Yes - Ischemic Stroke Antithrombotic order at d/c?: Yes Dx of Atrial fib/flutter?: No Anticoagulant at discharge?: Yes Statins at discharge?: Yes Primary Dx Acute Ischemic CVA?: Yes IV tPA ordered during stay?: No Reason IV t-PA not ordered: Procedure not Indicated
--- NOTE | 2018-07-09 11:57 | DS.PCM_ITS ---
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 Patient aware of being discharged to SNF for further therapies. Patient denied any further questions or concerns. - Physical Exam General: Alert, Oriented x3 - can be forgetful at times, Cooperative HEENT: Atraumatic, PERRLA Oral: Moist Mucosa Neck: Supple, No JVD Lungs: Clear to auscultation, Normal air movement Cardiovascular: Regular rate, Regular Rhythm Abdomen: Bowel Sounds Present, Soft, Non Tender Extremities: No clubbing, No cyanosis, No edema Musculoskeletal: No Tenderness to Palpation of Joints or Extremities Neurological: Cranial nerves II-XII grossly intact, Deep Tendon Reflexes 2+/4 and Symmetrical, Neuro grossly intact, Motor Exam 5/5 strength throughout Psych/Mental Status: Normal Affect, Appropriate, Alert and oriented to time, place, person, mood and affect - can be forgetful at times, easily redirects and cooperative Vital Signs Temp Pulse Resp BP Pulse Ox 97.6 F L 72 17 129/62 H 94 07/09/18 07:09 07/09/18 07:45 07/09/18 07:09 07/09/18 07:45 07/09/18 07:09 Oxygen Delivery Method Room Air Weight: 85.094 kg Body Mass Index (BMI) 32.8 Finger Stick Blood Glucose 103 Intake and Output for Last 24 Hours 07/07/18 07/08/18 07/09/18 23:59 23:59 23:59 Intake Total 300 / 300 240 / 240 Output Total 2700 / 2700 300 / 300 300 / 300 Balance -2400 / -2400 -60 / -60 -300 / -300 Discharge Diet: Soft diet, Swallowing Precautions Discharge Activity: Return to Normal Activity, May Not Drive, May Shower, Use Walker Weight Bearing Status: Weight bearing as tolerated Call your doctor if you observe: Fever of 101 or Higher, Coldness, Increased Pain, Numbness or Tingling, Inability to urinate, Inability to have a bowel movement, Shortness of breath, Dizziness, Fainting spells, Swelling in the ankles, Chest pain, Prolonged hiccoughing, Increased palpitations (irregular heartbeat), Calf discomfort, Uncontrolled pain Home Medications: Medications to take at Discharge Acetaminophen [Tylenol Tablet] 650 mg PO Q4H PRN PRN tablet 07/09/18 Aspirin [Aspirin, Baby] 81 mg PO DAILY@0800 tab.chew 07/09/18 Atorvastatin Calcium [Lipitor] 40 mg PO QHS tablet 07/09/18 Clopidogrel Bisulfate [Plavix] 75 mg PO DAILY tablet 07/09/18 Ipratropium [place] 0.06% [ATROVENT NASAL SPRAY] 2 spray NASAL TID nasal.sry 07/09/18 Levothyroxine [Synthroid] 88 mcg PO DAILY@0600 tablet 07/09/18 Loratadine [Claritin] 5 mg PO DAILY tablet 07/09/18 Melatonin 3 mg PO QHS tablet 07/09/18 Menthol/Lanolin/Calamine/Znox [Calmoseptine Ointment] 1 applic TOPICAL BID@0600,2200 tube 07/09/18 Metoprolol Tartrate [Lopressor (beta oneyda)] 25 mg PO BID tablet 07/09/18 Pantoprazole Sodium [Protonix] 40 mg PO DAILY tablet 07/09/18 Quetiapine Fumarate [Seroquel] 12.5 mg PO QHS PRN PRN #30 tab 07/09/18 Sodium Chloride 0.65% [[place] Nasal [place]] 2 spray NASAL TID spray.btl 07/09/18 Following Prescrptions Were Given to Patient: Quetiapine Fumarate [Seroquel] 12.5 mg PO QHS PRN PRN #30 tab PRN Reason: RESTLESSNESS/AGITATION Primary Care Physician: Bogdan Gordon MD [Primary Care Provider] - Please Follow Up With: Nikunj Bui MD When: 08/14/2018 @ 11:00 Please Follow Up With: Cardiovascular [place] When: 30 day event monitor Please Follow Up With: Nephrology Please Follow Up With: Neurology Additional Instructions: Patient takes Aspirin and Plavix prior to this admission at baseline. Patient has 30 day event monitor, to f/u with Dr. Bui. 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 She was admitted with right-sided numbness and slurred speech to the inpatient hospital on 06/15/2018. Per ED documentation on admission NIHSS was 2. MRI brain done on admission reported to show acute left RETAIL EQUIPMENT ASSOCIATE infarct, MR angiogram head/neck showed left P2 occlusion. Per documentation patient is on aspirin/Plavix at baseline. Rehab course was uncomplicated. On 07/07/2018 CXR completed which showed no acute pulmonary process. Patient was started on claritan and ipratopium for allergic rhinitis. Nephrology was consulted for hyperkalemia, hyponatremia and metabolic acidosis. Metabolic acidosis resolved and potassium level 4.0, Sodium level 132, and Cr level 1.2. Cozaar was discontinued. Per patient she lives alone, denies any frequent falls, does use cane for ambulating, does drive. Per patient she lives in an independent house and has 3 steps to get into the house. At present patient denies any numbness in the right side, denies any headache, dizziness, visual disturbances, speech disturbances, focal motor weakness, or sensory loss. Patient discharged to [facility] for continued therapies at a skilled level. Patient to f/u with Cardiology and has 30 day event monitor placed on 07/09/2018, Nephrology, PCP, and Neurology. Meaningful Use Info Meaningful Use Diagnoses (Choose all that apply): Ischemic CVA - CVA Therapy Assessed for PT,OT and/or ST?: Yes - Ischemic Stroke Antithrombotic order at d/c?: Yes Dx of Atrial fib/flutter?: No Anticoagulant at discharge?: Yes Statins at discharge?: Yes Primary Dx Acute Ischemic CVA?: Yes IV tPA ordered during stay?: No Reason IV t-PA not ordered: Procedure not Indicated
--- NOTE | 2018-07-09 12:29 | CASEMGMT ---
Social Work 7000 form completed and orders and 7000 faxed to [facility]. Pt to pt transported via family to [facility] today. CORTNEY Young
--- NOTE | 2018-07-09 14:56 | NURSING ---
Called [place] Jennifer gave report to Urmila, pt's son her to take pt, took all personal belongings, along with heart monitor box and info.
== END 2018-07-09 14:57 | disposition skilled nursing facility (03) | DRG 57 ==
PROVIDERS: Family Medicine; Internal Medicine; Internal Medicine Nephrology; Nurse Practitioner Family; Admitting Provider Psychiatry & Neurology Neurology; Family Provider Family Medicine; PCP Family Medicine; Referring Provider Psychiatry & Neurology Neurology; Visit Provider Family Medicine
DX: I69.328 Other speech and language deficits following cerebral infarction (principal); I50.32 Chronic diastolic (congestive) heart failure; N17.9 Acute kidney failure, unspecified; E87.1 Hypo-osmolality and hyponatremia; I13.0 Hypertensive heart and chronic kidney disease with heart failure and stage 1 through stage 4 chronic kidney disease, or unspecified chronic kidney disease; E87.2 Acidosis; I69.398 Other sequelae of cerebral infarction; R20.0 Anesthesia of skin; E78.5 Hyperlipidemia, unspecified; Z95.3 Presence of xenogenic heart valve; E03.9 Hypothyroidism, unspecified; E66.9 Obesity, unspecified; Z68.32 Body mass index [BMI] 32.0-32.9, adult; Z71.3 Dietary counseling and surveillance; I27.20 Pulmonary hypertension, unspecified; K21.9 Gastro-esophageal reflux disease without esophagitis; F32.9 Major depressive disorder, single episode, unspecified; N18.3 Chronic kidney disease, stage 3 (moderate)
CPT/HCPCS: 36415; 70450; 71045; 80048; 80053; 82962; 85025; 85652; 92507; 92523; 92526; 92610; 94640; 97110; 97116; 97162; 97166; 97530; 97535; 97802; J7030; J7120; A4216

== ENCOUNTER → 2018-09-18 | Outpatient (REF) | payer MEDICARE, MEDICAID, SELFPAY ==
[2018-09-18 08:20] LABS: Hematocrit 21.6 % (37-47); Hemoglobin 6.3 g/dL (12.0-15.0); Mean Corp Hgb Conc 29.2 g/dL (32-36); Mean Corpuscular Hgb 20.3 pg (27.0-32.0); Mean Corpuscular Volume 69.5 fL (81-99); Mean Platelet Vol. 9.4 fl (6.2-12.0); POSITIVE MORPHOLOGY YES; Platelet Count 346 K/mm3 (150-450); RBC Distribution Width CV 22.5 % (11.6-14.6); RBC Distribution Width SD 54.4 fl (35.1-43.9); Red Blood Count 3.11 M/mm3 (4.2-5.4)
[2018-09-18 08:27] LABS: Anion Gap 10 (5-15); BUN 20 mg/dL (7-18); BUN/Creat Ratio 18.2 RATIO (10-20); Calcium,Total 8.8 mg/dL (8.5-10.1); Chloride 110 mmol/L (98-107); EST Glomerular Filtration Rate 50 mL/min (>60); Est Glom Filt Rate - Afr Amer 61 mL/min (>60); Glucose 102 mg/dL (74-106); Sodium Level 141 mmol/L (136-145)
[2018-09-18 08:30] LABS: Scan Indicated on CBC? Y/N YES- FLAGS NOTED
[2018-09-20 08:11] VITALS: BMI 31.7
== END | disposition home or self-care (01) ==
LOC: OLS.WHLEAS 06:44
PROVIDERS: Visit Provider Family Medicine
DX: D64.9 Anemia, unspecified (principal); I10 Essential (primary) hypertension; E78.5 Hyperlipidemia, unspecified
CPT/HCPCS: 36415; 80048; 85027

== ENCOUNTER → 2018-09-19 | Outpatient (REF) | payer MEDICARE, MEDICAID, SELFPAY ==
[2018-09-19 08:33] LABS: Hematocrit 21.8 % (37-47); Hemoglobin 6.2 g/dL (12.0-15.0); Mean Corp Hgb Conc 28.4 g/dL (32-36); Mean Corpuscular Hgb 19.7 pg (27.0-32.0); Mean Corpuscular Volume 69.2 fL (81-99); Mean Platelet Vol. 9.6 fl (6.2-12.0); POSITIVE MORPHOLOGY YES; Platelet Count 372 K/mm3 (150-450); RBC Distribution Width CV 22.9 % (11.6-14.6); RBC Distribution Width SD 54.6 fl (35.1-43.9); Red Blood Count 3.15 M/mm3 (4.2-5.4); White Blood Count 5.9 K/mm3 (4.4-11.0)
[2018-09-19 08:47] LABS: Scan Indicated on CBC? Y/N YES- FLAGS NOTED
[2018-09-19 08:51] LABS: Ferritin 9 ng/mL (8-252)
[2018-09-20 08:11] VITALS: BMI 31.7
== END | disposition home or self-care (01) ==
LOC: OLS.WHLEAS 05:00
PROVIDERS: Visit Provider Family Medicine
DX: D64.9 Anemia, unspecified (principal)
CPT/HCPCS: 36415; 82728; 85027; 86850; 86900; 86920; 86922

== ENCOUNTER → 2018-09-20 07:51 | Outpatient (CLI) | payer MEDICARE, MEDICAID, SELFPAY ==
[2018-09-20] VITALS (7 sets, daily range): BP systolic 107–133; BP diastolic 54–88; PULSE 57–75; RESP 15–18; TEMP 36.2–36.6; O2SAT 96–100; BMI 31.7
== END ==
PROVIDERS: Family Provider Family Medicine; PCP Family Medicine; Referring Provider Family Medicine; Visit Provider Family Medicine
DX: R71.8 Other abnormality of red blood cells (principal)
CPT/HCPCS: 36430; 86920; 86922; J7040; P9016; A4216

== ENCOUNTER → 2018-09-25 05:00 | Outpatient (REF) | payer MEDICARE, MEDICAID, SELFPAY ==
[2018-09-20 08:11] VITALS: BMI 31.7
[2018-09-25 08:04] LABS: Hematocrit 27.7 % (37-47); Hemoglobin 8.1 g/dL (12.0-15.0); Mean Corp Hgb Conc 29.2 g/dL (32-36); Mean Corpuscular Hgb 21.8 pg (27.0-32.0); Mean Corpuscular Volume 74.5 fL (81-99); Mean Platelet Vol. 9.2 fl (6.2-12.0); Platelet Count 320 K/mm3 (150-450); RBC Distribution Width CV 26.7 % (11.6-14.6); RBC Distribution Width SD 69.2 fl (35.1-43.9); Red Blood Count 3.72 M/mm3 (4.2-5.4); White Blood Count 5.2 K/mm3 (4.4-11.0)
[2018-09-25 08:37] LABS: Scan Indicated on CBC? Y/N YES- FLAGS NOTED
[2018-09-25 08:58] LABS: POSITIVE MORPHOLOGY YES
== END ==
LOC: OLS.WHLEAS 05:00
PROVIDERS: Visit Provider Family Medicine
DX: I63.432 Cerebral infarction due to embolism of left posterior cerebral artery (principal); R42 Dizziness and giddiness; R54 Age-related physical debility; M62.81 Muscle weakness (generalized); R26.2 Difficulty in walking, not elsewhere classified; D50.9 Iron deficiency anemia, unspecified
CPT/HCPCS: 36415; 85027

== ENCOUNTER → 2018-10-10 05:00 | Outpatient (REF) | payer MEDICARE, MEDICAID, SELFPAY ==
[2018-09-20 08:11] VITALS: BMI 31.7
[2018-10-10 08:16] LABS: Hematocrit 28.5 % (37-47); Hemoglobin 8.5 g/dL (12.0-15.0); Mean Corp Hgb Conc 29.8 g/dL (32-36); Mean Corpuscular Hgb 22.8 pg (27.0-32.0); Mean Corpuscular Volume 76.4 fL (81-99); Mean Platelet Vol. 9.2 fl (6.2-12.0); POSITIVE MORPHOLOGY YES; Platelet Count 229 K/mm3 (150-450); RBC Distribution Width CV 27.8 % (11.6-14.6); Red Blood Count 3.73 M/mm3 (4.2-5.4); White Blood Count 4.3 K/mm3 (4.4-11.0)
[2018-10-10 08:22] LABS: Scan Indicated on CBC? Y/N YES- FLAGS NOTED
== END ==
LOC: OLS.WHLEAS 05:00
PROVIDERS: Visit Provider Family Medicine
DX: I63.432 Cerebral infarction due to embolism of left posterior cerebral artery (principal); R42 Dizziness and giddiness; R54 Age-related physical debility; M62.81 Muscle weakness (generalized); R26.2 Difficulty in walking, not elsewhere classified; D50.9 Iron deficiency anemia, unspecified
CPT/HCPCS: 36415; 85027

== ENCOUNTER → 2018-10-23 05:00 | Outpatient (REF) | payer MEDICARE, MEDICAID, SELFPAY ==
[2018-09-20 08:11] VITALS: BMI 31.7
[2018-10-23 08:09] LABS: Hematocrit 31.7 % (37-47); Hemoglobin 9.6 g/dL (12.0-15.0); Mean Corp Hgb Conc 30.3 g/dL (32-36); Mean Corpuscular Hgb 23.4 pg (27.0-32.0); Mean Corpuscular Volume 77.3 fL (81-99); Mean Platelet Vol. 9.1 fl (6.2-12.0); POSITIVE MORPHOLOGY YES; Platelet Count 201 K/mm3 (150-450); RBC Distribution Width CV 26.9 % (11.6-14.6); White Blood Count 3.7 K/mm3 (4.4-11.0)
[2018-10-23 08:16] LABS: Scan Indicated on CBC? Y/N YES- FLAGS NOTED
[2018-10-23 08:30] LABS: Anion Gap 9 (5-15); BUN 17 mg/dL (7-18); Calcium,Total 8.5 mg/dL (8.5-10.1); Chloride 110 mmol/L (98-107); Cholesterol 91 mg/dL (200); EST Glomerular Filtration Rate 56 mL/min (>60); Est Glom Filt Rate - Afr Amer 68 mL/min (>60); Glucose 89 mg/dL (74-106); High Density Lipoprotein 45 mg/dL; Potassium 4.2 mmol/L (3.5-5.1); Sodium Level 144 mmol/L (136-145); Triglycerides 61 mg/dL; Very Low Density Lipoprotein 12 mg/dL (5-40)
== END ==
LOC: OLS.WHLEAS 05:00
PROVIDERS: Visit Provider Family Medicine
DX: I63.432 Cerebral infarction due to embolism of left posterior cerebral artery (principal); R42 Dizziness and giddiness; M62.81 Muscle weakness (generalized); R26.2 Difficulty in walking, not elsewhere classified; E03.9 Hypothyroidism, unspecified; N18.3 Chronic kidney disease, stage 3 (moderate)
CPT/HCPCS: 36415; 80048; 80061; 84443; 85027

== ENCOUNTER → 2018-11-20 09:00 | Outpatient (REF) | payer MEDICARE, MEDICAID, SELFPAY ==
[2018-09-20 08:11] VITALS: BMI 31.7
[2018-11-20 09:42] LABS: Absolute Lymphocyte Count 1.01 X10^3/uL (0.83-4.51); Absolute Neutrophil Count 2.3 X10^3/uL (2.0-7.7); Basophil# 0.04 X10^3/uL; Eosinophils% 9.7 % (0-5); Hematocrit 40.4 % (37-47); Hemoglobin 12.5 g/dL (12.0-15.0); Lymphocyte # 1.01 X10^3/ul (4.0); Lymphocyte % 24.5 % (19-41); Mean Corp Hgb Conc 30.9 g/dL (32-36); Mean Corpuscular Hgb 25.2 pg (27.0-32.0); Mean Corpuscular Volume 81.5 fL (81-99); Mean Platelet Vol. 9.4 fl (6.2-12.0); Monocyte# 0.35 X10^3/uL; Monocyte% 8.5 % (0-10); NRBC Flagged by Analyzer 0 % (0-5); Neutrophil % 55.8 % (47-70); POSITIVE MORPHOLOGY YES; Platelet Count 174 K/mm3 (150-450); RBC Distribution Width CV 25.6 % (11.6-14.6); RBC Distribution Width SD 74.6 fl (35.1-43.9); Red Blood Count 4.96 M/mm3 (4.2-5.4); White Blood Count 4.1 K/mm3 (4.4-11.0)
[2018-11-20 09:45] LABS: Differential Indicated SCAN CRITERIA MET
[2018-11-20 09:50] LABS: Anion Gap 6 (5-15); BUN 22 mg/dL (7-18); Chloride 108 mmol/L (98-107); Creatinine, Serum 1.16 mg/dL (0.55-1.02); EST Glomerular Filtration Rate 47 mL/min (>60); Est Glom Filt Rate - Afr Amer 57 mL/min (>60); Glucose 122 mg/dL (74-106); Potassium 4.3 mmol/L (3.5-5.1); Sodium Level 139 mmol/L (136-145)
== END ==
LOC: OLS.WHLEAS 09:00
PROVIDERS: Visit Provider Family Medicine
DX: R54 Age-related physical debility (principal)
CPT/HCPCS: 36415; 80048; 85025

== ENCOUNTER → 2018-12-04 | Outpatient (REF) | payer MEDICARE, MEDICAID, SELFPAY ==
[2018-09-20 08:11] VITALS: BMI 31.7
[2018-12-04 08:11] LABS: Thyroid Stim Hormone (TSH) 2.49 uIU/mL (0.358-3.74)
== END | disposition home or self-care (01) ==
LOC: OLS.WHLEAS 05:00
PROVIDERS: Visit Provider Family Medicine
DX: E03.9 Hypothyroidism, unspecified (principal)
CPT/HCPCS: 36415; 84443

== ENCOUNTER → 2018-12-18 05:00 | Outpatient (REF) | payer MEDICARE, MEDICAID, SELFPAY ==
[2018-09-20 08:11] VITALS: BMI 31.7
[2018-12-18 07:51] LABS: Hemoglobin 10.7 g/dL (12.0-15.0); Mean Corp Hgb Conc 31.5 g/dL (32-36); Mean Corpuscular Hgb 25.7 pg (27.0-32.0); Mean Corpuscular Volume 81.7 fL (81-99); Mean Platelet Vol. 9.3 fl (6.2-12.0); POSITIVE MORPHOLOGY YES; Platelet Count 229 K/mm3 (150-450); RBC Distribution Width CV 20.3 % (11.6-14.6); RBC Distribution Width SD 58.9 fl (35.1-43.9); Red Blood Count 4.16 M/mm3 (4.2-5.4); White Blood Count 9.2 K/mm3 (4.4-11.0)
[2018-12-18 07:55] LABS: Scan Indicated on CBC? Y/N YES- FLAGS NOTED
[2018-12-18 08:21] LABS: Anion Gap 8 (5-15); BUN 15 mg/dL (7-18); BUN/Creat Ratio 16.6 RATIO (10-20); Calcium,Total 8.7 mg/dL (8.5-10.1); Chloride 101 mmol/L (98-107); EST Glomerular Filtration Rate 63 mL/min (>60); Est Glom Filt Rate - Afr Amer 77 mL/min (>60); Glucose 96 mg/dL (74-106); Potassium 3.7 mmol/L (3.5-5.1); Sodium Level 134 mmol/L (136-145)
[2018-12-18 08:24] LABS: Differential Comment SCANNED
== END ==
LOC: OLS.WHLEAS 05:00
PROVIDERS: Visit Provider Family Medicine
DX: I63.432 Cerebral infarction due to embolism of left posterior cerebral artery (principal); R42 Dizziness and giddiness; R54 Age-related physical debility; M62.81 Muscle weakness (generalized); R26.2 Difficulty in walking, not elsewhere classified
CPT/HCPCS: 36415; 80048; 85027

== ENCOUNTER → 2019-01-22 05:00 | Outpatient (REF) | payer MEDICARE, MEDICAID, SELFPAY ==
[2018-09-20 08:11] VITALS: BMI 31.7
[2019-01-22 07:41] LABS: Hematocrit 38.9 % (37-47); Hemoglobin 12.2 g/dL (12.0-15.0); Mean Corp Hgb Conc 31.4 g/dL (32-36); Mean Corpuscular Hgb 26.1 pg (27.0-32.0); Mean Corpuscular Volume 83.1 fL (81-99); Mean Platelet Vol. 9.4 fl (6.2-12.0); Platelet Count 138 K/mm3 (150-450); RBC Distribution Width CV 17.5 % (11.6-14.6); RBC Distribution Width SD 53.1 fl (35.1-43.9); Red Blood Count 4.68 M/mm3 (4.2-5.4); White Blood Count 4.7 K/mm3 (4.4-11.0)
[2019-01-22 07:57] LABS: Anion Gap 9 (5-15); BUN 24 mg/dL (7-18); BUN/Creat Ratio 27.6 RATIO (10-20); Calcium,Total 8.7 mg/dL (8.5-10.1); Chloride 106 mmol/L (98-107); Cholesterol 125 mg/dL (200); Creatinine, Serum 0.87 mg/dL (0.55-1.02); EST Glomerular Filtration Rate 66 mL/min (>60); Est Glom Filt Rate - Afr Amer 80 mL/min (>60); Glucose 84 mg/dL (74-106); High Density Lipoprotein 42 mg/dL; Potassium 4.1 mmol/L (3.5-5.1); Sodium Level 138 mmol/L (136-145); Thyroid Stim Hormone (TSH) 0.55 uIU/mL (0.358-3.74); Triglycerides 82 mg/dL; Very Low Density Lipoprotein 16 mg/dL (5-40)
== END ==
LOC: OLS.WHLEAS 05:00
PROVIDERS: Visit Provider Family Medicine
DX: E03.9 Hypothyroidism, unspecified (principal); I63.432 Cerebral infarction due to embolism of left posterior cerebral artery; R42 Dizziness and giddiness; R54 Age-related physical debility; M62.81 Muscle weakness (generalized); R26.2 Difficulty in walking, not elsewhere classified; N18.3 Chronic kidney disease, stage 3 (moderate)
CPT/HCPCS: 36415; 80048; 80061; 84443; 85027

== ENCOUNTER → 2019-02-18 06:51 | Outpatient (REF) | payer MEDICARE, MEDICAID, SELFPAY ==
[2018-09-20 08:11] VITALS: BMI 31.7
[2019-02-18 08:15] LABS: Hematocrit 38.9 % (37-47); Hemoglobin 12.4 g/dL (12.0-15.0); Mean Corp Hgb Conc 31.9 g/dL (32-36); Mean Corpuscular Hgb 27.3 pg (27.0-32.0); Mean Corpuscular Volume 85.5 fL (81-99); Mean Platelet Vol. 9.5 fl (6.2-12.0); Platelet Count 150 K/mm3 (150-450); RBC Distribution Width CV 16.9 % (11.6-14.6); RBC Distribution Width SD 52.4 fl (35.1-43.9); Red Blood Count 4.55 M/mm3 (4.2-5.4); White Blood Count 4.7 K/mm3 (4.4-11.0)
[2019-02-18 08:28] LABS: Anion Gap 5 (5-15); BUN 18 mg/dL (7-18); BUN/Creat Ratio 19.7 RATIO (10-20); Calcium,Total 8.7 mg/dL (8.5-10.1); Chloride 109 mmol/L (98-107); Creatinine, Serum 0.92 mg/dL (0.55-1.02); EST Glomerular Filtration Rate 62 mL/min (>60); Est Glom Filt Rate - Afr Amer 75 mL/min (>60); Glucose 94 mg/dL (74-106); Potassium 4.3 mmol/L (3.5-5.1); Sodium Level 141 mmol/L (136-145)
== END ==
LOC: OLS.WHLEAS 06:51
PROVIDERS: Family Provider Family Medicine; PCP Family Medicine; Visit Provider Family Medicine
DX: N18.3 Chronic kidney disease, stage 3 (moderate) (principal); I63.432 Cerebral infarction due to embolism of left posterior cerebral artery; R42 Dizziness and giddiness; R54 Age-related physical debility; M62.81 Muscle weakness (generalized); R26.2 Difficulty in walking, not elsewhere classified
CPT/HCPCS: 36415; 80048; 85027

== ENCOUNTER → 2019-02-20 05:00 | Outpatient (REF) | payer MEDICARE, MEDICAID, SELFPAY ==
[2018-09-20 08:11] VITALS: BMI 31.7
[2019-02-20 07:14] LABS: Hematocrit 37.9 % (37-47); Mean Corp Hgb Conc 31.7 g/dL (32-36); Mean Corpuscular Hgb 26.9 pg (27.0-32.0); Mean Platelet Vol. 9.3 fl (6.2-12.0); Platelet Count 151 K/mm3 (150-450); RBC Distribution Width CV 16.4 % (11.6-14.6); RBC Distribution Width SD 50.8 fl (35.1-43.9); Red Blood Count 4.46 M/mm3 (4.2-5.4); White Blood Count 4.8 K/mm3 (4.4-11.0)
[2019-02-20 07:28] LABS: Anion Gap 7 (5-15); BUN 18 mg/dL (7-18); BUN/Creat Ratio 19.3 RATIO (10-20); Calcium,Total 8.4 mg/dL (8.5-10.1); Chloride 110 mmol/L (98-107); Creatinine, Serum 0.93 mg/dL (0.55-1.02); EST Glomerular Filtration Rate 61 mL/min (>60); Est Glom Filt Rate - Afr Amer 74 mL/min (>60); Glucose 84 mg/dL (74-106); Potassium 4.3 mmol/L (3.5-5.1); Sodium Level 142 mmol/L (136-145)
== END ==
LOC: OLS.WHLEAS 05:00
PROVIDERS: Family Provider Family Medicine; PCP Family Medicine
DX: I12.9 Hypertensive chronic kidney disease with stage 1 through stage 4 chronic kidney disease, or unspecified chronic kidney disease (principal); N18.3 Chronic kidney disease, stage 3 (moderate); F03.91 Unspecified dementia, unspecified severity, with behavioral disturbance; F28 Other psychotic disorder not due to a substance or known physiological condition; I27.20 Pulmonary hypertension, unspecified; I35.0 Nonrheumatic aortic (valve) stenosis
CPT/HCPCS: 36415; 80048; 85027

== ENCOUNTER 2019-03-01 10:03 | Inpatient (IN) | payer MEDICARE, MEDICAID, SELFPAY ==
[2018-09-20 08:11] VITALS: BMI 31.7
[2019-03-01] VITALS (15 sets, daily range): BP systolic 140–167; BP diastolic 68–94; PULSE 68–87; RESP 14–19; TEMP 36.4–37.1; O2SAT 95–98; BMI 32.8; BMI 31.7
--- NOTE | 2019-03-01 10:07 | RAD_ITS ---
STUDY: X-RAY CHEST REASON FOR EXAM: Female, 83 years old. Cough TECHNIQUE: Frontal view of the chest COMPARISON: None. FINDINGS: Poststernotomy and valve replacement changes are present. Right medial lower lung zone atelectasis and/or small infiltrate is present. The lungs are otherwise clear. There are no pleural effusions. There is no pneumothorax. The heart is enlarged. The visualized osseous structures are within normal limits. RAD/Chest 1 View IMPRESSION: Right medial lower lung zone atelectasis and/or small infiltrate. Cardiomegaly. Electronically Signed: Bruno Lee, at 11:08 EST Tel , Service support ,
--- NOTE | 2019-03-01 10:07 | EKG12_ITS ---
Test Reason : CVA Blood Pressure : / mmHG Vent. Rate : 064 BPM Atrial Rate : 288 BPM P-R Int : 000 ms QRS Dur : 078 ms QT Int : 420 ms P-R-T Axes : 000 069 052 degrees QTc Int : 433 ms Atrial fibrillation Low voltage QRS Septal infarct , age undetermined Abnormal ECG Confirmed by NILDA RAMIRES, JOHNNIE ([id number]), slot editor DAGMAR HUANG ([id number]) on 03/03/2019 12:49:52 PM Referred By: CAITIE Confirmed By:JOHNNIE MUNGUIA MD
--- NOTE | 2019-03-01 10:07 | CT_ITS ---
STUDY: CT BRAIN WITHOUT CONTRAST REASON FOR EXAM: Female, 83 years old. Slurred speech RADIATION DOSAGE (If Supplied By Facility): DLP = ( 812.98 ) mGycm TECHNIQUE: Transaxial CT imaging of the brain was performed without administration of intravenous contrast material. Individualized dose optimization techniques were used for this CT. COMPARISON: None available FINDINGS: There is no evidence of acute bleed or infarct. Chronic ischemic and atrophic changes are present. Bilateral basal ganglia lacunar infarcts are present. Encephalomalacia is present in the left occipitotemporal region. The ventricles are normal in configuration. There is no hydrocephalus. The visualized paranasal sinuses are clear. The mastoid air cells are well aerated. There is no skull fracture. CT/Brain/Head without Contrast IMPRESSION: No evidence of acute intracranial abnormality. Prominent chronic changes described above. If further clinical concern, MRI is more sensitive for detection of acute intracranial pathology. N.B. : The above information has been verbally conveyed by Bruno Lee to Nimesh Joshi MD, on 03/01/2019 10:30:42 (ET). Electronically Signed: Bruno Lee, at 10:31 EST Tel , Service support ,
[2019-03-01 10:10] LABS: Bedside Glucose 107 mg/dL (70-110)
--- NOTE | 2019-03-01 10:11 | CM.ED ---
Social Work Responding to Stroke Alert, no family present at this time. Patient from [facility]. Rosita Calabrese STRESS ANALYST, JOSIAS
[2019-03-01 10:38] LABS: Absolute Lymphocyte Count 0.93 X10^3/uL (0.83-4.51); Basophil# 0.02 X10^3/uL; Basophil% 0.4 % (0-1); Eosinophil# 0.23 X10^3/uL; Eosinophils% 4.1 % (0-5); Hematocrit 41.3 % (37-47); Hemoglobin 12.8 g/dL (12.0-15.0); Lymphocyte # 0.93 X10^3/ul (4.0); Lymphocyte % 16.6 % (19-41); Mean Corpuscular Hgb 26.7 pg (27.0-32.0); Mean Corpuscular Volume 86.2 fL (81-99); Mean Platelet Vol. 9.1 fl (6.2-12.0); Monocyte# 0.43 X10^3/uL; Monocyte% 7.7 % (0-10); NRBC Flagged by Analyzer 0 % (0-5); Neutrophil # 3.97 X10^3/uL (2.7-7.7); Neutrophil % 70.8 % (47-70); Platelet Count 148 K/mm3 (150-450); RBC Distribution Width CV 16.8 % (11.6-14.6); RBC Distribution Width SD 51.8 fl (35.1-43.9); Red Blood Count 4.79 M/mm3 (4.2-5.4); White Blood Count 5.6 K/mm3 (4.4-11.0)
[2019-03-01 10:47] LABS: International Normalized Ratio 1.2; Prothrombin Time (Protime)PT. 14.5 SECONDS (11.7-14.9)
[2019-03-01 10:48] LABS: Partial Thromboplast Time 27.5 Seconds (24.1-36.2)
[2019-03-01 10:55] LABS: Anion Gap 6 (5-15); BUN 16 mg/dL (7-18); BUN/Creat Ratio 15.4 RATIO (10-20); Calcium,Total 9.1 mg/dL (8.5-10.1); Chloride 108 mmol/L (98-107); Creatinine, Serum 1.04 mg/dL (0.55-1.02); EST Glomerular Filtration Rate 54 mL/min (>60); Est Glom Filt Rate - Afr Amer 65 mL/min (>60); Estimated Creatinine Clearance 32.42 ml/min; Glucose 96 mg/dL (74-106); Potassium 4.3 mmol/L (3.5-5.1); Sodium Level 140 mmol/L (136-145)
--- NOTE | 2019-03-01 11:15 | ED.DCSUM_ITS ---
- ER Visit Summary Date of Service: 03/01/19 Chief Complaint: Facial droop, left-sided weakness History of Present Illness: The patient is a 83 F who presents from a [facility] with left-sided weakness and facial droop. Started about 9 AM. Staff noticed a left-sided facial droop and slurred speech as well as left arm weakness. Patient denies a headache. No nausea or vomiting. Her blood glucose is 101. She is on aspirin and Plavix. Chart history noted a history of stroke in May 2018 with a left [employer]INE[employer] infarct and P2 occlusion. She has not given TPA at that time. The rest of the history is unable to be obtained from the patient due to her dementia Physical Examination: Vital signs reviewed. HEENT exam shows a left-sided facial droop with some slurred speech.. Heart is regular rate and rhythm without murmurs. Lungs are clear to auscultation. Abdomen is soft and n ontender. Extremities reveal no edema. Skin exam normal. Neurologic exam shows an initial NIH score of 9. She cannot answer the questions. She has 2 points for facial palsy, 2 points for left arm drift. One-point for each leg. She also has dysarthria. She is able to talk extemporaneously. Test Results: CT head reveals chronic changes. Chest x-ray has atelectasis. EK G is A. fib. Platelet count 148. Creatinine 1.04. Troponin normal. Emergency Department Course and Treatment: [facility] neurology was consulted. Repeat NIH seems to be improving to about 3. Discussed with the neurologist and she stated that it was 50-50 as to whether to give TPA and to discuss with family. I discussed with the son on the phone who is in [place]. He states that his mother is very adamant about her DNR status. She is a DNR CCA. I explained the risks benefits and alternatives of TPA. He states that his mother would not want this type of medication and he declined giving this medication which I feel is reasonable. The patient will be admitted to the hospital for further stroke care. Treatment Plan: [] Disposition: Admit Impression: Stroke This note was generated with [employer] software. It may contain incorrect words, spelling, and punctuation that were not noted in review of the chart prior to signing ED Disposition - Plan for ED Patient: Referrals: Anand Us MD [Primary Care Provider] -
--- NOTE | 2019-03-01 11:34 | PCM.HP.STD ---
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 (7) History of aortic valve replacement with bioprosthetic valve Status: Resolved Comment: Minimally invasive AVR w/ 21 mm Miles-Pack Perimount Magna Valve 10/24/2013 (8) Secondary pulmonary arterial hypertension Status: Chronic (9) Hyperlipidemia Status: Chronic History of Present Illness Date of Admission: 03/01/19 Chief Complaint: Left-sided weakness and slurred speech onset about 9 AM sent from SNF The patient is a 83 year old F with history of prior left E [employer] infarct, P2 occlusion stroke in May 2018 sent from [facility] for left-sided weakness and slurred speech about 9 AM. As per ER physician NIH stroke scale was 9 and improved to 5. Patient had stroke protocol with CT head which did not show any acute change and [facility] tele-stroke was consulted. Recommended TPA but patient family refused and therefore TPA not given. In ED, triage blood pressure 149/82, heart rate 70 pulse ox 98% on room air. EKG shows A. fib at 64 bpm with old septal infarct. Past Medical History Past Medical History (Chronic Problems): Chronic Problems (Last Updated 08/13/18 @ 07:27 by Lula Drummond) Atherosclerosis of coronary artery of [place] heart without angina pectoris (Chronic) minimal [facility] 04/2013 Diastolic dysfunction (Chronic) Non-rheumatic tricuspid valve insufficiency (Chronic) Non-rheumatic aortic stenosis (Chronic) Minimally invasive AVR w/ 21 mm Miles-Pack Perimount Magna Valve 10/24/2013 Essential (primary) hypertension (Chronic) Secondary pulmonary arterial hypertension (Chronic) Hyperlipidemia (Chronic) Medical History: Medical History (Last Updated 08/13/18 @ 07:27 by Lula Drummond) Atherosclerosis of coronary artery of [place] heart without angina pectoris (Chronic) I25.10 minimal [facility] 04/2013 Diastolic dysfunction (Chronic) I51.89 Non-rheumatic tricuspid valve insufficiency (Chronic) I36.1 Non-rheumatic aortic stenosis (Chronic) I35.0 Minimally invasive AVR w/ 21 mm Miles-Pack Perimount Magna Valve 10/24/2013 Essential (primary) hypertension (Chronic) I10 CVA (cerebral vascular accident) (Chronic) Onset Date: 06/17/18 I63.9 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 Secondary pulmonary arterial hypertension (Chronic) I27.21 Hyperlipidemia (Chronic) E78.5 Cystitis N30.90 GERD (gastroesophageal reflux disease) K21.9 Hiatal hernia K44.9 Hypothyroidism E03.9 Iron deficiency anemia D50.9 Microcytic anemia D50.9 Obesity E66.9 CODY (acute kidney injury) N17.9 UTI (urinary tract infection) (Resolved) N39.0 UTI (urinary tract infection) N39.0 Allergies adhesive Adverse Reaction (Verified 03/01/19 10:03) Rash Home Medications: Ambulatory Orders Medication Instructions Recorded Acetaminophen [Tylenol Tablet] 650 mg PO Q4H PRN PRN tablet 07/09/18 Aspirin [Aspirin, Baby] 81 mg PO DAILY@0800 tab.chew 07/09/18 Atorvastatin Calcium [Lipitor] 40 mg PO QHS tablet 07/09/18 Clopidogrel Bisulfate [Plavix] 75 mg PO DAILY tablet 07/09/18 Ipratropium [place] 0.06% 2 spray NASAL TID nasal.sry 07/09/18 [ATROVENT NASAL SPRAY] Loratadine [Claritin] 5 mg PO DAILY tablet 07/09/18 Metoprolol Tartrate [Lopressor 25 mg PO BID tablet 07/09/18 (beta oneyda)] Pantoprazole Sodium [Protonix] 40 mg PO DAILY tablet 07/09/18 Sodium Chloride 0.65% [[place] Nasal 2 spray NASAL TID spray.btl 07/09/18 [place]] Escitalopram Oxalate 5 mg PO DAILY 03/01/19 Ferrous Sulfate [Iron] 325 mg PO DAILY 03/01/19 Ketotifen Fumarate 1 drp OP BID 03/01/19 Levothyroxine [Synthroid] 100 mcg PO DAILY@0600 03/01/19 Quetiapine Fumarate [Seroquel] 25 mg PO QHS PRN PRN 03/01/19 Surgical History: Surgical History (Last Updated 08/13/18 @ 07:28 by Lula Drummond) History of aortic valve replacement with bioprosthetic valve (Resolved) Onset Date: 10/24/13 Z95.3 Minimally invasive AVR w/ 21 mm Miles-Pack Perimount Magna Valve 10/24/2013 History of appendectomy Z90.49 History of left heart catheterization Onset Date: 05/22/13 Z98.890 Surgical History: appendectomy, - - Aortic valve replacement Smoking Status: Never smoker - *Family History Maternal Family History: Family History (Last Updated 08/13/18 @ 07:28 by Lula Drummond) Mother Heart disease Father Heart disease History Items: Hypertension Paternal Family History: Family History (Last Updated 08/13/18 @ 07:28 by Lula Drummond) Mother Heart disease Father Heart disease History Items: Hypertension Review of Systems Gastrointestinal: Denies: Abdominal Pain Genitourinary: Denies: Dysuria Unable to obtain accurate/complete ROS d/t: Patient has dementia and does not remember why she is ER VTE Information - Inpt Only VTE Present on Admission: No VTE Mechan Device Prophylaxis: SCD's VTE Pharm Prophylaxis ordered?: Yes - Physical Exam Vitals/I&O's: Vital Signs Temp Pulse Resp BP Pulse Ox 97.6 F L 73 18 141/68 H 98 03/01/19 10:04 03/01/19 11:07 03/01/19 11:07 03/01/19 11:07 03/01/19 11:07 Oxygen Flow Rate (L/min) 2 Oxygen Delivery Method Nasal Cannula Weight: 179 lb 3.773 oz Body Mass Index (BMI) 32.8 Finger Stick Blood Glucose 107 General: Alert, Oriented x3, Cooperative HEENT: Atraumatic, PERRLA, EOMI, Normocephalic Oral: Dry Mucosa Neck: Supple, No JVD, Negative Carotid Bruits Lungs: Clear to auscultation, No rhonchi, No wheeze, No rales, Diminished - Air entry diminished in bilateral lung bases Cardiovascular: Normal S1, Normal S2, Irregular Rate, Murmur - Ejection systolic murmur present over aortic region. Abdomen: Bowel Sounds Present, Soft, Non Tender, Non-Distended Extremities: No edema, Capillary Refill Less than 3 Seconds Skin: No rashes, No breakdown Musculoskeletal: No Tenderness to Palpation of Joints or Extremities, Arthritic Changes Neurological: Cranial nerves II-XII grossly intact, Deep Tendon Reflexes 2+/4 and Symmetrical, Neuro grossly intact Psych/Mental Status: Flat Affect Laboratory Results 03/01/19 10:07: POC Glucose 107 03/01/19 10:20: WBC 5.6, RBC 4.79, Hgb 12.8, Hct 41.3, MCV 86.2, MCH 26.7 L, MCHC 31.0 L, RDW Std Deviation 51.8 H, RDW Coeff of Rudi 16.8 H, Plt Count 148 L, MPV 9.1, Immature Gran % (Auto) 0.400, Neut % (Auto) 70.8 H, Lymph % (Auto) 16.6 L, [place] % (Auto) 7.7, Eos % (Auto) 4.1, Baso % (Auto) 0.4, Absolute Neuts (auto) 4.0, Absolute Lymphs (auto) 0.93, Nucleated RBC % 0 03/01/19 10:20: PT 14.5, INR 1.2, APTT 27.5 03/01/19 10:20: Sodium 140, Potassium 4.3, Chloride 108 H, Carbon Dioxide 26.0, Anion Gap 6, BUN 16, Creatinine 1.04 H, Estim Creat Clear Calc 32.42, Est GFR (MDRD) Af Amer 65, Est GFR (MDRD) Non-Af 54 L, BUN/Creatinine Ratio 15.4, Glucose 96, Calcium 9.1, Troponin I < 0.015 Assessment/Plan All Active Problems (Last Updated 08/13/18 @ 07:27 by Lula Drummond) CVA (cerebral vascular accident) (Acute 06/17/18) History of aortic valve replacement with bioprosthetic valve (Resolved 10/24/13) CODY (acute kidney injury) (Resolved) Orthostatic hypotension (Resolved) UTI (urinary tract infection) (Resolved) The patient is a 83 year old F with history of prior left E [employer] infarct, P2 occlusion stroke in May 2018 sent from [facility] for left-sided weakness and slurred speech about 9 AM. In ED, triage blood pressure 149/82, heart rate 70 pulse ox 98% on room air. EKG shows A. fib at 64 bpm with old septal infarct. 1. Acute on chronic ischemic stroke: Patient is being admitted in PCU. Started on stroke protocol with MRI brain, MRA head and neck and 2D echo. Patient has borderline creatinine clearance of 30 mL/min therefore avoid CT with contrast. On aspirin, Plavix and statin since previous stroke and discontinued. As per ER physician NIH stroke scale was 9 and improved to 5. [facility] tele-stroke was consulted. Recommended TPA but patient family refused and therefore TPA not given. [place] BP control as per stroke protocol. 2. Chronic A. fib, hypertension with chronic diastolic heart failure: Patient is not on any blood thinner. Continue aspirin Plavix, atorvastatin, and metoprolol blood pressure is in permissive range. She is not on antihypertensive medications except metoprolol. Hypothyroidism Synthroid continued. GERD Protonix continued. DVT prophylaxis: Lovenox 30 mg subcu daily adjusted to creatinine clearance to be started 24 hours after the initial stroke. Discontinue if platelet count drops less than 50,000 or hemoglobin less than 8 g% Laboratory Results 03/01/19 10:07: POC Glucose 107 03/01/19 10:20: WBC 5.6, RBC 4.79, Hgb 12.8, Hct 41.3, MCV 86.2, MCH 26.7 L, MCHC 31.0 L, RDW Std Deviation 51.8 H, RDW Coeff of Rudi 16.8 H, Plt Count 148 L, MPV 9.1, Immature Gran % (Auto) 0.400, Neut % (Auto) 70.8 H, Lymph % (Auto) 16.6 L, [place] % (Auto) 7.7, Eos % (Auto) 4.1, Baso % (Auto) 0.4, Absolute Neuts (auto) 4.0, Absolute Lymphs (auto) 0.93, Nucleated RBC % 0 03/01/19 10:20: PT 14.5, INR 1.2, APTT 27.5 03/01/19 10:20: Sodium 140, Potassium 4.3, Chloride 108 H, Carbon Dioxide 26.0, Anion Gap 6, BUN 16, Creatinine 1.04 H, Estim Creat Clear Calc 32.42, Est GFR (MDRD) Af Amer 65, Est GFR (MDRD) Non-Af 54 L, BUN/Creatinine Ratio 15.4, Glucose 96, Calcium 9.1, Troponin I < 0.015 Clinical Impression(s) from Imaging Studies Brain CT 03/01/19 10:07 IMPRESSION: No evidence of acute intracranial abnormality. Prominent chronic changes described above. If further clinical concern, MRI is more sensitive for detection of acute intracranial pathology. Chest X-Ray 03/01/19 10:07 IMPRESSION: Right medial lower lung zone atelectasis and/or small infiltrate. Cardiomegaly. Code Visit Inpatient E&M: 42683 Init Hosp L3
--- NOTE | 2019-03-01 13:32 | ECHOCS_ITS ---
Reason For Study: TIA/CVA Procedure This was a 2D Doppler, Color Flow transthoracic echocardiogram. The study was technically difficult. Contrast injection was performed. Exam performed portable in patient room. Left Ventricle Normal LV size. Left ventricular systolic function is normal. The estimated ejection fraction is 55 %. No regional wall motion abnormalities noted. Right Ventricle Normal RV size. Normal systolic function. Atria The left atrium is mildly enlarged. Normal right atrium. Mitral Valve Normal mitral valve. Mild (1+) eccentric mitral valve insufficiency. Tricuspid Valve Normal tricuspid valve. Mild (1+) tricuspid valve insufficiency. Pulmonary artery systolic pressure is 42 mmHg. Aortic Valve Peak aortic valve gradient 26 mmHg. Mean aortic valve gradient 12 mmHg. Mild aortic stenosis. Stable appearing bioprosthetic aortic valve apparatus. Pulmonic Valve The pulmonic valve is not well visualized. Great Vessels Normal aortic root. The pulmonary artery is normal size. Normal inferior vena cava. Pericardium/Pleural No pericardial effusion. Medication Diluted definity 3.5ml given slow IV push to enhance endocardial definition. MMode/2D Measurements & Calculations LVIDd: 4.9 cm IVSd: 0.97 cm LVOT diam: 1.9 cm LVIDs: 3.1 cm LVPWd: 1.1 cm RVDd: 3.7 cm FS: 37.4 % LVOT area: 2.8 cm2 LAV(MOD-bp): 80.3 ml LA A4 area: 24.7 cm2 LA dimension(2D): 4.6 cm LAV(MOD-bp) Indexed: 44.2 ml/m2 LAV(MOD-sp2): 78.6 ml LAV(MOD-sp4): 82.6 ml RA A4 area: 18.5 cm2 Time Measurements MV dec time: 0.12 sec Doppler Measurements & Calculations MV E max rivka: 120.9 cm/sec Ao V2 max: 256.8 cm/sec LV V1 max: 95.0 cm/sec MV A max rivka: 45.9 cm/sec Ao max P.4 mmHg LV V1 max P.6 mmHg MV E/A: 2.6 Ao V2 mean: 160.8 cm/sec LV V1 mean P.9 mmHg Ao mean P.0 mmHg LV V1 mean: 65.3 cm/sec Ao V2 VTI: 48.5 cm LV V1 VTI: 20.4 cm MICKI(I,D): 1.2 cm2 MICKI(V,D): 1.0 cm2 SV(LVOT): 57.6 ml PA V2 max: 98.8 cm/sec TR max rivka: 304.2 cm/sec TR max P.1 mmHg Interpretation Summary Normal LV size. Left ventricular systolic function is normal. The estimated ejection fraction is 55 %. The left atrium is mildly enlarged. Mild (1+) eccentric mitral valve insufficiency. Mild (1+) tricuspid valve insufficiency. Mean aortic valve gradient 12 mmHg. Stable appearing bioprosthetic aortic valve apparatus. Contrast injection was performed. Ordering Physician: Timur Green Referring Physician: Anand Us Performed By: Natali Kay RDCS, RVT
[2019-03-01] MEDS: 0.9% Normal Saline 1,000 ML 75 ML IV (14:03)
[2019-03-01] MEDS: Aspirin 81 MG TAB.CHEW PO (14:03)
[2019-03-01 14:50] LABS: Magnesium 2.1 mg/dL (1.6-2.6); Thyroid Stim Hormone (TSH) 0.56 uIU/mL (0.358-3.74)
[2019-03-01 15:50] LABS: Bedside Glucose 105 mg/dL (70-110)
[2019-03-01 15:55] LABS: Bacteria 0 SEEN /hpf (None Seen); Mucous, Urine 0 SEEN /hpf (<or=2+); White Blood Cells 0 SEEN /hpf (0-5)
[2019-03-01 15:59] LABS: Color, Urine Yellow (Yellow); Glucose, Dipstick Normal (Normal); Ketone-Dipstick Negative (Negative); Leukocyte Esterase-Dipstick Negative /ul (Negative); Nitrite-Dipstick Negative (Negative); Occult Blood-Urine Negative /ul (Negative); Protein-Dipstick Negative (Negative); Specific Gravity, Urine 1.005 (1.002-1.030); Urine Bilirubin Dipstick Negative (Negative); Urine Clarity Clear (Clear); Urine Urobilinogen Normal (Normal); Urine pH 6.5 (5.0 - 8.0)
[2019-03-01 16:07] LABS: Red Blood Cells-Urine 0-5 SEEN /hpf (0-5); Squamous Epithelial Cells - UA 0-5 SEEN /hpf (5-10)
[2019-03-01] MEDS: Ipratropium Bromide 0.06% NASAL SPRAY 2 SPRAY NASAL ×2 (16:35→21:07)
[2019-03-01] MEDS: Sodium Chloride 0.65% 1 SPRAY SPRAY.BTL 2 SPRAY NASAL ×2 (16:35→21:08)
[2019-03-01] MEDS: Atorvastatin Calcium 80 MG Tablet PO (21:07)
[2019-03-01] MEDS: Nystatin Powder 15gm Bottle 1 APPLIC TOPICAL (21:07)
[2019-03-01] MEDS: Metoprolol Tartrate 25 MG Tablet PO (21:07)
[2019-03-01 21:40] LABS: Bedside Glucose 119 mg/dL (70-110)
[2019-03-02] VITALS (16 sets, daily range): BP systolic 120–170; BP diastolic 63–89; PULSE 73–143; RESP 18–22; TEMP 36.6–37; O2SAT 93–98; BMI 31.7
[2019-03-02] MEDS: Levothyroxine 100 MCG Tablet PO (05:14)
[2019-03-02] MEDS: Enoxaparin 30 MG/0.3 ML Syringe SC (05:14)
[2019-03-02 05:56] LABS: Absolute Neutrophil Count 4.3 X10^3/uL (2.0-7.7); Basophil# 0.03 X10^3/uL; Basophil% 0.5 % (0-1); Eosinophil# 0.14 X10^3/uL; Eosinophils% 2.4 % (0-5); Hematocrit 39.4 % (37-47); Hemoglobin 12.4 g/dL (12.0-15.0); Lymphocyte % 15.5 % (19-41); Mean Corp Hgb Conc 31.5 g/dL (32-36); Mean Corpuscular Hgb 27.1 pg (27.0-32.0); Mean Platelet Vol. 9.1 fl (6.2-12.0); Monocyte# 0.46 X10^3/uL; Monocyte% 7.9 % (0-10); NRBC Flagged by Analyzer 0 % (0-5); Neutrophil # 4.25 X10^3/uL (2.7-7.7); Neutrophil % 73.2 % (47-70); Platelet Count 146 K/mm3 (150-450); RBC Distribution Width CV 16.7 % (11.6-14.6); RBC Distribution Width SD 51.3 fl (35.1-43.9); Red Blood Count 4.58 M/mm3 (4.2-5.4); White Blood Count 5.8 K/mm3 (4.4-11.0)
[2019-03-02 06:45] LABS: Bedside Glucose 127 mg/dL (70-110)
[2019-03-02 06:52] LABS: Anion Gap 8 (5-15); BUN 13 mg/dL (7-18); BUN/Creat Ratio 14.8 RATIO (10-20); Calcium,Total 8.8 mg/dL (8.5-10.1); Chloride 110 mmol/L (98-107); Cholesterol 116 mg/dL (200); Creatinine, Serum 0.88 mg/dL (0.55-1.02); EST Glomerular Filtration Rate 65 mL/min (>60); Est Glom Filt Rate - Afr Amer 79 mL/min (>60); Estimated Creatinine Clearance 41.83 ml/min; Glucose 121 mg/dL (74-106); High Density Lipoprotein 47 mg/dL; Potassium 3.9 mmol/L (3.5-5.1); Sodium Level 141 mmol/L (136-145); T4 Free Direct 1.01 ng/dL (0.76-1.46); Triglycerides 83 mg/dL; Very Low Density Lipoprotein 17 mg/dL (5-40)
--- NOTE | 2019-03-02 07:01 | PN_ITS ---
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 Stroke alert was called and a noncontrasted CT brain showed no acute change. [facility] tele-stroke was consulted and recommended TPA however the patient's family refused. EKG in the emergency room showed atrial fibrillation with a heart rate of 64 bpm. Blood pressure was 149/82. She was admitted to a monitored bed on PCU. MRI and MRA's have been ordered for today but will not be done since MRI does not work on Sunday. All events of the past 24 hours of been reviewed. Afebrile since admission Vital signs are stable. Systolic blood pressure is mildly elevated. She is maintaining appropriate oxygen saturation on room air. Total intake on 03/01/2019 was 1180 cc and this includes oral and IV. She is incontinent of urine. She had 2 bowel movements on 03/01/2019 and none today. All lab was personally reviewed. Blood cell count and hemoglobin aare normal. The platelets are 146,000. Creatinine is 0.88, down from 1.04 at admission. Troponins are negative. It was within normal limits. LDL is 52 and HDL is 47. UA was negative for evidence of infection. Echocardiogram in 2018 showed an ejection fraction of 65% with stage II diastolic dysfunction. There was 2+ TR and a normally functioning bioprosthetic aortic valve. Right ventricular systolic pressure was estimated to be 55. she reports that she feels sleepy today. She was seen by speech therapy today and has been approved for pur?ed textures with thin liquids. She needs supervision with all meals. She did eat lunch today. She was also seen by physical therapy/occupational therapy and ambulated 5 feet with hand held assist. She was confused throughout the assessments. Medication list was reviewed. She has orders for OxyIR and Seroquel as needed but has not received either since admission. She is also not received morphine sulfate that is also ordered PRN. Telemetry shows AF with PVC's and occasional couplets and triplets. She had a short run of RVR just after being placed on telemetry - Physical Exam Vitals/I&O's: Vital Signs Temp Pulse Resp BP Pulse Ox 97.8 F 74 18 160/80 H 94 03/02/19 04:00 03/02/19 06:48 03/02/19 04:00 03/02/19 04:00 03/02/19 04:00 Oxygen Flow Rate (L/min) 2 Oxygen Delivery Method Room Air Weight: 184 lb 15.485 oz Body Mass Index (BMI) 31.7 Finger Stick Blood Glucose 107 Intake and Output for Last 24 Hours 02/28/19 03/01/19 03/02/19 23:59 23:59 23:59 Intake Total 1180 / 1280 368.75 / 368.75 Balance 1180 / 1280 368.75 / 368.75 General: - - She is drowsy and her eyes are mostly closed when I am talking with her but, she is answering me appropriately and she is able to follow simple commands HEENT: Atraumatic, PERRLA, Normocephalic Oral: Dry Mucosa Neck: Supple, No JVD, Trachea Midline Lungs: Clear to auscultation, - - Not tachypneic and no conversational dyspnea Cardiovascular: Normal S1, Normal S2, Irregular Rate, Murmur - She has a systolic murmur heard at the second right intercostal space that is 2-3 over 6 and radiates to the left ventricular outflow tract in the apex., No rub noted, No Gallop Abdomen: Bowel Sounds Present, Soft, Non Tender, Non-Distended, - - No guarding with palpation Extremities: No clubbing, No cyanosis, No edema, Capillary Refill Less than 3 Seconds Skin: No rashes Neurological: Cranial nerves II-XII grossly intact, Neuro grossly intact - I do not appreciate any decrease in strength on the left side when compared to the right. there is no facial droop and no tongue deviation.......her speech is a little slurred but she is drowsy and I was able to understand her easily. Psych/Mental Status: Appropriate, Flat Affect Laboratory Results 03/01/19 10:07: POC Glucose 107 03/01/19 10:20: WBC 5.6, RBC 4.79, Hgb 12.8, Hct 41.3, MCV 86.2, MCH 26.7 L, MCHC 31.0 L, RDW Std Deviation 51.8 H, RDW Coeff of Rudi 16.8 H, Plt Count 148 L, MPV 9.1, Immature Gran % (Auto) 0.400, Neut % (Auto) 70.8 H, Lymph % (Auto) 16.6 L, Dougherty % (Auto) 7.7, Eos % (Auto) 4.1, Baso % (Auto) 0.4, Absolute Neuts (auto) 4.0, Absolute Lymphs (auto) 0.93, Nucleated RBC % 0 03/01/19 10:20: PT 14.5, INR 1.2, APTT 27.5 03/01/19 10:20: Sodium 140, Potassium 4.3, Chloride 108 H, Carbon Dioxide 26.0, Anion Gap 6, BUN 16, Creatinine 1.04 H, Estim Creat Clear Calc 32.42, Est GFR (MDRD) Af Amer 65, Est GFR (MDRD) Non-Af 54 L, BUN/Creatinine Ratio 15.4, Glucose 96, Calcium 9.1, Troponin I < 0.015 03/01/19 14:18: Magnesium 2.1, Troponin I < 0.015, TSH 0.56 03/01/19 15:00: Urine Color Yellow, Urine Clarity Clear, Urine pH 6.5, Ur Spec ific [place] 1.005, Urine Protein Negative, Urine Glucose (UA) Normal, Urine Ketones Negative, Urine Occult Blood Negative, Urine Nitrite Negative, Urine Bilirubin Negative, Urine Urobilinogen Normal, Ur Leukocyte Esterase Negative, Urine RBC 0-5 SEEN, Urine WBC 0 SEEN, Ur Squamous Epith Cells 0-5 SEEN, Urine Bacteria 0 SEEN, Urine Mucus 0 SEEN 03/01/19 15:44: POC Glucose 105 03/01/19 21:02: POC Glucose 119 H 03/02/19 04:50: WBC 5.8, RBC 4.58, Hgb 12.4, Hct 39.4, MCV 86.0, MCH 27.1, MCHC 31.5 L, RDW Std Deviation 51.3 H, RDW Coeff of Rudi 16.7 H, Plt Count 146 L, MPV 9.1, Immature Gran % (Auto) 0.500, Neut % (Auto) 73.2 H, Lymph % (Auto) 15.5 L, Dougherty % (Auto) 7.9, Eos % (Auto) 2.4, Baso % (Auto) 0.5, Absolute Neuts (auto) 4.3, Absolute Lymphs (auto) 0.90, Nucleated RBC % 0 03/02/19 04:50: Sodium 141, Potassium 3.9, Chloride 110 H, Carbon Dioxide 23.0, Anion Gap 8, BUN 13, Creatinine 0.88, Estim Creat Clear Calc 41.83, Est GFR (MDRD) Af Amer 79, Est GFR (MDRD) Non-Af 65, BUN/Creatinine Ratio 14.8, Glucose 121 H, Calcium 8.8, Triglycerides 83, Cholesterol 116, LDL Cholesterol 52, VLDL Cholesterol 17, HDL Cholesterol 47, Free T4 1.01 03/02/19 04:50: Hemoglobin A1c Pending 03/02/19 06:37: POC Glucose 127 H Current Medications Acetaminophen (Tylenol) 650 mg PO Q4H PRN PRN PRN Reason: Headache/Temp>99.6F Albuterol Sulfate (Ventolin Aerosols) 2.5 mg INHALATION Q2H PRN PRN PRN Reason: SOB/Wheezing Aspirin (Aspirin, Baby) 81 mg PO DAILY@0800 [facility] Last Admin: 03/01/19 14:03 Dose: 81 mg Documented by: Atorvastatin Calcium (Lipitor) 80 mg PO QHS [facility] Last Admin: 03/01/19 21:07 Dose: 80 mg Documented by: Clopidogrel Bisulfate (Plavix) 75 mg PO DAILY [facility] Enoxaparin Sodium (Lovenox) 30 mg SC DAILY@0600 [facility] Last Admin: 03/02/19 05:14 Dose: 30 mg Documented by: Escitalopram Oxalate (Lexapro) 5 mg PO DAILY [facility] Famotidine (Pepcid) 20 mg PO DAILY [facility] Ferrous Sulfate (Ferrous Sulfate) [facility] Glucagon () 1 mg IM .X1 PRN PRN Reason: Hypoglycemia Guaifenesin (Robitussin) 20 ml PO Q4H PRN PRN PRN Reason: COUGH Dextrose (Dextrose 10%-Water) 250 mls @ 999 mls/hr IV .Q16M PRN; Protocol PRN Reason: HYPOGLYCEMIA Sodium Chloride () 500 mls @ 15 mls/hr IV PRN PRN PRN Reason: Blood Transfusion Sodium Chloride () 250 mls @ 15 mls/hr IV .[id number] PRN PRN Reason: Saline Flush Influenza Virus Vaccine Quadrival (Flucelvax /Fluzone ) 0.5 ml IM .ONCE ONE Stop: 03/02/19 10:01 Ipratropium [place] (Atrovent Nasal [place] (G)) 2 spray NASAL TID [facility] Last Admin: 03/02/19 04:13 Dose: Not Given Documented by: Labetalol HCl (Trandate) 10 mg IV Q10M PRN PRN PRN Reason: MAINTAIN BP < 220/120 Levothyroxine Sodium (Synthroid) 100 mcg PO DAILY@0600 [facility] Last Admin: 03/02/19 05:14 Dose: 100 mcg Documented by: Metoprolol Tartrate (Lopressor (Beta Aneesh)) 25 mg PO BID [facility] Last Admin: 03/01/19 21:07 Dose: 25 mg Documented by: Morphine Sulfate () 2 mg IV Q3H PRN PRN PRN Reason: Pain Score 6-10/10 Nitroglycerin (Nitrostat) 0.4 mg SUBLINGUAL Q5M PRN PRN Reason: CARDIAC/CHEST PAIN Non-Formulary Medication (Ketotifen Fumarate) 1 drp EACH EYE BID [facility] Nystatin (Mycostatin Powder) 1 applic TOPICAL 4X/DAY [facility]; Protocol Last Admin: 03/01/19 21:07 Dose: 1 applicatio Documented by: Ondansetron HCl (Zofran) 4 mg IV Q8H PRN PRN PRN Reason: NAUSEA/VOMITING Oxycodone HCl (Oxyir) 5 mg PO Q4H PRN PRN PRN Reason: Pain Score 4-5/10 Pantoprazole Sodium (Protonix) 40 mg PO DAILY [facility] Quetiapine Fumarate (Seroquel) 25 mg PO QHS PRN PRN PRN Reason: RESTLESSNESS/AGITATION Senna/Docusate Sodium (Senokot-S, Yareli-Colace) 2 tablet PO BID PRN PRN PRN Reason: Constipation Sodium Chloride ([place] Nasal [place]) 2 spray NASAL TID [facility] Last Admin: 03/02/19 04:13 Dose: Not Given Documented by: Sodium Chloride () 2 - 6 ml IV UD PRN PRN Reason: Pediatric Saline Flush Medical Necessity - Tobacco Use Smoking Status: Never smoker Assessment/Plan All Active Problems (Last Updated 08/13/18 @ 07:27 by Lula Drummond) CVA (cerebral vascular accident) (Acute 06/17/18) History of aortic valve replacement with bioprosthetic valve (Resolved 10/24/13) CODY (acute kidney injury) (Resolved) Orthostatic hypotension (Resolved) UTI (urinary tract infection) (Resolved) Impressions 1. TIA - sx have completely resolved. 2. Lethargy - etiology? Has not received any sedating medications since admission to the hospital. 3. Atrial fibrillation with mostly controlled rates. 4. Premature ventricular contractions 5. Mild thrombocytopenia-possibly secondary to being on 2 antiplatelet agents 6. Remote history of left posterior communicating artery infarct in May 2018 7. Coronary artery disease 8. Hypothyroidism with a normal TSH and free T4 9. Diastolic dysfunction 10. Aortic stenosis with history of aortic valve replacement in 2013 11. Essential hypertension 12. Secondary pulmonary hypertension 13. Hyperlipidemia 14. Dementia? I do not know her baseline but, she has been confused today. Likely does not need an MRI and MRA as the sx resolved in less than 24 hours. She is already on 2 antiplatelet drugs and Atorvastatin. She does have AF and she is not on anticoagulation.......this would be a consideration if there is indeed a new deficit although she lives in a [place] and she is confused and I am not sure anticoagulating her would be in her best interest. I do not know what an MRI would add to the picture and she may not be able to lie still for the test but will proceed with The orders as written by Dr. Green. She will also have and ECHO tomorrow. Will discuss the results with the family and then have a discussion regarding the results of the testing and how aggressive they want to be. Code Visit Inpatient E&M: 66497 Subs Hosp L2
[2019-03-02] MEDS: Clopidogrel Bisulfate 75 MG Tablet PO (09:37)
[2019-03-02] MEDS: Famotidine 20 MG Tablet PO (09:37)
[2019-03-02] MEDS: Metoprolol Tartrate 25 MG Tablet PO ×2 (09:37→21:55)
[2019-03-02] MEDS: Escitalopram Oxalate 10 MG Tablet 5 MG PO (09:37)
[2019-03-02] MEDS: Pantoprazole Sodium 40 MG Tablet PO (09:40)
[2019-03-02] MEDS: Aspirin 81 MG TAB.CHEW PO (09:40)
[2019-03-02] MEDS: Ferrous Sulfate 325 MG Tablet PO (09:40)
[2019-03-02] MEDS: Nystatin Powder 15gm Bottle 1 APPLIC TOPICAL ×4 (09:41→21:54)
[2019-03-02 11:05] LABS: Hemoglobin A1c 5.7 % (4.2-6.3)
[2019-03-02 11:41] LABS: Bedside Glucose 128 mg/dL (70-110)
[2019-03-02] MEDS: Ipratropium Bromide 0.06% NASAL SPRAY 2 SPRAY NASAL ×2 (13:40→21:54)
[2019-03-02] MEDS: Sodium Chloride 0.65% 1 SPRAY SPRAY.BTL 2 SPRAY NASAL (13:40)
--- NOTE | 2019-03-02 16:00 | NURSING ---
Received verbal report from RAULITO Gamez at this time at bedside.
[2019-03-02 17:11] LABS: Bedside Glucose 103 mg/dL (70-110)
[2019-03-02] MEDS: Atorvastatin Calcium 80 MG Tablet PO (21:55)
[2019-03-02 22:46] LABS: Bedside Glucose 132 mg/dL (70-110)
[2019-03-03] VITALS (14 sets, daily range): BP systolic 114–158; BP diastolic 44–81; PULSE 62–86; RESP 17–20; TEMP 36.8–37.1; O2SAT 94–97; BMI 31.7
[2019-03-03] MEDS: Enoxaparin 30 MG/0.3 ML Syringe SC (05:14)
[2019-03-03] MEDS: Levothyroxine 100 MCG Tablet PO (05:14)
[2019-03-03 06:40] LABS: Bedside Glucose 125 mg/dL (70-110)
--- NOTE | 2019-03-03 08:15 | MRI_ITS ---
We are attempting to reach an attending provider to discuss findings. An addendum with communication details will be sent when the communication is complete. STUDY: MRI BRAIN WITHOUT CONTRAST REASON FOR EXAM: Female, 83 years old. cva, left sided weakness,slurred speech, hx prev cva TECHNIQUE: Standardized multiplanar fat and water weighted pulse sequences were obtained. COMPARISON: June 19, 2018 FINDINGS: There is mild cerebral atrophy with widening of the extra-axial spaces and ventricular dilatation. There are multiple white matter hyperintensities, distributed throughout the deep white matter tracts of the cerebral hemispheres, consistent with severe chronic white matter ischemic changes. There is restricted diffusion involving the right and left and khanna radiata. Additionally there is a focus of restricted diffusion of the left basal ganglia. There is drop of signal on ADC map, consistent with acute infarction There is loss of the left ICA flow void. Please see dedicated MRA examination. Normal sella turcica, pituitary gland, infundibular stalk, optic chiasm and hypothalamus. Normal tectal plate and pineal gland. Normal midbrain, terry and medulla. Normal cerebellum. Normal basal cisterns. MRI/Brain without Contrast IMPRESSION: Acute right frontal infarct. Acute left basal ganglia infarct. Left ICA occlusion. Severe chronic microvascular ischemic changes. Electronically Signed: Ann Marie Tejada MD at 9:48 EST Tel , Service support ,
--- NOTE | 2019-03-03 08:15 | MRI_ITS ---
STUDY: MRA NECK WITHOUT CONTRAST REASON FOR EXAM: Female, 83 years old. cva, left sided weakness, slurred speech, hx prev cva. cva, left sided weakness, slurred speech, hx prev cva TECHNIQUE: Source images were obtained, MIPs were performed. The study was performed unenhanced. COMPARISON: June 16, 2017 FINDINGS: RIGHT CAROTID ARTERIES: Antegrade flow within the right common carotid artery (CCA). Antegrade flow within the right carotid bulb. Antegrade flow within the right internal carotid (ICA) artery. Antegrade flow within the visualized cervical portion of the right internal carotid artery. LEFT CAROTID ARTERIES: Occluded left common carotid artery (CCA). Occlusion left common carotid bulb. Antegrade flow within the left internal carotid (ICA) artery. Occluded cervical portion of the left internal carotid artery. VERTEBRAL ARTERIES: Antegrade flow within the bilateral vertebral artery. MRI/MRA Neck without Contrast IMPRESSION: New left carotid artery occlusion. Further evaluation with CTA is recommended. Electronically Signed: Ann Marie Tejada MD at 9:56 EST Tel , Service support ,
--- NOTE | 2019-03-03 08:15 | MRI_ITS ---
STUDY: MRA OF THE HEAD WITHOUT CONTRAST REASON FOR EXAM: Female, 83 years old. left sided weakness, slurred speech, hx prev cva. left sided weakness, slurred speech, hx prev cva TECHNIQUE: 3-D [id number] (TOF) imaging was performed with MIPs. The study was performed unenhanced. COMPARISON: June 16, 2018 FINDINGS: Examination is degraded by motion artifact. Patent right cavernous carotid artery. Occluded left cavernous carotid artery. Finding is new since the prior examination in May Patent right A1 segments of the anterior cerebral artery. Patent left A1 segments of the anterior cerebral artery. Unremarkable anterior communicating artery (ACOM) region. Normal bilateral A2 segments of the anterior cerebral arteries. Patent right M1 and M2 segments of the middle cerebral arteries, with a unremarkable M1 bifurcation. Patent left M1 and M2 segments of the middle cerebral arteries, with a unremarkable M1 bifurcation. There is non-visualization of the right posterior communicating artery (PCOM). There is non-visualization of the left posterior communicating artery (PCOM). Patent basilar artery with a normal basilar bifurcation. Patent bilateral posterior cerebral arteries. MRI/MRA Head ONLY without Contrast IMPRESSION: New left carotid occlusion. Further evaluation with CTA is recommended. Electronically Signed: Ann Marie Tejada MD at 9:51 EST Tel , Service support ,
--- NOTE | 2019-03-03 10:29 | CASEMGMT ---
Patient is from [place]. SW faxed them updates. She does not need a pre-cert to return. Christy FERRARA MSW
--- NOTE | 2019-03-03 10:30 | CASEMGMT ---
SW did not complete PHQ -9 with patient as she is confused. Christy FERRARA MSW
[2019-03-03] MEDS: Clopidogrel Bisulfate 75 MG Tablet PO (10:45)
[2019-03-03] MEDS: Aspirin 81 MG TAB.CHEW PO (10:45)
[2019-03-03] MEDS: Famotidine 20 MG Tablet PO (10:45)
[2019-03-03] MEDS: Pantoprazole Sodium 40 MG Tablet PO (10:45)
[2019-03-03] MEDS: Metoprolol Tartrate 25 MG Tablet PO ×2 (10:45→20:21)
[2019-03-03] MEDS: Escitalopram Oxalate 10 MG Tablet 5 MG PO (10:45)
[2019-03-03] MEDS: Ferrous Sulfate 325 MG Tablet PO (10:45)
[2019-03-03] MEDS: Nystatin Powder 15gm Bottle 1 APPLIC TOPICAL ×4 (10:46→20:21)
[2019-03-03 11:25] LABS: Bedside Glucose 150 mg/dL (70-110)
--- NOTE | 2019-03-03 13:12 | NURSING ---
[facility] tele neurologist seen patient . He will page [facility] md and do supportive treatment
--- NOTE | 2019-03-03 13:26 | PN_ITS ---
Subjective: Patient seen and examined. She has no complaints this morning. She had MRI and MRA this morning. Review of symptoms otherwise negative. Review of systems otherwise negative. Vitals/I&O's: Vital Signs Temp Pulse Resp BP Pulse Ox 98.3 F 70 17 142/46 H 96 03/03/19 12:54 03/03/19 12:54 03/03/19 12:54 03/03/19 12:54 03/03/19 12:54 Oxygen Flow Rate (L/min) 94 Oxygen Delivery Method Room Air Weight: 184 lb 15.485 oz Body Mass Index (BMI) 31.7 Finger Stick Blood Glucose 107 Intake and Output for Last 24 Hours 03/01/19 03/02/19 03/03/19 23:59 23:59 23:59 Intake Total 1180 / 1280 588.75 / 588.75 120 / 120 Balance 1180 / 1280 588.75 / 588.75 120 / 120 General: Cooperative, No apparent distress, Lethargic HEENT: Atraumatic, PERRLA, EOMI, Normocephalic Oral: Dry Mucosa Neck: Supple, No JVD, Negative Carotid Bruits Lungs: Clear to auscultation, Normal air movement, No rhonchi, No wheeze, No rales Cardiovascular: Normal S1, Normal S2, Irregular Rate - Afib, - - grade 2-3 systolic murmur loudest at the aortic region. Abdomen: Bowel Sounds Present, Soft, Non Tender Extremities: No clubbing, No cyanosis, No edema, Capillary Refill Less than 3 Seconds Skin: No rashes, No breakdown Musculoskeletal: No Tenderness to Palpation of Joints or Extremities Lymphatic: No Cervical, Supraclavicular, or Inguinal Adenopathy Neurological: Cranial nerves II-XII grossly intact, Neuro grossly intact, Motor Exam 5/5 strength throughout, - - normal power, tone and sensation in all extremities Psych/Mental Status: Normal Affect, Appropriate Laboratory Results 03/02/19 16:58: POC Glucose 103 03/02/19 22:05: POC Glucose 132 H 03/03/19 06:36: POC Glucose 125 H 03/03/19 11:20: POC Glucose 150 H Current Medications Acetaminophen (Tylenol) 650 mg PO Q4H PRN PRN PRN Reason: Headache/Temp>99.6F Albuterol Sulfate (Ventolin Aerosols) 2.5 mg INHALATION Q2H PRN PRN PRN Reason: SOB/Wheezing Aspirin (Aspirin, Baby) 81 mg PO DAILY@0800 [facility] Last Admin: 03/03/19 10:45 Dose: 81 mg Documented by: Atorvastatin Calcium (Lipitor) 80 mg PO QHS [facility] Last Admin: 03/02/19 21:55 Dose: 80 mg Documented by: Clopidogrel Bisulfate (Plavix) 75 mg PO DAILY [facility] Last Admin: 03/03/19 10:45 Dose: 75 mg Documented by: Enoxaparin Sodium (Lovenox) 30 mg SC DAILY@0600 [facility] Last Admin: 03/03/19 05:14 Dose: 30 mg Documented by: Escitalopram Oxalate (Lexapro) 5 mg PO DAILY [facility] Last Admin: 03/03/19 10:45 Dose: 5 mg Documented by: Famotidine (Pepcid) 20 mg PO DAILY [facility] Last Admin: 03/03/19 10:45 Dose: 20 mg Documented by: Ferrous Sulfate (Ferrous Sulfate) 325 mg PO DAILYCM [facility] Last Admin: 03/03/19 10:45 Dose: 325 mg Documented by: Glucagon () 1 mg IM .X1 PRN PRN Reason: Hypoglycemia Guaifenesin (Robitussin) 20 ml PO Q4H PRN PRN PRN Reason: COUGH Dextrose (Dextrose 10%-Water) 250 mls @ 999 mls/hr IV .Q16M PRN; Protocol PRN Reason: HYPOGLYCEMIA Sodium Chloride () 500 mls @ 15 mls/hr IV PRN PRN PRN Reason: Blood Transfusion Sodium Chloride () 250 mls @ 15 mls/hr IV .[id number] PRN PRN Reason: Saline Flush Ipratropium [place] (Atrovent Nasal Egan (G)) 2 spray NASAL TID [facility] Last Admin: 03/03/19 05:13 Dose: Not Given Documented by: Labetalol HCl (Trandate) 10 mg IV Q10M PRN PRN PRN Reason: MAINTAIN BP < 220/120 Levothyroxine Sodium (Synthroid) 100 mcg PO DAILY@0600 [facility] Last Admin: 03/03/19 05:14 Dose: 100 mcg Documented by: Metoprolol Tartrate (Lopressor (Beta Aneesh)) 25 mg PO BID [facility] Last Admin: 03/03/19 10:45 Dose: 25 mg Documented by: Morphine Sulfate () 2 mg IV Q3H PRN PRN PRN Reason: Pain Score 6-10/10 Nitroglycerin (Nitrostat) 0.4 mg SUBLINGUAL Q5M PRN PRN Reason: CARDIAC/CHEST PAIN Nystatin (Mycostatin Powder) 1 applic TOPICAL 4X/DAY [facility]; Protocol Last Admin: 03/03/19 10:46 Dose: 1 applicatio Documented by: Ondansetron HCl (Zofran) 4 mg IV Q8H PRN PRN PRN Reason: NAUSEA/VOMITING Oxycodone HCl (Oxyir) 5 mg PO Q4H PRN PRN PRN Reason: Pain Score 4-5/10 Pantoprazole Sodium (Protonix) 40 mg PO DAILY [facility] Last Admin: 03/03/19 10:45 Dose: 40 mg Documented by: Quetiapine Fumarate (Seroquel) 12.5 mg PO QHS PRN PRN PRN Reason: RESTLESSNESS/AGITATION Senna/Docusate Sodium (Senokot-S, Yareli-Colace) 2 tablet PO BID PRN PRN PRN Reason: Constipation Sodium Chloride ([place] Nasal Egan) 2 spray NASAL TID [facility] Last Admin: 03/03/19 05:14 Dose: Not Given Documented by: Sodium Chloride () 2 - 6 ml IV UD PRN PRN Reason: Pediatric Saline Flush STROKE Vital Signs/Narrative: Vital Signs Temp Pulse Resp BP Pulse Ox 03/03/19 12:54 98.3 F 70 17 142/46 H 96 03/03/19 10:45 69 156/81 H Medical Necessity - Tobacco Use Smoking Status: Unknown if ever smoked Assessment/Plan All Active Problems (Last Updated 08/13/18 @ 07:27 by Lula Drummond) CVA (cerebral vascular accident) (Acute 06/17/18) History of aortic valve replacement with bioprosthetic valve (Resolved 10/24/13) CODY (acute kidney injury) (Resolved) Orthostatic hypotension (Resolved) UTI (urinary tract infection) (Resolved) 1. 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 [facility] teleneurology recommended tPA, but patient's son, who is her healthcare POA, refused. * Patient currently on aspirin and Plavix as well as statin. She does have a history of stroke in May 2018 and had been on aspirin and Plavix after that as well as statin. It was subsequently discontinued though family could not tell why it was discontinued. Spring, statin and Plavix started on admission. * MRI of the brain today showed acute right frontal infarct and acute left basal ganglia infarct. * Neurology consult placed. Discussed with Dr. Atkinson of [facility]- Per neurology recommendations, stroke is likely due to A. fib as patient had A. fib on admission. Plan will be to anticoagulate patient but per neurology, to wait for 10 days and to repeat his CT of the brain after 10 days. This is to monitor for hemorrhagic conversion of the ischemic stroke. To continue with aspirin and Plavix in the interim. If after [address] she has the [address] of the brain and it is negative for hemorrhagic conversion, then patient to start on an oral anticoagulant. Per neurology, patient will need to be on aspirin or Plavix once oral anticoagulant is started as the source of the stroke is likely the A. fib. * PT OT on board. * 2D echo shows EF of 55% with normal left ventricular size and systolic function with no regional wall motion abnormalities noted and pulmonary artery pressure of 42 mmHg. Peak aortic valve gradient is 26 mmHg with mean aortic valve gradient of 12 mmHg and mild aortic stenosis as well as stable appearing bioprosthetic aortic valve apparatus. * Continue statin. Check lipid panel. * Fall Precautions. * Of note, hospitalist had extensive discussion with patient's son Roberto Carlos Lainez who is her healthcare power of energy attorney today. He stated that he had refused TPA on admission for patient because he did not think that the benefits outweigh the risks. Now that MRI had confirmed stroke, upon extensive counseling, patient's son and her [id number] stated that they were okay with patient being anticoagulated. They were educated about the risk of oral anticoagulation including bleeding. Family stated that they did not want any aggressive management in light of patient's advanced age and comorbidities. Therefore understood that there was a risk of bleeding but they were okay with her being anticoagulated, but if patient had another stroke or deteriorated in any way, they would not want any life-saving heroic measures. * Keep blood pressure below 130/80. * 2. A. fib * Rate controlled. * Patient does not have a history of A. fib it appears. Per discussion with son, patient is to be on Coumadin but he thinks it was because of the aortic valve replacement she had though she does have a bioprosthetic aortic valve not a mechanical aortic valve. He is not aware that patient is not on Coumadin anymore and cannot tell why she was taken off of it or when she was taken off of it. * Sent however states that she is never had A. fib as far as he knows. Records checked from May 2018 when patient had a stroke and there was no mention of A. fib in the documentation. * GAMA D VASC 2 score is at least 4 necessitating oral anticoagulation. * As mentioned under 1, to start on anticoagulation preferably Eliquis after CT scan is repeated in 10 days time to rule out hemorrhagic conversion of ischemic stroke. * Continue metoprolol. * 3. Hypothyroidism: On Synthroid * 4. Left ICA occlusion: * This is as per CTA of the head and neck which showed new left carotid artery occlusion. Per discussion with neurology, patient will benefit from CTA to see if there is any flow in the occluded vessel. If there is, then she might benefit from vascular surgery. * However it is unlikely that family would want patient to undergo surgery at her advanced age. * Will discuss with family about need for surgery if CT is positive. * If they are agreeable to surgery, then we will go ahead and do CT of the head and neck. If they do not want surgery, then there will be no benefit in doing the CTA of the head and neck. * 5. Thrombocytopenia: Platelets were 146 on admission. Stable. Will monitor. 6. GERD: On Synthroid. DVT Prophylaxis: SCDs. Will discontinue Lovenox on account of risk of hemorrhagic conversion. Code Status: DNR CCA * Hospitalist had extensive discussion with patient's son today about CODE S TATUS. Son stated that he knew patient was DNR but he did not know the difference between DNR and DNR CCA, wanted further clarification. Extensive counseling was done about differences between DNR and DNR CCA and son and [id number] expressed understanding. The plan is to keep patient DNR CCA for now as onset he did not want to make a decision now and would space the rest of the family. * Total time spent on counselin minutes. Code Visit Inpatient E&M: 91674 Subs Hosp L3 Procedures: 44780 Advncd Care Plan 30 Min
--- NOTE | 2019-03-03 15:12 | CASEMGMT ---
Patient has a Healthcare POA in her chart. However, pages 3 and 9-12 are missing. We do not have a Healthcare LW on file. SW called Marcie at [facility] and asked if they could fax documents they have on file. Chritsy FERRARA MSW
[2019-03-03] MEDS: Atorvastatin Calcium 80 MG Tablet PO (20:21)
[2019-03-03 22:11] LABS: Bedside Glucose 92 mg/dL (70-110)
[2019-03-04] VITALS (8 sets, daily range): BP systolic 121–161; BP diastolic 52–83; PULSE 63–88; RESP 15–18; TEMP 36.6–36.8; O2SAT 94–98; BMI 31.7
[2019-03-04] MEDS: Levothyroxine 100 MCG Tablet PO (05:28)
[2019-03-04 06:19] LABS: Absolute Lymphocyte Count 1.44 X10^3/uL (0.83-4.51); Absolute Neutrophil Count 3.6 X10^3/uL (2.0-7.7); Basophil# 0.03 X10^3/uL; Basophil% 0.5 % (0-1); Eosinophil# 0.48 X10^3/uL; Eosinophils% 7.8 % (0-5); Hematocrit 39.2 % (37-47); Hemoglobin 12.3 g/dL (12.0-15.0); Lymphocyte # 1.44 X10^3/ul (4.0); Lymphocyte % 23.5 % (19-41); Mean Corp Hgb Conc 31.4 g/dL (32-36); Mean Corpuscular Hgb 26.5 pg (27.0-32.0); Mean Corpuscular Volume 84.5 fL (81-99); Mean Platelet Vol. 9.6 fl (6.2-12.0); Monocyte% 9.8 % (0-10); NRBC Flagged by Analyzer 0 % (0-5); Neutrophil # 3.57 X10^3/uL (2.7-7.7); Neutrophil % 58.1 % (47-70); Platelet Count 147 K/mm3 (150-450); RBC Distribution Width CV 16.8 % (11.6-14.6); RBC Distribution Width SD 51.4 fl (35.1-43.9); Red Blood Count 4.64 M/mm3 (4.2-5.4); White Blood Count 6.1 K/mm3 (4.4-11.0)
[2019-03-04 06:33] LABS: Anion Gap 5 (5-15); BUN 11 mg/dL (7-18); BUN/Creat Ratio 13.2 RATIO (10-20); Calcium,Total 8.7 mg/dL (8.5-10.1); Chloride 106 mmol/L (98-107); Creatinine, Serum 0.83 mg/dL (0.55-1.02); EST Glomerular Filtration Rate 69 mL/min (>60); Est Glom Filt Rate - Afr Amer 84 mL/min (>60); Estimated Creatinine Clearance 44.35 ml/min; Glucose 102 mg/dL (74-106); Potassium 3.4 mmol/L (3.5-5.1); Sodium Level 138 mmol/L (136-145)
[2019-03-04 07:00] LABS: Bedside Glucose 104 mg/dL (70-110)
[2019-03-04] MEDS: Ferrous Sulfate 325 MG Tablet PO (07:43)
[2019-03-04] MEDS: Aspirin 81 MG TAB.CHEW PO (07:43)
[2019-03-04] MEDS: Pantoprazole Sodium 40 MG Tablet PO (10:46)
[2019-03-04] MEDS: Clopidogrel Bisulfate 75 MG Tablet PO (10:46)
[2019-03-04] MEDS: Famotidine 20 MG Tablet PO (10:46)
[2019-03-04] MEDS: Nystatin Powder 15gm Bottle 1 APPLIC TOPICAL ×2 (10:46→13:00)
[2019-03-04] MEDS: Escitalopram Oxalate 10 MG Tablet 5 MG PO (10:46)
[2019-03-04 11:35] LABS: Bedside Glucose 101 mg/dL (70-110)
--- NOTE | 2019-03-04 11:53 | CASEMGMT ---
SCARLETT called Marcie at [facility] and let her know patient may come back later today depending on her heart rate. Christy FERRARA WEB PRESS OPERATOR APPRENTICE
--- NOTE | 2019-03-04 11:59 | EKG12_ITS ---
Test Reason : HR Blood Pressure : / mmHG Vent. Rate : 056 BPM Atrial Rate : 066 BPM P-R Int : 000 ms QRS Dur : 076 ms QT Int : 464 ms P-R-T Axes : 000 021 053 degrees QTc Int : 447 ms Atrial fibrillation with premature ventricular or aberrantly conducted complexes Low voltage QRS T wave abnormality, consider anterior ischemia Abnormal ECG Confirmed by RAGHAVENDRA RAMIRES, MICHELLE ([id number]), photographic editor PIERO ARTEAGA ([id number]) on 03/05/2019 11:46:43 AM Referred By: LUCIAN Confirmed By:MICHELLE MABRY MD
--- NOTE | 2019-03-04 12:28 | TREXTCAR_ITS ---
- Diet 03/02/19 08:40 Diet: Cardiac/Low Cholesterol Food consistency:: Puree Liquid Consistency:: Regular/Thin Is pt able to select menu?: No Diet Comments: no straws - Routine Orders/Code Status Enema Type: Fleetz Enema Frequency: Daily PRN Suppository Type: Dulcolax 10mg Suppository Frequency: Daily PRN O2 Frequency: PRN Keep PO Greater than or Equal to (%): 90 Routine Lab Work: CBC [facility] - Wound(s) coccyx Wound Type: excoriation distal coccyx Wound Type: Laceration left pannus Wound Type: excoriation groin Wound Type: excoriation - Therapies Weight Bearing: Weight bearing as tolerated Physical Therapy: Eval and Treat Occupational Therapy: Eval and Treat - Allergies/Procedures Done in Hospital Allergies/Adverse Reactions: Allergies adhesive Adverse Reaction (Verified 03/01/19 10:03) Rash Procedures: 2-D Echocardiogram - Type of Care/Length of Stay Estimated LOS: More Than 30 Days Type of Care Needed: Skilled Rehab Potential: Fair Prognosis: Fair - Additional Orders/Day of Discharge Additional Orders: to have repeat CT without contrast in 10 days time to assess for hemorrhagic conversion of acute ischemic stroke. If this is negative, patient to be started on p.o. Eliquis and for aspirin and Plavix to be discontinued. Dr. Us informed by Dr. Lowry via phone conversation (03/04/2019). To be referred to a neurologist by PCP on outpatient basis. Day of Discharge: 03/04/19 - Dietary and Speech Recommendations Dietitian Recommendations/Changes: Rec continue Cardiac/Low Cholesterol diet w/ texture modifications per PET FEEDER. Will provide pt ONS Ensure Enlive 120 ml at meals to provide additonal moses/pro if consumed. Speech Linguistic Eval Summary: Pt. is an 83 YOF admitted to [facility] on 03/01/2019 d/t acute onset left-sided weakness and slurred speech onset about 9 AM sent from SNF; workup revealing acute right frontal and left basal ganglia infarcts. Pt.?s PMHx is extensive, most significant for prior LPCA CVA, HTN, HLD, GERD. Pt. 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 re: most recent level of functioning given current impairments. 03/03/2019 MRI revealed an acute right frontal infarct; acute left basal ganglia infarct; left ICA occlusion; severe chronic microvascular ischemic changes. Cognitive communication assessment completed this date, w/ Pt. presenting w/ moderate to severe cognitive communication deficits across the cognitive domains secondary to acute right frontal and left basal ganglia infarcts, exacerbated from m oderate baseline impairments associated w/ post CVA dementia. NIHSS (admission): 3. GCS: 14 [id number]. AMT-4: 2 (abnormal). 4AT: 8 (abnormal). SOMCT: 0/28 (severe). ASTRAL: 19 (12.2% risk 90 day mRS 3-6). THRIVE: 3 (80% risk 90 day mRS 0-2). Cognitive communication profile marked by mild to moderate dysarthria complicated by edentulous status; no clear aphasia, though assessment complicated by her diminished arousal, which may mask a milder aphasia; clearly impaired processing efficiency, difficulty w/ attention maintenance / shifting attention; disorientation; intermittent perseverations and tangential thought processing; fluctuating levels of consciousness; Will recommend continued intervention targeting re-establishment of baseline cognitive communication abilities post CVA to establish the most appropriate level of care and approach to remediation following her most recent CVA. - Follow Up Care Primary Care Physician: Anand Us MD [Primary Care Provider] - Please follow up with your Primary Care Physician in: one week
--- NOTE | 2019-03-04 12:33 | DS.PCM_ITS ---
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 Prominent chronic changes described above. If further clinical concern, MRI is more sensitive for detection of acute intracranial pathology. N.B. : The above information has been verbally conveyed by Bruno Lee to Nimesh Joshi MD, on 03/01/2019 10:30:42 (ET). Electronically Signed: Bruno Lee, at 10:31 EST Tel , Service support , ADDENDUM: 03/01/19 1038 IMPRESSION: No evidence of acute intracranial abnormality. Prominent chronic changes described above. If further clinical concern, MRI is more sensitive for detection of acute intracranial pathology. N.B. : The above information has been verbally conveyed by Bruno Lee to Nimesh Joshi MD, on 03/01/2019 10:30:42 (ET). Electronically Signed: Bruno Lee, at 10:31 EST Tel , Service support , Chest X-Ray 03/01/19 10:07 IMPRESSION: Right medial lower lung zone atelectasis and/or small infiltrate. Cardiomegaly. Electronically Signed: Bruno Lee at 11:08 EST Tel , Service support , Brain MRI 03/03/19 08:15 IMPRESSION: Acute right frontal infarct. Acute left basal ganglia infarct. Left ICA occlusion. Severe chronic microvascular ischemic changes. Electronically Signed: Ann Marie Tejada MD at 9:48 EST Tel , Service support , ADDENDUM: 03/03/19 1011 IMPRESSION: Acute right frontal infarct. Acute left basal ganglia infarct. Left ICA occlusion. Severe chronic microvascular ischemic changes. N.B. : The above information has been verbally conveyed by Ann Marie Tejada MD to Magali Jacobson RN, on 03/03/2019 10:04:48 (ET). Electronically Signed: Ann Marie Tejada MD at 9:48 EST Tel , Service support , Head MRA 03/03/19 08:15 IMPRESSION: New left carotid occlusion. Further evaluation with CTA is recommended. Electronically Signed: Ann Marie Tejada MD at 9:51 EST Tel , Service support , Neck MRA 03/03/19 08:15 IMPRESSION: New left carotid artery occlusion. Further evaluation with CTA is recommended. Electronically Signed: Ann Marie Tejada MD at 9:56 EST Tel , Service support , Consultations 03/02/19 13:17 Consult: Onc/Wound/business analysis professional Routine Comment: Operations: None Procedures: 2-D Echocardiogram Summary of Care Provided: The patient is a 83 year old F with a past medical history of previous left QA ARCHITECT infarct in May 2018 as well as hypertension and hyperlipidemia. She was admitted through the ED from her [facility] on 03/01/2019 with a complaint of left-sided weakness and slurred speech. On admission in the ED NIH stroke scale was 9 but subsequently improved to 5. CT of the brain done was negative for any acute stroke. [facility] tele-stroke was consulted in the ED and they recommended TPA. However patient's son who is her POA refused TPA. She was admitted to be managed for acute stroke. Of note, on admission, EKG done showed that patient was in A. fib; she had no known previous history of A. fib. Patient had MRI of the brain which showed acute right frontal infarct and acute left basal ganglia infarct. MRA of the head and neck showed new left ICA occlusion. [facility]y was consulted. They recommended that patient should continue on aspirin and Plavix for the next 10 days and after 10 days to have a repeat CT to check for hemorrhagic conversion of stroke. If there was no hemorrhagic conversion then aspirin and Plavix could be discontinued and patient could be started on oral an ticoagulants like Eliquis. Also recommended a CTA of the head and neck to evaluate the left ICA occlusion as if there was any flow and patient will could be a candidate for vascular surgery. Hospitalist had extensive discussion with patient's son Roberto Carlos Lainez who is the POA. Son said patient would not have wanted any surgery and so the CTA of the head and neck was not ordered as the results would not change the management under the circumstances. Son also stated the family did not want any aggressive measures in light of patient's advanced age and frailty and as per her previous wishes. They were however okay with patient being anticoagulated on account of new onset A. fib as her GAMA D VASC score was at least 4. They denied patient having any history of GI bleed or any nose bleeding and stated patient had previously been on Coumadin when she had valve replacement. They could not tell why she was no longer on Coumadin. Family understood that there was a risk of bleeding and son said if patient sustained any bleeding from anticoagulation, there would make a decision as to whether to continue or to withhold any aggressive measures. Patient remained stable and was discharged to a [facility] on 03/04/2019. Of note, her metoprolol was decreased from 25 mg twice daily to 12.5 mg twice daily on account of transient bradycardia with heart rate going down to 39 just once. Heart rate remained stable and was in the 70s and 80s. Hospitalist informed her PCP in the [facility], Dr. Anand Us , verbally on phone about the need for repeat CT of the brain in 10 days time to assess for hemorrhagic conversion and plan to stop aspirin and Plavix if there was no hemorrhagic conversion then and to start patient on oral anticoagulant such as Eliquis. Patient seen and examined prior to discharge. She had no complaints. Review systems otherwise negative. Labs and vitals reviewed. Home medication reviewed and reconciled. [] Vital Signs Height 5 ft 4 in Weight: 184 lb 15.485 oz Weight in Pounds 185.0 lbs Pulse Ox 96 Temperature 98 F Pulse Rate 88 Respiratory Rate 16 Blood Pressure 141/62 Blood Pressure Position Sitting General: Cooperative, No apparent distress, Lethargic HEENT: Atraumatic, PERRLA, EOMI, Normocephalic Oral: Dry Mucosa Neck: Supple, No JVD, Negative Carotid Bruits Lungs: Clear to auscultation, Normal air movement, No rhonchi, No wheeze, No rales Cardiovascular: Normal S1, Normal S2, Irregular Rate - Afib, - - grade 2-3 systolic murmur loudest at the aortic region. Abdomen: Bowel Sounds Present, Soft, Non Tender Extremities: No clubbing, No cyanosis, No edema, Capillary Refill Less than 3 Seconds Skin: No rashes, No breakdown Musculoskeletal: No Tenderness to Palpation of Joints or Extremities Lymphatic: No Cervical, Supraclavicular, or Inguinal Adenopathy Neurological: Cranial nerves II-XII grossly intact, Neuro grossly intact, Motor Exam 5/5 strength throughout, - - normal power, tone and sensation in all extremities Psych/Mental Status: Normal Affect, Appropriate Plan as above. - Physical Exam Vitals/I&O's: Vital Signs Temp Pulse Resp BP Pulse Ox 97.8 F 77 15 136/83 H 96 03/04/19 07:59 03/04/19 11:36 03/04/19 07:59 03/04/19 07:59 03/04/19 07:59 Oxygen Flow Rate (L/min) 94 Oxygen Delivery Method Room Air Weight: 184 lb 15.485 oz Body Mass Index (BMI) 31.7 Finger Stick Blood Glucose 107 Intake and Output for Last 24 Hours 03/02/19 03/03/19 03/04/19 23:59 23:59 23:59 Intake Total 588.75 / 588.75 370 / 370 / Balance 588.75 / 588.75 370 / 370 Laboratory Results 03/03/19 20:20: POC Glucose 92 03/04/19 05:30: WBC 6.1, RBC 4.64, Hgb 12.3, Hct 39.2, MCV 84.5, MCH 26.5 L, MCHC 31.4 L, RDW Std Deviation 51.4 H, RDW Coeff of Rudi 16.8 H, Plt Count 147 L, MPV 9.6, Immature Gran % (Auto) 0.300, Neut % (Auto) 58.1, Lymph % (Auto) 23.5, [place] % (Auto) 9.8, Eos % (Auto) 7.8 H, Baso % (Auto) 0.5, Absolute Neuts (auto) 3.6, Absolute Lymphs (auto) 1.44, Nucleated RBC % 0 03/04/19 05:30: Sodium 138, Potassium 3.4 L, Chloride 106, Carbon Dioxide 27.0, Anion Gap 5, BUN 11, Creatinine 0.83, Estim Creat Clear Calc 44.35, Est GFR (MDRD) Af Amer 84, Est GFR (MDRD) Non-Af 69, BUN/Creatinine Ratio 13.2, Glucose 102, Calcium 8.7 03/04/19 06:56: POC Glucose 104 03/04/19 11:27: POC Glucose 101 Current Medications Acetaminophen (Tylenol) 650 mg PO Q4H PRN PRN PRN Reason: Headache/Temp>99.6F Albuterol Sulfate (Ventolin Aerosols) 2.5 mg INHALATION Q2H PRN PRN PRN Reason: SOB/Wheezing Aspirin (Aspirin, Baby) 81 mg PO DAILY@0800 [facility] Last Admin: 03/04/19 07:43 Dose: 81 mg Documented by: Atorvastatin Calcium (Lipitor) 80 mg PO QHS [facility] Last Admin: 03/03/19 20:21 Dose: 80 mg Documented by: Clopidogrel Bisulfate (Plavix) 75 mg PO DAILY [facility] Last Admin: 03/04/19 10:46 Dose: 75 mg Documented by: Escitalopram Oxalate (Lexapro) 5 mg PO DAILY [facility] Last Admin: 03/04/19 10:46 Dose: 5 mg Documented by: Famotidine (Pepcid) 20 mg PO DAILY [facility] Last Admin: 03/04/19 10:46 Dose: 20 mg Documented by: Ferrous Sulfate ([facility]errous Sulfate) [facility] Last Admin: 03/04/19 07:43 Dose: 325 mg Documented by: Glucagon () 1 mg IM .X1 PRN PRN Reason: Hypoglycemia Guaifenesin (Robitussin) 20 ml PO Q4H PRN PRN PRN Reason: COUGH Dextrose (Dextrose 10%-Water) 250 mls @ 999 mls/hr IV .Q16M PRN; Protocol PRN Reason: HYPOGLYCEMIA Sodium Chloride () 500 mls @ 15 mls/hr IV PRN PRN PRN Reason: Blood Transfusion Sodium Chloride () 250 mls @ 15 mls/hr IV .[id number] PRN PRN Reason: Saline Flush Ipratropium [place] (Atrovent Nasal [place] (G)) 2 spray NASAL TID [facility] Last Admin: 03/04/19 05:28 Dose: Not Given Documented by: Labetalol HCl (Trandate) 10 mg IV Q10M PRN PRN PRN Reason: MAINTAIN BP < 220/120 Levothyroxine Sodium (Synthroid) 100 mcg PO DAILY@0600 [facility] Last Admin: 03/04/19 05:28 Dose: 100 mcg Documented by: Metoprolol Tartrate (Lopressor (Beta Aneesh)) 12.5 mg PO BID [facility] Morphine Sulfate () 2 mg IV Q3H PRN PRN PRN Reason: Pain Score 6-10/10 Nitroglycerin (Nitrostat) 0.4 mg SUBLINGUAL Q5M PRN PRN Reason: CARDIAC/CHEST PAIN Nystatin (Mycostatin Powder) 1 applic TOPICAL 4X/DAY [facility]; Protocol Last Admin: 03/04/19 10:46 Dose: 1 applicatio Documented by: Ondansetron HCl (Zofran) 4 mg IV Q8H PRN PRN PRN Reason: NAUSEA/VOMITING Pantoprazole Sodium (Protonix) 40 mg PO DAILY [facility] Last Admin: 03/04/19 10:46 Dose: 40 mg Documented by: Quetiapine Fumarate (Seroquel) 12.5 mg PO QHS PRN PRN PRN Reason: RESTLESSNESS/AGITATION Senna/Docusate Sodium (Senokot-S, Yareli-Colace) 2 tablet PO BID PRN PRN PRN Reason: Constipation Sodium Chloride ([place] Nasal [place]) 2 spray NASAL TID [facility] Last Admin: 03/04/19 05:28 Dose: Not Given Documented by: Sodium Chloride () 2 - 6 ml IV UD PRN PRN Reason: Pediatric Saline Flush Discharge Diet: Low fat/ Low Cholesterol Discharge Activity: Return to Normal Activity Weight Bearing Status: Weight bearing as tolerated Home Medications: Medications to take at Discharge Acetaminophen [Tylenol Tablet] 650 mg PO Q4H PRN PRN tablet 07/09/18 Atorvastatin Calcium [Lipitor] 40 mg PO QHS tablet 07/09/18 Clopidogrel Bisulfate [Plavix] 75 mg PO DAILY tablet 07/09/18 Loratadine [Claritin] 5 mg PO DAILY tablet 07/09/18 Pantoprazole Sodium [Protonix] 40 mg PO DAILY tablet 07/09/18 Escitalopram Oxalate 5 mg PO DAILY 03/01/19 Ferrous Sulfate [Iron] 325 mg PO DAILY 03/01/19 Levothyroxine [Synthroid] 100 mcg PO DAILY@0600 03/01/19 Quetiapine Fumarate [Seroquel] 25 mg PO QHS PRN PRN 03/01/19 Aspirin [Aspir-Low] 81 mg PO DAILY 03/02/19 Guaifenesin 100 mg PO Q4H PRN PRN 03/02/19 Ipratropium [place] 0.06% [ATROVENT NASAL SPRAY] 2 spray NASAL BID 03/02/19 Magnesium Hydroxide [Milk of Magnesia] 30 ml PO DAILY PRN 03/02/19 Sodium Chloride 0.65% [[place] Nasal [place]] 2 spray NASAL PRN PRN 03/02/19 Metoprolol Tartrate [Lopressor (beta aneesh)] 12.5 mg PO BID #30 tab 03/04/19 Following Prescrptions Were Given to Patient: Metoprolol Tartrate [Lopressor (beta aneesh)] 12.5 mg PO BID #30 tab Prescription Printed Primary Care Physician: Anand Us MD [Primary Care Provider] - Please follow up with your Primary Care Physician in: one week Disposition: Long Term facility Minutes spent on discharge:: 50 Patient Condition:: Stable Medical Necessity - Tobacco Use Smoking Status: Unknown if ever smoked Meaningful Use Info Meaningful Use Diagnoses (Choose all that apply): Ischemic CVA - CVA Therapy Assessed for PT,OT and/or ST?: Yes - Ischemic Stroke Antithrombotic order at d/c?: Yes Dx of Atrial fib/flutter?: Yes Anticoagulant at discharge?: No Reason anticoagulant not ordered: Medical Contraindication - to be assessed for hemorrhagic conversion of stroke in 10 days Statins at discharge?: Yes Primary Dx Acute Ischemic CVA?: Yes IV tPA ordered during stay?: No Reason IV t-PA not ordered: Treatment Refused by Pt Code Visit Inpatient E&M: 19258 Disch Hosp
[2019-03-04] MEDS: Sodium Chloride 0.65% 1 SPRAY SPRAY.BTL 2 SPRAY NASAL (13:00)
[2019-03-04] MEDS: Ipratropium Bromide 0.06% NASAL SPRAY 2 SPRAY NASAL (13:01)
--- NOTE | 2019-03-04 13:48 | CASEMGMT ---
SW let Marcie at [facility] know that patient will be returning today. Await orders. Christy FERRARA DRILL PRESS OPERATOR NUMERICAL CONTROL
--- NOTE | 2019-03-04 15:09 | CASEMGMT ---
SCARLETT faxed orders to [facility]. Called [facility] and arranged for patient to get picked up at 4p via cot. SCARLETT notified Marcie at [facility], RN, law secretary, and patient's son via phone. Plan: d/c back to [facility] under skilled level of care. [facility] Care transported via cot. Christy FERRARA MSW
--- NOTE | 2019-03-04 16:21 | NURSING ---
report called to [facility]
== END 2019-03-04 16:20 | disposition skilled nursing facility (03) | DRG 67 ==
LOC: ED 11:05 → PCU 11:48
PROVIDERS: Internal Medicine; Admitting Provider Internal Medicine; Emergency Provider Emergency Medicine; Family Provider Family Medicine; PCP Family Medicine; Visit Provider Student in an Organized Health Care Education/Training Program
DX: I65.22 Occlusion and stenosis of left carotid artery (principal); I63.413 Cerebral infarction due to embolism of bilateral middle cerebral arteries; G81.94 Hemiplegia, unspecified affecting left nondominant side; I50.32 Chronic diastolic (congestive) heart failure; I48.20 Chronic atrial fibrillation, unspecified; R47.81 Slurred speech; R29.810 Facial weakness; R29.709 NIHSS score 9; I11.0 Hypertensive heart disease with heart failure; I25.10 Atherosclerotic heart disease of native coronary artery without angina pectoris; E78.5 Hyperlipidemia, unspecified; I36.1 Nonrheumatic tricuspid (valve) insufficiency; I35.0 Nonrheumatic aortic (valve) stenosis; I27.21 Secondary pulmonary arterial hypertension; E03.9 Hypothyroidism, unspecified; F03.90 Unspecified dementia, unspecified severity, without behavioral disturbance, psychotic disturbance, mood disturbance, and anxiety; K21.9 Gastro-esophageal reflux disease without esophagitis; Z95.3 Presence of xenogenic heart valve; Z66 Do not resuscitate; Z79.01 Long term (current) use of anticoagulants; Z79.82 Long term (current) use of aspirin; Z79.890 Hormone replacement therapy; Z79.02 Long term (current) use of antithrombotics/antiplatelets; Z79.899 Other long term (current) drug therapy; Z86.73 Personal history of transient ischemic attack (TIA), and cerebral infarction without residual deficits
CPT/HCPCS: 36415; 70450; 70544; 70547; 70551; 71045; 80048; 80061; 81001; 82962; 83036; 83735; 84439; 84443; 84484; 85025; 85610; 85730; 92523; 92526; 92610; 93005; 93306; 94762; 97162; 97165; 97530; 97535; 99285; J7030; Q9957; A4216; C8929

== ENCOUNTER → 2019-03-17 13:31 | Outpatient (CLI) | payer MEDICARE, MEDICAID, SELFPAY ==
[2019-03-04 16:19] VITALS: BMI 31.7
--- NOTE | 2019-03-17 13:33 | CT_ITS ---
STUDY: CT BRAIN WITHOUT CONTRAST REASON FOR EXAM: Female, 83 years old. CVA d/t cerebral infarction of left posterior cerebral artery. RADIATION DOSAGE (If Supplied By Facility): CTDIvol = ( 44.99 ) mGy, DLP = ( 796.11 ) mGycm TECHNIQUE: Transaxial CT imaging of the brain was performed without administration of intravenous contrast material. Individualized dose optimization techniques were used for this CT. COMPARISON: Comparison is made with prior study dated March 01, 2019. FINDINGS: Normal soft tissue structures. Normal calvarium. There is mild cerebral atrophy with widening of the extra-axial spaces and ventricular dilatation. There are areas of decreased attenuation within the white matter tracts of the supratentorial brain, consistent with microvascular disease changes. Stable bilateral basal ganglia lacunar infarcts. Stable encephalomalacia in the posterior left temporal occipital lobes. Normal brainstem. There is mild cerebellar atrophy. There is no intracranial hemorrhage. There are no findings of an acute ischemic infarction. Atherosclerotic calcification of the cavernous portions of the internal carotid arteries bilaterally. Normal visualized paranasal sinuses. CT/Brain/Head without Contrast IMPRESSION: Chronic involutional changes of the brain. Electronically Signed: David Mccauley, at 14:46 EST , Service support ,
== END ==
PROVIDERS: Family Provider Family Medicine; PCP Family Medicine; Referring Provider Family Medicine; Visit Provider Family Medicine
DX: I63.432 Cerebral infarction due to embolism of left posterior cerebral artery (principal); Z86.73 Personal history of transient ischemic attack (TIA), and cerebral infarction without residual deficits
CPT/HCPCS: 70450

== ENCOUNTER → 2019-05-23 16:50 | Outpatient (REF) | payer MEDICARE, MEDICAID, SELFPAY ==
[2019-03-04 16:19] VITALS: BMI 31.7
[2019-05-23 17:45] LABS: Hematocrit 40.1 % (37-47); Hemoglobin 12.4 g/dL (12.0-15.0); Mean Corp Hgb Conc 30.9 g/dL (32-36); Mean Corpuscular Volume 90.5 fL (81-99); Mean Platelet Vol. 9.6 fl (6.2-12.0); Platelet Count 222 K/mm3 (150-450); RBC Distribution Width CV 16.3 % (11.6-14.6); RBC Distribution Width SD 53.9 fl (35.1-43.9); Red Blood Count 4.43 M/mm3 (4.2-5.4); White Blood Count 6.1 K/mm3 (4.4-11.0)
[2019-05-23 17:55] LABS: Anion Gap 7 (5-15); BUN 18 mg/dL (7-18); Calcium,Total 9.3 mg/dL (8.5-10.1); Chloride 109 mmol/L (98-107); EST Glomerular Filtration Rate 56 mL/min (>60); Est Glom Filt Rate - Afr Amer 68 mL/min (>60); Glucose 99 mg/dL (74-106); Potassium 4.2 mmol/L (3.5-5.1); Sodium Level 143 mmol/L (136-145)
== END ==
LOC: OLS.WHLEAS 16:50
PROVIDERS: Visit Provider Family Medicine
DX: I63.432 Cerebral infarction due to embolism of left posterior cerebral artery (principal); I69.354 Hemiplegia and hemiparesis following cerebral infarction affecting left non-dominant side; I69.311 Memory deficit following cerebral infarction
CPT/HCPCS: 36415; 80048; 85027

== ENCOUNTER → 2019-06-18 05:00 | Outpatient (REF) | payer MEDICARE, SELFPAY ==
[2019-03-04 16:19] VITALS: BMI 31.7
[2019-06-18 08:00] LABS: Hematocrit 36.1 % (37-47); Hemoglobin 11.5 g/dL (12.0-15.0); Mean Corp Hgb Conc 31.9 g/dL (32-36); Mean Corpuscular Hgb 28.8 pg (27.0-32.0); Mean Corpuscular Volume 90.3 fL (81-99); Mean Platelet Vol. 10.4 fl (6.2-12.0); Platelet Count 162 K/mm3 (150-450); RBC Distribution Width CV 15.3 % (11.6-14.6); RBC Distribution Width SD 50.7 fl (35.1-43.9); White Blood Count 5.3 K/mm3 (4.4-11.0)
[2019-06-18 08:12] LABS: Anion Gap 6 (5-15); BUN 17 mg/dL (7-18); Calcium,Total 9.1 mg/dL (8.5-10.1); Chloride 110 mmol/L (98-107); Creatinine, Serum 0.85 mg/dL (0.55-1.02); EST Glomerular Filtration Rate 68 mL/min (>60); Est Glom Filt Rate - Afr Amer 82 mL/min (>60); Glucose 99 mg/dL (74-106); Potassium 3.9 mmol/L (3.5-5.1); Sodium Level 142 mmol/L (136-145)
== END ==
LOC: OLS.WHLEAS 05:00
PROVIDERS: Referring Provider Family Medicine; Visit Provider Family Medicine
DX: F03.91 Unspecified dementia, unspecified severity, with behavioral disturbance (principal); F28 Other psychotic disorder not due to a substance or known physiological condition; I27.20 Pulmonary hypertension, unspecified; I35.0 Nonrheumatic aortic (valve) stenosis; I12.9 Hypertensive chronic kidney disease with stage 1 through stage 4 chronic kidney disease, or unspecified chronic kidney disease; N18.3 Chronic kidney disease, stage 3 (moderate)
CPT/HCPCS: 36415; 80048; 85027

== ENCOUNTER → 2019-07-23 06:00 | Outpatient (REF) | payer MEDICARE, SELFPAY ==
[2019-03-04 16:19] VITALS: BMI 31.7
[2019-07-23 11:11] LABS: Hematocrit 38.5 % (37-47); Hemoglobin 11.9 g/dL (12.0-15.0); Mean Corp Hgb Conc 30.9 g/dL (32-36); Mean Corpuscular Hgb 28.7 pg (27.0-32.0); Mean Platelet Vol. 10.5 fl (6.2-12.0); Platelet Count 169 K/mm3 (150-450); RBC Distribution Width CV 14.6 % (11.6-14.6); Red Blood Count 4.14 M/mm3 (4.2-5.4); White Blood Count 5.7 K/mm3 (4.4-11.0)
[2019-07-23 11:34] LABS: Anion Gap 6 (5-15); BUN 20 mg/dL (7-18); BUN/Creat Ratio 20.7 RATIO (10-20); Calcium,Total 9.2 mg/dL (8.5-10.1); Chloride 109 mmol/L (98-107); Cholesterol 120 mg/dL (200); Creatinine, Serum 0.96 mg/dL (0.55-1.02); EST Glomerular Filtration Rate 59 mL/min (>60); Est Glom Filt Rate - Afr Amer 71 mL/min (>60); Glucose 85 mg/dL (74-106); High Density Lipoprotein 44 mg/dL; Potassium 3.9 mmol/L (3.5-5.1); Sodium Level 143 mmol/L (136-145); Thyroid Stim Hormone (TSH) 0.15 uIU/mL (0.358-3.74); Triglycerides 91 mg/dL; Very Low Density Lipoprotein 18 mg/dL (5-40)
== END ==
LOC: OLS.WHLEAS 06:00
PROVIDERS: Visit Provider Family Medicine
DX: I12.9 Hypertensive chronic kidney disease with stage 1 through stage 4 chronic kidney disease, or unspecified chronic kidney disease (principal); N18.3 Chronic kidney disease, stage 3 (moderate); F03.91 Unspecified dementia, unspecified severity, with behavioral disturbance; F28 Other psychotic disorder not due to a substance or known physiological condition; I27.20 Pulmonary hypertension, unspecified; I35.0 Nonrheumatic aortic (valve) stenosis; E03.9 Hypothyroidism, unspecified
CPT/HCPCS: 36415; 80048; 80061; 84443; 85027

== ENCOUNTER → 2019-08-20 05:00 | Outpatient (REF) | payer MEDICARE, MEDICAID, SELFPAY ==
[2019-03-04 16:19] VITALS: BMI 31.7
[2019-08-20 07:55] LABS: Hematocrit 36.8 % (37-47); Hemoglobin 11.3 g/dL (12.0-15.0); Mean Corp Hgb Conc 30.7 g/dL (32-36); Mean Corpuscular Volume 94.4 fL (81-99); Mean Platelet Vol. 9.4 fl (6.2-12.0); Platelet Count 159 K/mm3 (150-450); RBC Distribution Width SD 50.7 fl (35.1-43.9); White Blood Count 4.8 K/mm3 (4.4-11.0)
[2019-08-20 08:16] LABS: Anion Gap 5 (5-15); BUN 18 mg/dL (7-18); BUN/Creat Ratio 19.8 RATIO (10-20); Calcium,Total 9.3 mg/dL (8.5-10.1); Chloride 109 mmol/L (98-107); Creatinine, Serum 0.91 mg/dL (0.55-1.02); EST Glomerular Filtration Rate 63 mL/min (>60); Est Glom Filt Rate - Afr Amer 76 mL/min (>60); Glucose 100 mg/dL (74-106); Potassium 3.9 mmol/L (3.5-5.1); Sodium Level 141 mmol/L (136-145)
== END ==
LOC: OLS.WHLEAS 05:00
PROVIDERS: Visit Provider Family Medicine
DX: N18.3 Chronic kidney disease, stage 3 (moderate) (principal)
CPT/HCPCS: 36415; 80048; 85027

== ENCOUNTER → 2019-09-04 05:00 | Outpatient (REF) | payer MEDICARE, MEDICAID, SELFPAY ==
[2019-03-04 16:19] VITALS: BMI 31.7
[2019-09-04 07:52] LABS: Thyroid Stim Hormone (TSH) 0.75 uIU/mL (0.358-3.74)
== END ==
LOC: OLS.WHLEAS 05:00
PROVIDERS: Visit Provider Family Medicine
DX: E03.9 Hypothyroidism, unspecified (principal); I63.432 Cerebral infarction due to embolism of left posterior cerebral artery; I69.354 Hemiplegia and hemiparesis following cerebral infarction affecting left non-dominant side; I69.311 Memory deficit following cerebral infarction
CPT/HCPCS: 36415; 84443

== ENCOUNTER → 2019-09-17 05:00 | Outpatient (REF) | payer MEDICARE, MEDICAID, SELFPAY ==
[2019-03-04 16:19] VITALS: BMI 31.7
[2019-09-17 08:07] LABS: Hematocrit 34.2 % (37-47); Hemoglobin 10.7 g/dL (12.0-15.0); Mean Corp Hgb Conc 31.3 g/dL (32-36); Mean Corpuscular Hgb 29.2 pg (27.0-32.0); Mean Corpuscular Volume 93.4 fL (81-99); Mean Platelet Vol. 9.4 fl (6.2-12.0); Platelet Count 173 K/mm3 (150-450); RBC Distribution Width CV 15.3 % (11.6-14.6); RBC Distribution Width SD 51.8 fl (35.1-43.9); Red Blood Count 3.66 M/mm3 (4.2-5.4); White Blood Count 4.8 K/mm3 (4.4-11.0)
[2019-09-17 08:11] LABS: Anion Gap 5 (5-15); BUN 19 mg/dL (7-18); BUN/Creat Ratio 19.7 RATIO (10-20); Calcium,Total 8.9 mg/dL (8.5-10.1); Chloride 108 mmol/L (98-107); Creatinine, Serum 0.96 mg/dL (0.55-1.02); EST Glomerular Filtration Rate 58 mL/min (>60); Est Glom Filt Rate - Afr Amer 71 mL/min (>60); Glucose 87 mg/dL (74-106); Potassium 3.9 mmol/L (3.5-5.1); Sodium Level 140 mmol/L (136-145)
== END ==
LOC: OLS.WHLEAS 05:00
PROVIDERS: Visit Provider Family Medicine
DX: I12.9 Hypertensive chronic kidney disease with stage 1 through stage 4 chronic kidney disease, or unspecified chronic kidney disease (principal); N18.3 Chronic kidney disease, stage 3 (moderate); F03.91 Unspecified dementia, unspecified severity, with behavioral disturbance; F28 Other psychotic disorder not due to a substance or known physiological condition; I27.20 Pulmonary hypertension, unspecified; I35.0 Nonrheumatic aortic (valve) stenosis
CPT/HCPCS: 36415; 80048; 85027

== ENCOUNTER → 2019-10-22 05:00 | Outpatient (REF) | payer MEDICARE, MEDICAID, SELFPAY ==
[2019-03-04 16:19] VITALS: BMI 31.7
[2019-10-22 07:24] LABS: Hematocrit 38.3 % (37-47); Hemoglobin 11.8 g/dL (12.0-15.0); Mean Corp Hgb Conc 30.8 g/dL (32-36); Mean Corpuscular Hgb 28.6 pg (27.0-32.0); Platelet Count 203 K/mm3 (150-450); RBC Distribution Width CV 14.6 % (11.6-14.6); RBC Distribution Width SD 49.9 fl (35.1-43.9); Red Blood Count 4.12 M/mm3 (4.2-5.4); White Blood Count 4.6 K/mm3 (4.4-11.0)
[2019-10-22 08:10] LABS: Anion Gap 6 (5-15); BUN 17 mg/dL (7-18); BUN/Creat Ratio 18.2 RATIO (10-20); Calcium,Total 9.1 mg/dL (8.5-10.1); Chloride 109 mmol/L (98-107); Cholesterol 114 mg/dL (200); Creatinine, Serum 0.93 mg/dL (0.55-1.02); EST Glomerular Filtration Rate 61 mL/min (>60); Est Glom Filt Rate - Afr Amer 74 mL/min (>60); Glucose 98 mg/dL (74-106); High Density Lipoprotein 47 mg/dL; Potassium 3.9 mmol/L (3.5-5.1); Sodium Level 141 mmol/L (136-145); Thyroid Stim Hormone (TSH) 0.29 uIU/mL (0.358-3.74); Triglycerides 85 mg/dL; Very Low Density Lipoprotein 17 mg/dL (5-40)
== END ==
LOC: OLS.WHLEAS 05:00
PROVIDERS: Visit Provider Family Medicine
DX: E03.9 Hypothyroidism, unspecified (principal); I63.432 Cerebral infarction due to embolism of left posterior cerebral artery; R42 Dizziness and giddiness; R54 Age-related physical debility; M62.81 Muscle weakness (generalized); R26.2 Difficulty in walking, not elsewhere classified; N18.3 Chronic kidney disease, stage 3 (moderate)
CPT/HCPCS: 36415; 80048; 80061; 84443; 85027

== ENCOUNTER → 2019-11-19 05:00 | Outpatient (REF) | payer MEDICARE, MEDICAID, SELFPAY ==
[2019-03-04 16:19] VITALS: BMI 31.7
[2019-11-19 08:23] LABS: Hematocrit 39.6 % (37-47); Hemoglobin 12.1 g/dL (12.0-15.0); Mean Corp Hgb Conc 30.6 g/dL (32-36); Mean Corpuscular Hgb 28.3 pg (27.0-32.0); Mean Corpuscular Volume 92.7 fL (81-99); Mean Platelet Vol. 9.7 fl (6.2-12.0); Platelet Count 155 K/mm3 (150-450); RBC Distribution Width CV 14.3 % (11.6-14.6); RBC Distribution Width SD 48.3 fl (35.1-43.9); Red Blood Count 4.27 M/mm3 (4.2-5.4); White Blood Count 4.6 K/mm3 (4.4-11.0)
[2019-11-19 08:37] LABS: Anion Gap 5 (5-15); BUN 18 mg/dL (7-18); BUN/Creat Ratio 19.3 RATIO (10-20); Calcium,Total 9.2 mg/dL (8.5-10.1); Chloride 110 mmol/L (98-107); Creatinine, Serum 0.94 mg/dL (0.55-1.02); EST Glomerular Filtration Rate 61 mL/min (>60); Est Glom Filt Rate - Afr Amer 73 mL/min (>60); Glucose 100 mg/dL (74-106); Potassium 3.8 mmol/L (3.5-5.1); Sodium Level 142 mmol/L (136-145)
== END ==
LOC: OLS.WHLEAS 05:00
PROVIDERS: Visit Provider Family Medicine
DX: I12.9 Hypertensive chronic kidney disease with stage 1 through stage 4 chronic kidney disease, or unspecified chronic kidney disease (principal); N18.3 Chronic kidney disease, stage 3 (moderate); F03.91 Unspecified dementia, unspecified severity, with behavioral disturbance; F28 Other psychotic disorder not due to a substance or known physiological condition; I27.20 Pulmonary hypertension, unspecified; I35.0 Nonrheumatic aortic (valve) stenosis
CPT/HCPCS: 36415; 80048; 85027

== ENCOUNTER → 2019-12-24 05:00 | Outpatient (REF) | payer MEDICARE, MEDICAID, SELFPAY ==
[2019-03-04 16:19] VITALS: BMI 31.7
[2019-12-24 07:14] LABS: Hematocrit 41.2 % (37-47); Hemoglobin 12.7 g/dL (12.0-15.0); Mean Corp Hgb Conc 30.8 g/dL (32-36); Mean Corpuscular Hgb 27.9 pg (27.0-32.0); Mean Corpuscular Volume 90.5 fL (81-99); Mean Platelet Vol. 9.6 fl (6.2-12.0); Platelet Count 172 K/mm3 (150-450); RBC Distribution Width CV 14.2 % (11.6-14.6); RBC Distribution Width SD 47.2 fl (35.1-43.9); Red Blood Count 4.55 M/mm3 (4.2-5.4); White Blood Count 5.4 K/mm3 (4.4-11.0)
[2019-12-24 07:35] LABS: Anion Gap 5 (5-15); BUN 15 mg/dL (7-18); BUN/Creat Ratio 15.6 RATIO (10-20); Calcium,Total 9.4 mg/dL (8.5-10.1); Chloride 112 mmol/L (98-107); Creatinine, Serum 0.96 mg/dL (0.55-1.02); EST Glomerular Filtration Rate 59 mL/min (>60); Est Glom Filt Rate - Afr Amer 71 mL/min (>60); Glucose 92 mg/dL (74-106); Potassium 3.9 mmol/L (3.5-5.1); Sodium Level 143 mmol/L (136-145)
== END ==
LOC: OLS.WHLEAS 05:00
PROVIDERS: Visit Provider Family Medicine
DX: N18.30 Chronic kidney disease, stage 3 unspecified (principal)
CPT/HCPCS: 36415; 80048; 85027

== ENCOUNTER → 2020-01-21 05:00 | Outpatient (REF) | payer MEDICARE, MEDICAID, SELFPAY ==
[2019-03-04 16:19] VITALS: BMI 31.7
[2020-01-21 06:59] LABS: Hematocrit 40.1 % (37-47); Hemoglobin 12.6 g/dL (12.0-15.0); Mean Corp Hgb Conc 31.4 g/dL (32-36); Mean Corpuscular Hgb 28.9 pg (27.0-32.0); Mean Platelet Vol. 9.6 fl (6.2-12.0); Platelet Count 118 K/mm3 (150-450); RBC Distribution Width CV 15.3 % (11.6-14.6); RBC Distribution Width SD 51.1 fl (35.1-43.9); Red Blood Count 4.36 M/mm3 (4.2-5.4); White Blood Count 3.6 K/mm3 (4.4-11.0)
[2020-01-21 07:46] LABS: Anion Gap 6 (5-15); BUN 12 mg/dL (7-18); BUN/Creat Ratio 13.2 RATIO (10-20); Calcium,Total 9.1 mg/dL (8.5-10.1); Chloride 114 mmol/L (98-107); Cholesterol 116 mg/dL (200); Creatinine, Serum 0.91 mg/dL (0.55-1.02); EST Glomerular Filtration Rate 62 mL/min (>60); Est Glom Filt Rate - Afr Amer 76 mL/min (>60); Glucose 98 mg/dL (74-106); High Density Lipoprotein 42 mg/dL; Potassium 3.6 mmol/L (3.5-5.1); Sodium Level 144 mmol/L (136-145); Thyroid Stim Hormone (TSH) 0.04 uIU/mL (0.358-3.74); Triglycerides 102 mg/dL; Very Low Density Lipoprotein 20 mg/dL (5-40)
== END ==
LOC: OLS.WHLEAS 05:00
PROVIDERS: Visit Provider Family Medicine
DX: I69.354 Hemiplegia and hemiparesis following cerebral infarction affecting left non-dominant side (principal); F03.91 Unspecified dementia, unspecified severity, with behavioral disturbance; I69.311 Memory deficit following cerebral infarction; I69.391 Dysphagia following cerebral infarction; E03.9 Hypothyroidism, unspecified; N18.30 Chronic kidney disease, stage 3 unspecified
CPT/HCPCS: 36415; 80048; 80061; 84443; 85027

== ENCOUNTER → 2020-03-05 05:00 | Outpatient (REF) | payer MEDICARE, MEDICAID, SELFPAY ==
[2019-03-04 16:19] VITALS: BMI 31.7
[2020-03-05 08:33] LABS: Thyroid Stim Hormone (TSH) 0.19 uIU/mL (0.358-3.74)
== END ==
LOC: OLS.WHLEAS 05:00
PROVIDERS: Visit Provider Family Medicine
DX: E03.9 Hypothyroidism, unspecified (principal); I69.354 Hemiplegia and hemiparesis following cerebral infarction affecting left non-dominant side; F03.91 Unspecified dementia, unspecified severity, with behavioral disturbance; I69.311 Memory deficit following cerebral infarction; I69.391 Dysphagia following cerebral infarction
CPT/HCPCS: 36415; 84436; 84443

== ENCOUNTER → 2020-03-23 05:00 | Outpatient (REF) | payer MEDICARE, MEDICAID, SELFPAY ==
[2019-03-04 16:19] VITALS: BMI 31.7
[2020-03-23 08:06] LABS: Hematocrit 38.5 % (37-47); Hemoglobin 11.9 g/dL (12.0-15.0); Mean Corp Hgb Conc 30.9 g/dL (32-36); Mean Corpuscular Hgb 28.7 pg (27.0-32.0); Mean Platelet Vol. 10.5 fl (6.2-12.0); Platelet Count 159 K/mm3 (150-450); RBC Distribution Width CV 16.5 % (11.6-14.6); RBC Distribution Width SD 55.8 fl (35.1-43.9); Red Blood Count 4.14 M/mm3 (4.2-5.4); White Blood Count 4.8 K/mm3 (4.4-11.0)
[2020-03-23 08:18] LABS: Anion Gap 5 (5-15); BUN 19 mg/dL (7-18); BUN/Creat Ratio 19.7 RATIO (10-20); Calcium,Total 9.2 mg/dL (8.5-10.1); Chloride 113 mmol/L (98-107); Creatinine, Serum 0.96 mg/dL (0.55-1.02); EST Glomerular Filtration Rate 58 mL/min (>60); Est Glom Filt Rate - Afr Amer 71 mL/min (>60); Glucose 103 mg/dL (74-106); Potassium 3.8 mmol/L (3.5-5.1); Sodium Level 144 mmol/L (136-145)
== END ==
LOC: OLS.WHLEAS 05:00
PROVIDERS: Visit Provider Family Medicine
DX: D50.9 Iron deficiency anemia, unspecified (principal); I69.354 Hemiplegia and hemiparesis following cerebral infarction affecting left non-dominant side; U07.1 COVID-19; M62.81 Muscle weakness (generalized); R26.2 Difficulty in walking, not elsewhere classified
CPT/HCPCS: 36415; 80048; 85027

== ENCOUNTER → 2020-04-21 05:00 | Outpatient (REF) | payer MEDICARE, MEDICAID, SELFPAY ==
[2019-03-04 16:19] VITALS: BMI 31.7
[2020-04-21 07:43] LABS: Hematocrit 42.3 % (37-47); Hemoglobin 13.1 g/dL (12.0-15.0); Mean Corpuscular Volume 93.8 fL (81-99); Mean Platelet Vol. 10.4 fl (6.2-12.0); Platelet Count 155 K/mm3 (150-450); RBC Distribution Width SD 51.8 fl (35.1-43.9); Red Blood Count 4.51 M/mm3 (4.2-5.4); White Blood Count 4.3 K/mm3 (4.4-11.0)
[2020-04-21 08:19] LABS: Anion Gap 7 (5-15); BUN 13 mg/dL (7-18); BUN/Creat Ratio 12.5 RATIO (10-20); Calcium,Total 9.5 mg/dL (8.5-10.1); Chloride 113 mmol/L (98-107); Cholesterol 139 mg/dL (200); Creatinine, Serum 1.04 mg/dL (0.55-1.02); EST Glomerular Filtration Rate 54 mL/min (>60); Est Glom Filt Rate - Afr Amer 65 mL/min (>60); Glucose 91 mg/dL (74-106); High Density Lipoprotein 46 mg/dL; Potassium 3.9 mmol/L (3.5-5.1); Sodium Level 144 mmol/L (136-145); Thyroid Stim Hormone (TSH) 5.65 uIU/mL (0.358-3.74); Triglycerides 131 mg/dL; Very Low Density Lipoprotein 26 mg/dL (5-40)
== END ==
LOC: OLS.WHLCAR 05:00
PROVIDERS: Visit Provider Family Medicine
DX: N18.30 Chronic kidney disease, stage 3 unspecified (principal); I69.354 Hemiplegia and hemiparesis following cerebral infarction affecting left non-dominant side; U07.1 COVID-19; M62.81 Muscle weakness (generalized); R26.2 Difficulty in walking, not elsewhere classified; E03.9 Hypothyroidism, unspecified
CPT/HCPCS: 36415; 80048; 80061; 84443; 85027

== ENCOUNTER → 2020-04-30 05:00 | Outpatient (REF) | payer MEDICARE, MEDICAID, SELFPAY ==
[2019-03-04 16:19] VITALS: BMI 31.7
[2020-04-30 07:42] LABS: T4 Total, Thyroxin 5.5 ug/dL (4.8-13.9); Thyroid Stim Hormone (TSH) 8.32 uIU/mL (0.358-3.74)
== END ==
LOC: OLS.WHLCAR 05:00
PROVIDERS: Visit Provider Family Medicine
DX: E03.9 Hypothyroidism, unspecified (principal); I69.354 Hemiplegia and hemiparesis following cerebral infarction affecting left non-dominant side; U07.1 COVID-19; M62.81 Muscle weakness (generalized); R26.2 Difficulty in walking, not elsewhere classified
CPT/HCPCS: 36415; 84436; 84443

== ENCOUNTER → 2020-05-19 05:00 | Outpatient (REF) | payer MEDICARE, MEDICAID, SELFPAY ==
[2019-03-04 16:19] VITALS: BMI 31.7
[2020-05-19 06:54] LABS: Hematocrit 41.7 % (37-47); Hemoglobin 13.3 g/dL (12.0-15.0); Mean Corp Hgb Conc 31.9 g/dL (32-36); Mean Corpuscular Hgb 29.4 pg (27.0-32.0); Mean Corpuscular Volume 92.3 fL (81-99); Mean Platelet Vol. 10.4 fl (6.2-12.0); Platelet Count 127 K/mm3 (150-450); RBC Distribution Width SD 47.8 fl (35.1-43.9); Red Blood Count 4.52 M/mm3 (4.2-5.4); White Blood Count 4.5 K/mm3 (4.4-11.0)
[2020-05-19 07:08] LABS: Anion Gap 6 (5-15); BUN 17 mg/dL (7-18); BUN/Creat Ratio 14.9 RATIO (10-20); Calcium,Total 9.1 mg/dL (8.5-10.1); Chloride 111 mmol/L (98-107); Creatinine, Serum 1.14 mg/dL (0.55-1.02); EST Glomerular Filtration Rate 48 mL/min (>60); Est Glom Filt Rate - Afr Amer 58 mL/min (>60); Glucose 83 mg/dL (74-106); Potassium 3.7 mmol/L (3.5-5.1); Sodium Level 142 mmol/L (136-145)
== END ==
LOC: OLS.WHLCAR 05:00
PROVIDERS: Referring Provider Family Medicine; Visit Provider Family Medicine
DX: N18.30 Chronic kidney disease, stage 3 unspecified (principal); I69.354 Hemiplegia and hemiparesis following cerebral infarction affecting left non-dominant side; U07.1 COVID-19; M62.81 Muscle weakness (generalized); R26.2 Difficulty in walking, not elsewhere classified
CPT/HCPCS: 36415; 80048; 85027

== ENCOUNTER → 2020-07-14 05:00 | Outpatient (REF) | payer MEDICARE, MEDICAID, SELFPAY ==
[2019-03-04 16:19] VITALS: BMI 31.7
[2020-07-14 07:53] LABS: Hematocrit 39.1 % (37-47); Hemoglobin 12.4 g/dL (12.0-15.0); Mean Corp Hgb Conc 31.7 g/dL (32-36); Mean Corpuscular Hgb 28.9 pg (27.0-32.0); Mean Corpuscular Volume 91.1 fL (81-99); Mean Platelet Vol. 9.6 fl (6.2-12.0); Platelet Count 124 K/mm3 (150-450); RBC Distribution Width CV 14.9 % (11.6-14.6); RBC Distribution Width SD 49.5 fl (35.1-43.9); Red Blood Count 4.29 M/mm3 (4.2-5.4); White Blood Count 4.3 K/mm3 (4.4-11.0)
[2020-07-14 08:19] LABS: Anion Gap 4 (5-15); BUN 22 mg/dL (7-18); BUN/Creat Ratio 21.4 RATIO (10-20); Calcium,Total 9.1 mg/dL (8.5-10.1); Chloride 111 mmol/L (98-107); Cholesterol 129 mg/dL (200); Creatinine, Serum 1.03 mg/dL (0.55-1.02); EST Glomerular Filtration Rate 54 mL/min (>60); Est Glom Filt Rate - Afr Amer 66 mL/min (>60); Glucose 88 mg/dL (74-106); High Density Lipoprotein 43 mg/dL; Potassium 4.1 mmol/L (3.5-5.1); Sodium Level 142 mmol/L (136-145); T4 Total, Thyroxin 6.8 ug/dL (4.8-13.9); Thyroid Stim Hormone (TSH) 0.68 uIU/mL (0.358-3.74); Triglycerides 103 mg/dL; Very Low Density Lipoprotein 21 mg/dL (5-40)
== END ==
LOC: OLS.WHLCAR 05:00
PROVIDERS: Visit Provider Family Medicine
DX: E03.9 Hypothyroidism, unspecified (principal); I69.354 Hemiplegia and hemiparesis following cerebral infarction affecting left non-dominant side; U07.1 COVID-19; M62.81 Muscle weakness (generalized); R26.2 Difficulty in walking, not elsewhere classified; N18.30 Chronic kidney disease, stage 3 unspecified; E78.5 Hyperlipidemia, unspecified
CPT/HCPCS: 36415; 80048; 80061; 84436; 84443; 85027

== ENCOUNTER → 2020-10-13 05:00 | Outpatient (REF) | payer MEDICARE, MEDICAID, SELFPAY ==
[2019-03-04 16:19] VITALS: BMI 31.7
[2020-10-13 07:49] LABS: Hematocrit 39.7 % (37-47); Hemoglobin 12.4 g/dL (12.0-15.0); Mean Corp Hgb Conc 31.2 g/dL (32-36); Mean Corpuscular Volume 92.8 fL (81-99); Mean Platelet Vol. 10.4 fl (6.2-12.0); Platelet Count 155 K/mm3 (150-450); RBC Distribution Width CV 14.1 % (11.6-14.6); Red Blood Count 4.28 M/mm3 (4.2-5.4); White Blood Count 3.9 K/mm3 (4.4-11.0)
[2020-10-13 08:04] LABS: Anion Gap 4 (5-15); BUN 14 mg/dL (7-18); BUN/Creat Ratio 15.4 RATIO (10-20); Calcium,Total 8.9 mg/dL (8.5-10.1); Chloride 111 mmol/L (98-107); Creatinine, Serum 0.91 mg/dL (0.55-1.02); EST Glomerular Filtration Rate 63 mL/min (>60); Est Glom Filt Rate - Afr Amer 76 mL/min (>60); Glucose 85 mg/dL (74-106); Potassium 3.7 mmol/L (3.5-5.1); Sodium Level 142 mmol/L (136-145)
== END ==
LOC: OLS.WHLCAR 05:00
PROVIDERS: Visit Provider Family Medicine
DX: N18.30 Chronic kidney disease, stage 3 unspecified (principal); I69.354 Hemiplegia and hemiparesis following cerebral infarction affecting left non-dominant side; U07.1 COVID-19; M62.81 Muscle weakness (generalized); R26.2 Difficulty in walking, not elsewhere classified
CPT/HCPCS: 36415; 80048; 85027

== ENCOUNTER → 2021-01-11 05:00 | Outpatient (REF) | payer MEDICARE, MEDICAID, SELFPAY ==
[2021-01-11 09:00] LABS: Hemoglobin 13.3 g/dL (12.0-15.0); Mean Corp Hgb Conc 32.4 g/dL (32-36); Mean Corpuscular Hgb 29.3 pg (27.0-32.0); Mean Corpuscular Volume 90.3 fL (81-99); Mean Platelet Vol. 10.3 fl (6.2-12.0); Platelet Count 133 K/mm3 (150-450); RBC Distribution Width CV 14.6 % (11.6-14.6); RBC Distribution Width SD 48.6 fl (35.1-43.9); Red Blood Count 4.54 M/mm3 (4.2-5.4); White Blood Count 4.4 K/mm3 (4.4-11.0)
[2021-01-11 09:33] LABS: Anion Gap 7 (5-15); BUN 14 mg/dL (7-18); BUN/Creat Ratio 12.6 RATIO (10-20); Calcium,Total 9.3 mg/dL (8.5-10.1); Chloride 107 mmol/L (98-107); Creatinine, Serum 1.11 mg/dL (0.55-1.02); EST Glomerular Filtration Rate 50 mL/min (>60); Est Glom Filt Rate - Afr Amer 60 mL/min (>60); Glucose 87 mg/dL (74-106); Potassium 4.1 mmol/L (3.5-5.1); Sodium Level 141 mmol/L (136-145)
== END ==
LOC: OLS.WHLCAR 05:00
PROVIDERS: Visit Provider Family Medicine
DX: N18.30 Chronic kidney disease, stage 3 unspecified (principal); I69.354 Hemiplegia and hemiparesis following cerebral infarction affecting left non-dominant side; U07.1 COVID-19; M62.81 Muscle weakness (generalized); R26.2 Difficulty in walking, not elsewhere classified; E03.9 Hypothyroidism, unspecified
CPT/HCPCS: 36415; 80048; 84443; 85027

== ENCOUNTER → 2021-04-13 | Outpatient (REF) | payer MEDICARE, MEDICAID, SELFPAY ==
[2021-04-13 08:35] LABS: Hemoglobin 13.2 g/dL (12.0-15.0); Mean Corp Hgb Conc 31.4 g/dL (32-36); Mean Corpuscular Hgb 29.1 pg (27.0-32.0); Mean Corpuscular Volume 92.5 fL (81-99); Mean Platelet Vol. 9.8 fl (6.2-12.0); Platelet Count 128 K/mm3 (150-450); RBC Distribution Width CV 14.7 % (11.6-14.6); RBC Distribution Width SD 49.9 fl (35.1-43.9); Red Blood Count 4.54 M/mm3 (4.2-5.4); White Blood Count 4.1 K/mm3 (4.4-11.0)
[2021-04-13 08:48] LABS: Anion Gap 6 (5-15); BUN 16 mg/dL (7-18); BUN/Creat Ratio 13.8 RATIO (10-20); Calcium,Total 9.2 mg/dL (8.5-10.1); Chloride 112 mmol/L (98-107); Creatinine, Serum 1.16 mg/dL (0.55-1.02); EST Glomerular Filtration Rate 47 mL/min (>60); Est Glom Filt Rate - Afr Amer 57 mL/min (>60); Glucose 88 mg/dL (74-106); Potassium 4.2 mmol/L (3.5-5.1); Sodium Level 144 mmol/L (136-145)
== END | disposition home or self-care (01) ==
LOC: OLS.WHLCAR 05:00
PROVIDERS: Visit Provider Family Medicine
DX: N18.30 Chronic kidney disease, stage 3 unspecified (principal); I69.354 Hemiplegia and hemiparesis following cerebral infarction affecting left non-dominant side; U07.1 COVID-19; M62.81 Muscle weakness (generalized); R26.2 Difficulty in walking, not elsewhere classified
CPT/HCPCS: 36415; 80048; 85027

== ENCOUNTER → 2021-08-14 | Outpatient (REF) | payer SELFPAY ==
[2021-08-16 08:15] LABS: Color, Urine Yellow (Yellow); Glucose, Dipstick Normal (Normal); Ketone-Dipstick Negative (Negative); Leukocyte Esterase-Dipstick 25 /ul (Negative); Nitrite-Dipstick Negative (Negative); Occult Blood-Urine Negative /ul (Negative); Protein-Dipstick Negative (Negative); Specific Gravity, Urine 1.015 (1.002-1.030); Urine Bilirubin Dipstick Negative (Negative); Urine Clarity Sl. Cloudy (Clear); Urine Urobilinogen Normal (Normal)
== END | disposition home or self-care (01) ==
LOC: OLS.WHLCAR 10:30
PROVIDERS: Visit Provider Family Medicine
DX: I69.354 Hemiplegia and hemiparesis following cerebral infarction affecting left non-dominant side (principal); F03.91 Unspecified dementia, unspecified severity, with behavioral disturbance; I69.311 Memory deficit following cerebral infarction; I69.391 Dysphagia following cerebral infarction; N39.0 Urinary tract infection, site not specified
CPT/HCPCS: 81002; 87077; 87086; 87088; 87186

== ENCOUNTER 2023-06-03 18:47 | Emergency (ER) | payer MEDICARE, MEDICAID, SELFPAY ==
[2023-06-03 18:48] VITALS: BP 137/75; PULSE 81; RESP 18; TEMP 36.7; O2SAT 97; BMI 24.6
--- NOTE | 2023-06-03 19:15 | EDS_ITS ---
HPI <SOURAV Moreno - Last Filed: 06/03/23 20:50> History of Present Illness Chief Complaint: Laceration Narrative Narrative: 88-year-old female is from [facility] and is nonverbal with dementia. She is DNR CC on hospice. She fell as a lack to the right side of her head. Nursing staff there states she barely speaks and just occasionally says her name. She is not on blood thinners. Patient cannot provide further history. PFS <SOURAV Moreno - Last Filed: 06/03/23 20:50> [facility] Medical History (Updated 06/03/23 @ 19:27 by SOURAV Moreno) CODY (acute kidney injury) Atherosclerosis of coronary artery of [place] heart without angina pectoris CVA (cerebral vascular accident) (06/17/18) Cystitis Diastolic dysfunction Essential (primary) hypertension GERD (gastroesophageal reflux disease) Hiatal hernia Hyperlipidemia Hypothyroidism Iron deficiency anemia Microcytic anemia Non-rheumatic aortic stenosis Non-rheumatic tricuspid valve insufficiency Obesity Secondary pulmonary arterial hypertension UTI (urinary tract infection) UTI (urinary tract infection) Home Medications levothyroxine 88 mcg tablet 75 mcg PO DAILY@0600 03/01/19 [History Last Taken Unknown] quetiapine 25 mg tablet 25 mg PO DAILY RESTLESSNESS/AGITATION 03/01/19 [History Last Taken Unknown] acetaminophen 325 mg tablet (Tylenol) 650 mg PO TID PAIN/FEVER 06/03/23 [History Last Taken Unknown] buspirone 10 mg tablet 20 mg PO BID 06/03/23 [History Last Taken Unknown] lorazepam 1 mg tablet (Ativan) 1 mg PO Q6H 06/03/23 [History Last Taken Unknown] oxycodone 5 mg capsule 2.5 mg PO TID 06/03/23 [History Last Taken Unknown] quetiapine 50 mg tablet (Seroquel) 50 mg PO 1300 06/03/23 [History Last Taken Unknown] sennosides 8.6 mg-docusate sodium 50 mg tablet (2-in-1 Laxative) 2 tab-cap PO BID 06/03/23 [History Last Taken Unknown] sertraline 50 mg tablet 50 mg PO DAILY 06/03/23 [History Last Taken Unknown] Allergy/AdvReac Type Severity Reaction Status Date / Time adhesive AdvReac Rash Verified 03/01/19 10:03 Family History (Updated 08/13/18 @ 07:28 by Lula Drummond) Mother Heart disease Father Heart disease Surgical History (Updated 03/01/19 @ 11:[address] Timur Green MD) History of aortic valve replacement with bioprosthetic valve (10/24/13) History of appendectomy History of left heart catheterization (05/22/13) Social History Smoking Status: Unknown if ever smoked ROS <SOURAV Moreno - Last Filed: 06/03/23 20:50> ROS ED ROS Narrative Unable to obtain due to nonverbal/dementia status EXAM <SOURAV Moreno - Last Filed: 06/03/23 20:50> Physical Exam Narrative Exam Narrative: CONST: Patient lying in bed with eyes open in no distress. EYES: Normal inspection. PERRL. ENT: 2 cm right temporal scalp laceration, no deformity or crepitus, no hematoma, no raccoon eyes or Cheema sign, no hemotympanum, no CSF otorrhea or rhinorrhea. NECK: Normal inspection. RESP: No respiratory distress, CTAB. CVS: Regular click from mechanical heart valve. SKIN: Color normal, no rash, warm, dry, intact. EXTREMITIES: Normal appearance, no pedal edema. NEURO: Patient awake but does not interact or follow commands. She withdraws to pain when I placed tomi. PSYCH: Normal affect. Const Vital Signs: 06/03/23 18:48 Temperature 98.1 F Temperature Source Temporal Pulse Rate 81 Respiratory Rate 18 Blood Pressure 137/75 H Blood Pressure Mean 95 Pulse Ox 97 Oxygen Delivery Method Room Air <Dr. Indra Bruner MD - Last Filed: 06/03/23 20:48> Physical Exam Const Vital Signs: 06/03/23 18:48 Temperature 98.1 F Temperature Source Temporal Pulse Rate 81 Respiratory Rate 18 Blood Pressure 137/75 H Blood Pressure Mean 95 Pulse Ox 97 Oxygen Delivery Method Room Air PROC <SOURAV Moreno - Last Filed: 06/03/23 20:50> Procedures Lacerations Right scalp: Length: 2 cm Depth: Skin Shape: Linear Laceration repair: Irrigated Irrigated (ml): 100 Number of Sutures/[place]: 4 Comment: 4 tomi MDM <SOURAV Moreno - Last Filed: 06/03/23 20:50> MDM MDM Narrative Medical decision making narrative: 2 cm right lateral scalp laceration was closed with 4 tomi and she was given tetanus. No other signs of acute head trauma. Patient is nonverbal DNRCC at baseline and there is no indication for head imaging. Report was given to her facility and she was discharged back in stable condition. I have personally performed a face to face assessment of the patient and have reviewed the VIV Note. I performed a substantive portion of the visit including all aspects of the following. My dash findings include: History is 88-year-old female from a correction fell struck the right part of her head. Has a laceration. She is unable to give any history. Patient is DNR under hospice care. Exam is [88-year-old female no acute distress. Lying in bed. HEENT exam pupils round reactive light. No facial trauma. She has about a 3 cm laceration right lateral scalp. Mild oozing of blood. No significant hematoma. Neck nontender. Trachea midline. Lungs clear to auscultation. Heart 4-6 systolic ejection murmur. Chest wall and ribs nontender. Abdomen soft nontender. Pelvic girdle intact. Nontender hips. No shortening or rotation. With passive range of motion I can flex extend her knees and hips without pain. Upper extremities are nontender again with passive flexion extension no pain or deformity. Neurologically she will open her eyes. She is not speaking to me. She is not following commands.] Medical Decision Making [tetanus updated. Right scalp clean. Local anesthetized. 4 tomi were placed. Proper hemostasis wound closure obtained. She will be discharged back to extended-care facility.] Other additions or changes: [None] <Dr. Indra Bruner MD - Last Filed: 06/03/23 20:48> [facility] Narrative Medical decision making narrative: I have personally performed a face to face assessment of the patient and have reviewed the VIV Note. I performed a substantive portion of the visit including all aspects of the following. My dash findings include: History is 88-year-old female from a correction fell struck the right part of her head. Has a laceration. She is unable to give any history. Patient is DNR under hospice care. Exam is [88-year-old female no acute distress. Lying in bed. HEENT exam pupils round reactive light. No facial trauma. She has about a 3 cm laceration right lateral scalp. Mild oozing of blood. No significant hematoma. Neck nontender. Trachea midline. Lungs clear to auscultation. Heart 4-6 systolic ejection murmur. Chest wall and ribs nontender. Abdomen soft nontender. Pelvic girdle intact. Nontender hips. No shortening or rotation. With passive range of motion I can flex extend her knees and hips without pain. Upper extremities are nontender again with passive flexion extension no pain or deformity. Neurologically she will open her eyes. She is not speaking to me. She is not following commands.] Medical Decision Making [tetanus updated. Right scalp clean. Local anesthetized. 4 tomi were placed. Proper hemostasis wound closure obtained. She will be discharged back to extended-care facility.] Other additions or changes: [None] Discharge Plan Triage Chief Complaint: Laceration ED Midlevel Provider: Teodora Gutierrez ED Provider: Indra Bruner Dx/Rx/DC Orders Clinical Impression: Closed head injury, Laceration of scalp Instructions: ED Laceration Scalp Stitches or Tomi Prescriptions: No Action quetiapine 25 MG tablet 25 mg PO DAILY levothyroxine 88 MCG tablet 75 mcg PO DAILY@0600 sennosides-docusate sodium [2-in-1 Laxative] 8.6-50 mg tablet 2 tab-cap PO BID buspirone 10 mg tablet 20 mg PO BID quetiapine [Seroquel] 50 mg tablet 50 mg PO 1300 oxycodone 5 mg capsule 2.5 mg PO TID sertraline 50 mg tablet 50 mg PO DAILY lorazepam [Ativan] 1 mg tablet 1 mg PO Q6H acetaminophen [Tylenol] 325 MG tablet 650 mg PO TID Primary Care Provider: Marianna Mims Referrals: Marianna Mims MD [Primary Care Provider] - Activity Restrictions/Additional Instructions: Remove tomi in 7 to 10 days Disposition Disposition: Home, Self Care
[2023-06-03] MEDS: Diphth,Pertuss(Acell),Tet Vac 0.5 ML Vial IM (19:20)
[2023-06-03 20:48] VITALS: BP 123/64; PULSE 78; RESP 16; TEMP 36.6; O2SAT 95
== END 2023-06-03 21:36 | disposition skilled nursing facility (03) ==
PROVIDERS: Emergency Provider Emergency Medicine; PCP Internal Medicine; Visit Provider Emergency Medicine
DX: S01.01XA Laceration without foreign body of scalp, initial encounter (principal); F03.90 Unspecified dementia, unspecified severity, without behavioral disturbance, psychotic disturbance, mood disturbance, and anxiety; Z79.899 Other long term (current) drug therapy; W19.XXXA Unspecified fall, initial encounter; Z86.73 Personal history of transient ischemic attack (TIA), and cerebral infarction without residual deficits
CPT/HCPCS: 12002; 90715; 99282